=== PATIENT | male | born 1945 | race Caucasian/White ===

== ENCOUNTER 2023-07-06 10:59 | Inpatient (IN) ==
--- NOTE | 2023-07-03 11:25 | PAT Medication Instructions ---
Medication Instructions Date of Service July 03, 2023 Home Medications aspirin 81 mg tablet,delayed release 81 mg PO QAM cilostazol 100 mg tablet 100 mg PO QAM levothyroxine 112 mcg tablet (Levoxyl) 112 mcg PO QAM lisinopril 10 mg tablet 10 mg PO QAM simvastatin 40 mg tablet 40 mg PO QAM clopidogrel 75 mg tablet (Plavix) 75 mg PO QAM ASK your prescriber and surgeon aspirin 81 mg tablet,delayed release 81 mg PO QAM cilostazol 100 mg tablet 100 mg PO QAM clopidogrel 75 mg tablet (Plavix) 75 mg PO QAM DO NOT take the morning of surgery lisinopril 10 mg tablet 10 mg PO QAM Take morning of surgery With a small sip of water, OTHERWISE NOTHING TO EAT OR DRINK AFTER MIDNIGHT: levothyroxine 112 mcg tablet (Levoxyl) 112 mcg PO QAM simvastatin 40 mg tablet 40 mg PO QAM Other Notes If you have any questions please call us at [phone] or [phone] or [phone] or [phone]
--- NOTE | 2023-07-04 11:58 | Anesthesiology Consultation ---
Date of Service July 04, 2023 Assessment & Plan (1) Encounter for pre-operative examination: Chart Review Chart Review: Acceptable Risk for Surgery (pending anesthesia review of unconfirmed EKG and anesthesia evaluation DOS ) and Patient seen in Pre Admission Testing - Preop EKG from 07/05/23 unconfirmed- will need reviewed by anesthesiologist DOS - Discussed case with Dr. Warner- due to nature of procedure- patient can proceed as scheduled Per PAT appt on 07/04/23, no recent Covid exposures, Covid related symptoms, or recent Covid positive tests. Will leave to surgeon's discretion if preop Covid testing needed Patient seen by cardio 06/27/23= Patient seen in cardio clinic due to outpatient ECHO revealing severe aortic stenosis with preserved LV function. Difficult to determine whether he is having progressive shortness of breath or fatigue with activity. Does not do a whole lot of activity. Activity limited due to pain in foot from prior injury. Having symptoms of amaurosis fugax and at least 3 episodes where he is lost part of his vision with black color for 3 to 4 minutes. Outpatient ophthalmology ordered carotid ultrasound which reveals severe common carotid disease with an inability to assess the internal carotid on the right side which is the site of visual changes. Put on cilostazol in the past for PAD but no claudication symptoms. Severe aortic stenosisdiscussed possible interventionusually severe aortic stenosis would require intervention with either symptoms or LV dysfunction or heart failure or decline in functional capacity. Difficult to determine functional capacity as patient has an active. Did discuss that carotid disease seems to be bigger issue at this point. We will continue to observe aortic stenosis and patient will follow-up if noticing changes. Will refer to vascular surgeon GUMARO. Will need carotid CTA and given the fact he has 3 episodes of amaurosis fugaxthis is concerning that carotid disease is significant/unstable. The challenge will be if he needs intervention in the safest way to do that with his severe aortic stenosis and probably significant CAD given his vascular disease. Aorta iliac study ordered. Patient started on aspirin 81 mg. We will follow-up in [address] Aguayo in office today Teaching & Discussion Pre-Anesthesia Teaching/Discussion Notes: Instructed NPO after midnight before surgery,except medications with 15 cc of water. Medication instructions provided according to the PAT guidelines. History Surgery Operation Date: 07/06/23 13:00 Proposed Procedures p Transcarotid Artery Revascularization Right Internal Carotid Artery - González Aguayo MD Height/Weight Height: 5 ft 11 in Weight: 92.9 kg Allergies Allergy/AdvReac Type Severity Reaction Status Date / Time Sulfa (Sulfonamide Allergy swelling/red Verified 06/30/23 08:32 Antibiotics) blotches around genitals Medications Home Medications Medication Instructions Recorded Confirmed Last Taken aspirin 81 mg tablet,delayed 81 mg PO QAM 11/21/22 06/30/23 12/26/22 release cilostazol 100 mg tablet 100 mg PO QAM 11/21/22 06/30/23 01/20/23 levothyroxine 112 mcg tablet 112 mcg PO QAM 11/21/22 06/30/23 01/23/23 06:30 (Levoxyl) lisinopril 10 mg tablet 10 mg PO QAM 11/21/22 06/30/23 01/23/23 06:30 simvastatin 40 mg tablet 40 mg PO QAM 11/21/22 06/30/23 01/23/23 06:30 clopidogrel 75 mg tablet (Plavix) 75 mg PO QAM 06/30/23 06/30/23 Unknown Past Medical History Medical History (Updated 07/05/23 @ 08:57 by Beverly Durant PA-C) Aortic stenosis Severe per 06/22/23 ECHO (preserved LV systolic function) Seen by Dr. Nassar 06/27/23 Carotid artery disease s/p left CEA 2009 per 06/28/23 neck CTA- <50% stenosis to left ICA, 80% stenosis of right ICA Chronic kidney disease, stage 3a monitor by [facility] baseline creat 1.6 Hyperlipidemia Hypertension Hypothyroidism Stroke 1992, [place], [place], residual shaking on right side Transient visual loss of right eye Per records Reason for upcoming carotid procedure Exercise / Class Metabolic Activity III < 4 Walking/Shop/Light housework Past Surgical History Surgical History (Updated 07/03/23 @ 11:27 by Beverly Durant PA-C) History of carotid endarterectomy left side, 2009, Zee Stark [facility] History of left cataract surgery History of right cataract surgery History of surgical removal of skin lesion lumps on back of knee at age 35 Hx of colonoscopy Hx of tonsillectomy Past Anesthesia History No Hx of Anesthesia Complications and No Family Hx of Anesthesia Complications History of PONV No Hx of PONV and No Hx of Motion Sickness Social History Smoking Status: Former smoker tobacco type: cigarettes Do You Dip or Chew Tobacco: No Smoking End Date: quit 2010 Hx Alcohol Use: Yes Alcohol type: hard liquor alcohol intake frequency: 0-2 drinks per day (2 drinks/day ) Hx Substance Use: No substance use type: does not use Review of Systems Patient denies chest pain, shortness of breath, dyspnea on exertion, reflux, cough, wheezing, palpitations. No hx of seizures, IN, apnea/snoring. No hx of blood clots or blood transfusions Physical Exam Vital Signs VITALS BP 150/77 P 78bpm TEMP 97.4 SP02 94% RESP 16 Constitutional no acute distress ENMT Mouth: no TMJ clicking Thyromental Distance: > or= 3.5 Finger Breadths (3.5) Mallampati Class: II Full dentures on top and bottom Neck + limited neck extension Respiratory normal respiratory effort; no respiratory distress Auscultation: lungs clear to auscultation bilaterally; no wheezes Cardiovascular Rate/Rhythm: regular rate and regular rhythm Heart Sounds: + murmur (IV/ murmur ) Vessels: + carotid bruit (bilateral- R>L) Musculoskeletal Spine: + pain with cervical ROM (mild) Extremities: extremities normal to inspection Psychiatric Orientation: alert Lab Results Anesthesia Preop Results Results Anesthesia Widget: WBC 4.75 K/ul (4.8-10.8) L 07/04/23 Hgb 14.2 g/dl (14.0-18.0) 07/04/23 Hct 40.9 % (42.0-52.0) L 07/04/23 Plt 144 K/uL (130-400) 07/04/23 Na 138 mmol/L (136-145) 07/04/23 K 4.1 mmol/L (3.5-5.1) 07/04/23 Cl 105 mmol/L (98-107) 07/04/23 CO2 27 mmol/L (21-32) 07/04/23 BUN 18 mg/dl (6-23) 07/04/23 Creat 1.46 mg/dl (0.6-1.4) H 07/04/23 Glucose Level 160 mg/dl (70-99(Fasting)) H 07/04/23 PT 11.3 Seconds (9.0-12.0) 07/04/23 PTT 28.2 Seconds (21.0-31.0) 07/04/23 INR 1.0 (0.9-1.1) 07/04/23 Urine Color Yellow 06/27/23 Urine Appearance Clear (Clear) 06/27/23 Urine pH 6.5 (4.5-7.5) 06/27/23 Urine Specific [place] 1.016 (1.000-1.030) 06/27/23 Urine Protein 1+ (Negative) H 06/27/23 Urine Glucose (UA) Negative (Negative) 06/27/23 Urine Ketones Negative (Negative) 06/27/23 Urine Blood 1+ (Negative) H 06/27/23 Urine Nitrite Negative (Negative) 06/27/23 Urine Bilirubin Negative (Negative) 06/27/23 Urine Urobilinogen Negative (Negative) 06/27/23 Urine Leukocyte Esterase 1+ (Negative) H 06/27/23 Urine WBC (Auto) 10-30 /hpf (0-5) H 06/27/23 Urine RBC (Auto) 5-10 /hpf (0-4) H 06/27/23 Urine Hyaline Casts (Auto) 0 /lpf (0-5) 06/27/23 Urine Epithelial Cells (Auto) >30 /lpf (0-5) H 06/27/23 Urine Bacteria (Auto) Negative (Negative) 06/27/23 Blood Type O Positive 07/04/23 Antibody Screen NEGATIVE 07/04/23 Testing Electrocardiogram Date: 07/04/23 Findings: + NSR @ (78bpm) unconfirmed Chest X-Ray Date: 07/04/23 FINDINGS: PA and lateral chest radiographs are obtained. No prior studies are available for comparison at the time of dictation. The heart is enlarged noting atherosclerotic calcification of the thoracic aorta. The pulmonary vasculature is noncongested. Emphysematous changes noted. There is bibasilar scarring/atelectasis. Additional foci of parenchymal scarring are seen throughout both lungs. No airspace consolidation or pleural effusion is identified. There is no pneumothorax. The skeletal structures are osteopenic. The bony thorax appears intact. Degenerative change is noted in the shoulders and spine. IMPRESSION: Cardiomegaly and emphysema with no active disease in the chest. Echocardiogram Date: 06/22/23 EF: >75% RWMA: + none Other Findings: + diastolic dysfunction (Grade 1 DD) Normal LV size. Hyperdynamic left ventricular systolic function Mild (posterior wall1.2 cm) moderate (septum1.5 cm) concentric LVH. No evidence of LVOT obstruction with and without provocative maneuvers. Normal RV size and function. Normal biatrial size Heavily calcified aortic valve with severe aortic stenosis (AV mean PG 43 mmHg; AV peak velocity 4.28 m/s; GALA 0.5-0.6cm2; GALA index 0.23 cm/m) Mild MR. Normal estimated PASPPASP 24 mmHg Other Testing Neck CTA 06/28/23= Severe atherosclerosis with areas of high-grade stenosis within the right common and internal carotid artery. There is approximately 70% stenosis of the right common carotid arterysecondary to irregular focal narrowing with atherosclerotic plaque versus carotid web or less likely a chronic dissection. 80% stenosis of the proximal cervical segment of right ICA. There is less than 50% stenosis of the left common and internal carotid arteries. High-grade stenosis at the origin of the vertebral arteries. Pulmonary emphysema. Holter monitor 06/28/2023 = basic rhythm was NSR with sinus arrhythmia. Very rare PVCs. Occasional PACs. Rare atrial pairs and short runs of PAT. No pauses greater than 3 seconds or evidence of AV block.
--- NOTE | 2023-07-05 16:39 | History & Physical Report ---
Date of Service July 05, 2023 History of Present Illness Primary Care Provider: Luna Argueta MD Reason for Consultation Right internal carotid artery stenosis with amaurosis fugax History of Present Illness I had the pleasure of seeing Sukhjinder today for evaluation of his carotid disease. As you know he is a 78-year-old gentleman with severe aortic stenosis. He has had a left carotid endarterectomy many years ago. At this point he is developed what he describes as a blackness that occurs intermittently in the right eye. It is happened at least twice in the past the last being a couple weeks prior to this. He describes it as a shade coming over his eye which last 2 to 3 minutes and then totally resolves. He denies any other focal neurological deficits at that time. He denies any upper or lower extremity claudication. Review of Systems 10 systems were reviewed. There were no positive findings other than the HPI. Physical Exam Vitals & Measurements HR: 85 (Monitored) BP: 136/70 SpO2: 96% Input and Output - Last 24 hours (Last 8 hours) No I/O Data Found: On exam he is awake alert and oriented x3. He is in no apparent distress. His blood pressure is 160/68 on the left and 136/70 on the right. Radials and carotids are +2 bilaterally. There is a easily heard right carotid bruit. Abdominal exam is benign. I cannot appreciate a pulsatile mass. His heart had a regular rate and rhythm. His lungs are clear to auscultation. Lower extremity exam shows no evidence of acute ischemic changes. There are no ulcerations. Capillary refill is normal both lower extremities. Femorals are +2 bilaterally and pedal's are +1 bilaterally. Neurologic exam is intact to motor and sensory function. Diagnostic Results CT angiogram shows a severe stenosis of the common carotid artery just before the bifurcation and elevated significant stenosis right at the right common carotid bifurcation extending to the external carotid artery origin. Assessment/Plan 1. Carotid artery bruit 2. Carotid stenosis At this point carotid intervention was recommended. We went over both the endarterectomy and TCAR procedures. Due to his aortic stenosis we favor the TCAR procedure on the cervical block versus endarterectomy. He understands the risks options and benefits and agreed with this procedure. We will start him on Plavix and have him have a platelet function test to make sure he is a responder to the Plavix prior to surgery. Keep you informed as to his results. Thank you very much for letting us participate in the care of this patient. Sincerely, Mana Aguayo MD Problem List/Past Medical History Ongoing Aortic stenosis Carotid artery bruit Carotid stenosis History of CVA (cerebrovascular accident) Hyperlipidemia Hypertension Hypothyroidism Tremor of right hand Medications Home aspirin(aspirin 81 mg oral capsule), 81 mg= 1 cap, PO, q24h, 11 refills cilostazol(cilostazol 100 mg oral tablet), 100 mg= 1 tab, PO, Daily, 5 refills clopidogrel(Plavix 75 mg oral tablet), 75 mg= 1 tab, PO, Daily, 11 refills levothyroxine(levothyroxine 112 mcg (0.112 mg) oral tablet), 112 mcg= 1 tab, PO, Daily, 5 refills lisinopril(lisinopril 10 mg oral tablet), 10 mg= 1 tab, PO, Daily, 5 refills simvastatin(simvastatin 40 mg oral tablet), 40 mg= 1 tab, PO, Daily Allergies sulfa drugs hives Social History Smoking Status Former Smoker, quit > 1 yr Tobacco - Denies Tobacco Use Use:Former smoker Stopped at age:65Years Family History Dementia: Mother. Heart disease: Father. Heart failure: Father. Heart murmur: Father. Osteoporosis: Mother. Health Status Family Member(s) Signature Line Electronic Signature on File González Aguayo MD Author Signature Dt/Tm: 06/29/2023 10:33 AM Color Print Inspector [facility] [place], [address] [place], [place] [address] Result Type: .Outpt Ltr Date of Service: June 29, 2023 10:29 EDT Authorization Status: Final Subject: Consult Note Author or Import Date: MD Aguayo Eugene J on June 29, 2023 10:33 EDT Verified By: MD Aguayo Eugene J on June 29, 2023 10:33 EDT Encounter info: [id number], [facility], Clinic, 06/29/2023 - 06/29/2023 Allergies Allergy/AdvReac Type Severity Reaction Status Date / Time Sulfa (Sulfonamide Allergy swelling/red Verified 06/30/23 08:32 Antibiotics) blotches around genitals Home Medications Medication Instructions Recorded Confirmed Type aspirin 81 mg tablet,delayed 81 mg PO QAM 11/21/22 06/30/23 History release cilostazol 100 mg tablet 100 mg PO QAM 11/21/22 06/30/23 History levothyroxine 112 mcg tablet 112 mcg PO QAM 11/21/22 06/30/23 History (Levoxyl) lisinopril 10 mg tablet 10 mg PO QAM 11/21/22 06/30/23 History simvastatin 40 mg tablet 40 mg PO QAM 11/21/22 06/30/23 History clopidogrel 75 mg tablet (Plavix) 75 mg PO QAM 06/30/23 06/30/23 History Past Med/Surg History Medical History (Updated 07/05/23 @ 08:57 by Beverly Durant PA-C) Aortic stenosis Severe per 06/22/23 ECHO (preserved LV systolic function) Seen by Dr. Nassar 06/27/23 Carotid artery disease s/p left CEA 2009 per 06/28/23 neck CTA- <50% stenosis to left ICA, 80% stenosis of right ICA Chronic kidney disease, stage 3a monitor by [place] [facility] baseline creat 1.6 Hyperlipidemia Hypertension Hypothyroidism Stroke 1992, [place], [place], residual shaking on right side Transient visual loss of right eye Per records Reason for upcoming carotid procedure Surgical History (Updated 07/03/23 @ 11:27 by Beverly Durant PA-C) History of carotid endarterectomy left side, 2009, Zee Stark PA History of left cataract surgery History of right cataract surgery History of surgical removal of skin lesion lumps on back of knee at age 35 Hx of colonoscopy Hx of tonsillectomy Social History Smoking Status: Former smoker Smoking End Date: quit 2010; Second Hand Exposure: No; Do You Dip or Chew Tobacco: No; Tobacco Cessation Education Requested by Patient: No Hx Alcohol Use: Yes Alcohol type: hard liquor Hx Substance Use: No Preferred Language: Malawian Communication Ability: Effective Visual Developer Required: No Beliefs That Will Affect Care: None Current Living Situation: Spouse Other Information That Helps Us Care for You: No Feels Safe at Home: Yes Safety Concerns: Feels Safe At This Time Assistive Devices: None
[~2023-07-06 10:59] MED LIST: CEFAZOLIN 2,000 MG/15 ML SYR IV SCH; LACTATED RINGER'S 1,000 ML BAG IV SCH
--- NOTE | 2023-07-06 12:02 | History & Physical Bridge Note ---
Date of Service July 06, 2023 History & Physical Bridge Note I have examined the patient, reviewed the History & Physical and in the interval since the performance of the History & Physical I have noted the following changes of clinical significance: no changes noted
[2023-07-06] MEDS ORDERED: PHENYLEPHRINE HCL 25 MG/250 ML NSS IV ONE (12:07)
[2023-07-06] MEDS ORDERED: ePHEDrine sulfate 50 MG/ML AMP IV PRN (12:10)
[2023-07-06] MEDS ORDERED: ATROPINE SULFATE 0.1 MG/ML 10ML SYR IV PRN (12:10)
[2023-07-06] MEDS ORDERED: HYDROmorphone INJ 1 MG/ML SYRINGE IV PRN (12:10)
[2023-07-06] MEDS ORDERED: PHENYLEPHRINE/NSS 25 MG/250 ML BAG IV PRN (12:10)
[2023-07-06] MEDS ORDERED: ONDANSETRON INJ 2 MG/ML 2 ML VIAL IV PRN ×2 (12:10→17:36)
[2023-07-06] MEDS ORDERED: fentaNYL citrate PF 100 MCG/2 ML VIAL IV PRN (12:10)
[2023-07-06] MEDS ORDERED: ceFAZolin 330 MG/ML 1 GM VIAL ONE (12:17)
[2023-07-06] MEDS ORDERED: GELATIN SPONGE SZ 100 ONE (12:17)
[2023-07-06] MEDS ORDERED: BUPIVACAINE/EPINEPHRINE 0.5% MPF 1:200,000 30 ML VIAL ONE (12:17)
[2023-07-06] MEDS ORDERED: fentaNYL citrate PF 100 MCG/2 ML VIAL ONE ×2 (12:33→15:21)
[2023-07-06] MEDS ORDERED: SURGICEL ABSORB HEMOSTAT 2IN X 14IN TOP ONE (14:29)
[2023-07-06] MEDS ORDERED: VISIPAQUE IV ONE (14:30)
[2023-07-06] MEDS: THROMBIN FOR SOLN 20000 UNIT KIT ONE ×2 (15:19→15:31)
[2023-07-06] MEDS ORDERED: PROPOFOL IV EMULSION 10 MG/ML 20 ML VIAL IV ONE (15:20)
[2023-07-06] MEDS ORDERED: LIDOCAINE 2% 2 ML VIAL/AMP(20MG/ML) INFIL ONE (15:20)
[2023-07-06] MEDS ORDERED: ROCURONIUM BROMIDE 10 MG/ML 5 ML VIAL IV ONE ×5 (15:20)
[2023-07-06] MEDS ORDERED: GLYCOPYRROLATE 0.2 MG/ML VIAL ONE (15:21)
[2023-07-06] MEDS ORDERED: HEPARIN SOD (PORCINE) 1000 UNIT/ML ONE (15:21)
[2023-07-06] MEDS ORDERED: DEXAMETHASONE SOD INJ 4 MG/ML VIAL ONE (15:21)
[2023-07-06] MEDS ORDERED: PROTAMINE SULFATE 10 MG/ML 5 ML VIAL IV ONE (15:21)
[2023-07-06] MEDS ORDERED: ONDANSETRON INJ 2 MG/ML 2 ML VIAL ONE ×2 (15:21)
[2023-07-06] MEDS ORDERED: VASOPRESSIN 20 UNIT/ML VIAL ONE (15:21)
[2023-07-06] MEDS ORDERED: SUGAMMADEX SODIUM 200 MG/2 ML VIAL IV ONE (15:30)
--- NOTE | 2023-07-06 15:43 | Post Operative Brief Note ---
Immediate Post Op Note v1 Date of Surgery July 06, 2023 Pre & Post Diagnosis Operation Date: 07/06/23 13:00 Pre-Op Diagnosis: Symptomatic right internal carotid artery stenosis Post-Op Diagnosis: Symptomatic right internal carotid artery stenosis I identified the patient and participated in the time-out.: Yes Procedure Operation Date: 07/06/23 13:00 Actual Procedures p Transcarotid Artery Revascularization Right Internal Carotid Artery(Right), ultrasound right common femoral vein - González Aguayo MD Surgeon González Aguayo MD Mechanical Service Specialist Lynda Blake MD Estimated Blood Loss 50 Findings Consistent with Post-Op Diagnosis Anesthesia Type General Complications none Disposition Accompanied Patient To Recovery: No Disposition: Recovery Room
--- NOTE | 2023-07-06 16:09 | Procedure Note ---
Angiogram Post Procedure Fluoroscopy Time (minutes): 5.4 Radiation (mGy): 48 Contrast: 10 Post Operative Report Pre & Post Diagnosis Operation Date: 07/06/23 13:00 Pre-Op Diagnosis: Symptomatic right internal carotid artery stenosis Post-Op Diagnosis: Symptomatic right internal carotid artery stenosis I identified the patient and participated in the time-out.: Yes Procedure Operation Date: 07/06/23 13:00 Actual Procedures p Transcarotid Artery Revascularization Right Internal Carotid Artery(Right) - González Aguayo MD Surgeon González Aguayo MD Dairy Equipment Repairer Lynda Blake MD Estimated Blood Loss 50 Findings See Below Patent common carotid and ICA artery follow stent placement without signs of dissection or thrombosis. Specimens none Drains none Anesthesia Type General Complications none Disposition Accompanied Patient To Recovery: Yes Disposition: Surgical ICU Indications symptomatic Right carotid stenosis Description of Procedure Patient was brought to the operating room and placed on the operating table in supine position. General anesthesia induced and an ET tube placed. An a- line had previously been placed in the preoperative area. A surgical time out was performed to identify patient, procedure site, indications, and allergies. The patient's head was the turned to the left and the ET tube was secured to the left. The patient's right neck and bilateral groins were prepped and draped in a sterile manner. The patient had a 7 cm transverse incision just above the right clavicle using a 10 blade. Using sharp and blunt dissection as well as Bovie electrocautery the subcutaneous tissue and the platysma muscle was incised transversely. The two heads of the SCM were vertically and the common carotid artery was identified. This was deep in the wound bed. The vagus nerve was also identified posterior to the artery. An umbilical tape was placed under the common carotid. A 5-0 Prolene stitch in a u fashion was placed in the common carotid artery. This was secured in place on a shod. At this time 9000U of heparin was given to the patient. After 2-3 minutes an ACT was obtained which was 251. Under ultrasound guidance the right common femoral vein was accessed with an 18 gauge needle and a Tao wire was inserted. Then the needle was exchanged for an 8 central african sheath and the sheath was secured to the skin with a silk suture. A TCAR time out was performed. The micropuncture system was used to access the common carotid, the dilator and wire were removed and a cerebral angiogram was performed. The microwire and dilator were removed and exchanged for the stiff J wire. The TCAR sheath was exchanged for the micropuncture sheath. The TCAR sheath was secured to the skin using multiple silk sutures. After the J wire and dilator were removed. The flow reversal system was connected between the arterial sheath in right common carotid and the right common femoral vein. The right common carotid artery was clamped the umbilical tape and a Remmele. Reversal of flow was confirmed using saline flushes following clamping of the common carotid. Another cerebral angiogram was performed. Using the monorail system a 5x30 balloon was placed across the common into internal bifurcation and was used to predilate the lesion. The balloon was taken to nominal pressure. Then the balloon was exchanged for a 7x40 stent which was deployed across the right internal carotid into the right common carotid. A 8x40 stent was then deployed over lapping with the 7x40 further into the common carotid. There was residual stenosis of the stent therefore a 5.5x25 balloon was used to postdilate the proximal portion of the stent which improved the stenosis. After waiting 2 minutes of reversal of blood flow following stent manipulation cerebral angiogram were performed in 2 projections with demonstrated patent stent and no signs of dissection or thrombosis. The wire access was removed. The common carotid artery was unclamped. The flow reversal system was disconnected and the blood was returned to the patient. The U stitch was tied as the sheath was removed from the common carotid artery. Hemostasis of the access site was obtained using Surgicel. The patient was given 25mg of protamine at this time. After 2-3 minutes an ACT was obtained which was 138.. The venous sheath was removed and pressure was held to obtain hemostasis. In the neck various muscle and subcutaneous oozing was controlled using Bovie electrocautery. The subcutaneous tissue was closed using a 3-0 Vicryl and the skin was closed using a 4-0 Vicryl. The patient was awoken from general anesthesia was was able to move all limbs. The patient was taken to the PACU for recovery. All needle and sponge counts were correct at the end of the procedure. Dr. Aguayo was present and scrubbed for the entire procedure. I attest to the content of the Intraoperative Record and any orders documented therein. Any exceptions are noted below.
[2023-07-06] MEDS ORDERED: oxyCODONE/ACETAMINOPHEN 5mg/325mg TAB PO PRN (17:36)
[2023-07-06] MEDS ORDERED: PHENYLEPHRINE/NSS 25 MG/250 ML BAG IV SCH (17:36)
[2023-07-06] MEDS ORDERED: STAT IV Infusion **Titration per Protocol STA ×2 (17:36→19:33)
--- NOTE | 2023-07-06 17:47 | Anesthesiology Progress Note ---
Date of Service July 06, 2023 Anesthesia Post Procedure Vital Signs Vital Signs: Temp Pulse Pulse Resp BP BP BP 07/06/23 17:05 91 H 17 115/56 L 07/06/23 16:55 92 H 18 90/46 L 07/06/23 16:45 90 18 98/59 L 07/06/23 16:35 36.1 C L 92 H 18 109/51 L 07/06/23 16:25 93 H 17 108/49 L 07/06/23 16:15 93 H 17 108/48 L 07/06/23 16:05 36.0 C L 93 H 19 113/61 07/06/23 11:19 36.3 C L 69 20 165/88 H Pulse Ox O2 Del Method O2 Flow Rate 07/06/23 17:05 94 Nasal Cannula 2 07/06/23 16:55 94 Nasal Cannula 2 07/06/23 16:45 94 Nasal Cannula 2 07/06/23 16:35 94 Nasal Cannula 2 07/06/23 16:25 94 Nasal Cannula 2 07/06/23 16:15 94 Oxymask 5 07/06/23 16:05 94 Oxymask 5 07/06/23 11:19 97 Room Air Transfer of Care Handoff Completed per policy Notes Mental Status: alert / awake / arousable and participated in evaluation Patient Amnestic to Procedure: Yes Nausea / Vomiting: adequately controlled Pain: adequately controlled Airway Patency, RR, SpO2: stable & adequate BP & HR: stable & adequate and see Notes below Hydration State: stable & adequate Anesthetic Complications: no major complications apparent and Pt Satisfied with anesthetic care Notes: Patient had phenylephrine ggt restarted to maintain normal postoperative BP in setting of TCAR procedure. He was transferred to ICU as per protocol and will remain at least overnight.
[2023-07-06] MEDS: LACTATED RINGER'S 1,000 ML IV SCH (18:26)
[2023-07-06] MEDS ORDERED: niCARdipine 25 MG in SODIUM CHLORIDE 0.9% 240 ML IV SCH (19:45)
--- NOTE | 2023-07-06 20:47 | Critical Care Consultation ---
Date of Consultation July 06, 2023 Assessment & Plan (1) Carotid artery stenosis: (2) Aortic stenosis: (3) Hypertension: (4) Hyperlipidemia: (5) Chronic kidney disease, stage 3a: (6) Hypothyroidism: Plan Reason Critically Ill: 78 YOM admitted to undergo RIGHT TCAR secondary to sympotmatic TEODORO stenosis. He is POD #0 and in the ICU currently without hemodynamic support or respiratory support needed at this time. Neuro - FUGAX, S/P TCAR RIGHT, HX of CVA CAM ICU: NEGATIVE - s/p RIGHT TCAR- no hematoma at either carotid or femoral sites - ASA/Plavix per vascular - no deficits at this time and no issues with voice or swallowing - continue with nuerological exams Cardiac - Aortic Stenosis, HTN, HLD, HFpEF - Restart MARTA/ARB when hemodynamics proven stable, follow renal indices - His Aortic Stenosis on most recent ECHO with mean gradient of 43 and index of 0.23- following [facility] Cardiology Dr. Nassar - Neurovascular exams postoperative - Continue statin Respiratory - Previous smoker 1-2 PPD for 50 years - Wean oxygen - No inhalers at home and no previous PFTs for review - No acute needs GI - No acute needs - Advance diet as tolerated RENAL/LYTES - CKD III - LOGISTICS INTERN levels available for review in our system is with LOGISTICS INTERN 1.5 and 1.4- both drawn 06/28 - Follow daily BMPs - maintain electrolytes per ICU protocol - No acute needs - voiding well after surgery ENDO - Hypothyroidism - no acute needs - continue synthroid HEME - No acute needs ID - No concern for infective process LINES/IV ACCESS - PIV, Arterial line Continue use of these lines DVT PROPHYLAXIS - SCDS, hold chemoprophylaxis until hemostasis is ensured by primary surgical service DISPO: ICU while monitoring hemodynamics and neurological status postoperative I have personally spent 45 minutes of critical care time in the direct management of this patient. This is a life/limb threatening event. This includes time spent evaluating patient, direct bedside care, chart review, placing orders, interpretation of diagnostic studies, discussion with consultants, patient, and family members, as well as other required patient management activities. This time is exclusive of all separately billable procedures, and separate from and in addition to any other critical care service time. Thank you for allowing us to participate in the care of this patient. Please refer to my attending physician's documentation for any further recommendations. Supervising Physician Co-Signing Physician Notes I saw and evaluated the patient with HUNTER Sherman, and I agree with his findings and plan as documented in the note. ASSESSMENT/PLAN: 1. S/P Right TCAR -Symptomatic carotid artery stenosis -ASA/Plavix -High Intensity Statin 2. Aortic STenosis per ECHO -continue home meds 3. CKD-Stage III -follow electrolytes -avoid nephrotoxic agents 4. Hypothyroid -continue Synthroid I have spent more than 50% of this encounter in counseling and/or coordination of care with patient. History of Present Illness Reason for Consultation: S/P RIGHT TCAR Requesting Physician: González Aguayo MD Attending Physician: González Aguayo MD History of Present Illness 78 YOM POD#0 from RIGHT TCAR secondary to symptomatic TEODORO stenosis. Patient has medical history of: Severe Aortic Stenosis, CVA (age 48), Left CEA 2014, Fugax of right eye, CKD, Hypothyroidism, previous smoker, LVH, HFpEF. Patient was referred to vascular surgery secondary to screening for his fugax revealed severe TEODORO stenosis. He underwent TCAR today by Dr. Aguayo. He is in the ICU postoperative awake, no hematoma at neck or groin, he is not on any vasoactive medications at this time. EBS from surgery was estimated at 50ml. Continue ICU postoperative care with following of hemodyamics, neurological exams, and vascular checks. CODE: FULL Allergies Allergy/AdvReac Type Severity Reaction Status Date / Time Sulfa (Sulfonamide Allergy swelling/red Verified 07/06/23 11:30 Antibiotics) blotches around genitals Home Medications Medication Instructions Recorded Confirmed Type aspirin 81 mg tablet,delayed 81 mg PO QAM 11/21/22 07/06/23 History release cilostazol 100 mg tablet 100 mg PO QAM 11/21/22 07/06/23 History levothyroxine 112 mcg tablet 112 mcg PO QAM 11/21/22 07/06/23 History (Levoxyl) lisinopril 10 mg tablet 10 mg PO QAM 11/21/22 07/06/23 History simvastatin 40 mg tablet 40 mg PO QAM 11/21/22 07/06/23 History clopidogrel 75 mg tablet (Plavix) 75 mg PO QAM 06/30/23 07/06/23 History oxycodone-acetaminophen 5 mg-325 1 tab PO Q6 PRN Pain #20 tabs 09/01/23 Rx mg tablet (Percocet) Patient History Medical History (Updated 07/07/23 @ 09:03 by González Aguayo MD) Aortic stenosis Severe per 06/22/23 ECHO (preserved LV systolic function) Seen by Dr. Nassar 06/27/23 Carotid artery disease s/p left CEA 2009 per 06/28/23 neck CTA- <50% stenosis to left ICA, 80% stenosis of right ICA Chronic kidney disease, stage 3a monitor by [place] neph[facility] baseline creat 1.6 Hyperlipidemia Hypertension Hypothyroidism Stroke 1992, [place], [place], residual shaking on right side Transient visual loss of right eye Per records Reason for upcoming carotid procedure Surgical History History of carotid endarterectomy left side, 2009, Zee Stark [facility] History of left cataract surgery History of right cataract surgery History of surgical removal of skin lesion lumps on back of knee at age 35 Hx of colonoscopy Hx of tonsillectomy Family History (Updated 07/06/23 @ 20:46 by HUNTER Crane) Other Dementia Heart disease Hypertension Myocardial infarction Osteoporosis Social History Smoking Status: Former smoker Smoking End Date: quit 2010; Second Hand Exposure: No; Do You Dip or Chew Tobacco: No; Tobacco Cessation Education Requested by Patient: No Hx Alcohol Use: Yes Alcohol type: hard liquor Hx Substance Use: No Preferred Language: [place] Islander Communication Ability: Effective Opto Mechanical Technician Required: No Beliefs That Will Affect Care: None Current Living Situation: Spouse Other Information That Helps Us Care for You: No Feels Safe at Home: Yes Safety Concerns: Feels Safe At This Time Assistive Devices: None Review of Systems Review of Systems: REVIEW OF SYSTEMS: Constitutional: No fever, sweats or chills Eyes:(+) fugax ENT: (+) difficulty hearing, Scratchy throat, no trouble swallowing Respiratory: (+) dyspnea with exertion, chronic smoker, No cough, sputum, Cardiovascular: No chest pain, tightness or palpitations Abdomen: No pain, nausea, vomiting, diarrhea or constipation Musculoskeletal: No joint pain Neurologic: No weakness, numbness/tingling, or balance problems Psychiatric: No anxiety or depression Skin: No rash or itch Physical Exam Physical Exam: PHYSICAL EXAM: General: awake, alert, no apparent distress Head: Normocephalic, atraumatic ENT: PERRL, EOMI, no pharyngeal exudate, mucous membranes moist Neuro: AAO x 3, speech clear and appropriate, strength intact bilaterally 5/5, sensation intact and equal all extremities and dermatomes, no pronator drift Chest: equal rise and fall of the chest, no accessory muscle use, no heaves or thrills, Clear to auscultation, on room air, Cardiac: Regular rate and rhythm, telemetry reviewed, skin warm dry, cap refill <3 seconds, peripheral pulses +2 no JVD, Grade III systolic murmur, no edema, no hematoma at right groin with good pulse, GI: NABS x 4 quadrants, soft, nontender to palpation, no rebound, guarding or tenderness : Spontaneously voiding, no pain, no CVA tenderness, Extremities: Normal inspection, no peripheral edema or erythema, calfs nontender to palpation Psych: Normal mood and affect Skin: incision to right neck intact without hematoma or drainage, no rash or erythema Results & Data Results & Data Vital Signs (Past 12 Hours) Vital Signs Temp Pulse Pulse Pulse Resp BP BP 07/06/23 20:15 95 H 13 07/06/23 20:00 81 13 07/06/23 19:45 87 16 07/06/23 19:36 36.7 C 07/06/23 18:00 07/06/23 19:40 87 18 07/06/23 19:30 95 H 11 L 07/06/23 19:20 94 H 13 07/06/23 19:10 86 0 L 07/06/23 19:00 81 0 L 07/06/23 19:00 162/80 H 07/06/23 18:50 77 12 07/06/23 18:40 76 13 07/06/23 18:30 71 10 L 07/06/23 18:20 74 8 L 07/06/23 18:10 80 12 07/06/23 18:00 86 20 07/06/23 18:00 122/73 07/06/23 17:50 79 6 L 07/06/23 17:40 84 20 07/06/23 17:39 85 18 07/06/23 17:05 91 H 17 07/06/23 16:55 92 H 18 07/06/23 16:45 90 18 07/06/23 16:35 36.1 C L 92 H 18 07/06/23 16:25 93 H 17 07/06/23 16:15 93 H 17 07/06/23 16:05 36.0 C L 93 H 19 113/61 07/06/23 11:19 36.3 C L 69 20 BP BP Pulse Ox O2 Del Method O2 Flow Rate 07/06/23 20:15 97 07/06/23 20:00 07/06/23 19:45 95 07/06/23 19:36 07/06/23 18:00 Nasal Cannula 2 07/06/23 19:40 94 07/06/23 19:30 95 07/06/23 19:20 95 07/06/23 19:10 96 07/06/23 19:00 96 07/06/23 19:00 07/06/23 18:50 97 07/06/23 18:40 97 07/06/23 18:30 97 07/06/23 18:20 07/06/23 18:10 95 07/06/23 18:00 94 07/06/23 18:00 07/06/23 17:50 95 07/06/23 17:40 95 07/06/23 17:39 95 07/06/23 17:05 115/56 L 94 Nasal Cannula 2 07/06/23 16:55 90/46 L 94 Nasal Cannula 2 07/06/23 16:45 98/59 L 94 Nasal Cannula 2 07/06/23 16:35 109/51 L 94 Nasal Cannula 2 07/06/23 16:25 108/49 L 94 Nasal Cannula 2 07/06/23 16:15 108/48 L 94 Oxymask 5 07/06/23 16:05 94 Oxymask 5 07/06/23 11:19 165/88 H 97 Room Air Laboratory Results Abnormal lab results 07/06/23 Range/Units 14:44 Activ Coag Time Kaolin 251 H (94-140) SECONDS Medications Administered Home Medications aspirin 81 mg tablet,delayed release 81 mg PO [facility] 11/21/22 [History Confirmed 07/06/23] cilostazol 100 mg tablet 100 mg PO [facility] 11/21/22 [History Confirmed 07/06/23] levothyroxine 112 mcg tablet (Levoxyl) 112 mcg PO [facility] 11/21/22 [History Confirmed 07/06/23] lisinopril 10 mg tablet 10 mg PO [facility] 11/21/22 [History Confirmed 07/06/23] simvastatin 40 mg tablet 40 mg PO [facility] 11/21/22 [History Confirmed 07/06/23] clopidogrel 75 mg tablet (Plavix) 75 mg PO QAM 06/30/23 [History Confirmed 07/06/23] Active Medications Aspirin (Aspirin 81 Mg Ectab) 81 mg PO [facility] Stop: 08/06/23 08:59 Cilostazol (Cilostazol 100 Mg Tab) 100 mg PO [facility] Stop: 08/06/23 08:59 Clopidogrel Bisulfate (Clopidogrel Bisulfate 75 Mg Tab) 75 mg PO [facility] Stop: 08/06/23 08:59 Cefazolin Sodium (Ancef 2000mg) 2,000 mg in 15 mls @ 3.75 mls/min IV Q8H [facility]; Protocol Stop: 07/07/23 08:03 Lactated Ringer's (Lr) 1,000 mls @ 100 mls/hr IV .Q10H [facility] Stop: 08/05/23 17:35 Last Admin: 07/06/23 18:26 Dose: 100 mls/hr Phenylephrine HCl (Phenylephrine/Nss) 25 mg in 250 mls @ 27.48 mls/hr IV .Q9H6M [facility]; Protocol Stop: 08/05/23 17:35 Last Titration: 07/06/23 19:15 Dose: 0 mcg/kg/min, 0 mls/hr Nicardipine HCl 25 mg/ Sodium (Chloride) 250 mls @ 50 mls/hr IV .Q5H [facility]; Protocol Stop: 08/05/23 19:44 Last Admin: 07/06/23 20:06 Dose: 5 mg/hr, 50 mls/hr Levothyroxine Sodium (Levothyroxine Sodium 112 Mcg Tablet) [facility] Stop: 08/06/23 06:29 Lisinopril (Lisinopril 10 Mg Tab) 10 mg PO [facility] Stop: 08/06/23 08:59 Ondansetron HCl (Ondansetron Inj 2 Mg/Ml 2 Ml Vial) 4 mg IV ONE PRN PRN Reason: Nausea And Vomiting Stop: 08/05/23 17:35 Oxycodone/Acetaminophen (Oxycodone/Acetaminophen 5mg/325mg Tab) 1 - 2 tab PO Q4H PRN PRN Reason: Pain (Scale 3,4,5,6) Stop: 07/20/23 17:35 Simvastatin (Simvastatin 40 Mg Tab) 40 mg PO QAM [facility] Stop: 08/06/23 08:59 Coding Level of Care Code 51890 CRITICAL CARE 1ST 30-74M Diagnoses Carotid artery stenosis I65.29 Aortic stenosis I35.0 Hypertension I10 Hyperlipidemia E78.5 Chronic kidney disease, stage 3a N18.31 Hypothyroidism E03.9
[2023-07-06] MEDS: ceFAZolin 2000MG 2,000 MG/15 ML SYR IV SCH (23:42)
[2023-07-07] MEDS: LACTATED RINGER'S 1,000 ML IV SCH (02:59)
[2023-07-07] MEDS ORDERED: LEVOTHYROXINE SODIUM 112 MCG TABLET PO SCH (06:30)
[2023-07-07] MEDS: ceFAZolin 2000MG 2,000 MG/15 ML SYR IV SCH (07:33)
[2023-07-07] MEDS ORDERED: CLOPIDOGREL BISULFATE 75 MG TAB PO SCH (09:00)
[2023-07-07] MEDS ORDERED: SIMVASTATIN 40 MG TAB PO SCH (09:00)
[2023-07-07] MEDS ORDERED: ASPIRIN 81 MG ECTAB PO SCH (09:00)
[2023-07-07] MEDS ORDERED: cilostazoL 100 MG TAB PO SCH (09:00)
[2023-07-07] MEDS ORDERED: lisinopril 10 MG TAB PO SCH (09:00)
--- NOTE | 2023-07-07 09:04 | Surgery Progress Note ---
Date of Service July 07, 2023 Assessment & Plan (1) Internal carotid artery stent present: Plan: Patient doing well post TCAR. No focal deficits. Does have moderate neck swelling. Will transfer to floor and check later today. If his swallowing discomfort improves may be able to be d/c later today. Admission and Anticipated Discharge Date Admission Date: July 06, 2023 Subjective Patient awake and eating upright in bed. Denies any focal deficits. Does have some discomfort with swallowing but not choking on food. Physical Exam Constitutional: WD/WN, vitals as above Neck: trachea midline Respiratory: normal respiratory effort; no respiratory distress Cardiovascular: Rate/Rhythm: regular rate and regular rhythm Musculoskeletal: no cyanosis or clubbing, extremities motor strength 5/5 Skin: + incision (moderate swelling across ant neck from incision) Neurologic: CN's II-XI intact bilaterally and moves all extremities Psychiatric: Orientation: alert and oriented x 3 Results & Data Vital Signs (Past 12 Hours) Vital Signs Temp Pulse Resp BP Pulse Ox O2 Del Method O2 Flow Rate 07/07/23 08:00 Nasal Cannula 2 07/07/23 08:00 36.7 C 07/07/23 08:00 Nasal Cannula 07/07/23 00:50 90 10 L 94 07/07/23 00:40 75 13 95 07/07/23 00:30 73 12 07/07/23 00:20 47 L 10 L 93 07/07/23 00:10 40 L 7 L 95 07/07/23 00:00 78 2 L 07/06/23 23:50 93 H 17 95 07/06/23 23:40 100 H 13 07/06/23 23:30 86 12 96 07/06/23 23:20 87 14 96 07/06/23 23:10 87 16 96 07/06/23 23:00 92 H 12 07/06/23 23:00 126/66 07/06/23 22:50 88 15 96 07/06/23 22:40 89 11 L 96 07/06/23 22:30 88 12 07/06/23 22:20 88 12 96 07/06/23 22:10 90 12 07/06/23 22:00 90 8 L 92 07/06/23 22:00 129/64 07/06/23 21:50 92 H 13 95 07/06/23 21:40 88 12 07/06/23 21:30 90 11 L 95 07/06/23 21:20 88 11 L 95 07/06/23 21:10 88 14 95 07/07/23 00:00 45 L FiO2 07/07/23 08:00 07/07/23 08:00 07/07/23 08:00 2 07/07/23 00:50 07/07/23 00:40 07/07/23 00:30 07/07/23 00:20 07/07/23 00:10 07/07/23 00:00 07/06/23 23:50 07/06/23 23:40 07/06/23 23:30 07/06/23 23:20 07/06/23 23:10 07/06/23 23:00 07/06/23 23:00 07/06/23 22:50 07/06/23 22:40 07/06/23 22:30 07/06/23 22:20 07/06/23 22:10 07/06/23 22:00 07/06/23 22:00 07/06/23 21:50 07/06/23 21:40 07/06/23 21:30 07/06/23 21:20 07/06/23 21:10 07/07/23 00:00
--- NOTE | 2023-07-07 15:15 | Critical Care Progress Note ---
Date of Service July 07, 2023 Assessment & Plan (1) Carotid artery stenosis: (2) Aortic stenosis: (3) Hypertension: (4) Hyperlipidemia: (5) Chronic kidney disease, stage 3a: (6) Hypothyroidism: Plan Reason Critically Ill: 78 YOM admitted to undergo RIGHT TCAR secondary to sympotmatic TEODORO stenosis. He is POD #0 and in the ICU currently without hemodynamic support or respiratory support needed at this time. Neuro - FUGAX, S/P TCAR RIGHT, HX of CVA CAM ICU: NEGATIVE - s/p RIGHT TCAR- no hematoma at either carotid or femoral sites - ASA/Plavix per vascular - no deficits at this time and no issues with voice or swallowing - continue with neurological exams -Vascular and neurology following Cardiac - Aortic Stenosis, HTN, HLD, HFpEF - Restart MARTA/ARB when hemodynamics proven stable, follow renal indices - His Aortic Stenosis on most recent ECHO with mean gradient of 43 and index of 0.23- following [facility] Cardiology Dr. Nassar - Neurovascular exams postoperative - Continue statin Respiratory - Previous smoker 1-2 PPD for 50 years - Wean oxygen - No inhalers at home and no previous PFTs for review - No acute needs -Wean oxygen as tolerated GI - No acute needs - Advance diet as tolerated RENAL/LYTES - CKD III - DISPLAY MANAGER levels available for review in our system is with DISPLAY MANAGER 1.5 and 1.4- both drawn 06/28 - Follow daily BMPs - maintain electrolytes per ICU protocol -Avoid nephrotoxic agents - No acute needs - voiding well after surgery ENDO - Hypothyroidism - no acute needs - continue synthroid HEME - No acute needs ID - No concern for infective process LINES/IV ACCESS - PIV, Arterial line Continue use of these lines DVT PROPHYLAXIS - SCDS, hold chemoprophylaxis until hemostasis is ensured by primary surgical service DISPO: ICU while monitoring hemodynamics and neurological status postoperative I have personally spent 51 minutes of time in the direct management of this patient. This is a life/limb threatening event. This includes time spent evaluating patient, direct bedside care, chart review, placing orders, interpretation of diagnostic studies, discussion with consultants, patient, and family members, as well as other required patient management activities. This time is exclusive of all separately billable procedures, and separate from and in addition to any other critical care service time. Thank you for allowing us to participate in the care of this patient. Please refer to my attending physician's documentation for any further recommendations. Admission and Anticipated Discharge Date Admission Date: July 06, 2023 Subjective Patient feeling much better says his vision has returned to normal, he is not complaining of any new motor he or sensory deficits. Resting comfortably on 2 L nasal cannula at this time. He has no new problems overnight or this morning. Review of Systems Review of Systems: REVIEW OF SYSTEMS: Constitutional: No fever, sweats or chills Eyes:(+) fugax ENT: (+) difficulty hearing, Scratchy throat, no trouble swallowing Respiratory: (+) dyspnea with exertion, chronic smoker, No cough, sputum, Cardiovascular: No chest pain, tightness or palpitations Abdomen: No pain, nausea, vomiting, diarrhea or constipation Musculoskeletal: No joint pain Neurologic: No weakness, numbness/tingling, or balance problems Psychiatric: No anxiety or depression Skin: No rash or itch Physical Exam Constitutional: WD/WN, vitals as above Eyes: PERRL, conjunctivae normal, anicteric sclerae ENMT: external ear and nose normal, oropharynx normal Neck: trachea midline, no thyromegaly Respiratory: normal respiratory effort, lungs clear to auscultation Cardiovascular: RRR, no murmur, no edema Gastrointestinal (Abdomen): normal bowel sounds, soft, nontender, no hepatosplenomegaly Musculoskeletal: no cyanosis or clubbing, extremities motor strength 5/5 Skin: no rashes, warm and dry Neurologic: patellar DTR's 2+ bilat, sensation intact and PERRL, EOMI, accommodation nl, no face palsy, no dysarthria Psychiatric: A+Ox3, euthymic affect Results & Data Results & Data Vital Signs (Past 12 Hours) Vital Signs Temp Pulse Pulse Pulse Resp BP BP 07/07/23 12:10 36.6 C 94 H 69 18 113/61 07/07/23 12:00 36.6 C 94 H 18 07/07/23 09:30 91 H 15 07/07/23 09:00 91 H 15 07/07/23 08:30 88 14 07/07/23 08:01 157/75 H 07/07/23 08:01 82 20 07/07/23 08:00 103 H 19 07/07/23 07:30 109 H 22 07/07/23 07:00 88 9 L 07/07/23 07:00 136/79 07/07/23 08:00 07/07/23 08:00 36.7 C 07/07/23 08:00 BP BP Pulse Ox O2 Del Method O2 Flow Rate FiO2 07/07/23 12:10 165/88 H 150/62 H 96 07/07/23 12:00 150/62 H 96 Room Air 07/07/23 09:30 92 07/07/23 09:00 91 07/07/23 08:30 92 07/07/23 08:01 07/07/23 08:01 94 07/07/23 08:00 92 07/07/23 07:30 95 07/07/23 07:00 94 07/07/23 07:00 07/07/23 08:00 Nasal Cannula 2 07/07/23 08:00 07/07/23 08:00 Nasal Cannula 2 Laboratory Results Laboratory Results Activ Coag Time Kaolin 137 SECONDS (94-140) 07/06/23 15:22 Nasal Screen MRSA (PCR) Negative (Negative) 07/06/23 22:00 Blood Type O Positive 07/06/23 11:20 Antibody Screen NEGATIVE 07/06/23 11:20 Medications Administered Home Medications Medication Instructions Recorded Confirmed Last Taken aspirin 81 mg tablet,delayed 81 mg PO QA 11/21/22 07/06/23 07/06/23 06:30 release cilostazol 100 mg tablet 100 mg PO QA 11/21/22 07/06/23 07/06/23 06:30 levothyroxine 112 mcg tablet 112 mcg PO QA 11/21/22 07/06/23 07/05/23 06:30 (Levoxyl) lisinopril 10 mg tablet 10 mg PO QAM 11/21/22 07/06/23 07/05/23 06:30 simvastatin 40 mg tablet 40 mg PO QAM 11/21/22 07/06/23 07/06/23 06:30 clopidogrel 75 mg tablet (Plavix) 75 mg PO QA 06/30/23 07/06/23 07/06/23 06:30 oxycodone-acetaminophen 5 mg-325 1 tab PO Q6 PRN Pain #20 tabs 07/07/23 Unknown mg tablet (Percocet) Coding Level of Care Code 95202 SUB INP/OBS CARE 3/50MIN Diagnoses Carotid artery stenosis I65.29 Aortic stenosis I35.0 Hypertension I10 Hyperlipidemia E78.5 Chronic kidney disease, stage 3a N18.31 Hypothyroidism E03.9
--- NOTE | 2023-07-11 09:57 | Discharge Summary ---
Date of Service July 11, 2023 Admission HPI Per Admitting Provider Reason for Consultation Right internal carotid artery stenosis with amaurosis fugax History of Present Illness I had the pleasure of seeing Sukhjinder today for evaluation of his carotid disease. As you know he is a 78-year-old gentleman with severe aortic stenosis. He has had a left carotid endarterectomy many years ago. At this point he is developed what he describes as a blackness that occurs intermittently in the right eye. It is happened at least twice in the past the last being a couple weeks prior to this. He describes it as a shade coming over his eye which last 2 to 3 minutes and then totally resolves. He denies any other focal neurological deficits at that time. He denies any upper or lower extremity claudication. Review of Systems 10 systems were reviewed. There were no positive findings other than the HPI. Physical Exam Vitals & Measurements HR: 85 (Monitored) BP: 136/70 SpO2: 96% Input and Output - Last 24 hours (Last 8 hours) No I/O Data Found: On exam he is awake alert and oriented x3. He is in no apparent distress. His blood pressure is 160/68 on the left and 136/70 on the right. Radials and carotids are +2 bilaterally. There is a easily heard right carotid bruit. Abdominal exam is benign. I cannot appreciate a pulsatile mass. His heart had a regular rate and rhythm. His lungs are clear to auscultation. Lower extremity exam shows no evidence of acute ischemic changes. There are no ulcerations. Capillary refill is normal both lower extremities. Femorals are +2 bilaterally and pedal's are +1 bilaterally. Neurologic exam is intact to motor and sensory function. Diagnostic Results CT angiogram shows a severe stenosis of the common carotid artery just before the bifurcation and elevated significant stenosis right at the right common carotid bifurcation extending to the external carotid artery origin. Assessment/Plan 1. Carotid artery bruit 2. Carotid stenosis At this point carotid intervention was recommended. We went over both the endarterectomy and TCAR procedures. Due to his aortic stenosis we favor the TCAR procedure on the cervical block versus endarterectomy. He understands the risks options and benefits and agreed with this procedure. We will start him on Plavix and have him have a platelet function test to make sure he is a responder to the Plavix prior to surgery. Keep you informed as to his results. Thank you very much for letting us participate in the care of this patient. Sincerely, Mana Burns MD Problem List/Past Medical History Ongoing Aortic stenosis Carotid artery bruit Carotid stenosis History of CVA (cerebrovascular accident) Hyperlipidemia Hypertension Hypothyroidism Tremor of right hand Medications Home aspirin(aspirin 81 mg oral capsule), 81 mg= 1 cap, PO, q24h, 11 refills cilostazol(cilostazol 100 mg oral tablet), 100 mg= 1 tab, PO, Daily, 5 refills clopidogrel(Plavix 75 mg oral tablet), 75 mg= 1 tab, PO, Daily, 11 refills levothyroxine(levothyroxine 112 mcg (0.112 mg) oral tablet), 112 mcg= 1 tab, PO, Daily, 5 refills lisinopril(lisinopril 10 mg oral tablet), 10 mg= 1 tab, PO, Daily, 5 refills simvastatin(simvastatin 40 mg oral tablet), 40 mg= 1 tab, PO, Daily Allergies sulfa drugs hives Social History Smoking Status Former Smoker, quit > 1 yr Tobacco - Denies Tobacco Use Use:Former smoker Stopped at age:65Years Family History Dementia: Mother. Heart disease: Father. Heart failure: Father. Heart murmur: Father. Osteoporosis: Mother. Health Status Family Member(s) Signature Line Electronic Signature on File González Burns MD Author Signature Dt/Tm: 06/29/2023 10:33 AM Corporate Rec[employer]iter [facility] [place], [address] [place] [address] EJS Result Type: .Outpt Ltr Date of Service: June 29, 2023 10:29 EDT Authorization Status: Final Subject: Consult Note Author or Import Date: MD Burns Eugene J on June 29, 2023 10:33 EDT Verified By: MD Burns Eugene J on June 29, 2023 10:33 EDT Encounter info: [id number], [id number], Clinic, 06/29/2023 - 06/29/2023 Admission Exam Per Admitting Provider On exam he is awake alert and oriented x3. He is in no apparent distress. His blood pressure is 160/68 on the left and 136/70 on the right. Radials and carotids are +2 bilaterally. There is a easily heard right carotid bruit. Abdominal exam is benign. I cannot appreciate a pulsatile mass. His heart had a regular rate and rhythm. His lungs are clear to auscultation. Lower extremity exam shows no evidence of acute ischemic changes. There are no ulcerations. Capillary refill is normal both lower extremities. Femorals are +2 bilaterally and pedal's are +1 bilaterally. Neurologic exam is intact to motor and sensory function. Principal Diagnosis Symptomatic right internal carotid artery stenosis Discharge Exam Constitutional WD/WN, vitals as above Neck trachea midline Respiratory normal respiratory effort; no respiratory distress Cardiovascular Rate/Rhythm: regular rate and regular rhythm Musculoskeletal no cyanosis or clubbing, extremities motor strength 5/5 Skin + incision (moderate swelling across ant neck from incision) Neurologic CN's II-XI intact bilaterally and moves all extremities Psychiatric Orientation: alert and oriented x 3 Discharge Data Allergies Allergy/AdvReac Type Severity Reaction Status Date / Time Sulfa (Sulfonamide Allergy swelling/red Verified 07/06/23 11:30 Antibiotics) blotches around genitals Consultations 07/06/23 17:36 Consult Hand Slitter Routine Procedures Performed Operation Date: 07/06/23 13:00 Actual Procedures p Transcarotid Artery Revascularization Right Internal Carotid Artery(Right) - González Burns MD Ordered Studies 07/06/23 11:40 EV angio carotid external RT Routine US EV guide vascular access Routine Hospital Course (1) Internal carotid artery stent present: Patient doing well post TCAR. No focal deficits. Does have moderate neck swelling. Will transfer to floor and check later today. If his swallowing discomfort improves may be able to be d/c later today. Total Time Total Time Spent Total Time Spent (In Minutes): 0 Discharge Plan Discharge Items Patient Disposition: Home - Self-Care Reason For Visit: Right Internal Carotid Artery Stenosis with Amauro Discharge Diagnosis: 1. s/p R TCAR 2. Symptomatic R ICA stenosis Activity: Per Instructions section Non-emergency contact: Primary Care Provider and Surgeon Call non-emergency contact if: you have any medication questions, your pain is not controlled, your pain is worsening, your pain is concerning for you, you have a fever, your wound has increased redness and your wound has increased drainage Follow-up/Referrals: González Burns MD [Physician] - 07/20/23 2:45 pm (Follow up scheduled on 07/20/23 @ 2:45) Luna Argueta MD [Primary Care Provider] - (Follow up with your PCP within 2 weeks. ) Diet: Heart Healthy Addtl Attending Provider Instructions: SPECIAL CARE INSTRUCTIONS: Medications: * Continue to take Aspirin, Clopidogrel, and simvastatin as directed. DO NOT STOP THESE MEDICATIONS WITHOUT SPEAKING TO DR BURNS'S OFFICE. Incision Care: * You may shower, but do not rub incision. You may let the warm soapy water run over it. Be sure to dry the incision well after bathing. * Do not shave directly over the incision until it is healed. * DO NOT IMMERSE THE INCISION IN A TUB/POOL/etc. UNTIL HEALED. Restrictions: * Do not drive for at least one week or if you are still taking any narcotic pain medication. * Do not lift anything heavier than a gallon of milk for one week after going home. Possible Complications: * Numbness - It is normal to have some numbness around the incision. Numbness can extend beyond the incision to areas of the neck, ear and face. The numbness is due to bruising of nerves during the surgery and will gradually improve over a period of months. * Hoarseness/Difficulty Speaking and Swallowing - The bruising of nerves in the neck can also cause a hoarse voice, difficulty speaking or swallowing. This may improve over time, HOWEVER, if it continues for more than a few days please contact our office ([phone]). * Excessive Swelling - There will be some swelling immediately after surgery which usually resolves within one week. If you notice that the swelling is getting worse, notify your surgeon ([phone]). * Drainage/Bleeding - If there is any drainage or bleeding, it should be a very small amount (less than a teaspoon per day). If you have excessive bleeding or drainage from the incision, call your surgeon ([phone]) right away. ACTIVATION OF EMERGENCY MEDICAL SYSTEM: Call 911, immediately, if you experience any of the following: Warning Signs and Symptoms of Stroke: * Sudden numbness or weakness of the face, arm or leg, especially on one side of the body * Sudden confusion, trouble speaking or understanding * Sudden trouble seeing in one or both eyes * Sudden trouble walking, dizziness, loss of balance or coordination * Sudden severe headache with no cause Do not delay calling 911 if you experience any warning signs or symptoms of a stroke. Delay in seeking medical attention may affect what treatments can be given to you. Risk Factors for Stroke: You can reduce your chances of stroke by working with your medical provider to adopt a healthy lifestyle. Some specific ways to lower your chance of stroke are: * If you are a smoker, now is the time to stop smoking cigarettes * If you are diabetic, improve the control of your blood sugars * Avoid excessive amounts of alcohol * Control high blood pressure * Lose weight if you are overweight * Be sure to lead an active lifestyle * Eat a healthy diet low in salt, cholesterol and fat You should know about other risk factors for stroke that you are unable to control. These include: * Age 55 years or older * Male gender * Certain racial groups: , or / * Family History of Stroke, Mini stroke or Heart Attack * Sickle Cell Disease You will be receiving a call from the Vascular Surgery Nurse after you are discharged. FOLLOW UP VISIT: It is important for you to keep your follow up appointments with your medical provider. Keep any scheduled doctor appointments. Pending Studies at Discharge: No Stand-Alone Forms: My [facility], Smoking Cessation Medications and DC Order Prescriptions: New oxycodone-acetaminophen [Percocet] 5-325 mg Tablet 1 tab PO Q6 PRN (Reason: Pain) Qty: 20 0RF Continued cilostazol 100 mg Tablet 100 mg PO QAM aspirin 81 mg Tablet,Delayed Release (Dr/Ec) 81 mg PO QAM simvastatin 40 mg Tablet 40 mg PO QAM lisinopril 10 mg Tablet 10 mg PO QAM levothyroxine [Levoxyl] 112 mcg Tablet 112 mcg PO QAM clopidogrel [Plavix] 75 mg Tablet 75 mg PO QAM Discharge Orders: Discharge Order (Routine); Ordered 07/07/23 Ordered By: Ivon Roper Admission Data Admit Date/Time: 07/06/23 12:02 Attending Provider: González Burns Admit Provider: González Burns Primary Care Provider: Luna Argueta Other Providers: Wan Schofield ; Donnie Rinaldi ; Hector Posadas ; Joseph Chappell ; Kai Parsons ; Vinay Nuñez ; John Diallo,Maciej S. ; Sarahi Calvin ; Rose Marie Goff ; Braydon Morrison ; Kingston Mayes Other Interventions: Discharge Summary Assessment (RN) Last Done: 07/07/23 12:10
--- OUTSIDE RECORDS SUMMARY | 2023-07-15 11:11 | External Medical Summary | Continuity of Care Document ---
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 Name Role Phone Luna Argueta Primary Care Physician [phone] Encounter [facility] [id number] Date(s): 06/20/23 - 06/20/[address], [address] [place] [address] [phone] Discharge Disposition: Home or Self Care Attending Physician: MD Ellie Luna Referring Physician: MD Argueta [place] Allergies, Adverse Reactions, Alerts Substance Reaction Severity Status sulfa drugs hives Active Medications cilostazol 100 mg oral tablet 1 tab, PO, Daily, TAKE 1 TABLET BY MOUTH EVERY DAY Start Date: 05/10/23 Status: Ordered cilostazol 100 mg oral tablet Start: 05/10/23 14:43:00 EDT, 1 tab, PO, Daily, Disp# 30 tab, Refills: 5, Pharmacy: [id number] Start Date: 05/10/23 Stop Date: 11/06/23 Status: Ordered levothyroxine 112 mcg (0.112 mg) oral tablet Start: 05/10/23 14:37:00 EDT, 1 tab, PO, Daily, Disp# 30 tab, Refills: 5, Pharmacy: [id number] Start Date: 05/10/23 Stop Date: 11/06/23 Status: Ordered lisinopril 10 mg oral tablet Start: 05/10/23 14:01:00 EDT, 1 tab, PO, Daily Start Date: 05/10/23 Status: Ordered lisinopril 10 mg oral tablet Start: 05/10/23 14:36:00 EDT, 1 tab, PO, Daily, Disp# 30 tab, Refills: 5, Pharmacy: [id number] Start Date: 05/10/23 Stop Date: 11/06/23 Status: Ordered simvastatin 40 mg oral tablet 1 tab, PO, Daily, TAKE 1 TABLET BY MOUTH AT BEDTIME Start Date: 05/10/23 Status: Ordered Problem List Condition Confirmation Course Effective Dates Status H ealth Status Informant Tremor of right hand Confirmed Active History of CVA (cerebrovascular accident) Confirmed Active Hyperlipidemia Confirmed Active Hypertension Confirmed Active Hypothyroidism Confirmed Active Results Radiology Reports * Exam Date Time Procedure Performing Provider Status 06/20/23 3:25 PM Echo TransTHORacic TTE Complete w/ Con t ; Final Notes: (Echo TransTHORacic TTE Complete w/ Cont) Reason For Exam: heart murmur Echo TransTHORacic TTE Complete w/ Cont Report Signatures Finalized by Dr. Kurt Nassar MD on 06/22/2023 06:12 PM [place] Act 112: Yes - Discussed with patient Summary 1. Technically difficult study due to patient body habitus; Successfully enhanced with Definity contrast per lab protocol for better endocardial definition. 2. Normal left ventricular size. 3. Hyperdynamic left ventricular systolic function with no regional wall motion abnormalities. 4. Ejection fraction as calculated by Biplane Simpsons method is >75%. 5. Mild (posterior wall-1.2 cm) to moderate (septum-1.5 cm) concentric left ventricular hypertrophy. No evidence of LVOT obstruction with and without provacative maneuvers. 6. Grade I diastolic dysfunction of the left ventricle (impaired relaxation pattern) with elevated left atrial pressure. 7. Normal right ventricular size and function. 8. Normal biatrial size. 9. Heavily calcified aortic valve with severe aortic stenosis (LVOT/AV ratio is 0.22, AV mean PG is 43 mmHg and GALA index is 0.23 cm2/m2). 10. Mild mitral regurgitation. 11. Normal estimated pulmonary artery pressures, estimated PASP is 24 mmHg (with an assumed RA pressure of 3 mmHg). 12. Estimated pulmonary arterial mean pressure 10 mmHg. 13. No prior studies for comparison. 14. The patient and his were given the results prior to leaving the clinic. He was told to take it easy in the mean time and Cardiology evaluation has been arranged. Patient Info Name: BAMBI DALTON Age: 78 years : 1945 Gender: Male Ht: 180 cm Wt: 91 kg BSA: 2.15 m2 HR: 86 bpm BP: 138 / 76 mmHg Heart Rhythm: Sinus Tachycardia Technical Quality: Technically difficult study Exam Date: 06/20/2023 1:03 PM Exam Location: [facility] Patient Status: Obstetrics Staff Ordering Physician: Luna Argueta Visual Associate: Tonia Rojo RDCS, RVT Attending Physician: Luna Argueta Study Info [facility] [id number] - [id number] - Indications R011 - Cardiac murmur, unspecified Procedure(s) * A complete two-dimensional, color flow and Doppler transthoracic echocardiogram was performed. * Failed 2D images were enhanced with Definity per lab protocol. * Visual Associate, Yamel, provided education about ultrasound enhancing agent to the patient. Exam Type: Cardiac Basic Left Atrium Normal left atrial size. Right Atrium Normal right atrial size. Atrial Septum Appears intact. Pericardium/Pleural No pericardial effusion. Inferior Vena Cava Unable to visualize the IVC due to acoustic shadowing from overlying bowel gas. Aorta Calcified aortic root, sinotubular junction and proximal descending thoracic aorta. Normal size aortic root, ascending aorta and aortic arch. Left Ventricular Outflow Tract Name Value Normal LVOT 2D LVOT Diameter 1.7 cm LVOT Doppler LVOT Peak Velocity 1.17 m/s LVOT Mean Gradient 3 mmHg LVOT VTI 22.10 cm LVOT VTI/AV VTI Ratio 0.22 LVOT Stroke Volume 50.40 ml LVOT Stroke Volume Index 0.02 l/m2 LVOT Cardiac Output 4.33 l/min LVOT Cardiac Index 2.02 L/min/m2 Pulmonic Valve Name Value Normal PV 2D RVOT Diameter (2D) 1.9 cm 1.7-2.7 RVOT Doppler RVOT Peak Velocity 0.71 m/s PV Regurgitation Doppler SC Peak Velocity 1.36 m/s Mitral Valve Name Value Normal MV Doppler MV PHT 66 ms MV Diastolic Function MV E Peak Velocity 0.83 m/s <=0.50 MV A Peak Velocity 1.21 m/s MV E/A 0.69 <=0.80 MV Decel Time 229 ms MV Annular TDI MV Septal s' Velocity 8.05 cm/s MV Septal e' Velocity 5.22 cm/s >=7.00 MV E/e' (Septal) 15.9 <=8.0 MV Lateral s' Velocity 13.40 cm/s MV Lateral e' Velocity 5.91 cm/s >=10.00 MV E/e' (Lateral) 14.06 <=8.00 MV e' Average 5.57 MV E/e' (Average) 14.99 <=14.00 Tricuspid Valve Name Value Normal TV Regurgitation Doppler TR Peak Velocity 2.28 m/s <=2.80 Estimated PAP/RSVP RA Pressure 3 mmHg <=5 PA Systolic Pressure 24 mmHg <40 PA Mean Pressure (SC Velocity) 10 mmHg TV Diastolic Function TV E Peak Velocity 0.38 m/s TV A Peak Velocity 0.32 m/s TV E/A 1.22 0.80-2.00 TV Decel Time 264 ms >=120 TV Annular TDI TV Lateral Carol s' Velocity 16.3 cm/s 9.5-18.7 TV Lateral Carol e' Velocity 11.7 cm/s <7.8 TV E/e' 3.29 2.00-6.00 Aorta Name Value Normal Ascending Aorta Sinus of Valsalva Diameter 3.6 cm 3.1-3.7 Sinus of Valsalva Index 1.66 cm/m2 1.50-1.90 Prox Asc Ao Diameter 3.1 cm 2.6-3.4 Prox Asc Ao Diameter Index 1.43 cm/m2 1.30-1.70 Thoracic Aorta Ao Arch Diameter 2.8 cm Desc Ao Peak Velocity 0.69 m/s Desc Ao Peak Gradient 2 mmHg Aortic Valve Name Value Normal AV Doppler AV Peak Velocity 4.28 m/s <2.00 AV Peak Gradient 73 mmHg AV Mean Gradient 43 mmHg <20 AV VTI 100.00 cm AV Area (Cont Eq VTI) 0.5 cm2 >=2.0 AV Area Index (Cont Eq VTI) 0.23 cm2/m2 AV Area (Cont Eq Miller) 0.6 cm2 AV Area Index (Cont Eq Miller) 0.29 cm2/m2 AV V1/V2 Ratio 0.27 AV Regurgitation 2D LVOT Area 2.3 cm2 Ventricles Name Value Normal LV Dimensions 2D/MM IVS Diastolic Thickness (2D) 1.5 cm 0.6-1.0 LVID Diastole (2D) 3.4 cm 3.6-5.6 LVIW Diastolic Thickness (2D) 1.2 cm 0.6-1.0 LVID Systole (2D) 2.2 cm 2.5-4.0 LVOT Diameter 1.7 cm LV Mass (2D Cubed) 152.35 g 88.00-224.00 LV Mass Index (2D Cubed) 0.01 g/cm2 0.00-0.01 Relative Wall Thickness (2D) 0.70 LV Fractional Shortening/Ejection Fraction 2D/MM LV Fractional Shortening (2D) 35 % 25-43 LV Diastolic Volume (4C MOD) 92 ml LV Diastolic Volume (2C MOD) 74 ml LV Diastolic Volume (BP MOD) 82 ml 62-150 LV Diastolic Volume Index (BP MOD) 38.27 ml/m2 34.00-74.00 LV Systolic Volume (BP MOD) 15 ml 21-61 LV Systolic Volume Index (BP MOD) 6.90 ml/m2 11.00-31.00 LV EF (BP MOD) 82 % 57-68 LV SV (BP MOD) 67.40 ml LV End Diastolic Volume (BP A-L) 88.15 ml LV End Systolic Volume (BP A-L) 15.21 ml LV EF (BP A-L) 83 % RV Dimensions 2D/MM RV Basal Diastolic Dimension 3.3 cm 2.5-4.1 TAPSE 2.1 cm >=1.7 Atria Name Value Normal LA Dimensions LA Area (4C) 20.7 cm2 LA Length (4C) 5.3 cm LA Area (2C) 18.4 cm2 LA Length (2C) 5.6 cm LA Volume (4C A-L) 68.42 ml LA Volume (2C A-L) 51.03 ml LA Volume (BP A-L) 61 ml 18-58 LA Volume Index (BP A-L) 28.30 ml/m2 <=34.00 RA Dimensions RA Area (4C) 14.2 cm2 <=18.0 Left Ventricle Normal left ventricular size. Hyperdynamic left ventricular systolic function with no regional wall motion abnormalities. Ejection fraction as calculated by Biplane Simpsons method is >75%. Mild (posterior wall-1.2 cm) to moderate (septum-1.5 cm) concentric left ventricular hypertrophy. No evidence of LVOT obstruction with and without provacative maneuvers. Grade I diastolic dysfunction of the left ventricle (impaired relaxation pattern) with elevated left atrial pressure. Right Ventricle Normal right ventricular size and function. TAPSE is normal, 2.1 cm. Aortic Valve Heavily calcified aortic valve with severe aortic stenosis (LVOT/AV ratio is 0.22, AV mean PG is 43 mmHg and GALA index is 0.23 cm2/m2). Pulmonic Valve Structurally unremarkable pulmonic valve with no significant flow abnormalities. Trace pulmonic insufficiency. Estimated pulmonary arterial mean pressure 10 mmHg. Mitral Valve Calcified mitral valve annulus without stenosis. Mild mitral regurgitation. Tricuspid Valve Structurally normal tricuspid valve. Trace tricuspid regurgitation. Normal estimated pulmonary artery pressures, estimated PASP is 24 mmHg (with an assumed RA pressure of 3 mmHg). Final Signed by:DO Nassar Jason D Signed (Electronic Signature):06/20/2023 1:03 p Social History Social History Type Response Smoking Status Never smoked cigaret azalia Sex Male US Heart Transthoracic * DO Nassar Jason D: VERIFY, PERFORM, VERIFY Event Display: Report Authored Date: [id number] Report Signatures Finalized by Dr. Kurt Nassar MD on 06/22/2023 06:12 PM [place] Act 112: Yes - Discussed with patient Summary 1. Technically difficult study due to patient body habitus; Successfully enhanced with Definity contrast per lab protocol for better endocardial definition. 2. Normal left ventricular size. 3. Hyperdynamic left ventricular systolic function with no regional wall motion abnormalities. 4. Ejection fraction as calculated by Biplane Simpsons method is >75%. 5. Mild (posterior wall-1.2 cm) to moderate (septum-1.5 cm) concentric left ventricular hypertrophy. No evidence of LVOT obstruction with and without provacative maneuvers. 6. Grade I diastolic dysfunction of the left ventricle (impaired relaxation pattern) with elevated left atrial pressure. 7. Normal right ventricular size and function. 8. Normal biatrial size. 9. Heavily calcified aortic valve with severe aortic stenosis (LVOT/AV ratio is 0.22, AV mean PG is 43 mmHg and GALA index is 0.23 cm2/m2). 10. Mild mitral regurgitation. 11. Normal estimated pulmonary artery pressures, estimated PASP is 24 mmHg (with an assumed RA pressure of 3 mmHg). 12. Estimated pulmonary arterial mean pressure 10 mmHg. 13. No prior studies for comparison. 14. The patient and his were given the results prior to leaving the clinic. He was told to take it easy in the mean time and Cardiology evaluation has been arranged. Patient Info Name: BAMBI DALTON Age: 78 years : 1945 Gender: Male Ht: 180 cm Wt: 91 kg BSA: 2.15 m2 HR: 86 bpm BP: 138 / 76 mmHg Heart Rhythm: Sinus Tachycardia Technical Quality: Technically difficult study Exam Date: 06/20/2023 1:03 PM Exam Location: [facility] Patient Status: Obstetrics Staff Ordering Physician: Luna Argueta Visual Associate: Tonia Rojo RDCS, RVT Attending Physician: Luna Argueta Study Info CPT J3490 - 22595 - Indications R011 - Cardiac murmur, unspecified Procedure(s) * A complete two-dimensional, color flow and Doppler transthoracic echocardiogram was performed. * Failed 2D images were enhanced with Definity per lab protocol. * Visual Associate, Yamel, provided education about ultrasound enhancing agent to the patient. Exam Type: Cardiac Basic Left Atrium Normal left atrial size. Right Atrium Normal right atrial size. Atrial Septum Appears intact. Pericardium/Pleural No pericardial effusion. Inferior Vena Cava Unable to visualize the IVC due to acoustic shadowing from overlying bowel gas. Aorta Calcified aortic root, sinotubular junction and proximal descending thoracic aorta. Normal size aortic root, ascending aorta and aortic arch. Left Ventricular Outflow Tract Name Value Normal LVOT 2D LVOT Diameter 1.7 cm LVOT Doppler LVOT Peak Velocity 1.17 m/s LVOT Mean Gradient 3 mmHg LVOT VTI 22.10 cm LVOT VTI/AV VTI Ratio 0.22 LVOT Stroke Volume 50.40 ml LVOT Stroke Volume Index 0.02 l/m2 LVOT Cardiac Output 4.33 l/min LVOT Cardiac Index 2.02 L/min/m2 Pulmonic Valve Name Value Normal PV 2D RVOT Diameter (2D) 1.9 cm 1.7-2.7 RVOT Doppler RVOT Peak Velocity 0.71 m/s PV Regurgitation Doppler SC Peak Velocity 1.36 m/s Mitral Valve Name Value Normal MV Doppler MV PHT 66 ms MV Diastolic Function MV E Peak Velocity 0.83 m/s <=0.50 MV A Peak Velocity 1.21 m/s MV E/A 0.69 <=0.80 MV Decel Time 229 ms MV Annular TDI MV Septal s' Velocity 8.05 cm/s MV Septal e' Velocity 5.22 cm/s >=7.00 MV E/e' (Septal) 15.9 <=8.0 MV Lateral s' Velocity 13.40 cm/s MV Lateral e' Velocity 5.91 cm/s >=10.00 MV E/e' (Lateral) 14.06 <=8.00 MV e' Average 5.57 MV E/e' (Average) 14.99 <=14.00 Tricuspid Valve Name Value Normal TV Regurgitation Doppler TR Peak Velocity 2.28 m/s <=2.80 Estimated PAP/RSVP RA Pressure 3 mmHg <=5 PA Systolic Pressure 24 mmHg <40 PA Mean Pressure (SC Velocity) 10 mmHg TV Diastolic Function TV E Peak Velocity 0.38 m/s TV A Peak Velocity 0.32 m/s TV E/A 1.22 0.80-2.00 TV Decel Time 264 ms >=120 TV Annular TDI TV Lateral Carol s' Velocity 16.3 cm/s 9.5-18.7 TV Lateral Carol e' Velocity 11.7 cm/s <7.8 TV E/e' 3.29 2.00-6.00 Aorta Name Value Normal Ascending Aorta Sinus of Valsalva Diameter 3.6 cm 3.1-3.7 Sinus of Valsalva Index 1.66 cm/m2 1.50-1.90 Prox Asc Ao Diameter 3.1 cm 2.6-3.4 Prox Asc Ao Diameter Index 1.43 cm/m2 1.30-1.70 Thoracic Aorta Ao Arch Diameter 2.8 cm Desc Ao Peak Velocity 0.69 m/s Desc Ao Peak Gradient 2 mmHg Aortic Valve Name Value Normal AV Doppler AV Peak Velocity 4.28 m/s <2.00 AV Peak Gradient 73 mmHg AV Mean Gradient 43 mmHg <20 AV VTI 100.00 cm AV Area (Cont Eq VTI) 0.5 cm2 >=2.0 AV Area Index (Cont Eq VTI) 0.23 cm2/m2 AV Area (Cont Eq Miller) 0.6 cm2 AV Area Index (Cont Eq Miller) 0.29 cm2/m2 AV V1/V2 Ratio 0.27 AV Regurgitation 2D LVOT Area 2.3 cm2 Ventricles Name Value Normal LV Dimensions 2D/MM IVS Diastolic Thickness (2D) 1.5 cm 0.6-1.0 LVID Diastole (2D) 3.4 cm 3.6-5.6 LVIW Diastolic Thickness (2D) 1.2 cm 0.6-1.0 LVID Systole (2D) 2.2 cm 2.5-4.0 LVOT Diameter 1.7 cm LV Mass (2D Cubed) 152.35 g 88.00-224.00 LV Mass Index (2D Cubed) 0.01 g/cm2 0.00-0.01 Relative Wall Thickness (2D) 0.70 LV Fractional Shortening/Ejection Fraction 2D/MM LV Fractional Shortening (2D) 35 % 25-43 LV Diastolic Volume (4C MOD) 92 ml LV Diastolic Volume (2C MOD) 74 ml LV Diastolic Volume (BP MOD) 82 ml 62-150 LV Diastolic Volume Index (BP MOD) 38.27 ml/m2 34.00-74.00 LV Systolic Volume (BP MOD) 15 ml 21-61 LV Systolic Volume Index (BP MOD) 6.90 ml/m2 11.00-31.00 LV EF (BP MOD) 82 % 57-68 LV SV (BP MOD) 67.40 ml LV End Diastolic Volume (BP A-L) 88.15 ml LV End Systolic Volume (BP A-L) 15.21 ml LV EF (BP A-L) 83 % RV Dimensions 2D/MM RV Basal Diastolic Dimension 3.3 cm 2.5-4.1 TAPSE 2.1 cm >=1.7 Atria Name Value Normal LA Dimensions LA Area (4C) 20.7 cm2 LA Length (4C) 5.3 cm LA Area (2C) 18.4 cm2 LA Length (2C) 5.6 cm LA Volume (4C A-L) 68.42 ml LA Volume (2C A-L) 51.03 ml LA Volume (BP A-L) 61 ml 18-58 LA Volume Index (BP A-L) 28.30 ml/m2 <=34.00 RA Dimensions RA Area (4C) 14.2 cm2 <=18.0 Left Ventricle Normal left ventricular size. Hyperdynamic left ventricular systolic function with no regional wall motion abnormalities. Ejection fraction as calculated by Biplane Simpsons method is >75%. Mild (posterior wall-1.2 cm) to moderate (septum-1.5 cm) concentric left ventricular hypertrophy. No evidence of LVOT obstruction with and without provacative maneuvers. Grade I diastolic dysfunction of the left ventricle (impaired relaxation pattern) with elevated left atrial pressure. Right Ventricle Normal right ventricular size and function. TAPSE is normal, 2.1 cm. Aortic Valve Heavily calcified aortic valve with severe aortic stenosis (LVOT/AV ratio is 0.22, AV mean PG is 43 mmHg and GALA index is 0.23 cm2/m2). Pulmonic Valve Structurally unremarkable pulmonic valve with no significant flow abnormalities. Trace pulmonic insufficiency. Estimated pulmonary arterial mean pressure 10 mmHg. Mitral Valve Calcified mitral valve annulus without stenosis. Mild mitral regurgitation. Tricuspid Valve Structurally normal tricuspid valve. Trace tricuspid regurgitation. Normal estimated pulmonary artery pressures, estimated PASP is 24 mmHg (with an assumed RA pressure of 3 mmHg). Final Signed by:DO Nassar Jason D Signed (Electronic Signature):06/20/2023 1:03 p Patient Care team information Care Team Personnel Name: MD Ellie, [place] Position: Physician - Family Med Member Role: Primary Care Provider Address: Address: [address] [place] [address], [place] [address] Care Team Related Persons Name: ALKA SHARMA Address: home [address] [place] [address] GAVIN [phone]
--- OUTSIDE RECORDS SUMMARY | 2023-07-15 11:11 | External Medical Summary | Continuity of Care Document ---
Author Name Unknown Organization [address] Address [address] [place], [place] [id number] Care Team Providers Care Property Portfolio Officer Name Role Phone ReesedenilsonLuna Primary Care Physician [phone] [id number] Date(s): 06/12/23 - 06/12/[address], [address] [place] [address] [phone] Discharge Disposition: Home or Self Care Attending Physician: MD Mart Jay Michael Referring Physician: MD Mart Jay Michael Allergies, Adverse Reactions, Alerts Substance Reaction Severity Status sulfa drugs hives Active Medications cilostazol 100 mg oral tablet 1 tab, PO, Daily, TAKE 1 TABLET BY MOUTH EVERY DAY Start Date: 05/10/23 Status: Ordered cilostazol 100 mg oral tablet Start: 05/10/23 14:43:00 EDT, 1 tab, PO, Daily, Disp# 30 tab, Refills: 5, Pharmacy: [id number] Start Date: 05/10/23 Stop Date: 11/06/23 Status: Ordered levothyroxine 112 mcg (0.112 mg) oral tablet Start: 05/10/23 14:01:00 EDT, 1 tab, PO, Daily Start Date: 05/10/23 Status: Ordered levothyroxine 112 mcg (0.112 mg) oral tablet Start: 05/10/23 14:37:00 EDT, 1 tab, PO, Daily, Disp# 30 tab, Refills: 5, Pharmacy: [id number] Start Date: 05/10/23 Stop Date: 11/06/23 Status: Ordered lisinopril 10 mg oral tablet Start: 05/10/23 14:01:00 EDT, 1 tab, PO, Daily Start Date: 05/10/23 Status: Ordered lisinopril 10 mg oral tablet Start: 05/10/23 14:36:00 EDT, 1 tab, PO, Daily, Disp# 30 tab, Refills: 5, Pharmacy: [id number] Start Date: 05/10/23 Stop Date: 11/06/23 Status: Ordered simvastatin 40 mg oral tablet 1 tab, PO, Daily, TAKE 1 TABLET BY MOUTH AT BEDTIME Start Date: 05/10/23 Status: Ordered simvastatin 40 mg oral tablet Start: 05/10/23 14:42:00 EDT, 1 tab, PO, qhs, Disp# 30 tab, Refills: 5, Pharmacy: [id number] Start Date: 05/10/23 Stop Date: 11/06/23 Status: Ordered Problem List Condition Confirmation Course Effective Dates Status H ealth Status Informant Tremor of right hand Confirmed Active History of CVA (cerebrovascular accident) Confirmed Active Hyperlipidemia Confirmed Active Hypertension Confirmed Active Hypothyroidism Confirmed Active Results Radiology Reports * Exam Date Time Procedure Performing Provider Status 06/12/23 11:01 AM VL Carotid Duplex Bilateral St nory Cisneros R; Final Notes: (VL Carotid Duplex Bilateral) Reason For Exam: G45.3 - amaurosis fugax and 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 1. >50% stenosis in the right distal common carotid artery (PSV 521, ratio 27). 2. No hemodynamically significant stenosis in the right internal carotid artery; however, this may be underestimated due to common carotid artery stenosis. Retrograde flow identified in the right external carotid artery. 3. Patent left carotid endarterectomy without significant restenosis. 4. Normal, antegrade flow in the bilateral vertebral arteries. 5. Normal flow in the bilateral subclavian arteries. Plaque Morphology: Complex, calcified plaque in the bulbs and ICAs bilaterally. Technologist preliminary results given to Dr. Ricardo Huber MD by phone at 10:50am on 06/12/23. Read back. Verified. Retrospective comparison: No prior exams available for comparison. IMPRESSION/COMMENTS I have personally reviewed the data relevant to the interpretation of this study. TECHNOLOGIST: TAYLOR Rodríguez,EASTON,RVT PHYSICIAN: González Aguayo M.D. Signed: 06/12/2023 12:44 PM Final Dictated by:MD Aguayo Eugene J Dictated DT/TM:06/12/2023 12:45 Signed by:MD Aguayo Eugene J Signed (Electronic Signature):06/12/2023 12:44 Transcribed by:DEUCES Social History Social History Type Response Smoking Status Former Smoker, quit > 1 yr Sex Male US.doppler Carotid arteries - bilateral * MD Aguayo Eugene J: VERIFY, PERFORM, VERIFY, TRANSCRIBE Event Display: Report Authored Date: [id number] [facility] FINAL REPORT Name: BAMBI DALTON : 1945 Visit: [id number] Date: 12 Jun 2023 TYPE OF TEST: Cerebrovascular Duplex REASON FOR TEST Amaurosis fugax (right side), H/O L CEA INTERPRETATION/FINDINGS Arterial duplex imaging of the bilateral extracranial arteries was performed. 1. >50% stenosis in the right distal common carotid artery (PSV 521, ratio 27). 2. No hemodynamically significant stenosis in the right internal carotid artery; however, this may be underestimated due to common carotid artery stenosis. Retrograde flow identified in the right external carotid artery. 3. Patent left carotid endarterectomy without significant restenosis. 4. Normal, antegrade flow in the bilateral vertebral arteries. 5. Normal flow in the bilateral subclavian arteries. Plaque Morphology: Complex, calcified plaque in the bulbs and ICAs bilaterally. Technologist preliminary results given to Dr. Ricardo Huber MD by phone at 10:50am on 06/12/23. Read back. Verified. Retrospective comparison: No prior exams available for comparison. IMPRESSION/COMMENTS I have personally reviewed the data relevant to the interpretation of this study. TECHNOLOGIST: TAYLOR Rodríguez,RDMS,RVT PHYSICIAN: González Aguayo M.D. Signed: 06/12/2023 12:44 PM Final Dictated by:MD Aguayo Eugene J Dictated DT/TM:06/12/2023 12:45 Signed by:MD Aguayo Eugene J Signed (Electronic Signature):06/12/2023 12:44 Transcribed by:LATRICE Patient Care team information Care Team Personnel Name: MD Ellie, [place] Position: Physician - Family Med Member Role: Primary Care Provider Address: Address: [address] [place] [id number] Care Team Related Persons Name: ALKA SHARMA Address: home [address] [place], [place] [address] [phone]
--- OUTSIDE RECORDS SUMMARY | 2023-07-15 11:11 | External Medical Summary | Continuity of Care Document ---
Author Name Unknown Organization [facility] [address] Address [address] [place], [place] [id number] Care Team Providers Care Unified Communications Engineer Name Role Phone Luna Argueta Primary Care Physician [phone] [id number] Date(s): 06/09/23 - 06/09/23 [facility] [address] [facility] [address], [facility] 1 [place], [place] [phone] Encounter Diagnosis Hypothyroidism, unspecified(Final) - Chronic kidney disease, unspecified(Final) - Discharge Disposition: Home or Self Care Attending Physician: MD Ellie, Luna Referring Physician: MD Ellie, [place] Allergies, Adverse Reactions, Alerts Substance Reaction Severity Status sulfa drugs hives Active Medications cilostazol 100 mg oral tablet 1 tab, PO, Daily, TAKE 1 TABLET BY MOUTH EVERY DAY Start Date: 05/10/23 Status: Ordered cilostazol 100 mg oral tablet Start: 05/10/23 14:43:00 EDT, 1 tab, PO, Daily, Disp# 30 tab, Refills: 5, Pharmacy: [id number] Start Date: 05/10/23 Stop Date: 11/06/23 Status: Ordered levothyroxine 112 mcg (0.112 mg) oral tablet Start: 05/10/23 14:01:00 EDT, 1 tab, PO, Daily Start Date: 05/10/23 Status: Ordered levothyroxine 112 mcg (0.112 mg) oral tablet Start: 05/10/23 14:37:00 EDT, 1 tab, PO, Daily, Disp# 30 tab, Refills: 5, Pharmacy: [id number] Start Date: 05/10/23 Stop Date: 11/06/23 Status: Ordered lisinopril 10 mg oral tablet Start: 05/10/23 14:01:00 EDT, 1 tab, PO, Daily Start Date: 05/10/23 Status: Ordered lisinopril 10 mg oral tablet Start: 05/10/23 14:36:00 EDT, 1 tab, PO, Daily, Disp# 30 tab, Refills: 5, Pharmacy: [id number] Start Date: 05/10/23 Stop Date: 11/06/23 Status: Ordered simvastatin 40 mg oral tablet 1 tab, PO, Daily, TAKE 1 TABLET BY MOUTH AT BEDTIME Start Date: 05/10/23 Status: Ordered simvastatin 40 mg oral tablet Start: 05/10/23 14:42:00 EDT, 1 tab, PO, qhs, Disp# 30 tab, Refills: 5, Pharmacy: [id number] Start Date: 05/10/23 Stop Date: 11/06/23 Status: Ordered Problem List Condition Confirmation Course Effective Dates Status H ealth Status Informant Tremor of right hand Confirmed Active History of CVA (cerebrovascular accident) Confirmed Active Hyperlipidemia Confirmed Active Hypertension Confirmed Active Hypothyroidism Confirmed Active Results Laboratory List Name Date Basic Metabolic Panel (BASIC METAB PANEL ) 06/09/23 T4, Free (T4, FREE) 06/09/23 Thyroid Stimulating Hormone (TSH) 06/09/23 Most recent to oldest [Reference Range]: 1 eGFR CKD-EPI [>60 mL/min/1.73 m2] 46 mL/ min/1.73 m2 1 *LOW* (06/09/23 9:55 AM) Estimated CrCl 45.08 mL/min (06/09/23 10:44 AM) Anion Gap [5-14 mmol/L] 9 mmol/L (06/09/23 9:55 AM) BUN [7-20 mg/dL] 11 mg/dL (06/09/23 9:55 AM) Ca [8.4-10.2 mg/dL] 9.4 mg/dL (06/09/23 9:55 AM) Cl- [96-107 mmol/L] 106 mmol/L (06/09/23 9:55 AM) HCO3 [22-30 mmol/L] 24 mmol/L (06/09/23 9:55 AM) Cret [0.70-1.30 mg/dL] 1.55 mg/dL *HI* (8/4/23 9:55 AM) Glu [74-106 mg/dL] 114 mg/dL *HI* (06/09/23 9:55 AM) K [3.5-5.1 mmol/L] 4.3 mmol/L (06/09/23 9:55 AM) Na [137-145 mmol/L] 139 mmol/L (06/09/23 9:55 AM) Free T4 [0.70-1.48 ng/dL] <0.40 ng/dL 2 *LOW* (06/09/23 9:55 AM) TSH [0.47-4.68 uIU/mL] 44.24 uIU/mL 3 *HI* (06/09/23 9:55 AM) 1Result Comment: Testing Performed By: Dept of Pathology [facility] [address], [address] [place] [address], [place] [address] 2Result Comment: Testing Performed By: Dept of Pathology [facility] [address], [address] [place] [address] 3Result Comment: Testing Performed By: Dept of Pathology [facility] [address], [address] [place] [address] Social History Social History Type Response Smoking Status Former Smoker, quit > 1 yr Sex Male Patient Care team information Care Team Personnel Name: MD Ellie, [place] Position: Physician - Family Med Member Role: Primary Care Provider Address: Address: [address] [place] [address], [place] [address] [place] Care Team Related Persons Name: ALKA SAHRMA Address: home [address] [place], [place] [address]GAVIN [phone]
--- OUTSIDE RECORDS SUMMARY | 2023-07-15 11:11 | External Medical Summary | Continuity of Care Document ---
Author Name Unknown Organization [address] Address [address] [place], [place] [id number] Care Team Providers Care Nut Orchardist Name Role Phone ReesedenilsonLuna Primary Care Physician [phone] [id number] Date(s): 06/29/23 - 06/29/[address], [address] [place] [address] [phone] Encounter Diagnosis Carotid artery bruit(Discharge Diagnosis) - 06/29/23 Carotid stenosis(Discharge Diagnosis) - 06/29/23 Discharge Disposition: Home or Self Care Attending Physician: MD Aguayo Eugene J Referring Physician: DO Nassar Jason D Allergies, Adverse Reactions, Alerts Substance Reaction Severity Status sulfa drugs hives Active Medications aspirin 81 mg oral capsule Start: 06/27/23 10:05:00 EDT, 1 cap, PO, q24h, Disp# 30 cap, Refills: 11, other Start Date: 06/27/23 Status: Ordered cilostazol 100 mg oral tablet Start: 05/10/23 14:43:00 EDT, 1 tab, PO, Daily, Disp# 30 tab, Refills: 5, Pharmacy: [id number] Start Date: 05/10/23 Stop Date: 11/06/23 Status: Ordered levothyroxine 112 mcg (0.112 mg) oral tablet Start: 05/10/23 14:37:00 EDT, 1 tab, PO, Daily, Disp# 30 tab, Refills: 5, Pharmacy: [id number] Start Date: 05/10/23 Stop Date: 11/06/23 Status: Ordered lisinopril 10 mg oral tablet Start: 05/10/23 14:36:00 EDT, 1 tab, PO, Daily, Disp# 30 tab, Refills: 5, Pharmacy: [id number] Start Date: 05/10/23 Stop Date: 11/06/23 Status: Ordered Plavix 75 mg oral tablet Start: 06/29/23 10:21:00 EDT, 1 tab, PO, Daily, Disp# 30 tab, Refills: 11, Pharmacy: [id number] Start Date: 06/29/23 Status: Ordered simvastatin 40 mg oral tablet 1 tab, PO, Daily, TAKE 1 TABLET BY MOUTH AT BEDTIME Start Date: 05/10/23 Status: Ordered Problem List Condition Confirmation Course Effective Dates Status H ealth Status Informant Aortic stenosis Confirmed Active Carotid stenosis Confirmed Active Carotid artery bruit Confirmed Active Tremor of right hand Confirmed Active History of CVA (cerebrovascular accident) Confirmed Active Hyperlipidemia Confirmed Active Hypertension Confirmed Active Hypothyroidism Confirmed Active Diagnosis Diagnosis Type Effective Dates Health Status Cl inical Service Informant Carotid artery bruit Discharge Diagnosis 06/29/23 Carotid stenosis Discharge Diagnosis 06/29/23 Vital Signs Most recent to oldest [Reference Range]: 1 2 Heart Rate 85 bpm (06/29/23 9:43 AM) Blood Pressure 136/70mmHg (06/29/23 9:44 AM) 116/68mmHg (06/29/23 9:43 AM) Cuff Pulse Pressure 66 mmHg (06/29/23 9:44 AM) 48 mmHg (06/29/23 9:43 AM) BP Location # 1 Right Arm (06/29/23 9:44 AM) Left Arm (06/29/23 9:43 AM) Social History Social History Type Response Tobacco Former smoker, Stopp ed age 65 Years. Smoking Status Former Smoker, quit > 1 yr Sex Male Patient Care team information Care Team Personnel Name: MP Roper Lynn Position: Physician Patient Service Rep Exempt - Vasc Surg Member Role: Lifetime Relationship Address: Address: [address] [place] [id number] Name: MD Ellie, [place] Position: Physician - Family Med Member Role: Primary Care Provider Address: Address: [address] [place] [address], [place] [address] Care Team Related Persons Name: COLIN DALTON Address: home [address] [place] [address] Name: ALKA SHARMA Address: [address] [place], [place] [address], [place] [id number]
--- OUTSIDE RECORDS SUMMARY | 2023-07-15 11:11 | External Medical Summary | Continuity of Care Document ---
Author Name Unknown Organization [address] Address [address] [place], [place] [id number] Care Team Providers Care Can Coverer Name Role Phone PorscherocLuna Primary Care Physician [phone] [id number] Date(s): 06/27/23 - 06/27/[address], [address] [place] [address] [phone] Encounter Diagnosis Aortic stenosis(Discharge Diagnosis) - 06/27/23 Carotid artery bruit(Discharge Diagnosis) - 06/27/23 History of CVA (cerebrovascular accident)(Discharge Diagnosis) - 06/27/23 Hyperlipidemia(Discharge Diagnosis) - 06/27/23 Hypertension(Discharge Diagnosis) - 06/27/23 Carotid stenosis, bilateral(Discharge Diagnosis) - 06/27/23 Discharge Disposition: Home or Self Care Attending Physician: DO Nassar Jason D Allergies, Adverse Reactions, Alerts Substance Reaction Severity Status sulfa drugs hives Active Medications aspirin 81 mg oral capsule Start: 06/27/23 10:05:00 EDT, 1 cap, PO, q24h, Disp# 30 cap, Refills: 11, other Start Date: 06/27/23 Status: Ordered cilostazol 100 mg oral tablet Start: 05/10/23 14:43:00 EDT, 1 tab, PO, Daily, Disp# 30 tab, Refills: 5, Pharmacy: [id number] Start Date: 05/10/23 Stop Date: 11/06/23 Status: Ordered levothyroxine 112 mcg (0.112 mg) oral tablet Start: 05/10/23 14:37:00 EDT, 1 tab, PO, Daily, Disp# 30 tab, Refills: 5, Pharmacy: [facility] Start Date: 05/10/23 Stop Date: 11/06/23 Status: Ordered lisinopril 10 mg oral tablet Start: 05/10/23 14:36:00 EDT, 1 tab, PO, Daily, Disp# 30 tab, Refills: 5, Pharmacy: [id number] Start Date: 05/10/23 Stop Date: 11/06/23 Status: Ordered Plavix 75 mg oral tablet Start: 06/29/23 10:21:00 EDT, 1 tab, PO, Daily, Disp# 30 tab, Refills: 11, Pharmacy: [id number] Start Date: 06/29/23 Status: Ordered simvastatin 40 mg oral tablet 1 tab, PO, Daily, TAKE 1 TABLET BY MOUTH AT BEDTIME Start Date: 05/10/23 Status: Ordered Mental Status 06/27/23 Barriers to Learning one year None evide nt Mandatory Health Literacy Documentation Yes Health Literacy Communication Barriers N ever Primary Language Telugu Problem List Condition Confirmation Course Effective Dates Status H ealth Status Informant Aortic stenosis Confirmed Active Carotid stenosis Confirmed Active Carotid artery bruit Confirmed Active Tremor of right hand Confirmed Active History of CVA (cerebrovascular accident) Confirmed Active Hyperlipidemia Confirmed Active Hypertension Confirmed Active Hypothyroidism Confirmed Active Diagnosis Diagnosis Type Effective Dates Health Status Clinical Service Informant Hypertension Discharge Diagnosis 06/27/23 Aortic stenosis Discharge Diagnosis 06/27/23 Carotid artery bruit Discharge Diagnosis 06/27/23 Hyperlipidemia Discharge Diagnosis 06/27/23 History of CVA (cerebrovascular accident) Discharge Diagnosis 06/27/23 Carotid stenosis, bilateral Discharge Diagnosis 06/27/23 Non-Specified Vital Signs Most recent to oldest [Reference Range]: 1 2 Patient Weight 91 kg (06/27/23 9:25 AM) Heart Rate 83 bpm (06/27/23 9:25 AM) Blood Pressure 138/88mmHg (06/27/23 9:25 AM) 136/88mmHg (06/27/23 9:22 AM) BP Location # 1 Right Arm (06/27/23 9:25 AM) Left Arm (06/27/23 9:22 AM) Social History Social History Type Response Tobacco Former smoker, Stopp ed age 65 Years. Smoking Status Former Smoker, quit > 1 yr Sex Male Cardiology Consult note * DO Nassar Jason D: PERFORM, MODIFY Event Display: Cardiology Consult Authored Date: [id number] Chief Complaint establish care severe . History of Present Illness Patient was seen in cardiology clinic due to an outpatient echocardiogram that revealed severe aortic stenosis with preserved left ventricular systolic function. It is difficult to determine whether he is having progressive shortness of breath or fatigue with activity. Does not sound like he does a whole lot. He notes he has pain in his feet especially his left foot from a prior injury that limit his ability to ambulate. They have 5 steps to get into their home and he can do that without having to stop. He denies any chest pressure or chest heaviness with activity. He denies any palpitations or fluttering or feeling his heart racing. He denies any orthostatic symptoms. He has no significant lower extremity edema. He was having symptoms of amaurosis fugax and has had at least 3 episodes where he is lost part of his vision with a black hole for 3 to 4 minutes. Outpatient ophthalmology ordered a carotid ultrasound which reveals what appears to be severe common carotid disease with an inability to assess the internal carotid on the right side which is with the side of his visual changes. He denies any weakness on the left side of his body. He denies any falls. He is tolerating his current medical regimen. He notes he was put on cilostazol in the past for PAD but he does not have anySymptoms of calf or buttock claudication. Review of Systems The rest of review of systems otherwise negative Family history: Mom at 80 she had osteoporosis and dementia; dad at 86 he had CABG and AVR at the age of 65 and had repeat bypass surgery shortly after his first surgery Past medical history: 1 severe aortic stenosis with preserved left ventricular systolic function 2. History of a CVA at the age of 48 3. History of a left carotid endarterectomy in 2016 4. Transient loss of vision in his right eye with what appears to be a severe common carotid and possible significant internal carotid disease 5. History of tobacco abuse having smoked a pack and 1/4/day for 50 years 6. Hypothyroidism 7. 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 1.5 Physical Exam Vitals & Measurements HR:83(Monitored) BP:138/88 SpO2:98% WT:91.000kg(Dosing) WT:91kg Patient is awake alert and oriented x3and in no acute distress HEENT:2+ carotid upstrokes on left, right carotid bruits LUNGS:Clear to auscultation bilaterally no rales rhonchi or wheezing HEART:Regular rate and rhythm3/6 NORTH late peaking; no diastolic murmurs ABDOMEN:Soft nontender nondistended positive bowel sounds EXTREMITIES:No evidence of clubbing cyanosis or edema PSYCHIATRIC:Patient's affect appeared appropriate EKG Normal sinus rhythm with a first-degree AV block; otherwise normal ECG Diagnostic Results Finalized by Dr. Kurt Nassar MD on 06/22/2023 Summary 1. Technically difficult study due to [...] mmHg. 13. No prior studies for comparison. Assessment/Plan 1.Aortic stenosis 2.Carotid artery bruit 3.History of CVA (cerebrovascular accident) 4.Hyperlipidemia 5.Hypertension He has severe aortic stenosis. We discussed when 1 would consider intervention to usually severe aortic stenosis with either symptoms or LV dysfunction or heart failure or a decline in his functional capacity. At this point I had a hard time determining whether he is more short of breath or tired with activity as he does not do a lot to begin with. We discussed for now as he has bigger issues especially given his right carotid disease that we will observe but if he noted a change he will have to let us know. We will get him into see Dr. Dede handy vascular surgeon GUMARO. He will need a carotid CTA to assess the severity of his common and internal carotid disease. Given the fact he has had 3 episodes of amaurosis fugax this is concerning that he has significant or unstable disease. The challenge will be if he needs intervention in the safest way to do that with severe aortic stenosis and probably significant coronary artery disease given his vascular disease. He has never had a screening ultrasound for a AAA. Given his potential claudication I ordered a complete aortoiliac study which we will get completed. I discussed them he should be on 81 mg of aspirin. The utility of Pletal is questionable as I discussed with him that it is unusual to get foot claudication. I will leave this up to vascular surgery. He is otherwise on appropriate regimen including lisinopril and statin therapy and his last LDL wasacceptable. His creatinine is about 1.5 which is important with regards to contrast for a CTA. I will see him back in 3 months time. Additionally, I discussed the case with Dr. Aguayo todayin the office. Problem List/Past Medical History Ongoing Aortic stenosis Carotid artery bruit History of CVA (cerebrovascular accident) Hyperlipidemia Hypertension Hypothyroidism Tremor of right hand Medications Home aspirin(aspirin 81 mg oral capsule), 81 mg= 1 cap, PO, q24h, 11 refills cilostazol(cilostazol 100 mg oral tablet), 100 mg= 1 tab, PO, Daily cilostazol(cilostazol 100 mg oral tablet), 100 mg= 1 tab, PO, Daily, 5 refills levothyroxine(levothyroxine 112 mcg (0.112 mg) oral tablet), 112 mcg= 1 tab, PO, Daily, 5 refills lisinopril(lisinopril 10 mg oral tablet), 10 mg= 1 tab, PO, Daily, 5 refills simvastatin(simvastatin 40 mg oral tablet), 40 mg= 1 tab, PO, Daily Allergies sulfa drugshives Social History Smoking Status Former Smoker, quit > 1 yr Family History Dementia: Mother. Heart disease: Father. Heart failure: Father. Heart murmur: Father. Osteoporosis: Mother. Health Status Family Member(s) Electronic Signature on File CC: Luna Argueta MD [address] [facility] [id number] CC: González Aguayo MD [address] [facility] [address] [facility] [address] Electronically Reviewed/Signed by: Kurt Nassar DO Author Signature Dt/Tm:06/27/2023 12:28 PM Medical Office Workerbrand marketing manager [facility] [address], [address] [place] [address] Electronically Reviewed/Signed by: DO Steve Muniz Dt/Tm: 06/27/2023 12:29 PM Medical Office Workerbrand marketing manager [facility] [address], [address] [place] [address] JDF Patient Care team information Care Team Personnel Name: MP Roper Lynn Position: Physician Relocation Manager Exempt - Vasc Surg Member Role: Lifetime Relationship Address: Address: [address] [facility] 1 [place] [address] Name: MD Ellie, [place] Position: Physician - Family Med Member Role: Primary Care Provider Address: Address: [address] [place] [address], [place] [address] Care Team Related Persons Name: COLIN DALTON Address: home [address] [place] [address] Name: ALKA SHARMA Address: home [address] [place] [address] GAVIN WHITEHEAD [phone]
--- OUTSIDE RECORDS SUMMARY | 2023-07-15 11:11 | External Medical Summary | Continuity of Care Document ---
Author Name Unknown Organization [address] Address [address] [place], [place] [id number] Care Team Providers Care Director Motion Picture Name Role Phone Luna Argueta Primary Care Physician [phone] [id number] Date(s): 06/20/23 - 06/20/[address], [address] [place] [address] [phone] Discharge Disposition: Home or Self Care Attending [...] Daily, Disp# 30 tab, Refills: 5, Pharmacy: [id number] Start Date: 05/10/23 Stop Date: 11/06/23 Status: Ordered levothyroxine 112 mcg (0.112 mg) oral tablet Start: 05/10/23 14:37:00 EDT, 1 tab, PO, Daily, Disp# 30 tab, Refills: 5, Pharmacy: [id number] Start Date: 05/10/23 Stop Date: 11/06/23 Status: Ordered lisinopril 10 mg oral tablet Start: 05/10/23 14:01:00 EDT, 1 tab, PO, Daily Start Date: 05/10/23 Status: Ordered lisinopril 10 mg oral tablet Start: 05/10/23 14:36:00 EDT, 1 tab, PO, Daily, Disp# 30 tab, Refills: 5, Pharmacy: [id number] Start Date: 05/10/23 Stop [...] Active Hypertension Confirmed Active Hypothyroidism Confirmed Active Social History Social History Type Response Smoking Status Never smoked cigaret azalia Sex Male Patient Care team information Care Team Personnel Name: MD Ellie, [place] Position: Physician - Family Med Member Role: Primary Care Provider Address: Address: [address] [place] [address], [place] [address] Care Team Related Persons Name: ALKA SHARMA Address: home [address] [place] [address] GAV[place] WHITEHEAD [phone]
--- OUTSIDE RECORDS SUMMARY | 2023-07-15 11:11 | External Medical Summary | Continuity of Care Document ---
Author Name Unknown Organization [address] [id number] Care Team Providers Care Community Advocate Name Role Phone Luna Argueta Primary Care Physician [phone] [facility] [id number] Date(s): 06/15/23 - 06/15/[address] [address] [phone] Encounter Diagnosis Hypertension(Discharge Diagnosis) - 06/15/23 Hypothyroidism(Discharge Diagnosis) - 06/15/23 Amaurosis fugax, right eye(Discharge Diagnosis) - 06/15/23 Carotid stenosis(Discharge Diagnosis) - 06/15/23 Heart murmur(Discharge Diagnosis) - 06/15/23 Discharge Disposition: Home or Self Care Attending Physician: MD Ellie Luna Referring Physician: MD Argueta [place] Allergies, Adverse Reactions, Alerts Substance Reaction Severity Status sulfa drugs hives Active Assessment and Plan Extracted from: Title:Office Visit Note Author:MD Ellie, [facility] Date:06/16/23 1.Hypertension Chronic. Stable. Monitor BP. Decrease salt intake. Continue medication: lisinopril 10 mg once a day. 2.Hypothyroidism Chronic. Continue medication : Levothyroxine 112 mcg once a day. Repeat TSH in 6 weeks. 3.Carotid stenosis Follow up with vascular surgeon as scheduled. 4.Amaurosis fugax, right eye Ophthalmology requested for him to have Holter monitor andechocardiogram 5.Heart murmur as above. Medications cilostazol 100 mg oral tablet 1 tab, PO, Daily, TAKE 1 TABLET BY MOUTH EVERY DAY Start Date: 05/10/23 Status: Ordered cilostazol 100 mg oral tablet Start: 05/10/23 14:43:00 EDT, 1 tab, PO, Daily, Disp# 30 tab, Refills: 5, Pharmacy: [id number] Start Date: 05/10/23 Stop Date: 11/06/23 Status: Ordered levothyroxine 112 mcg (0.112 mg) oral tablet Start: 05/10/23 14:37:00 EDT, 1 tab, PO, Daily, Disp# 30 tab, Refills: 5, Pharmacy: [id number] Start Date: 05/10/23 Stop Date: 11/06/23 Status: Ordered lisinopril 10 mg oral tablet Start: 05/10/23 14:01:00 EDT, 1 tab, PO, Daily Start Date: 05/10/23 Status: Ordered lisinopril 10 mg oral tablet Start: 05/10/23 14:36:00 EDT, 1 tab, PO, Daily, Disp# 30 tab, Refills: 5, Pharmacy: [id number] Start Date: 05/10/23 Stop Date: 11/06/23 Status: Ordered simvastatin 40 mg oral tablet 1 tab, PO, Daily, TAKE 1 TABLET BY MOUTH AT BEDTIME Start Date: 05/10/23 Status: Ordered Mental Status 06/15/23 Barriers to Learning one year None evide nt Mandatory Health Literacy Documentation Yes Health Literacy Communication Barriers N ever Primary Language Pashto Problem List Condition Confirmation Course Effective Dates Status H ealth Status Informant Tremor of right hand Confirmed Active History of CVA (cerebrovascular accident) Confirmed Active Hyperlipidemia Confirmed Active Hypertension Confirmed Active Hypothyroidism Confirmed Active Diagnosis Diagnosis Type Effective Dates Health Status Clinical Service Informant Heart murmur Discharge Diagnosis 06/15/23 Hypertension Discharge Diagnosis 06/15/23 Carotid stenosis Discharge Diagnosis 06/15/23 Hypothyroidism Discharge Diagnosis 06/15/23 Amaurosis fugax, right eye Discharge Diagnosis 06/15/23 Vital Signs Most recent to oldest [Reference Range]: 1 Patient Weight 94.3 kg (06/15/23 10:51 AM) Heart Rate 63 bpm (06/15/23 10:51 AM) Respiratory Rate 18 br/min (06/15/23 10:51 AM) Blood Pressure 138/76mmHg (06/15/23 10:51 AM) BP Location # 1 Left Arm (06/15/23 10:51 AM) Social History Social History Type Response Smoking Status Never smoked cigaret azalia Sex Male FCM Outpt Note * Sampang, MD, [place]: PERFORM Event Display: FCM Outpt Note Authored Date: [id number] Chief Complaint discuss labs History of Present Illness 78 y/o M here for follow up of : -hypothyroid. Last Tsh level was 44.24. On Levothyroxine 112 mcg. Denies chest pain sob, abdominal pain, nausea, or vomiting. No constipation or diarrhea. -CKD. Crea went up from 1.33 now 1.55. Denies flank pain. States that he has this problem a long time ago. Has not seen coding quality analyst in the past. - Recent carotid US showed 50% RCAstenosis. Patient has appointment with vascular surgeon Denies fever, headache, dizziness. Denies nasal congestion, ear pain Denies chest pain or shortness of breath Denies abdominal pain, nausea or vomiting, diarrhea or constipation Denies dysuria, frequency or urgency of urination Denies blood in the urine or stool Denies Numbness, tingling sensation or weakness of the extremities. Denies joint pain or muscle aches. Review of Systems see hpi Physical Exam Vitals & Measurements HR:63(Monitored) RR:18 BP:138/76 SpO2:95% WT:94.300kg(Dosing) WT:94.3kg PHQ2 Data(Data Documented on:06/15/2023 10:51) Emotional health assessment NEGATIVE General: alert and oriented, no acute distress Eye: PERRL, EOMI, normal conjunctiva HENT: normocephalic Neck: supple, no lap, no thyromegaly Resp: Lungs CTA, non-labored respirations, BS equal, symmetrical expansion CV: normal rate and rhythm,systolic murmur, no gallop, good pulses equal in all extremities, normal peripheral perfusion, no edema MS: normal gait Psychiatric: appropriate mood and affect, normal judgement, non-suicidal Assessment/Plan 1.Hypertension Chronic. Stable. Monitor BP. Decrease salt intake. Continue medication: lisinopril 10 mg once a day. 2.Hypothyroidism Chronic. Continue medication : Levothyroxine 112 mcg once a day. Repeat TSH in 6 weeks. 3.Carotid stenosis Follow up with vascular surgeon as scheduled. 4.Amaurosis fugax, right eye Ophthalmology requested for him to have Holter monitor andechocardiogram 5.Heart murmur as above. Problem List/Past Medical History Ongoing History of CVA (cerebrovascular accident) Hyperlipidemia Hypertension Hypothyroidism Tremor of right hand Medications cilostazol(cilostazol 100 mg oral tablet), 100 mg= 1 tab, PO, Daily cilostazol(cilostazol 100 mg oral tablet), 100 mg= 1 tab, PO, Daily, 5 refills levothyroxine(levothyroxine 112 mcg (0.112 mg) oral tablet), 112 mcg= 1 tab, PO, Daily, 5 refills lisinopril(lisinopril 10 mg oral tablet), 10 mg= 1 tab, PO, Daily lisinopril(lisinopril 10 mg oral tablet), 10 mg= 1 tab, PO, Daily, 5 refills simvastatin(simvastatin 40 mg oral tablet), 40 mg= 1 tab, PO, Daily Allergies sulfa drugshives Social History Smoking Status Never smoked cigarettes Family History Dementia: Mother. Heart failure: Father. Osteoporosis: Mother. Health Status Family Member(s) Recommendations Health Maintenance Pending(in the next year) OverDue Adult Influenza Vaccine due05/06/23and every 1year Due Adult COVID-19 Vaccination due06/16/23Unknown Frequency Adult Tdap/Td Vaccine due06/16/23Unknown Frequency Hepatitis C Screening due06/16/23One-time only Medicare Annual Wellness Visit due06/16/23and every 1year Pneumococcal Vaccine Older Adults due06/16/23One-time only Shingles Vaccine due06/16/23One-time only Due In Future Body Mass Index not due until06/14/24and every 1year Satisfied(in the past 1 year) Satisfied Body Mass Index on05/10/23.Satisfied by JAIMIE Davis Amber Lipid Screening on05/11/23.Satisfied by Contributor_system, [employer] Electronic Signature on File Electronically Reviewed/Signed by: Luna Argueta MD Author Signature Dt/Tm:06/16/2023 12:51 AM Department of Family Medicine VS Patient Care team information Care Team Personnel Name: MD Argueta [place] Position: Physician - Family Med Member Role: Primary Care Provider Address: Address: [address] [place] [address], [place] [address] [place] Care Team Related Persons Name: ALKA SHARMA Address: home [address] [place] [address] [place], [place] [id number]
--- OUTSIDE RECORDS SUMMARY | 2023-07-15 11:11 | External Medical Summary | Continuity of Care Document ---
Author Name Unknown Organization [address] Address [address] [place] [id number] Care Team Providers Care Red Leader Name Role Phone Luna Argueta Primary Care Physician [phone] [id number] Date(s): 05/10/23 - 05/10/[address] [address] [phone] Encounter Diagnosis Body mass index [BMI] 28.0-28.9, adult(Discharge Diagnosis) - 05/10/23 Hypertension(Discharge Diagnosis) - 05/10/23 Hyperlipidemia(Discharge Diagnosis) - 05/10/23 Hypothyroidism(Discharge Diagnosis) - 05/10/23 History of CVA (cerebrovascular accident)(Discharge Diagnosis) - 05/10/23 Tremor of right hand(Discharge Diagnosis) - 05/10/23 Discharge Disposition: Home or Self Care Attending Physician: MD Ellie, [place] Allergies, Adverse Reactions, Alerts Substance Reaction Severity Status sulfa drugs hives Active Medications cilostazol 100 mg oral tablet 1 tab, PO, Daily, TAKE 1 TABLET BY MOUTH EVERY DAY Start Date: 05/10/23 Status: Ordered cilostazol 100 mg oral tablet Start: 05/10/23 14:43:00 EDT, 1 tab, PO, Daily, Disp# 30 tab, Refills: 5, Pharmacy: [id number] Start Date: 05/10/23 Stop Date: 11/06/23 Status: Ordered levothyroxine 112 mcg (0.112 mg) oral tablet Start: 05/10/23 14:01:00 EDT, 1 tab, PO, Daily Start Date: 05/10/23 Status: Ordered levothyroxine 112 mcg (0.112 mg) oral tablet Start: 05/10/23 14:37:00 EDT, 1 tab, PO, Daily, Disp# 30 tab, Refills: 5, Pharmacy: [id number] Start Date: 05/10/23 Stop Date: 11/06/23 Status: Ordered lisinopril 10 mg oral tablet Start: 05/10/23 14:01:00 EDT, 1 tab, PO, Daily Start Date: 05/10/23 Status: Ordered lisinopril 10 mg oral tablet Start: 05/10/23 14:36:00 EDT, 1 tab, PO, Daily, Disp# 30 tab, Refills: 5, Pharmacy: [id number] Start Date: 05/10/23 Stop Date: 11/06/23 Status: Ordered simvastatin 40 mg oral tablet 1 tab, PO, Daily, TAKE 1 TABLET BY MOUTH AT BEDTIME Start Date: 05/10/23 Status: Ordered simvastatin 40 mg oral tablet Start: 05/10/23 14:42:00 EDT, 1 tab, PO, qhs, Disp# 30 tab, Refills: 5, Pharmacy: [id number] Start Date: 05/10/23 Stop Date: 11/06/23 Status: Ordered Mental Status 05/10/23 Barriers to Learning one year None evide nt Mandatory Health Literacy Documentation Yes Health Literacy Communication Barriers N ever Primary Language [place] Problem List Diagnosis Diagnosis Type Effective Dates Health Status Clinical Service Informant Hypertension Discharge Diagnosis 05/10/23 Body mass index [BMI] 28.0-28.9, adult Discharge Diagnosis 05/10/23 Non-Specified Hyperlipidemia Discharge Diagnosis 05/10/23 Hypothyroidism Discharge Diagnosis 05/10/23 History of CVA (cerebrovascular accident) Discharge Diagnosis 05/10/23 Tremor of right hand Discharge Diagnosis 05/10/23 Vital Signs Most recent to oldest [Reference Range]: 1 Height 178.8 cm (05/10/23 2:02 PM) Patient Weight 91.7 kg (05/10/23 2:02 PM) Body Mass Index 28.68 kg/m2 (05/10/23 2:02 PM) Temperature [36.5-37.9 DegC] 36.3 DegC *LOW* (05/10/23 2:02 PM) Heart Rate 109 bpm (05/10/23 2:02 PM) Respiratory Rate 18 br/min (05/10/23 2:02 PM) Blood Pressure 136/82mmHg (05/10/23 2:02 PM) Social History Social History Type Response Smoking Status Former Smoker, quit > 1 yr Sex Male Patient Care team information Care Team Personnel Name: MD Ellie, Luna Position: Physician - Family Med Member Role: Primary Care Provider Address: Address: [address] [place] [address], [place] [address] Care Team Related Persons Name: ALKA SHARMA Address: home [address] [place] [address] [place]IGAVIN [phone]
--- OUTSIDE RECORDS SUMMARY | 2023-07-15 11:11 | External Medical Summary | Continuity of Care Document ---
Author Name Unknown Organization [address] [id number] Care Team Providers Care Archery Instructor Name Role Phone Luna Argueta Primary Care Physician [phone] [facility] [id number] Date(s): 05/15/23 - 05/15/[address] [address] [phone] Encounter Diagnosis Hypothyroidism(Discharge Diagnosis) - 05/15/23 Chronic renal insufficiency(Discharge Diagnosis) - 05/16/23 Tremor of right hand(Discharge Diagnosis) - 05/16/23 Discharge Disposition: Home or Self Care Attending Physician: MD Ellie, [place] Allergies, Adverse Reactions, Alerts Substance Reaction Severity Status sulfa drugs hives Active Assessment and Plan Extracted from: Title:Office Visit Note Author:MD Ellie, [facility] Date:05/16/23 1.Hypothyroidism Chronic. Overcorrected. Latest TSH 0.09. Advised to stop medication for now. Repeat TSH and [id number] 4 weeks for re-check. 2.Chronic renal insufficiency Encourage water hydration. Repeat BMP. Encourage to decrease alcohol intake. 3.Tremor of right hand Patient has a scheduled appointment with neurology. Labs reviewed with patient. Discussed plan of care. Medications cilostazol 100 mg oral tablet 1 tab, PO, Daily, TAKE 1 TABLET BY MOUTH EVERY DAY Start Date: 05/10/23 Status: Ordered cilostazol 100 mg oral tablet Start: 05/10/23 14:43:00 EDT, 1 tab, PO, Daily, Disp# 30 tab, Refills: 5, Pharmacy: [id number] Start Date: 05/10/23 Stop Date: 11/06/23 Status: Ordered levothyroxine 112 mcg (0.112 mg) oral tablet Start: 05/10/23 14:01:00 EDT, 1 tab, PO, Daily Start Date: 05/10/23 Status: Ordered levothyroxine 112 mcg (0.112 mg) oral tablet Start: 05/10/23 14:37:00 EDT, 1 tab, PO, Daily, Disp# 30 tab, Refills: 5, Pharmacy: [id number] Start Date: 05/10/23 Stop Date: 11/06/23 Status: Ordered lisinopril 10 mg oral tablet Start: 05/10/23 14:01:00 EDT, 1 tab, PO, Daily Start Date: 05/10/23 Status: Ordered lisinopril 10 mg oral tablet Start: 05/10/23 14:36:00 EDT, 1 tab, PO, Daily, Disp# 30 tab, Refills: 5, Pharmacy: [id number] Start Date: 05/10/23 Stop Date: 11/06/23 Status: Ordered simvastatin 40 mg oral tablet 1 tab, PO, Daily, TAKE 1 TABLET BY MOUTH AT BEDTIME Start Date: 05/10/23 Status: Ordered simvastatin 40 mg oral tablet Start: 05/10/23 14:42:00 EDT, 1 tab, PO, qhs, Disp# 30 tab, Refills: 5, Pharmacy: [id number] Start Date: 05/10/23 Stop Date: 11/06/23 Status: Ordered Mental Status 05/15/23 Barriers to Learning one year None evide nt Mandatory Health Literacy Documentation Yes Health Literacy Communication Barriers N ever Primary Language Uzbek Problem List Condition Confirmation Course Effective Dates Status H ealth Status Informant Tremor of right hand Confirmed Active History of CVA (cerebrovascular accident) Confirmed Active Hyperlipidemia Confirmed Active Hypertension Confirmed Active Hypothyroidism Confirmed Active Diagnosis Diagnosis Type Effective Dates Health Status Clinical Service Informant Hypothyroidism Discharge Diagnosis 05/15/23 Chronic renal insufficiency Discharge Diagnosis 05/16/23 Tremor of right hand Discharge Diagnosis 05/16/23 Vital Signs Most recent to oldest [Reference Range]: 1 Patient Weight 92.0 kg (05/15/23 4:13 PM) Heart Rate 86 bpm (05/15/23 4:13 PM) Respiratory Rate 18 br/min (05/15/23 4:13 PM) Blood Pressure 142/72mmHg (05/15/23 4:13 PM) BP Location # 1 Left Arm (05/15/23 4:13 PM) Social History Social History Type Response Smoking Status Former Smoker, quit > 1 yr Sex Male FCM Outpt Note * MD Ellie, [place]: PERFORM Event Display: FCM Outpt Note Authored Date: [id number] Chief Complaint discuss labs and medications History of Present Illness 78 y/o M here for follow up of test results. - Cl, Crea, Glu, Tbil, Alk elevated -TC decrease -TSH decrease but Free T4 within normal. Patient on Levothyroxine 112 mcg once a day. Patient wasadvise to stop the medication for 3 days. Patient reported during his initial visit that he's taking levothyroxine along with other medications. He developed hypothyroid when hehad the stroke. - Denies new complaint today. Denies fever, headache, dizziness. Denies nasal congestion, ear pain Denies chest pain or shortness of breath Denies abdominal pain, nausea or vomiting, diarrhea or constipation Denies dysuria, frequency or urgency of urination Denies blood in the urine or stool Review of Systems see hpi Physical Exam Vitals & Measurements HR:86(Monitored) RR:18 BP:142/72 SpO2:94% WT:92.0kg WT:92.000kg(Dosing) PHQ2 Data(Data Documented on:05/15/2023 16:13) Emotional health assessment NEGATIVE General: alert and oriented, no acute distress Eye: PERRL, EOMI, normal conjunctiva HENT: normocephalic Neck: supple Resp: Lungs CTA, non-labored respirations, BS equal, symmetrical expansion CV: normal rate and rhythm, no murmur, no gallop, good pulses equal in all extremities, normal peripheral perfusion, no edema MS: normal gait Psychiatric: appropriate mood and affect, normal judgement, non-suicidal Assessment/Plan 1.Hypothyroidism Chronic. Overcorrected. Latest TSH 0.09. Advised to stop medication for now. Repeat TSH and [id number] 4 weeks for re-check. 2.Chronic renal insufficiency Encourage water hydration. Repeat BMP. Encourage to decrease alcohol intake. 3.Tremor of right hand Patient has a scheduled appointment with neurology. Labs reviewed with patient. Discussed plan of care. Attestation A total of30 minutes were spenton direct patient care, documentation,orders, and chart review. Problem List/Past Medical History Ongoing History of CVA (cerebrovascular accident) Hyperlipidemia Hypertension Hypothyroidism Tremor of right hand Medications cilostazol(cilostazol 100 mg oral tablet), 100 mg= 1 tab, PO, Daily cilostazol(cilostazol 100 mg oral tablet), 100 mg= 1 tab, PO, Daily, 5 refills levothyroxine(levothyroxine 112 mcg (0.112 mg) oral tablet), 112 mcg= 1 tab, PO, Daily levothyroxine(levothyroxine 112 mcg (0.112 mg) oral tablet), 112 mcg= 1 tab, PO, Daily, 5 refills lisinopril(lisinopril 10 mg oral tablet), 10 mg= 1 tab, PO, Daily lisinopril(lisinopril 10 mg oral tablet), 10 mg= 1 tab, PO, Daily, 5 refills simvastatin(simvastatin 40 mg oral tablet), 40 mg= 1 tab, PO, Daily simvastatin(simvastatin 40 mg oral tablet), 40 mg= 1 tab, PO, qhs, 5 refills Allergies sulfa drugshives Social History Smoking Status Former Smoker, quit > 1 yr Family History Dementia: Mother. Heart failure: Father. Osteoporosis: Mother. Health Status Family Member(s) Recommendations Health Maintenance Pending(in the next year) Due Adult Influenza Vaccine due05/06/23and every 1year Adult COVID-19 Vaccination due05/16/23Unknown Frequency Adult Tdap/Td Vaccine due05/16/23Unknown Frequency Hepatitis C Screening due05/16/23One-time only Medicare Annual Wellness Visit due05/16/23and every 1year Pneumococcal Vaccine Older Adults due05/16/23One-time only Shingles Vaccine due05/16/23One-time only Due In Future Body Mass Index not due until05/14/24and every 1year Satisfied(in the past 1 year) Satisfied Body Mass Index on05/10/23.Satisfied by JAIMIE Davis Amber Lipid Screening on05/11/23.Satisfied by Contributor_system, [employer] Electronic Signature on File Electronically Reviewed/Signed by: Luna Argueta MD Author Signature Dt/Tm:05/16/2023 12:39 AM Department of Family Medicine VS Patient Care team information Care Team Personnel Name: MD Ellie, Luna Position: Physician - Family Med Member Role: Primary Care Provider Address: Address: [address] [place] [address], [place] [address] Care Team Related Persons Name: ALKA SHARMA Address: home [address] [place] [address] GAVIN WHITEHEAD [phone]
--- OUTSIDE RECORDS SUMMARY | 2023-07-15 11:11 | External Medical Summary | Continuity of Care Document ---
Author Name Unknown Organization [facility] [address] Address [address] [place], [place] [id number] Care Team Providers Care Sliver Machine Operator Name Role Phone Luna Argueta Primary Care Physician [phone] Encounter [id number] Date(s): 05/11/23 - 05/11/23 [facility] [address] [facility] [address] 1 [facility] [address] [facility] [address] [place], [place] [phone] Encounter Diagnosis Hypothyroidism, unspecified(Final) - Hyperlipidemia, unspecified(Final) - Essential (primary) hypertension(Final) - Discharge Disposition: Home or Self Care Attending Physician: MD Ellie, [place] Referring Physician: MD Ellie, [place] Allergies, Adverse Reactions, Alerts Substance Reaction Severity Status sulfa drugs hives Active Medications cilostazol 100 mg oral tablet 1 tab, PO, Daily, TAKE 1 TABLET BY MOUTH EVERY DAY Start Date: 05/10/23 Status: Ordered cilostazol 100 mg oral tablet Start: 05/10/23 14:43:00 EDT, 1 tab, PO, Daily, Disp# 30 tab, Refills: 5, Pharmacy: [id number] Start Date: 05/10/23 Stop Date: 11/06/23 Status: Ordered levothyroxine 112 mcg (0.112 mg) oral tablet Start: 05/10/23 14:01:00 EDT, 1 tab, PO, Daily Start Date: 05/10/23 Status: Ordered levothyroxine 112 mcg (0.112 mg) oral tablet Start: 05/10/23 14:37:00 EDT, 1 tab, PO, Daily, Disp# 30 tab, Refills: 5, Pharmacy: [id number] Start Date: 05/10/23 Stop Date: 11/06/23 Status: Ordered lisinopril 10 mg oral tablet Start: 05/10/23 14:01:00 EDT, 1 tab, PO, Daily Start Date: 05/10/23 Status: Ordered lisinopril 10 mg oral tablet Start: 05/10/23 14:36:00 EDT, 1 tab, PO, Daily, Disp# 30 tab, Refills: 5, Pharmacy: [id number] Start Date: 05/10/23 Stop Date: 11/06/23 Status: Ordered simvastatin 40 mg oral tablet 1 tab, PO, Daily, TAKE 1 TABLET BY MOUTH AT BEDTIME Start Date: 05/10/23 Status: Ordered simvastatin 40 mg oral tablet Start: 05/10/23 14:42:00 EDT, 1 tab, PO, qhs, Disp# 30 tab, Refills: 5, Pharmacy: [id number] Start Date: 05/10/23 Stop Date: 11/06/23 Status: Ordered Problem List Condition Confirmation Course Effective Dates Status H ealth Status Informant Tremor of right hand Confirmed Active History of CVA (cerebrovascular accident) Confirmed Active Hyperlipidemia Confirmed Active Hypertension Confirmed Active Hypothyroidism Confirmed Active Results Laboratory List Name Date Comprehensive Metabolic Panel (COMP META B PANEL) 05/11/23 Lipid Profile (LIPOPROTEINS) 05/11/23 T4, Free (T4, FREE) 05/11/23 Thyroid Stimulating Hormone (TSH) 05/11/23 Most recent to oldest [Reference Range]: 1 eGFR CKD-EPI [>60 mL/min/1.73 m2] 55 mL/ min/1.73 m2 1 *LOW* (05/11/23 8:35 AM) Non-HDL 81 mg/dL 2 (05/11/23 8:35 AM) Estimated CrCl 52.46 mL/min (05/11/23 9:10 AM) Anion Gap [5-14 mmol/L] 7 mmol/L (05/11/23 8:35 AM) Alb [3.5-5.0 g/dL] 4.3 g/dL (05/11/23 8:35 AM) Alk Phos [38-126 unit/L] 154 unit/L *HI* (05/11/23 8:35 AM) ALT [<50 unit/L] 27 unit/L (05/11/23 8:35 AM) AST [15-46 unit/L] 30 unit/L (05/11/23 8:35 AM) BUN [7-20 mg/dL] 13 mg/dL (05/11/23 8:35 AM) Ca [8.4-10.2 mg/dL] 9.6 mg/dL (05/11/23 8:35 AM) Chol/HDL 3 (05/11/23 8:35 AM) Chol [125-200 mg/dL] 117 mg/dL *LOW* (05/11/23 8:35 AM) Cl- [96-107 mmol/L] 108 mmol/L *HI* (05/11/23 8:35 AM) HCO3 [22-30 mmol/L] 25 mmol/L (05/11/23 8:35 AM) Cret [0.70-1.30 mg/dL] 1.33 mg/dL *HI* (05/11/23 8:35 AM) Glu [74-106 mg/dL] 117 mg/dL *HI* (05/11/23 8:35 AM) HDL [>35 mg/dL] 36 mg/dL (05/11/23 8:35 AM) K [3.5-5.1 mmol/L] 3.9 mmol/L (05/11/23 8:35 AM) LDL Chol, Calculated [50-130 mg/dL] 63 m g/dL (05/11/23 8:35 AM) Na [137-145 mmol/L] 140 mmol/L (05/11/23 8:35 AM) Free T4 [0.70-1.48 ng/dL] 1.45 ng/dL 3 (05/11/23 8:35 AM) T Bili [0.2-1.3 mg/dL] 1.5 mg/dL *HI* (05/11/23 8:35 AM) Prot [6.3-8.2 g/dL] 7.7 g/dL (05/11/23 8:35 AM) TG [<200 mg/dL] 88 mg/dL (05/11/23 8:35 AM) TSH [0.47-4.68 uIU/mL] 0.09 uIU/mL 4 *LOW* (05/11/23 8:35 AM) 1Result Comment: Testing Performed By: Dept [facility] Pathology [facility] [address], [address] [place] [address] 2Result Comment: Testing Performed By: Dept [facility] Pathology [facility] [address], [address] [place] [address] 3Result Comment: Testing Performed By: Dept [facility] Pathology [facility] [address], [address] [place] [address] 4Result Comment: Testing Performed By: Dept of Pathology [facility] [address], [address], [place] [address] Social History Social History Type Response Smoking Status Former Smoker, quit > 1 yr Sex Male Patient Care team information Care Team Personnel Name: MD Ellie, Luna Position: Physician - Family Med Member Role: Primary Care Provider Address: Address: [address] [place] [address], [place] [address] Care Team Related Persons Name: ALKA SHARMA Address: home [address] [place] [address] GAVIN WHITEHEAD [phone]
== END 2023-07-07 12:44 | disposition home or self-care (01) | DRG 35 ==
LOC: ASU 10:59 → 1E 12:02
PROC: EV.TCAR (2023-07-06 13:00)

== ENCOUNTER 2023-07-29 22:24 | Inpatient (IN) ==
[2023-07-29] MEDS ORDERED: OPTIRAY 320 125ml IV ONE (22:46)
[2023-07-29 22:49] LABS: iSTAT Creatinine 1.6 mg/dl (0.6-1.3); iSTAT Hemoglobin 15.3 g/dl (14.0-18.0); iSTAT Ionized Calcium 1.13 mmol/l (1.12-1.32); iSTAT Potassium 3.4 mmol/L (3.3-5.0)
[2023-07-29 22:53] LABS: Basophils # (auto) 0.11 K/uL (0.00-0.20); Basophils % (auto) 0.9 %; Eosinophils % (auto) 2.6 %; Hematocrit (blood only) 44.4 % (42.0-52.0); Hemoglobin 14.6 g/dl (14.0-18.0); Immature Granulocytes # (auto) 0.07 K/uL (0.01-0.20); Immature Granulocytes % (auto) 0.6 %; Lymphocytes # (auto) 2.91 K/uL (1.20-3.40); Lymphocytes % (auto) 24.9 %; Mean Corpuscular Hemoglobin 34.3 pg (25.0-34.0); Mean Corpuscular Hgb Conc 32.9 g/dL (32.0-36.0); Mean Corpuscular Volume 104.2 fL (80.0-100.0); Mean Platelet Volume 9.9 fL (9.4-12.4); Monocytes # (auto) 1.01 K/uL (0.11-0.59); Monocytes % (auto) 8.6 %; Neutrophils % (auto) 62.4 %; Platelet Count 317 K/uL (130-400); RDW Coefficient of Variation 13.2 % (11.5-14.5); RDW Standard Deviation 51.3 fL (36.4-46.3); Red Blood Count 4.26 M/uL (4.70-6.10)
--- NOTE | 2023-07-29 22:56 | CT Scan Report ---
Exam(s): CT HEAD Without Contrast EXAM: CT Head Without Intravenous Contrast CLINICAL HISTORY: Reason for exam: neuro deficit, acute stroke suspected. TECHNIQUE: Axial computed tomography images of the head/brain without intravenous contrast. CTDI is 13.71 mGy and DLP is 562.88 mGy-cm. Automated exposure control was utilized for the study. A dose lowering technique was utilized adhering to the principles of ALARA. 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 Mild periventricular white matter changes, likely related to microangiopathy. No hemorrhage. Ventricles: Unremarkable. No ventriculomegaly. Bones/joints: Unremarkable. No acute fracture. Soft tissues: Unremarkable. Sinuses: Unremarkable as visualized. No acute sinusitis. Mastoid air cells: Unremarkable as visualized. No mastoid effusion. IMPRESSION: 1. 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 2. Mild periventricular white matter changes, likely related to microangiopathy. Communications: Call Doctor Stroke Electronically signed by: Noe Castaneda M.D. 07/29/23 22:55 PM
[2023-07-29] MEDS: SODIUM CHLORIDE 0.9% 1,000 ML IV SCH (22:58)
--- NOTE | 2023-07-29 23:04 | CT Scan Report ---
Exam(s): CTA HEAD With Contrast IV Amt: 118 ml opti 320 EXAM: CT Angiography Head With Intravenous Contrast CLINICAL HISTORY: Reason for exam: neuro deficit, acute stroke suspected. TECHNIQUE: Axial computed tomographic angiography images of the head with intravenous contrast. CTDI is 37.12 mGy and DLP is 624.41 mGy-cm. Automated exposure control was utilized for the study. A dose lowering technique was utilized adhering to the principles of ALARA. MIP reconstructed images were created and reviewed. CONTRAST: Patient received 118 ml opti 320 of IV contrast COMPARISON: 07/20/2023 FINDINGS: Right internal carotid artery: No acute findings. Intracranial segment is patent with no significant stenosis. No aneurysm. Right anterior cerebral artery: Unremarkable. No occlusion or significant stenosis. No aneurysm. Right middle cerebral artery: Unremarkable. No occlusion or significant stenosis. No aneurysm. Right posterior cerebral artery: origin to the right posterior cerebral artery territory. Large right posterior acute communicating artery is unremarkable. 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 Left internal carotid artery: No acute findings. Intracranial segment is patent with no significant stenosis. No aneurysm. Left anterior cerebral artery: Unremarkable. No occlusion or significant stenosis. No aneurysm. Left middle cerebral artery: Unremarkable. No occlusion or significant stenosis. No aneurysm. Left posterior cerebral artery: Prominent left posterior communicating artery is unremarkable. Left vertebral artery: Unremarkable as visualized. Basilar artery: Diffusely small caliber basilar artery likely secondary to large bilateral posterior communicating arteries. No occlusion or significant stenosis. No aneurysm. IMPRESSION: No large vessel intracranial occlusion. Communications: Call Doctor Stroke Electronically signed by: Noe Castaneda M.D. 07/29/23 23:03 PM
[2023-07-29 23:05] LABS: Albumin Level 4.4 gm/dl (3.4-5.0); Bilirubin,Total 1.7 mg/dl (0.2-1.0); Calcium 9.7 mg/dl (8.6-10.3); Magnesium 2.3 mg/dl (1.7-2.4); Potassium 3.4 mmol/L (3.5-5.1)
[2023-07-29 23:11] LABS: Albumin Globulin Ratio 1.1 (0.9-2); BUN Creatinine Ratio 6.6 (10-20); Creatinine Clr Calc Pharmacy 44.8 ml/min; Est GFR (African American) 45.1 ml/min; Est GFR (Non-African American) 38.9 ml/min; Total Protein 8.4 gm/dl (6.0-8.3)
[2023-07-29 23:13] LABS: Appearance Urine Clear (Clear); Bacteria Urine Automated Negative (Negative); Bilirubin Urine Negative (Negative); Blood Urine 1+ (Negative); Color Urine Yellow; Glucose Urine UA 1+ (Negative); Ketones Urine 1+ (Negative); Leukocyte Esterase Urine Negative (Negative); Nitrite Urine Negative (Negative); RBC Urine Automated 0-4 /hpf (0-4); Specific Gravity Urine 1.017 (1.000-1.030); Urobilinogen Urine Negative (Negative); pH Urine 7.5 (4.5-7.5)
[2023-07-29 23:19] LABS: INR 1.1 (0.9-1.1); Partial Thromboplastin Time 26.9 Seconds (21.0-31.0); Prothrombin Time 11.5 Seconds (9.0-12.0)
--- NOTE | 2023-07-29 23:20 | CT Scan Report ---
Exam(s): CTA NECK With Contrast IV Amt: 118 ml opti 320 EXAM: CT Angiography Neck With Intravenous Contrast CLINICAL HISTORY: Reason for exam: neuro deficit, acute stroke suspected. TECHNIQUE: Routine carotid CT angiography protocol was performed with intravenous contrast. NASCET criteria using the distal ICAs for comparison were used for evaluation of stenoses. CTDI is 12.46 mGy and DLP is 6.23 mGy-cm. Automated exposure control was utilized for the study. A dose lowering technique was utilized adhering to the principles of ALARA. MIP reconstructed images were created and reviewed. CONTRAST: Patient received 118 ml opti 320 of IV contrast COMPARISON: 07/20/2020 FINDINGS: VASCULATURE: Right common carotid artery: Unremarkable. No occlusion or significant stenosis. No dissection. Right internal carotid artery: See below. Right external carotid artery: Unremarkable. No occlusion. 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 No occlusion or significant stenosis. Left common carotid artery: Mild to moderate atherosclerotic plaque within the distal left common carotid artery carotid bulb and proximal right internal carotid artery causing no greater than 30% stenosis. No dissection. Left internal carotid artery: Unremarkable. Extracranial segment is patent with no occlusion or significant stenosis. No dissection. Left external carotid artery: Unremarkable. No occlusion. Left vertebral artery: Moderate ostial stenosis of the origin of the left vertebral artery. No dissection. Other vasculature: Prior right carotid stent in position. There is severe in-stent stenosis of greater than 80% at the level of the carotid bulb with narrowing of the stent at this level as well. NECK: Bones/joints: Unremarkable. Soft tissues: Unremarkable. Lung apices: Clear. CAROTID STENOSIS REFERENCE USING NASCET CRITERIA: % ICA stenosis = (1 - narrowest ICA diameter/diameter of distal cervical ICA) x 100. Mild - <50% stenosis. Moderate - 50-69% stenosis. Severe - 70-94% stenosis. Near occlusion - 95-99% stenosis. Occluded - 100% stenosis. IMPRESSION: 1. Prior right carotid stent in position. There is severe in-stent stenosis of greater than 80% at the level of the carotid bulb with narrowing of the stent at this level as well. 2. 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 3. Mild to moderate atherosclerotic plaque within the distal left common carotid artery carotid bulb and proximal right internal carotid artery causing no greater than 30% stenosis. Communications: Call Doctor Stroke Electronically signed by: Noe Castaneda M.D. 07/29/23 23:19 PM
[2023-07-29 23:30] LABS: Influenza A virus by PCR Negative (Neg); Influenza B virus by PCR Negative (Neg); RSV by PCR Negative (Neg); SARS CoV2 RNA(COVID-19) Ceph NEGATIVE (Negative)
[2023-07-29 23:34] LABS: Troponin I High Sensitivity 101.3 pg/ml (0-20)
[2023-07-29] MEDS ORDERED: dexAMETHasone**PF** 10 MG/ML VIAL IV ONE (23:56)
[2023-07-29] MEDS ORDERED: cefTRIAXone SODIUM 2,000 MG/70 ML BAG IV STA (23:56)
[2023-07-30 00:19] LABS: Protein Urine 2+ (Negative)
--- NOTE | 2023-07-30 00:22 | Emergency Department Note ---
Impression & Plan Left hemiplegia, AMS (altered mental status), Headache, Elevated lactic acid level, Leukocytosis ED Provider Note INFORMANT: EMS, family ED PROVIDER(S): Kingston Hillman MD CHIEF COMPLAINT: Unresponsive episode PLAN: Disposition: Condition: Guarded Outpatient prescription management: None Referral: None MEDICAL DECISION MAKING: Patient presented to the emergency department because of altered mental status. Prehospital stroke alert was not requested. There was concerns about intracranial hemorrhage and seizure as the patient had significant hypertension. There is also some vague reports about a possible fall. He also had tachycardia. When patient arrived he had a brief twitching of his upper extremities. His physical examination was as below. The patient was quickly assessed. His reported fall was not deemed to be any significant trauma. I did order CT and CT angiography for stroke work-up given his recent TIA event. Patient was taken emergently to CT imaging. I-STAT was performed. I did order IV Keppra and discussed this with the hospital pharmacist. I did go to CT scan and review his images as they came across the scanner and did not see any acute intracranial hemorrhage. At that point a stroke alert was initiated and I contacted [facility] (formerly [facility]). Patient had angiography completed and returned to the emergency department. Family arrived and I discussed the situation with them. Additional history was obtained from family as noted in the HPI. Patient returned back from CT imaging. He had continued findings on the left side of p aralysis and gaze preference. His blood pressure had improved somewhat. Patient had a brief episode of tachycardia up into the 150s that appeared to be sinus. An ECG did not reveal any evidence of significant dysrhythmia. Patient has some mild ST depression laterally. Nonspecific changes noted. I discussed the patient's presentation and history with Dr. Washington of [facility] (formerly [facility]). He did evaluate the patient via the telestroke cart. Given his recent surgery and seizure-like movements described by family we did have concerns about possible Víctor's paralysis or postictal state. Patient also had a headache and there was some concern for subarachnoid hemorrhage. After discussion with the family of risks and benefits it was felt that the patient should undergo emergent MR imaging to help differentiate the cause and avoid harm with TNK. Family was in agreement with a conservative plan. This plan did result in a delay of TNK administration. neurophysiological technician had to be called in and this was done. Patient's blood work did reveal a leukocytosis on CBC. While waiting for MR imaging the patient was empirically given a dose of Decadron and Rocephin as there was also concern for meningitis/encephalitis given the headache preceding the seizure-like event. Patient cannot undergo lumbar puncture secondary to his Brilinta use. Patient was taken emergently to MRI. While prepping for the MRI the patient was noted to move his left upper extremity and he did sit up. He underwent the MRI and I contacted Dr. Washington again from telestroke. We did review the images and I did send them to stat rad as well. I did call stat rad 3 times in order to have the imaging read. Dr. Washington was able to read the imaging and was concerned about a parietal infarct due to a ribbon of hyperintensity in the right parietal/occipital area. He did note that this could also represent findings from seizure. Patient was found to have a markedly elevated lactate which would support seizure. Repeat lactate revealed clearing. Patient had an elevated cardiac troponin as well however this was improved compared to prior. We discussed TNK again with family and at this point we are just under the exte nded window and it was felt that treatment was reasonable. No absolute contraindications were noted. Patient's blood pressure was within the acceptable range. I did discuss TNK with the hospital pharmacist and this was ordered. TNK was administered in standard fashion. Patient was reassessed fr equently. Patient did have improvement where he was moving all 4 extremities but still had weakness in the left lower. Patient was oriented to the month and his age. Patient did recognize his . He was following commands and his gaze preference had resolved. Patient had his MRI read by stat rad and they confirmed a right occipital/parietal infarct. I did contact the ICU and discussed the case with Sarahi ALONSO working for Dr. Diallo. Patient will be admitted to ICU with TNK protocol. I did consult with the [facility] hospitalist service and discussed the case with Dr. Dutta. Patient's vital signs remained stable. He was reassessed and was improved from his presentation. Discussed with research and development manager After review of the information above and other included data, I feel the pat ient requires admission. Triage Nursing notes reviewed and agree them. Vital Signs: reviewed and remarkable for hypertension and tachycardia Prior /Outside records reviewed: Prior hospitalization record reviewed regarding recent TIA work-up. CT angiography and MRI was negative for acute infarct Differential diagnosis: Seizure, Víctor's paralysis, meningitis/encephalitis, TIA, CVA,Infection, dehydration, metabolic abnormality, hypo/hyperglycemia, electrolyte disturbance, anemia, hypoxia, cardiac sources, intracerebral event, toxicologic, neurologic, as well as other pathologies. Diagnostics, as interpreted by me: ECG: Twelve-lead ECG reveals sinus tachycardia with premature supraventricular complexes at [address] and T wave abnormality present. No ST elevation. Cardiac Monitoring: Cardiac monitoring ordered by me: The patient was placed on continuous cardiac monitoring and observed. It revealed a sinus tachycardic rhythm at 155 beats per minute without ectopy or evidence of dysrhythmia. Medical decision rules: none Imaging studies: CT and CT angiography of the head and neck reveal old occipital encephalomalacia but no evidence of acute infarct or vessel occlusion. No hemorrhage. Insert chest x-ray MR imaging of the brain is concerning for a hyperintense ribbon on the right occipital cortex. HPI: The patient is a 78 year old male who presents to the Emergency Room with an unresponsive episode. Patient was initially reported as of fall. Patient arrived in the emergency department and does have decreased mental status. He is unable to provide any details for the history. Additional history was obtained from the EMS as well as family who arrived shortly after. Patient r eportedly had complaints of headache throughout the day today. He did try [id number] medication but then also took a Percocet this evening. This is prescribed to him from recent surgery but states he has not been using it. Sometime around 830 the patient developed shaking-like movements described by the family. He had shaking of his arms and legs. He had difficulty getting his words out and seemed to be altered from his baseline. No prior history of seizures. Patient does have a history of CVA 30 years ago. EMS was summoned. They noted the patient to be hypertensive and had significant tachycardia with a heart rate registered over 170. ECG was not able to be performed due to their expedited transfer however they felt that it was a sinus rhythm. Patient did have some twitching like movement for EMS and they were concerned about possible seizure or intracranial hemorrhage given severe hypertension and change in mental status. EMS also noted that he had a left gaze preference. He was weak on the left side of his body. History is limited secondary to patient's mental status. PAST MEDICAL HISTORY:CVA, TIA,, see below PAST SURGICAL HISTORY: See Below, right internal carotid artery stenosis surgery done 23 days ago SOCIAL HISTORY: See Below, HOME MEDICATIONS: See Below ALLERGIES: See Below VITALS: See Below PHYSICAL EXAMINATION: GENERAL: Awake, somewhat alert. Patient does respond to verbal stimuli but not following commands well. Age appropriate-appearing, in no distress HENT: Normocephalic, atraumatic. Oropharynx unremarkable. EYES: Normal conjunctiva. Sclera non-icteric. NECK: Inspection normal. Non-tender. Supple. FROM. No masses. There is ecchymo sis noted from recent surgery. Patient has a healing incision in the base of the right neck. RESPIRATORY: Clear to auscultation. No wheezes. No rales. Normal respiratory effort. CARDIAC: Mildly tachycardic rate. Normal rhythm. No murmurs. No rubs. Extremities warm and well perfused. Pulses equal. No JVD. GI: Soft, non-distended. No tenderness to palpation. No rebound or guarding. No masses. RECTAL: Deferred. MUSCULOSKELETAL: Atraumatic. Chest examination reveals no tenderness. The back is symmetrical on inspection without obvious abnormality. There is no CVA tenderness to palpation. No joint edema. LOWER EXTREMITIES: Calves are equal size bilaterally. No edema. No discoloration. NEURO: Altered sensorium. Patient has a left gaze preference. He does move towards the midline but does not cross the midline with extraocular muscle testing. He has moderate strength in the right upper extremity with sustainability communicator. He is also able to move right lower extremity. Patient has flaccid paralysis of the left upper extremity and left lower extremity. Dysarthria present. SKIN: No rash or jaundice noted. CRITICAL CARE: I have personally spent 125 minutes of critical care time in the direct management of this patient. This includes bedside care, interpretation of nakia gnostic studies, and testing, discussion with consultants, patient, and family members, and other required patient management activities. These minutes are in excess of all separately billable procedures. Past Med/Surg History Medical History Aortic stenosis Carotid artery disease Chronic kidney disease, stage 3a Hyperlipidemia Hypertension Hypothyroidism Stroke Transient visual loss of right eye Surgical History History of carotid endarterectomy History of left cataract surgery History of right cataract surgery History of surgical removal of skin lesion Hx of colonoscopy Hx of tonsillectomy Family History Other Dementia Heart disease Hypertension Myocardial infarction Osteoporosis Social History Smoking Status: Former smoker Second Hand Exposure: No; Do You Dip or Chew Tobacco: No; Hx Alcohol Use: Yes Alcohol type: other Hx Substance Use: No Preferred Language: Montserratian Communication Ability: Effective Molder Fitting Required: No Beliefs That Will Affect Care: None Current Living Situation: Spouse Feels Safe at Home: Yes Assistive Devices: None Allergies Allergies Allergy/AdvReac Type Severity Reaction Status Date / Time Sulfa (Sulfonamide Allergy swelling/red Verified 07/29/23 23:03 Antibiotics) blotches around genitals Home Meds Home Medications Medication Instructions Recorded Confirmed aspirin 81 mg tablet,delayed 81 mg PO QAM 11/21/22 07/29/23 release cilostazol 100 mg tablet 100 mg PO QAM 11/21/22 07/29/23 levothyroxine 112 mcg tablet 112 mcg PO QAM 11/21/22 07/29/23 (Levoxyl) lisinopril 10 mg tablet 10 mg PO QAM 11/21/22 07/29/23 simvastatin 40 mg tablet 40 mg PO QAM 11/21/22 07/29/23 Previous Rx's Medication Instructions Recorded oxycodone-acetaminophen 5 mg-325 1 tab PO Q6 PRN Pain #20 tabs 07/07/23 mg tablet (Percocet) ticagrelor 90 mg tablet (Brilinta) 90 mg PO BID #60 tabs 07/22/23 Results & Data (ED) Vital Signs Vital Signs - 24 hr 07/29/23 22:21 07/29/23 22:29 07/29/23 22:45 Temperature 37.0 C Temperature Source Oral Pulse Rate 108 H 107 H Pulse Rate [Apical] Pulse Rate from SpO2 Sensor Pulse Rhythm [Apical] Pulse Strength [Apical] Respiratory Rate 18 Respiratory Effort / Characteristics Non-Labored Spontaneous Respiratory Depth Normal Blood Pressure 180/92 H Blood Pressure [Right Arm] Blood Pressure Mean 121 Blood Pressure Mean [Right Arm] Pulse Oximetry 96 Oxygen Delivery Method Nasal Cannula Nasal Cannula Oxygen Flow Rate 4 4 Sepsis Recent Fever Within 48 Hours No Sepsis New/Unexplained Change in Mental Status N/A Sepsis Action Taken by Nursing No Action Required 07/29/23 23:00 07/29/23 23:15 07/29/23 23:30 Temperature Temperature Source Pulse Rate 120 H 118 H 106 H Pulse Rate [Apical] Pulse Rate from SpO2 Sensor 121 H 118 H 107 H Pulse Rhythm [Apical] Pulse Strength [Apical] Respiratory Rate 28 H 21 7 L Respiratory Effort / Characteristics Respiratory Depth Blood Pressure 192/91 H 177/81 H 155/77 H Blood Pressure [Right Arm] Blood Pressure Mean 124 113 103 Blood Pressure Mean [Right Arm] Pulse Oximetry 95 96 96 Oxygen Delivery Method Nasal Cannula Oxygen Flow Rate 4 Sepsis Recent Fever Within 48 Hours Sepsis New/Unexplained Change in Mental Status Sepsis Action Taken by Nursing 07/29/23 23:38 07/29/23 23:45 07/29/23 23:51 Temperature Temperature Source Pulse Rate 105 H 101 H 102 H Pulse Rate [Apical] Pulse Rate from SpO2 Sensor 105 H 102 H 103 H Pulse Rhythm [Apical] Pulse Strength [Apical] Respiratory Rate 18 21 21 Respiratory Effort / Characteristics Respiratory Depth Blood Pressure 133/69 128/62 134/72 Blood Pressure [Right Arm] Blood Pressure Mean 90 84 92 Blood Pressure Mean [Right Arm] Pulse Oximetry 96 96 95 Oxygen Delivery Method Nasal Cannula Nasal Cannula Oxygen Flow Rate 4 4 Sepsis Recent Fever Within 48 Hours Sepsis New/Unexplained Change in Mental Status Sepsis Action Taken by Nursing 07/30/23 00:00 07/30/23 00:49 07/30/23 00:50 Temperature Temperature Source Pulse Rate 99 H 96 H 92 H Pulse Rate [Apical] Pulse Rate from SpO2 Sensor 99 H 95 H 92 H Pulse Rhythm [Apical] Pulse Strength [Apical] Respiratory Rate 16 15 16 Respiratory Effort / Characteristics Respiratory Depth Blood Pressure 124/65 160/82 H Blood Pressure [Right Arm] Blood Pressure Mean 84 108 Blood Pressure Mean [Right Arm] Pulse Oximetry 96 92 93 Oxygen Delivery Method Oxygen Flow Rate Sepsis Recent Fever Within 48 Hours Sepsis New/Unexplained Change in Mental Status Sepsis Action Taken by Nursing 07/30/23 00:50 07/30/23 01:00 07/30/23 01:16 Temperature Temperature Source Pulse Rate 103 H 106 H Pulse Rate [Apical] Pulse Rate from SpO2 Sensor 103 H 107 H Pulse Rhythm [Apical] Pulse Strength [Apical] Respiratory Rate 21 Respiratory Effort / Characteristics Respiratory Depth Blood Pressure 158/78 H 179/87 H 121/94 Blood Pressure [Right Arm] Blood Pressure Mean 122 117 103 Blood Pressure Mean [Right Arm] Pulse Oximetry 95 96 Oxygen Delivery Method Nasal Cannula Nasal Cannula Oxygen Flow Rate 4 4 Sepsis Recent Fever Within 48 Hours Sepsis New/Unexplained Change in Mental Status Sepsis Action Taken by Nursing 07/30/23 01:20 07/30/23 01:20 07/30/23 01:35 Temperature Temperature Source Pulse Rate Pulse Rate [Apical] 98 H 102 H Pulse Rate from SpO2 Sensor Pulse Rhythm [Apical] Regular Pulse Strength [Apical] Respiratory Rate 17 19 Respiratory Effort / Characteristics Non-Labored Non-Labored Respiratory Depth Normal Normal Normal Blood Pressure Blood Pressure [Right Arm] 153/98 H 149/81 H Blood Pressure Mean Blood Pressure Mean [Right Arm] 116 103 Pulse Oximetry 97 97 Oxygen Delivery Method Nasal Cannula Nasal Cannula Oxygen Flow Rate 4 4 Sepsis Recent Fever Within 48 Hours Sepsis New/Unexplained Change in Mental Status Sepsis Action Taken by Nursing 07/30/23 01:35 07/30/23 01:49 07/30/23 01:49 Temperature Temperature Source Pulse Rate Pulse Rate [Apical] 96 H Pulse Rate from SpO2 Sensor Pulse Rhythm [Apical] Regular Pulse Strength [Apical] Normal Respiratory Rate 16 Respiratory Effort / Characteristics Non-Labored Non-Labored Non-Labored Respiratory Depth Normal Normal Normal Blood Pressure Blood Pressure [Right Arm] 141/77 H Blood Pressure Mean Blood Pressure Mean [Right Arm] 98 Pulse Oximetry 97 Oxygen Delivery Method Nasal Cannula Oxygen Flow Rate 4 Sepsis Recent Fever Within 48 Hours Sepsis New/Unexplained Change in Mental Status Sepsis Action Taken by Nursing 07/30/23 02:04 07/30/23 02:04 07/30/23 02:19 Temperature Temperature Source Pulse Rate Pulse Rate [Apical] 93 H 90 Pulse Rate from SpO2 Sensor Pulse Rhythm [Apical] Regular Pulse Strength [Apical] Respiratory Rate 14 14 Respiratory Effort / Characteristics Non-Labored Non-Labored Respiratory Depth Normal Normal Blood Pressure Blood Pressure [Right Arm] 127/79 128/83 Blood Pressure Mean Blood Pressure Mean [Right Arm] 95 98 Pulse Oximetry 96 96 Oxygen Delivery Method Nasal Cannula Nasal Cannula Oxygen Flow Rate 4 4 Sepsis Recent Fever Within 48 Hours Sepsis New/Unexplained Change in Mental Status Sepsis Action Taken by Nursing 07/30/23 02:19 07/30/23 02:28 07/30/23 02:34 Temperature Temperature Source Pulse Rate 95 H Pulse Rate [Apical] 93 H Pulse Rate from SpO2 Sensor Pulse Rhythm [Apical] Regular Pulse Strength [Apical] Respiratory Rate 12 Respiratory Effort / Characteristics Non-Labored Respiratory Depth Normal Normal Blood Pressure Blood Pressure [Right Arm] 131/74 Blood Pressure Mean Blood Pressure Mean [Right Arm] 93 Pulse Oximetry 91 Oxygen Delivery Method Room Air Oxygen Flow Rate Sepsis Recent Fever Within 48 Hours Sepsis New/Unexplained Change in Mental Status Sepsis Action Taken by Nursing 07/30/23 02:49 Temperature Temperature Source Pulse Rate Pulse Rate [Apical] 90 Pulse Rate from SpO2 Sensor Pulse Rhythm [Apical] Pulse Strength [Apical] Respiratory Rate 18 Respiratory Effort / Characteristics Non-Labored Respiratory Depth Normal Blood Pressure Blood Pressure [Right Arm] 112/78 Blood Pressure Mean Blood Pressure Mean [Right Arm] 89 Pulse Oximetry 94 Oxygen Delivery Method Room Air Oxygen Flow Rate Sepsis Recent Fever Within 48 Hours Sepsis New/Unexplained Change in Mental Status Sepsis Action Taken by Nursing Laboratory Data 07/29/23 22:32 07/29/23 22:32 Lab Results 07/29/23 07/29/23 07/29/23 Range/Units 22:32 22:32 22:32 WBC 11.70 H (4.8-10.8) K/ul RBC 4.26 L (4.70-6.10) M/uL Hgb 14.6 (14.0-18.0) g/dl POC Hgb (14.0-18.0) g/dl Hct 44.4 (42.0-52.0) % POC Hct (42-52) % MCV 104.2 H (80.0-100.0) fL MCH 34.3 H (25.0-34.0) pg MCHC 32.9 (32.0-36.0) g/dL RDW Std Deviation 51.3 H (36.4-46.3) fL RDW Coeff of Lucille 13.2 (11.5-14.5) % Plt Count 317 (130-400) K/uL MPV 9.9 (9.4-12.4) fL Immature Gran % (Auto) 0.6 % Neut % (Auto) 62.4 % Lymph % (Auto) 24.9 % Alpine % (Auto) 8.6 % Eos % (Auto) 2.6 % Baso % (Auto) 0.9 % Neut # (Auto) 7.30 H (1.40-6.50) K/uL Lymph # (Auto) 2.91 (1.20-3.40) K/uL Alpine # (Auto) 1.01 H (0.11-0.59) K/uL Eos # (Auto) 0.30 (0.00-0.50) K/uL Baso # (Auto) 0.11 (0.00-0.20) K/uL Immature Gran # (Auto) 0.07 (0.01-0.20) K/uL PT 11.5 (9.0-12.0) Seconds INR 1.1 (0.9-1.1) APTT 26.9 (21.0-31.0) Seconds PTT Ratio 1.0 VBG pH (7.36-7.41) VBG pCO2 (38-50) mmHg VBG pO2 mmHg VBG HCO3 mmol/L VBG O2 Saturation % VBG Base Excess mEq/L POC Sodium (135-144) mmol/L Sodium (136-145) mmol/L POC Potassium (3.3-5.0) mmol/L Potassium (3.5-5.1) mmol/L POC Chloride (101-112) mmol/L Chloride (98-107) mmol/L Carbon Dioxide (21-32) mmol/L POC Total CO2 (24-31) mmol/L Anion Gap (3-11) POC Anion Gap (16-25) mmol/L POC BUN (7-18) mg/dl BUN (6-23) mg/dl Creatinine (0.6-1.4) mg/dl POC Creatinine (0.6-1.3) mg/dl Est Cr Clr Drug Dosing ml/min Est GFR ( Amer) ml/min Est GFR (Non-Af Amer) ml/min BUN/Creatinine Ratio (10-20) Glucose (70-99(Fasting)) mg/dl POC Glucose (other) (70-99) mg/dl Lactate (0.4-2.0) mmol/L Calcium (8.6-10.3) mg/dl POC Ioniz Calcium Flynn (1.12-1.32) mmol/l Magnesium (1.7-2.4) mg/dl Total Bilirubin (0.2-1.0) mg/dl AST (13-39) U/L ALT (7-52) U/L Alkaline Phosphatase (34-104) U/L Troponin I High Sens (0-20) pg/ml Total Protein (6.0-8.3) gm/dl Albumin (3.4-5.0) gm/dl Globulin (2.5-4.0) gm/dl Albumin/Globulin Ratio (0.9-2) Urine Color Urine Appearance (Clear) Urine pH (4.5-7.5) Ur Specific Bertrand (1.000-1.030) Urine Protein (Negative) Urine Glucose (UA) (Negative) Urine Ketones (Negative) Urine Blood (Negative) Urine Nitrite (Negative) Urine Bilirubin (Negative) Urine Urobilinogen (Negative) Ur Leukocyte Esterase (Negative) Urine WBC (Auto) (0-5) /hpf Urine RBC (Auto) (0-4) /hpf U Hyaline Cast (Auto) (0-5) /lpf U Epithel Cells (Auto) (0-5) /lpf Urine Bacteria (Auto) (Negative) SARS-CoV-2 (PCR) (Negative) Influenza Type A (PCR) (Neg) Influenza Type B (PCR) (Neg) RSV (RT-PCR) (Neg) Blood Type O Positive Antibody Screen NEGATIVE 07/29/23 07/29/23 07/29/23 Range/Units 22:32 22:37 22:43 WBC (4.8-10.8) K/ul RBC (4.70-6.10) M/uL Hgb (14.0-18.0) g/dl POC Hgb 15.3 (14.0-18.0) g/dl Hct (42.0-52.0) % POC Hct 45 (42-52) % MCV (80.0-100.0) fL MCH (25.0-34.0) pg MCHC (32.0-36.0) g/dL RDW Std Deviation (36.4-46.3) fL RDW Coeff of Lucille (11.5-14.5) % Plt Count (130-400) K/uL MPV (9.4-12.4) fL Immature Gran % (Auto) % Neut % (Auto) % Lymph % (Auto) % Alpine % (Auto) % Eos % (Auto) % Baso % (Auto) % Neut # (Auto) (1.40-6.50) K/uL Lymph # (Auto) (1.20-3.40) K/uL Alpine # (Auto) (0.11-0.59) K/uL Eos # (Auto) (0.00-0.50) K/uL Baso # (Auto) (0.00-0.20) K/uL Immature Gran # (Auto) (0.01-0.20) K/uL PT (9.0-12.0) Seconds INR (0.9-1.1) APTT (21.0-31.0) Seconds PTT Ratio VBG pH (7.36-7.41) VBG pCO2 (38-50) mmHg VBG pO2 mmHg VBG HCO3 mmol/L VBG O2 Saturation % VBG Base Excess mEq/L POC Sodium 136 (135-144) mmol/L Sodium 135 L (136-145) mmol/L POC Potassium 3.4 (3.3-5.0) mmol/L Potassium 3.4 L (3.5-5.1) mmol/L POC Chloride 100 L (101-112) mmol/L Chloride 97 L (98-107) mmol/L Carbon Dioxide 11 L (21-32) mmol/L POC Total CO2 15 L (24-31) mmol/L Anion Gap 27 H (3-11) POC Anion Gap 25.0 (16-25) mmol/L POC BUN 9 (7-18) mg/dl BUN 11 (6-23) mg/dl Creatinine 1.66 H (0.6-1.4) mg/dl POC Creatinine 1.6 H (0.6-1.3) mg/dl Est Cr Clr Drug Dosing 44.8 ml/min Est GFR ( Amer) 45.1 ml/min Est GFR (Non-Af Amer) 38.9 ml/min BUN/Creatinine Ratio 6.6 L (10-20) Glucose 286 H (70-99(Fasting)) mg/dl POC Glucose (other) 275 H (70-99) mg/dl Lactate 16.2 H* (0.4-2.0) mmol/L Calcium 9.7 (8.6-10.3) mg/dl POC Ioniz Calcium Flynn 1.13 (1.12-1.32) mmol/l Magnesium 2.3 (1.7-2.4) mg/dl Total Bilirubin 1.7 H (0.2-1.0) mg/dl AST 17 (13-39) U/L ALT 17 (7-52) U/L Alkaline Phosphatase 150 H (34-104) U/L Troponin I High Sens 101.3 H* (0-20) pg/ml Total Protein 8.4 H (6.0-8.3) gm/dl Albumin 4.4 (3.4-5.0) gm/dl Globulin 4.0 (2.5-4.0) gm/dl Albumin/Globulin Ratio 1.1 (0.9-2) Urine Color Urine Appearance (Clear) Urine pH (4.5-7.5) Ur Specific Bertrand (1.000-1.030) Urine Protein (Negative) Urine Glucose (UA) (Negative) Urine Ketones (Negative) Urine Blood (Negative) Urine Nitrite (Negative) Urine Bilirubin (Negative) Urine Urobilinogen (Negative) Ur Leukocyte Esterase (Negative) Urine WBC (Auto) (0-5) /hpf Urine RBC (Auto) (0-4) /hpf U Hyaline Cast (Auto) (0-5) /lpf U Epithel Cells (Auto) (0-5) /lpf Urine Bacteria (Auto) (Negative) SARS-CoV-2 (PCR) (Negative) Influenza Type A (PCR) (Neg) Influenza Type B (PCR) (Neg) RSV (RT-PCR) (Neg) Blood Type Antibody Screen 07/29/23 07/29/23 07/30/23 Range/Units 22:50 23:01 01:53 WBC (4.8-10.8) K/ul RBC (4.70-6.10) M/uL Hgb (14.0-18.0) g/dl POC Hgb (14.0-18.0) g/dl Hct (42.0-52.0) % POC Hct (42-52) % MCV (80.0-100.0) fL MCH (25.0-34.0) pg MCHC (32.0-36.0) g/dL RDW Std Deviation (36.4-46.3) fL RDW Coeff of Lucille (11.5-14.5) % Plt Count (130-400) K/uL MPV (9.4-12.4) fL Immature Gran % (Auto) % Neut % (Auto) % Lymph % (Auto) % Alpine % (Auto) % Eos % (Auto) % Baso % (Auto) % Neut # (Auto) (1.40-6.50) K/uL Lymph # (Auto) (1.20-3.40) K/uL Alpine # (Auto) (0.11-0.59) K/uL Eos # (Auto) (0.00-0.50) K/uL Baso # (Auto) (0.00-0.20) K/uL Immature Gran # (Auto) (0.01-0.20) K/uL PT (9.0-12.0) Seconds INR (0.9-1.1) APTT (21.0-31.0) Seconds PTT Ratio VBG pH (7.36-7.41) VBG pCO2 (38-50) mmHg VBG pO2 mmHg VBG HCO3 mmol/L VBG O2 Saturation % VBG Base Excess mEq/L POC Sodium (135-144) mmol/L Sodium (136-145) mmol/L POC Potassium (3.3-5.0) mmol/L Potassium (3.5-5.1) mmol/L POC Chloride (101-112) mmol/L Chloride (98-107) mmol/L Carbon Dioxide (21-32) mmol/L POC Total CO2 (24-31) mmol/L Anion Gap (3-11) POC Anion Gap (16-25) mmol/L POC BUN (7-18) mg/dl BUN (6-23) mg/dl Creatinine (0.6-1.4) mg/dl POC Creatinine (0.6-1.3) mg/dl Est Cr Clr Drug Dosing ml/min Est GFR ( Amer) ml/min Est GFR (Non-Af Amer) ml/min BUN/Creatinine Ratio (10-20) Glucose (70-99(Fasting)) mg/dl POC Glucose (other) (70-99) mg/dl Lactate 1.9 (0.4-2.0) mmol/L Calcium (8.6-10.3) mg/dl POC Ioniz Calcium Flynn (1.12-1.32) mmol/l Magnesium (1.7-2.4) mg/dl Total Bilirubin (0.2-1.0) mg/dl AST (13-39) U/L ALT (7-52) U/L Alkaline Phosphatase (34-104) U/L Troponin I High Sens (0-20) pg/ml Total Protein (6.0-8.3) gm/dl Albumin (3.4-5.0) gm/dl Globulin (2.5-4.0) gm/dl Albumin/Globulin Ratio (0.9-2) Urine Color Yellow Urine Appearance Clear (Clear) Urine pH 7.5 (4.5-7.5) Ur Specific Bertrand 1.017 (1.000-1.030) Urine Protein 2+ H (Negative) Urine Glucose (UA) 1+ H (Negative) Urine Ketones 1+ H (Negative) Urine Blood 1+ H (Negative) Urine Nitrite Negative (Negative) Urine Bilirubin Negative (Negative) Urine Urobilinogen Negative (Negative) Ur Leukocyte Esterase Negative (Negative) Urine WBC (Auto) 1-5 (0-5) /hpf Urine RBC (Auto) 0-4 (0-4) /hpf U Hyaline Cast (Auto) 1-5 (0-5) /lpf U Epithel Cells (Auto) 5-10 H (0-5) /lpf Urine Bacteria (Auto) Negative (Negative) SARS-CoV-2 (PCR) NEGATIVE (Negative) Influenza Type A (PCR) Negative (Neg) Influenza Type B (PCR) Negative (Neg) RSV (RT-PCR) Negative (Neg) Blood Type Antibody Screen 07/30/23 Range/Units 02:27 WBC (4.8-10.8) K/ul RBC (4.70-6.10) M/uL Hgb (14.0-18.0) g/dl POC Hgb (14.0-18.0) g/dl Hct (42.0-52.0) % POC Hct (42-52) % MCV (80.0-100.0) fL MCH (25.0-34.0) pg MCHC (32.0-36.0) g/dL RDW Std Deviation (36.4-46.3) fL RDW Coeff of Lucille (11.5-14.5) % Plt Count (130-400) K/uL MPV (9.4-12.4) fL Immature Gran % (Auto) % Neut % (Auto) % Lymph % (Auto) % Alpine % (Auto) % Eos % (Auto) % Baso % (Auto) % Neut # (Auto) (1.40-6.50) K/uL Lymph # (Auto) (1.20-3.40) K/uL Alpine # (Auto) (0.11-0.59) K/uL Eos # (Auto) (0.00-0.50) K/uL Baso # (Auto) (0.00-0.20) K/uL Immature Gran # (Auto) (0.01-0.20) K/uL PT (9.0-12.0) Seconds INR (0.9-1.1) APTT (21.0-31.0) Seconds PTT Ratio VBG pH 7.29 L (7.36-7.41) VBG pCO2 57 H (38-50) mmHg VBG pO2 34 mmHg VBG HCO3 27 mmol/L VBG O2 Saturation < 60.0 % VBG Base Excess -0.3 mEq/L POC Sodium (135-144) mmol/L Sodium (136-145) mmol/L POC Potassium (3.3-5.0) mmol/L Potassium (3.5-5.1) mmol/L POC Chloride (101-112) mmol/L Chloride (98-107) mmol/L Carbon Dioxide (21-32) mmol/L POC Total CO2 (24-31) mmol/L Anion Gap (3-11) POC Anion Gap (16-25) mmol/L POC BUN (7-18) mg/dl BUN (6-23) mg/dl Creatinine (0.6-1.4) mg/dl POC Creatinine (0.6-1.3) mg/dl Est Cr Clr Drug Dosing ml/min Est GFR ( Amer) ml/min Est GFR (Non-Af Amer) ml/min BUN/Creatinine Ratio (10-20) Glucose (70-99(Fasting)) mg/dl POC Glucose (other) (70-99) mg/dl Lactate (0.4-2.0) mmol/L Calcium (8.6-10.3) mg/dl POC Ioniz Calcium Flynn (1.12-1.32) mmol/l Magnesium (1.7-2.4) mg/dl Total Bilirubin (0.2-1.0) mg/dl AST (13-39) U/L ALT (7-52) U/L Alkaline Phosphatase (34-104) U/L Troponin I High Sens (0-20) pg/ml Total Protein (6.0-8.3) gm/dl Albumin (3.4-5.0) gm/dl Globulin (2.5-4.0) gm/dl Albumin/Globulin Ratio (0.9-2) Urine Color Urine Appearance (Clear) Urine pH (4.5-7.5) Ur Specific Bertrand (1.000-1.030) Urine Protein (Negative) Urine Glucose (UA) (Negative) Urine Ketones (Negative) Urine Blood (Negative) Urine Nitrite (Negative) Urine Bilirubin (Negative) Urine Urobilinogen (Negative) Ur Leukocyte Esterase (Negative) Urine WBC (Auto) (0-5) /hpf Urine RBC (Auto) (0-4) /hpf U Hyaline Cast (Auto) (0-5) /lpf U Epithel Cells (Auto) (0-5) /lpf Urine Bacteria (Auto) (Negative) SARS-CoV-2 (PCR) (Negative) Influenza Type A (PCR) (Neg) Influenza Type B (PCR) (Neg) RSV (RT-PCR) (Neg) Blood Type Antibody Screen Administered Medications Sodium Chloride (Nss) 1,000 mls @ 50 mls/hr IV .Q20H [facility] Stop: 08/28/23 22:29 Last Admin: 07/29/23 22:58 Dose: 50 mls/hr Documented By: JULITA Discontinued Medications Dexamethasone Sodium Phosphate (DexamethasonePf 10 Mg/Ml Vial) 10 mg IV NOW ONE Stop: 07/29/23 23:57 Last Admin: 07/30/23 00:05 Dose: 10 mg Documented By: JUAN MIGUEL Levetiracetam 2,000 mg/ Sodium (Chloride) 270 mls @ 999 mls/hr IV NOW STA Stop: 07/29/23 23:05 Last Infusion: 07/29/23 23:22 Dose: 0 mls/hr Documented By: JUAN MIGUEL Admin: 07/29/23 22:58 Dose: 999 mls/hr Documented By: JULITA Ceftriaxone Sodium (Rocephin) 2,000 mg in 70 mls @ 140 mls/hr IV NOW STA Stop: 07/30/23 00:25 Last Infusion: 07/30/23 01:15 Dose: 0 mls/hr Documented By: JUAN MIGUEL Admin: 07/30/23 00:52 Dose: 140 mls/hr Documented By: JUAN MIGUEL Tenecteplase 24 mg/ Syringe 4.8 mls @ 57.6 mls/min IV NOW ONE; Protocol Stop: 07/30/23 01:19 Last Admin: 07/30/23 01:19 Dose: 57.6 mls/min Documented By: JUAN MIGUEL Co-signed By: AARON Ioversol (Optiray 320 125ml) 118 ml IV ONCE ONE Stop: 07/29/23 22:47 Last Admin: 07/29/23 22:46 Dose: 118 ml Documented By: ED Sodium Chloride (Sodium Chloride 0.9% 10ml Flush) 20 ml IV NOW STA Stop: 07/30/23 01:09 Last Admin: 07/30/23 01:20 Dose: 20 ml Documented By: JUAN MIGUEL Imaging Data Radiologist's Impression: Head CT 07/29/23 22:29 CR Exam(s): CT HEAD Without Contrast EXAM: CT Head Without Intravenous Contrast CLINICAL HISTORY: Reason for exam: neuro deficit, acute stroke suspected. TECHNIQUE: Axial computed tomography images of the head/brain without intravenous contrast. CTDI is 13.71 mGy and DLP is 562.88 mGy-cm. Automated exposure control was utilized for the study. A dose lowering technique was utilized adhering to the principles of ALARA. 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 Mild periventricular white matter changes, likely related to microangiopathy. No hemorrhage. Ventricles: Unremarkable. No ventriculomegaly. Bones/joints: Unremarkable. No acute fracture. Soft tissues: Unremarkable. Sinuses: Unremarkable as visualized. No acute sinusitis. Mastoid air cells: Unremarkable as visualized. No mastoid effusion. IMPRESSION: 1. 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 2. Mild periventricular white matter changes, likely related to microangiopathy. Communications: Call Doctor Stroke Electronically signed by: Noe Castaneda M.D. 07/29/23 22:55 PM Head CTA 07/29/23 22:29 CR Exam(s): CTA HEAD With Contrast IV Amt: 118 ml opti 320 EXAM: CT Angiography Head With Intravenous Contrast CLINICAL HISTORY: Reason for exam: neuro deficit, acute stroke suspected. TECHNIQUE: Axial computed tomographic angiography images of the head with intravenous contrast. CTDI is 37.12 mGy and DLP is 624.41 mGy-cm. Automated exposure control was utilized for the study. A dose lowering technique was utilized adhering to the principles of ALARA. MIP reconstructed images were created and reviewed. CONTRAST: Patient received 118 ml opti 320 of IV contrast COMPARISON: 07/20/2023 FINDINGS: Right internal carotid artery: No acute findings. Intracranial segment is patent with no significant stenosis. No aneurysm. Right anterior cerebral artery: Unremarkable. No occlusion or significant stenosis. No aneurysm. Right middle cerebral artery: Unremarkable. No occlusion or significant stenosis. No aneurysm. Right posterior cerebral artery: origin to the right posterior cerebral artery territory. Large right posterior acute communicating artery is unremarkable. 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 Left internal carotid artery: No acute findings. Intracranial segment is patent with no significant stenosis. No aneurysm. Left anterior cerebral artery: Unremarkable. No occlusion or significant stenosis. No aneurysm. Left middle cerebral artery: Unremarkable. No occlusion or significant stenosis. No aneurysm. Left posterior cerebral artery: Prominent left posterior communicating artery is unremarkable. Left vertebral artery: Unremarkable as visualized. Basilar artery: Diffusely small caliber basilar artery likely secondary to large bilateral posterior communicating arteries. No occlusion or significant stenosis. No aneurysm. IMPRESSION: No large vessel intracranial occlusion. Communications: Call Doctor Stroke Electronically signed by: Noe Castaneda M.D. 07/29/23 23:03 PM Neck CTA 07/29/23 22:29 CR Exam(s): CTA NECK With Contrast IV Amt: 118 ml opti 320 EXAM: CT Angiography Neck With Intravenous Contrast CLINICAL HISTORY: Reason for exam: neuro deficit, acute stroke suspected. TECHNIQUE: Routine carotid CT angiography protocol was performed with intravenous contrast. NASCET criteria using the distal ICAs for comparison were used for evaluation of stenoses. CTDI is 12.46 mGy and DLP is 6.23 mGy-cm. Automated exposure control was utilized for the study. A dose lowering technique was utilized adhering to the principles of ALARA. MIP reconstructed images were created and reviewed. CONTRAST: Patient received 118 ml opti 320 of IV contrast COMPARISON: 07/20/2020 FINDINGS: VASCULATURE: Right common carotid artery: Unremarkable. No occlusion or significant stenosis. No dissection. Right internal carotid artery: See below. Right external carotid artery: Unremarkable. No occlusion. 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 No occlusion or significant stenosis. Left common carotid artery: Mild to moderate atherosclerotic plaque within the distal left common carotid artery carotid bulb and proximal right internal carotid artery causing no greater than 30% stenosis. No dissection. Left internal carotid artery: Unremarkable. Extracranial segment is patent with no occlusion or significant stenosis. No dissection. Left external carotid artery: Unremarkable. No occlusion. Left vertebral artery: Moderate ostial stenosis of the origin of the left vertebral artery. No dissection. Other vasculature: Prior right carotid stent in position. There is severe in-stent stenosis of greater than 80% at the level of the carotid bulb with narrowing of the stent at this level as well. NECK: Bones/joints: Unremarkable. Soft tissues: Unremarkable. Lung apices: Clear. CAROTID STENOSIS REFERENCE USING NASCET CRITERIA: % ICA stenosis = (1 - narrowest ICA diameter/diameter of distal cervical ICA) x 100. Mild - <50% stenosis. Moderate - 50-69% stenosis. Severe - 70-94% stenosis. Near occlusion - 95-99% stenosis. Occluded - 100% stenosis. IMPRESSION: 1. Prior right carotid stent in position. There is severe in-stent stenosis of greater than 80% at the level of the carotid bulb with narrowing of the stent at this level as well. 2. 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 3. Mild to moderate atherosclerotic plaque within the distal left common carotid artery carotid bulb and proximal right internal carotid artery causing no greater than 30% stenosis. Communications: Call Doctor Stroke Electronically signed by: Noe Castaneda M.D. 07/29/23 23:19 PM Brain MRI 07/30/23 00:00 Exam(s): MRI HEAD Without Contrast EXAM: MR Head Without Intravenous Contrast CLINICAL HISTORY: Reason for exam: stroke like symptoms. TECHNIQUE: Magnetic resonance images of the head/brain without intravenous contrast in multiple planes. COMPARISON: MRI from 07/20/2023 FINDINGS: Brain: Right occipital and parietal lobe infarcts. No hemorrhage. Chronic right cerebellar infarct. Ventricles: Unremarkable. No ventriculomegaly. Bones/joints: Unremarkable. Sinuses: Unremarkable as visualized. No acute sinusitis. Mastoid air cells: Unremarkable as visualized. No mastoid effusion. Orbits: Unremarkable as visualized. IMPRESSION: Right occipital and parietal lobe infarcts. Electronically signed by: Larry Ray MD 07/30/23 02:21 AM Discharge Plan Visit Data Chief Complaint: Unresponsive Stated Complaint: Fall, AMS ED Provider: Kingston Hillman Discharge Problem: Left hemiplegia, AMS (altered mental status), Headache, Elevated lactic acid level, Leukocytosis Forms Stand Alone Forms: Dezide Prescriptions Prescriptions: No Action cilostazol 100 mg Tablet 100 mg PO QAM aspirin 81 mg Tablet,Delayed Release (Dr/Ec) 81 mg PO QAM simvastatin 40 mg Tablet 40 mg PO QAM lisinopril 10 mg Tablet 10 mg PO QAM levothyroxine [Levoxyl] 112 mcg Tablet 112 mcg PO QAM oxycodone-acetaminophen [Percocet] 5-325 mg Tablet 1 tab PO Q6 PRN (Reason: Pain) Qty: 20 0RF Brilinta 90 mg Tablet 90 mg PO BID Qty: 60 5RF Referrals Referrals: Luna Argueta MD [Primary Care Provider] -
[2023-07-30] MEDS ORDERED: STAT IV STA (01:08)
[2023-07-30] MEDS ORDERED: SODIUM CHLORIDE 0.9% 10ML FLUSH IV STA (01:08)
[2023-07-30] MEDS ORDERED: No Aspirin within 24hrs of THROMBOLYTIC-Stroke PO SCH (01:15)
[2023-07-30] MEDS ORDERED: TENECTEPLASE 24 MG in SYRINGE 0 ML IV ONE (01:18)
--- NOTE | 2023-07-30 02:22 | Magnetic Resonance Report ---
Exam(s): MRI HEAD Without Contrast EXAM: MR Head Without Intravenous Contrast CLINICAL HISTORY: Reason for exam: stroke like symptoms. TECHNIQUE: Magnetic resonance images of the head/brain without intravenous contrast in multiple planes. COMPARISON: MRI from 07/20/2023 FINDINGS: Brain: Right occipital and parietal lobe infarcts. No hemorrhage. Chronic right cerebellar infarct. Ventricles: Unremarkable. No ventriculomegaly. Bones/joints: Unremarkable. Sinuses: Unremarkable as visualized. No acute sinusitis. Mastoid air cells: Unremarkable as visualized. No mastoid effusion. Orbits: Unremarkable as visualized. IMPRESSION: Right occipital and parietal lobe infarcts. Electronically signed by: Lrary Ray MD 07/30/23 02:21 AM
[2023-07-30 02:44] LABS: Base Excess VBG -0.3 mEq/L; HCO3 VBG 27 mmol/L; Oxygen Saturation VBG < 60.0 %; PCO2 VBG 57 mmHg (38-50); PO2 VBG 34 mmHg; pH VBG 7.29 (7.36-7.41)
[2023-07-30 03:02] LABS: Troponin I High Sensitivity 136.5 pg/ml (0-20)
--- NOTE | 2023-07-30 03:34 | History & Physical Report ---
Date of Service July 30, 2023 Assessment & Plan (1) Ischemic stroke: Plan: Patient is a 78-year-old male with past medical history of aortic stenosis, hypothyroidism, carotid artery stenosis, hyperlipidemia, hypertension, and CKD 3A who presents to the hospital for evaluation for unresponsiveness. Work-up thus far has revealed a new ischemic stroke requiring TNKase administration. Patient admitted to the ICU for the next 24 hours. -Admit to ICU, critical care consultation placed, appreciate recommendations and management -MRI of the brain showing ischemic stroke in right parietal and occipital lobes -Status post TNKase, follow 24-hour protocol -Permissive hypertension but given TNK use, systolic blood pressure goal of 140- 180, hold home lisinopril to allow for permissive hypertension in this range -IV labetalol as needed for systolic BP greater than 180 -Neurology and PT/OT consulted, appreciate recommendations/management -Speech pathology consulted, n.p.o. until full eval, aspiration precautions when able to eat -Seizure precautions -Hold ticagrelor and aspirin while inside 24-hour window of TNKase, restart thereafter -Continue statin (2) Seizure: Plan: -Given limb flapping at home with a very elevated lactate with quick resolution, suspect patient has seizure secondary to CVA as above -Keppra loaded in the ED, continue twice daily dosing -Otherwise management per neurology (3) Left hemiplegia: Plan: -See above (4) AMS (altered mental status): Plan: - Secondary to CVA as above, improving (5) Hypothyroidism: Plan: - Continue levothyroxine when no longer n.p.o. (6) Aortic stenosis: Plan: - Noted, Follows with [facility] cardiology. TAVR/surgical intervention deferred pending management and stability of his right carotid disease which was felt to be higher priority. TTE 06/2023: EF hyperdynamic, greater than 75% at that time. No LVOT obstruction. Valve area 0.23. Mean gradient 43 mmHg. (7) Carotid artery stenosis: Plan: -S/p Right TCAR 07/06 for symptomatic stenosis with amaurosis. Stable postop hematoma without expansion, otherwise no complications at that time, recovered well and was discharged 07/07 -S/p left CEA 2009 (8) Hyperlipidemia: Plan: -Continue simvastatin, should ideally be on high intensity statin such as atorvastatin/rosuvastatin (9) Hypertension: Plan: - Typically on lisinopril 10 mg daily, hold while allowing permissive hypertension as above (10) Chronic kidney disease, stage 3a: Plan: Baseline creatinine approximately 1.6 Due to hypertension, tobacco use Admitting creatinine 1.66 at base Plan Disposition: Admit to ICU status post TNKase for ischemic stroke Diet: N.p.o. DVT prophylaxis: Contraindicated given TNKase CODE STATUS: Full code History of Present Illness Chief Complaint: Unresponsiveness Primary Care Provider: Luna Argueta MD Patient is a 78-year-old male with past medical history of aortic stenosis, hypothyroidism, carotid artery stenosis, hyperlipidemia, hypertension, and CKD 3A who presents to the hospital for evaluation for unresponsiveness. Majority of history is provided by family in the room at the time of interview. It seems that on 07/28/2023, patient was doing well and had no complaints. He was able to drive and had no headaches. It seems over the past 24 hours, he had developed a headache that was progressively getting worse. He had tried [id number] NSAIDs but when that failed he had also taken a Percocet that he was prescribed for previous TCAR procedure. At approximately 8:30 PM, the patient had developed shaking-like movements per the family's history. The shaking was of all 4 limbs. There is also dysarthria noted and altered mental status. It was at this time that the family called 911 to have him brought in by EMS. In the ambulance, the patient was hypertensive with significant tachycardia in the 170 s. No other real meaningful HPI gathered at this time given patient's poor mental status. He is able to answer some yes or no questions, but the accuracy of these answers is questionable. Patient did have recent hospitalization approximately 10 days prior to today's visit for TIA symptoms. Only real change that was made at that time was a transition from Plavix to ticagrelor which family reports he is taking. ED course: Patient assessed by ED provider and initial concern was for possible fall. However, on evaluation he was found to have a left-sided hemiparesis with left lateral gaze. For this reason a stroke alert was called and a CT and CTA of the head for stroke work-up had returned negative for large vessel disease. Patient was loaded with IV Keppra due to concern for seizure. IV Rocephin and Decadron was also given for concern of meningitis given headache and elevated white count. Telestroke consult with Dr. Washington of [facility] was performed which resulted in utilization of TNKase administration. MRI was performed and reviewed by Dr. Washington who felt the patient had a band consistent with either stroke or seizure of the right parietal/occipital region. Labs were significant for a mildly elevated white blood cell count of 11.7, VBG with a pH of 7.29, mildly low potassium at 3.4, and anion gap of 27, glucose of 286, lactate of 16.2, and elevated troponin of 101.3. After TNKase administration, the hospitalist service and ICU provider were consulted for admission and treatment. Allergies Allergy/AdvReac Type Severity Reaction Status Date / Time Sulfa (Sulfonamide Allergy swelling/red Verified 07/29/23 23:03 Antibiotics) blotches around genitals Home Medications Medication Instructions Recorded Confirmed Type aspirin 81 mg tablet,delayed 81 mg PO QAM 11/21/22 07/29/23 History release cilostazol 100 mg tablet 100 mg PO QAM 11/21/22 07/29/23 History levothyroxine 112 mcg tablet 112 mcg PO QAM 11/21/22 07/29/23 History (Levoxyl) lisinopril 10 mg tablet 10 mg PO QAM 11/21/22 07/29/23 History simvastatin 40 mg tablet 40 mg PO QAM 11/21/22 07/29/23 History oxycodone-acetaminophen 5 mg-325 1 tab PO Q6 PRN Pain #20 tabs 07/07/23 07/29/23 Rx mg tablet (Percocet) ticagrelor 90 mg tablet (Brilinta) 90 mg PO BID #60 tabs 07/22/23 07/29/23 Rx Past Med/Surg History Medical History Aortic stenosis Carotid artery disease Chronic kidney disease, stage 3a Hyperlipidemia Hypertension Hypothyroidism Stroke Transient visual loss of right eye Surgical History History of carotid endarterectomy History of left cataract surgery History of right cataract surgery History of surgical removal of skin lesion Hx of colonoscopy Hx of tonsillectomy Family History Other Dementia Heart disease Hypertension Myocardial infarction Osteoporosis Social History Smoking Status: Former smoker Tobacco Type: Cigarettes Second Hand Exposure: No; Do You Dip or Chew Tobacco: No; Hx Alcohol Use: Yes Alcohol type: hard liquor Hx Substance Use: No Preferred Language: Fijian Communication Ability: Effective Steward/Stewardess Second Required: No Beliefs That Will Affect Care: None Current Living Situation: Spouse Other Information That Helps Us Care for You: No Feels Safe at Home: Yes Safety Concerns: Feels Safe At This Time Assistive Devices: None Review of Systems Review of Systems: Unobtainable due to cognitive status Physical Exam Constitutional: well developed, well nourished and + altered mental status Eyes: + anicteric sclerae L lateral gaze Neck: normal visual inspection and trachea midline Respiratory: normal respiratory effort, lungs clear to auscultation Cardiovascular: RRR, no murmur, no edema Gastrointestinal (Abdomen): normal bowel sounds, soft, nontender, no hepatosplenomegaly Musculoskeletal: Head/Neck/Chest: normocephalic and head atraumatic Skin: no rashes, warm and dry Neurologic: awake and + confused Speech / Cognition: + abnormal speech L flaccid paralysis of the LUE and LLE Psychiatric: Orientation: + not oriented to place and + not oriented to time Results & Data Results & Data Vital Signs (Past 12 Hours) Vital Signs Temp Pulse Pulse Resp BP BP Pulse Ox 07/30/23 03:04 89 17 122/71 94 07/30/23 02:49 90 18 112/78 94 07/30/23 02:34 93 H 12 131/74 91 07/30/23 02:28 95 H 07/30/23 02:19 90 14 128/83 96 07/30/23 02:04 93 H 14 127/79 96 07/30/23 01:49 96 H 16 141/77 H 97 07/30/23 01:35 102 H 19 149/81 H 97 07/30/23 01:20 98 H 17 153/98 H 97 07/30/23 01:16 106 H 121/94 96 07/30/23 01:00 103 H 21 179/87 H 95 07/30/23 00:50 158/78 H 07/30/23 00:50 92 H 16 93 07/30/23 00:49 96 H 15 160/82 H 92 07/30/23 00:00 99 H 16 124/65 96 07/29/23 23:51 102 H 21 134/72 95 07/29/23 23:45 101 H 21 128/62 96 07/29/23 23:38 105 H 18 133/69 96 07/29/23 23:30 106 H 7 L 155/77 H 96 07/29/23 23:15 118 H 21 177/81 H 96 07/29/23 23:00 120 H 28 H 192/91 H 95 07/29/23 22:45 07/29/23 22:29 107 H 07/29/23 22:21 37.0 C 108 H 18 180/92 H 96 O2 Del Method O2 Flow Rate 07/30/23 03:04 Room Air 07/30/23 02:49 Room Air 07/30/23 02:34 Room Air 07/30/23 02:28 07/30/23 02:19 Nasal Cannula 4 07/30/23 02:04 Nasal Cannula 4 07/30/23 01:49 Nasal Cannula 4 07/30/23 01:35 Nasal Cannula 4 07/30/23 01:20 Nasal Cannula 4 07/30/23 01:16 Nasal Cannula 4 07/30/23 01:00 Nasal Cannula 4 07/30/23 00:50 07/30/23 00:50 07/30/23 00:49 07/30/23 00:00 07/29/23 23:51 Nasal Cannula 4 07/29/23 23:45 Nasal Cannula 4 07/29/23 23:38 07/29/23 23:30 07/29/23 23:15 Nasal Cannula 4 07/29/23 23:00 07/29/23 22:45 Nasal Cannula 4 07/29/23 22:29 07/29/23 22:21 Nasal Cannula 4
[2023-07-30] MEDS ORDERED: PHARMACIST DISCHARGE MED REC CONSULT PRN (03:42)
[2023-07-30 04:16] LABS: Chol HDL Ratio 3.2 (0-5)
--- NOTE | 2023-07-30 04:19 | Critical Care Consultation ---
Date of Consultation July 30, 2023 Assessment & Plan (1) Ischemic stroke: (2) Seizure: (3) Left hemiplegia: (4) AMS (altered mental status): (5) Headache: (6) Leukocytosis: (7) Internal carotid artery stent present: (8) Hypothyroidism: (9) Aortic stenosis: Plan Reason Critically Ill: Acute ischemic stroke likely 2/2 plaque rupture vs hypotension i/s/o opiate use Parietal and occipital lobe territory infarct Chronic microvascular changes R carotid stenosis s/p TCAR (06/2023) Residual in-stent stenosis (> 80%) Seizure Lactic acidosis i/s/o seizure, now clear Leukocytosis with neutrophil predominance Hypercapneic respiratory failure JHONNY on CKD Transaminitis Troponin elevation, likely stress induced Neuro - [facility] ICU: negative RASS GOAL 0 Avoid sedating medications Neurology consultation, appreciate recommendations Will continue scheduled Keppra while awaiting further recs Repeat imaging post-TNK today, sooner if neuro change Neurologic checks Q1H Cardiac - SBP 140-180mmHg Labetalol PRN Restart home antihypertensives as able, hold ACEI pending kidney function improvement to baseline Hold DAPT s/p TNK, restart per primary Respiratory - Hypercapnia i/s/o deperssed mentation, follow clinically, no current indication for NIV SpO2 goal 92 GI - Diet: NPO pending speech eval SUP: N/A Bowel regimen: PRN RENAL/LYTES - Replete electrolytes as indicated Maintain net even ENDO - A1c pending BG 140-180 per SCCM guidelines ISS if needed while inpatient ID - Rocephin empirically per ED No LP d/t DAPT Defer continue work-up / treatment to Neurology colleagues, index of suspicion low at this point LINES/TUBES/DRAINS - PIV x2 DVT PROPHYLAXIS - Contraindicated SCDs I have personally spent 30 minutes of critical care time in the direct management of this patient. This is a life/limb threatening event. This includes time spent evaluating patient, direct bedside care, chart review, placing orders, interpretation of diagnostic studies, discussion with consultants, patient, and family members, as well as other required patient management activities. This time is exclusive of all separately billable procedures, and teaching time and separate from and in addition to any other critical care service time. Thank you for allowing us to participate in the care of this patient. Please refer to my attending physician's documentation for any further recommendations. Supervising Physician Co-Signing Physician Notes I saw and evaluated the patient with Sarahi Dougherty PA-C and agree with findings and plan as documented in the note. 78-year-old male admitted to the hospital with acute stroke He has history of right-sided TCAR in June 2023. He got TNK in the ED. In the ICU for monitoring At the time of examination patient systolic blood pressure was in the 110s. Heart rate in the high 80s. Saturation 94-95% on room air. He was awake alert and oriented x3. Answering questions appropriately Denies any chest pain, no shortness of breath. No headache, no blurry vision. No nausea or vomiting Brain MRI : Acute Right occipital and parietal lobe infarcts. Constitutional: No acute distress HEENT: EOMI, PERRLA, patient seems to have vision loss especially on the left visual field Respiratory system: Good air entry bilaterally, no wheeze, no rhonchi, mild crackles bilateral lower lobes CVS: S1-S2 positive, no murmurs or gallops Abdomen: Soft, nontender, nondistended, positive bowel sounds x4 Extremities: +2 pulses bilaterally radialis/ dorsalis pedis, no cyanosis, no edema Neuro: Awake alert oriented x3, 5/5 strength right upper and right lower extremity, left upper extremity 3/5, left lower extremity 4/5 Psych: Normal mood and affect G/U: Positive Rosado --Prophylaxis VTE: IPC GI: None Lines: Peripheral Diet: N.p.o. Plan: Labs are from 11:30 PM 07/29/2023 Potassium being replaced Patient does have weakness on the left side. Seems to be improved based on the signout that I got. Still has left visual field loss/neglect Continue with neurochecks Repeat CT of the head 24 hours after TNK Keep blood pressure < 180/105 Continue with Keppra given the new onset seizures Follow-up neurology consult Please note the above document was generated using voice recognition software. It may contain grammatical, syntax or spelling errors.Any formal questions or concerns about the content, text or information contained within the body of this dictation should be directly addressed to the provider for clarification. History of Present Illness Reason for Consultation: Post-TNK Attending Physician: Medhat Couch MD History of Present Illness Mr. Sukhjinder Adam is a pleasant 78YO M with a history of CVA, recent TIA, b ilateral carotid stenosis s/p L CEA (2014) and R TCAR (06/2023), hypothyroidism, prior tobacco use disorder, severe aortic stenosis, CKDIII, LVH without LVOT obstruction who presented to [facility] due to seizure and stroke-like symptoms. Per report, patient has had transient headaches since TCAR a few weeks ago, though today it was so bad that he took a percocet when ibuprofen failed to give him any relief. He relayed to his that is was on the R side of his head. Around 2029 the patient developed "shaking movements" diffusely. He arrived to our ED via EMS, hypertensive as high as 200mmHg. Otherwise tachycardic, afebrile. He was hemiplegic to the L, aphasic, and with L gaze though protecting his airway per ED physician. Imaging was negative for hemorrhage and LVO though with > 80% in stent stenosis on the R. 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 MRI pursued which revealed R occipital and parietal infarcts. While in MRI patient did start moving his L arm. In cooperation with TeleStroke service, decision made to administer TNK. Given his history of headaches, seizure, and en cephalopathy, patient received coverage for meningitis/encephalitis with Rocephin prophylactically. No LP pursued due to DAPT. Remainder of work-up remarkable for lactate of 16 which has cleared, supporting recent seizure, mild leukocytosis. I saw the patient in ED B01. He awakes to loud voice. Oriented to person and place. Speech is clear. No facial droop noted. Moving BUE and RLE spontaneously. Hemodynamically stable, BP < 140mmHg without intervention. SpO2 97% on 4L via NC, this was turned off by me with SpO2 remaining > 92%. Omayra at bedside who was able to provide additional history. Allergies Allergy/AdvReac Type Severity Reaction Status Date / Time Sulfa (Sulfonamide Allergy swelling/red Verified 07/29/23 23:03 Antibiotics) blotches around genitals Home Medications Medication Instructions Recorded Confirmed Type aspirin 81 mg tablet,delayed 81 mg PO QAM 11/21/22 07/29/23 History release cilostazol 100 mg tablet 100 mg PO QAM 11/21/22 07/29/23 History levothyroxine 112 mcg tablet 112 mcg PO QAM 11/21/22 07/29/23 History (Levoxyl) lisinopril 10 mg tablet 10 mg PO QAM 11/21/22 07/29/23 History simvastatin 40 mg tablet 40 mg PO QAM 11/21/22 07/29/23 History oxycodone-acetaminophen 5 mg-325 1 tab PO Q6 PRN Pain #20 tabs 07/07/23 07/29/23 Rx mg tablet (Percocet) ticagrelor 90 mg tablet (Brilinta) 90 mg PO BID #60 tabs 07/22/23 07/29/23 Rx Patient History Medical History Aortic stenosis Carotid artery disease Chronic kidney disease, stage 3a Hyperlipidemia Hypertension Hypothyroidism Stroke Transient visual loss of right eye Surgical History History of carotid endarterectomy History of left cataract surgery History of right cataract surgery History of surgical removal of skin lesion Hx of colonoscopy Hx of tonsillectomy Family History Other Dementia Heart disease Hypertension Myocardial infarction Osteoporosis Social History Smoking Status: Former smoker Tobacco Type: Cigarettes Second Hand Exposure: No; Do You Dip or Chew Tobacco: No; Hx Alcohol Use: Yes Alcohol type: hard liquor Hx Substance Use: No Preferred Language: Palestinian Communication Ability: Effective 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 Instrument 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 Required: No Beliefs That Will Affect Care: None Current Living Situation: Spouse Other Information That Helps Us Care for You: No Feels Safe at Home: Yes Safety Concerns: Feels Safe At This Time Assistive Devices: None Review of Systems Review of Systems: Unobtainable due to cognitive status Physical Exam Constitutional: well developed and well nourished; no acute distress Eyes: PERRL, conjunctivae normal, anicteric sclerae ENMT: external ear and nose normal, oropharynx normal Neck: carotid bruit present Respiratory: normal respiratory effort, lungs clear to auscultation diminished at bases Cardiovascular: Rate/Rhythm: regular rate and regular rhythm Murmur present sternal border Gastrointestinal (Abdomen): normal bowel sounds, soft, nontender, no hepatosplenomegaly Skin: Dry skin, scattered ecchymosis, R upper chest surgical incision appears well healed without signs of infection or drainage Neurologic: Motor/Sensory: + sensory deficit Cranial Nerves: PERRL Coordination: + abnormal [id number] test LUE strength 2/5, LLE does not wiggle toes - some occasional spontaneous movement Sensory deficit to entire L side including face RUE/RLE sensory and motor intact, 5/5 No facial droop L gaze preference R visual field deficit Results & Data Results & Data Vital Signs (Past 12 Hours) Vital Signs Temp Pulse Pulse Resp BP BP Pulse Ox 07/30/23 03:57 36.8 C 88 18 169/89 H 90 07/30/23 03:04 89 17 122/71 94 07/30/23 02:49 90 18 112/78 94 07/30/23 02:34 93 H 12 131/74 91 07/30/23 02:28 95 H 07/30/23 02:19 90 14 128/83 96 07/30/23 02:04 93 H 14 127/79 96 07/30/23 01:49 96 H 16 141/77 H 97 07/30/23 01:35 102 H 19 149/81 H 97 07/30/23 01:20 98 H 17 153/98 H 97 07/30/23 01:16 106 H 121/94 96 07/30/23 01:00 103 H 21 179/87 H 95 07/30/23 00:50 158/78 H 07/30/23 00:50 92 H 16 93 07/30/23 00:49 96 H 15 160/82 H 92 07/30/23 00:00 99 H 16 124/65 96 07/29/23 23:51 102 H 21 134/72 95 07/29/23 23:45 101 H 21 128/62 96 07/29/23 23:38 105 H 18 133/69 96 07/29/23 23:30 106 H 7 L 155/77 H 96 07/29/23 23:15 118 H 21 177/81 H 96 07/29/23 23:00 120 H 28 H 192/91 H 95 07/29/23 22:45 07/29/23 22:29 107 H 07/29/23 22:21 37.0 C 108 H 18 180/92 H 96 O2 Del Method O2 Flow Rate 07/30/23 03:57 Room Air 07/30/23 03:04 Room Air 07/30/23 02:49 Room Air 07/30/23 02:34 Room Air 07/30/23 02:28 07/30/23 02:19 Nasal Cannula 4 07/30/23 02:04 Nasal Cannula 4 07/30/23 01:49 Nasal Cannula 4 07/30/23 01:35 Nasal Cannula 4 07/30/23 01:20 Nasal Cannula 4 07/30/23 01:16 Nasal Cannula 4 07/30/23 01:00 Nasal Cannula 4 07/30/23 00:50 07/30/23 00:50 07/30/23 00:49 07/30/23 00:00 07/29/23 23:51 Nasal Cannula 4 07/29/23 23:45 Nasal Cannula 4 07/29/23 23:38 07/29/23 23:30 07/29/23 23:15 Nasal Cannula 4 07/29/23 23:00 07/29/23 22:45 Nasal Cannula 4 07/29/23 22:29 07/29/23 22:21 Nasal Cannula 4 Laboratory Results 07/29/23 22:32 07/29/23 22:32 Coding Level of Care Code 87804 IN/OBS CONSULT LVL 3,45M Diagnoses Ischemic stroke I63.9 Seizure R56.9 Left hemiplegia G81.94 AMS (altered mental status) R41.82 Headache R51.9 Leukocytosis D72.829 Internal carotid artery stent present Z95.828 Hypothyroidism E03.9 Aortic stenosis I35.0
[2023-07-30] MEDS: LEVOTHYROXINE SODIUM 112 MCG TABLET PO SCH (06:32)
--- NOTE | 2023-07-30 07:18 | Electrocardiogram Report ---
Test Reason : Blood Pressure : / mmHG Vent. Rate : 097 BPM Atrial Rate : 097 BPM P-R Int : 180 ms QRS Dur : 098 ms QT Int : 354 ms P-R-T Axes : 071 065 075 degrees QTc Int : 449 ms Sinus rhythm with Premature atrial complexes with Aberrant conduction Possible Left atrial enlargement Borderline ECG When compared with ECG of 20-JUL-2023 11:40, Aberrant conduction is now Present Confirmed by Vignesh Tapia ([id number]) on 07/30/2023 7:18:36 AM Referred By: REFERRED SELF Confirmed By:Ambrocio Tapia
--- NOTE | 2023-07-30 07:19 | Electrocardiogram Report ---
Test Reason : Blood Pressure : / mmHG Vent. Rate : 123 BPM Atrial Rate : 123 BPM P-R Int : 148 ms QRS Dur : 102 ms QT Int : 342 ms P-R-T Axes : 057 060 074 degrees QTc Int : 489 ms Sinus tachycardia with Premature supraventricular complexes and Fusion complexes Nonspecific ST and T wave abnormality Abnormal ECG When compared with ECG of 29-JUL-2023 22:31, (unconfirmed) Fusion complexes are now Present Nonspecific T wave abnormality now evident in Inferior leads Confirmed by Vignesh Tapia ([id number]) on 07/30/2023 7:19:34 AM Referred By: REFERRED SELF Confirmed By:Ambrocio Tapia
--- NOTE | 2023-07-30 07:34 | Hospitalist Progress Note ---
Date of Service July 30, 2023 Assessment & Plan (1) Ischemic stroke: Plan: Sukhjinder Adam Jr is a 78-year-old male with past medical history of aortic stenosis, hypothyroidism, carotid artery stenosis, hyperlipidemia, hypertension, and CKD 3A who presented to the hospital for evaluation for unresponsiveness and found to have new ischemic stroke requiring TNKase administration. Ischemic Stroke -Acute right [employer] ischemic stroke due to right vertebral artery occlusion with moderate to severe neglect and left to right disorientation -Status post TNKase, follow 24-hour protocol -Permissive hypertension but given TNK use, systolic blood pressure goal of 140- 180, hold home lisinopril to allow for permissive hypertension in this range -IV labetalol as needed for systolic BP greater than 180 -Neurology consulted -Follow up with CT head at 24 hours post TNK -Resume home Brilinta, ASA after 24 hours post TNK -Continue statin, consider switch to high intensity statin -Continue with Keppra BID for seizure -Recommend follow up with vascular surgery as outpatient for known right carotid stenosis -Speech pathology consulted -Diet progressed to "easy to chew", only should eat when fully awake/alert -PT/OT consulted Seizure -Given limb flapping at home with a very elevated lactate with quick resolution, suspect patient has seizure secondary to CVA as above -Keppra loaded in the ED, continue twice daily dosing -Neurology in agreement to continue Keppra BID at this time Left Hemiplegia -As above, seems to have some increasing mobility of left leg this morning. Altered Mental Status -Secondary to CVA as above, improving Aortic Stenosis -Noted, Follows with [facility] cardiology/Dr. Nassar. TAVR/surgical interventi on deferred pending management and stability of his right carotid disease which was felt to be higher priority. -TTE 06/2023: EF hyperdynamic, greater than 75% at that time. No LVOT obstruction. Valve area 0.23. Mean gradient 43 mmHg. Hyperlipidemia -On simvastatin 40mgs at home -Will switch to Lipitor 80mgs for high intensity statin. Hypertension -Typically on lisinopril 10 mg daily, hold while allowing permissive hypertension as above CKD Stage 3a -stable Disposition: ICU, post TNK-ase Diet: Easy to chew DVT prophylaxis: SCDs. Chemical proph Contraindicated given TNKase. (2) Seizure: (3) Left hemiplegia: (4) AMS (altered mental status): (5) Hypothyroidism: (6) Aortic stenosis: (7) Carotid artery stenosis: (8) Hyperlipidemia: (9) Hypertension: (10) Chronic kidney disease, stage 3a: Admission and Anticipated Discharge Date Admission Date: July 30, 2023 Supervising Physician Co-Signing Physician Notes Resident Physician Supervision Note: I independently interviewed and examined the patient and verified the basurto history and physical, reviewed labs and image studies and agree with resident findings and care plan. Subjective Patient seen and examined at bedside. Patient appears drowsy but answers questions appropriately. Denies any current pain or shortness of breath. Review of Systems Review of Systems: As per HPI/Subjective Physical Exam Constitutional: well developed and well nourished Eyes: + anicteric sclerae and reactive pupils ENMT: External ears and nose normal. Moist mucous membranes. Respiratory: normal respiratory effort, lungs clear to auscultation Cardiovascular: Rate/Rhythm: regular rate and regular rhythm No significant lower extremity edema Skin: no rashes, warm and dry Neurologic: Left lower extremity 4/5 strength, Right lower extremity 5/5 strength Left upper extremity 3/5 strength, Right upper extremity 4/5 strength Notes decreased sensation at left side of face. Can move all limbs independently Defect of left visual field Psychiatric: Eye Contact: + poor eye contact Speech: normal rate/rhythm/volume of speech Somnolent Results & Data Results & Data Vital Signs (Past 12 Hours) Vital Signs Temp Pulse Pulse Resp BP BP Pulse Ox 07/30/23 06:51 36.6 C 86 18 134/67 92 07/30/23 06:21 36.6 C 86 16 130/67 94 07/30/23 05:51 36.6 C 92 H 18 132/69 94 07/30/23 05:21 36.6 C 85 16 115/64 93 07/30/23 04:51 36.7 C 82 16 128/78 94 07/30/23 04:21 36.6 C 87 15 131/71 93 07/30/23 03:57 36.8 C 88 18 169/89 H 90 07/30/23 03:51 36.7 C 93 H 17 127/74 94 07/30/23 03:21 36.8 C 88 16 169/89 H 90 07/30/23 03:04 89 17 122/71 94 07/30/23 02:49 90 18 112/78 94 07/30/23 02:34 93 H 12 131/74 91 07/30/23 02:28 95 H 07/30/23 02:19 90 14 128/83 96 07/30/23 02:04 93 H 14 127/79 96 07/30/23 01:49 96 H 16 141/77 H 97 07/30/23 01:35 102 H 19 149/81 H 97 07/30/23 01:20 98 H 17 153/98 H 97 07/30/23 01:16 106 H 121/94 96 07/30/23 01:00 103 H 21 179/87 H 95 07/30/23 00:50 158/78 H 07/30/23 00:50 92 H 16 93 07/30/23 00:49 96 H 15 160/82 H 92 07/30/23 00:00 99 H 16 124/65 96 07/29/23 23:51 102 H 21 134/72 95 07/29/23 23:45 101 H 21 128/62 96 07/29/23 23:38 105 H 18 133/69 96 07/29/23 23:30 106 H 7 L 155/77 H 96 07/29/23 23:15 118 H 21 177/81 H 96 07/29/23 23:00 120 H 28 H 192/91 H 95 07/29/23 22:45 07/29/23 22:29 107 H 07/29/23 22:21 37.0 C 108 H 18 180/92 H 96 O2 Del Method O2 Flow Rate 07/30/23 06:51 Room Air 07/30/23 06:21 Room Air 07/30/23 05:51 Room Air 07/30/23 05:21 Room Air 07/30/23 04:51 Room Air 07/30/23 04:21 Room Air 07/30/23 03:57 Room Air 07/30/23 03:51 Room Air 07/30/23 03:21 Room Air 07/30/23 03:04 Room Air 07/30/23 02:49 Room Air 07/30/23 02:34 Room Air 07/30/23 02:28 07/30/23 02:19 Nasal Cannula 4 07/30/23 02:04 Nasal Cannula 4 07/30/23 01:49 Nasal Cannula 4 07/30/23 01:35 Nasal Cannula 4 07/30/23 01:20 Nasal Cannula 4 07/30/23 01:16 Nasal Cannula 4 07/30/23 01:00 Nasal Cannula 4 07/30/23 00:50 07/30/23 00:50 07/30/23 00:49 07/30/23 00:00 07/29/23 23:51 Nasal Cannula 4 07/29/23 23:45 Nasal Cannula 4 07/29/23 23:38 07/29/23 23:30 07/29/23 23:15 Nasal Cannula 4 07/29/23 23:00 07/29/23 22:45 Nasal Cannula 4 07/29/23 22:29 07/29/23 22:21 Nasal Cannula 4 Resident Activity Tracking Resident Involvement: Resident Care Provided Care Provided: Adult Hospital Medicine
--- NOTE | 2023-07-30 08:07 | XRay Report ---
XR chest 1V portable CLINICAL HISTORY: neuro deficit, acute stroke suspected COMPARISON STUDY: Chest radiograph July 04, 2023. FINDINGS: Lung volumes are mildly diminished. Lungs are clear. There is emphysema. There is no pneumo thorax or pleural effusion. Cardiac size is stable. Mediastinal contours are normal. There is no evid ence for pulmonary edema. IMPRESSION: No acute cardiopulmonary findings. No significant change in appearance of the chest. ACT 112: Negative or not required by law. Electronically signed by: Josue Jennings M.D. 07/30/2023 8:05 AM
[2023-07-30] MEDS: levETIRAcetam 500 MG in 0.9 % SODIUM CHLORIDE 100 ML IV SCH ×2 (08:30→21:00)
[2023-07-30] MEDS: ICU Protocol for HYPERglycemia SCH ×4 (08:30→20:57)
[2023-07-30] MEDS: POTASSIUM CHLORIDE / WTR 10 MEQ/100 ML PLCT IV SCH ×3 (08:38→11:17)
[2023-07-30] MEDS ORDERED: lisinopril 10 MG TAB PO SCH (09:00)
--- NOTE | 2023-07-30 10:12 | Neurology Consultation ---
Date of Consultation July 30, 2023 Assessment & Plan (1) Acute right HYDRAULIC RIVETER stroke: A 78 year old male with known carotid disease s/p left CEA and right carotid stent s/p TCAR in June and prior history of stroke on ASA and Brillenta s/p IV TNK for acute right HYDRAULIC RIVETER ischemic stroke due to right vertebral artery occlusion with moderate to severe neglect and left to rigth disorientation (? gerstmann syndrome). Examine limited as patient is very drowsy. Continue post TNK recommendations with follow up CT head in 24 hours. Will plan to resume home Brillenta and ASA as patient is following with [facility] cardiology. He is on Simvastatin unclear if he did not tolerate high intensity statin's in the past as no family at bedside. Agree with continuing Keppra 500 mg BID for seizure prophylaxis. Might be able to be weaned off of this in the future pending his course. Continue telemetry. Speech evaluation. Will need to follow up with his vascular surgeron regarding known right carotid stent stenosis as outpatient. (2) Left-sided neglect: (3) Seizure: History of Present Illness Reason for Consultation: Right HYDRAULIC RIVETER Ischemic stroke Requesting Physician: Dr. Gonzales Attending Physician: Aicha Gonzales MD History of Present Illness A 78 year old male with Hx of PVD with known B/L carotid stenosis s/p R carotid stent / Left CEA and R TCAR in june 2023 on Brillenta and ASA admitted yesterday with left sided weaknes and neglect. On evaluation in the ER he was found to have a right HYDRAULIC RIVETER acute stroke and occluded right vertebral artery with stenosis of his right carotid stent. He recieved IV TNK in discussion with [facility]. He follows with [facility] cardiology. There was also concern for possible seizure with noreen's paralysis and was loaded w Keppra. He is now on Keppra 500 mg BID. He is very drowsy this morning so history is limited and obtained from chart. No family at bedisde. Allergies Allergy/AdvReac Type Severity Reaction Status Date / Time Sulfa (Sulfonamide Allergy swelling/red Verified 07/29/23 23:03 Antibiotics) blotches around genitals Home Medications Medication Instructions Recorded Confirmed Type aspirin 81 mg tablet,delayed 81 mg PO QAM 11/21/22 07/29/23 History release cilostazol 100 mg tablet 100 mg PO QAM 11/21/22 07/29/23 History levothyroxine 112 mcg tablet 112 mcg PO QAM 11/21/22 07/29/23 History (Levoxyl) lisinopril 10 mg tablet 10 mg PO QAM 11/21/22 07/29/23 History simvastatin 40 mg tablet 40 mg PO QAM 11/21/22 07/29/23 History oxycodone-acetaminophen 5 mg-325 1 tab PO Q6 PRN Pain #20 tabs 07/07/23 07/29/23 Rx mg tablet (Percocet) ticagrelor 90 mg tablet (Brilinta) 90 mg PO BID #60 tabs 07/22/23 07/29/23 Rx Patient History Medical History Aortic stenosis Carotid artery disease Chronic kidney disease, stage 3a Hyperlipidemia Hypertension Hypothyroidism Stroke Transient visual loss of right eye Surgical History History of carotid endarterectomy History of left cataract surgery History of right cataract surgery History of surgical removal of skin lesion Hx of colonoscopy Hx of tonsillectomy Family History Other Dementia Heart disease Hypertension Myocardial infarction Osteoporosis Social History Smoking Status: Former smoker Tobacco Type: Cigarettes Second Hand Exposure: No; Do You Dip or Chew Tobacco: No; Hx Alcohol Use: Yes Alcohol type: hard liquor Hx Substance Use: No Preferred Language: Faroese Communication Ability: Effective Supervisory Examiner Required: No Beliefs That Will Affect Care: None Current Living Situation: Spouse Other Information That Helps Us Care for You: No Feels Safe at Home: Yes Safety Concerns: Feels Safe At This Time Assistive Devices: None Physical Exam Physical Exam: Appears acutely ill. Very drowsy with no distress. Falling asleep. Left sided negelect with left to right disorientation. Moving all 4 extremitie to gravity with reduced sensation on the left sided with ataxia. His speech is soft and non fluent. Results & Data Vital Signs (Past 12 Hours) Vital Signs Temp Pulse Pulse Resp BP BP Pulse Ox 07/30/23 08:51 36.7 C 85 18 145/75 H 93 07/30/23 08:21 36.6 C 78 18 131/70 92 07/30/23 07:51 36.5 C 81 18 121/71 94 07/30/23 07:21 36.7 C 90 18 138/77 92 07/30/23 06:51 36.6 C 86 18 134/67 92 07/30/23 06:21 36.6 C 86 16 130/67 94 07/30/23 05:51 36.6 C 92 H 18 132/69 94 07/30/23 05:21 36.6 C 85 16 115/64 93 07/30/23 04:51 36.7 C 82 16 128/78 94 07/30/23 04:21 36.6 C 87 15 131/71 93 07/30/23 03:57 36.8 C 88 18 169/89 H 90 07/30/23 03:51 36.7 C 93 H 17 127/74 94 07/30/23 03:21 36.8 C 88 16 169/89 H 90 07/30/23 03:04 89 17 122/71 94 07/30/23 02:49 90 18 112/78 94 07/30/23 02:34 93 H 12 131/74 91 07/30/23 02:28 95 H 07/30/23 02:19 90 14 128/83 96 07/30/23 02:04 93 H 14 127/79 96 07/30/23 01:49 96 H 16 141/77 H 97 07/30/23 01:35 102 H 19 149/81 H 97 07/30/23 01:20 98 H 17 153/98 H 97 07/30/23 01:16 106 H 121/94 96 07/30/23 01:00 103 H 21 179/87 H 95 07/30/23 00:50 158/78 H 07/30/23 00:50 92 H 16 93 07/30/23 00:49 96 H 15 160/82 H 92 07/30/23 00:00 99 H 16 124/65 96 07/29/23 23:51 102 H 21 134/72 95 07/29/23 23:45 101 H 21 128/62 96 07/29/23 23:38 105 H 18 133/69 96 07/29/23 23:30 106 H 7 L 155/77 H 96 07/29/23 23:15 118 H 21 177/81 H 96 07/29/23 23:00 120 H 28 H 192/91 H 95 07/29/23 22:45 07/29/23 22:29 107 H 07/29/23 22:21 37.0 C 108 H 18 180/92 H 96 O2 Del Method O2 Flow Rate 07/30/23 08:51 Room Air 07/30/23 08:21 Room Air 07/30/23 07:51 Room Air 07/30/23 07:21 Room Air 07/30/23 06:51 Room Air 07/30/23 06:21 Room Air 07/30/23 05:51 Room Air 07/30/23 05:21 Room Air 07/30/23 04:51 Room Air 07/30/23 04:21 Room Air 07/30/23 03:57 Room Air 07/30/23 03:51 Room Air 07/30/23 03:21 Room Air 07/30/23 03:04 Room Air 07/30/23 02:49 Room Air 07/30/23 02:34 Room Air 07/30/23 02:28 07/30/23 02:19 Nasal Cannula 4 07/30/23 02:04 Nasal Cannula 4 07/30/23 01:49 Nasal Cannula 4 07/30/23 01:35 Nasal Cannula 4 07/30/23 01:20 Nasal Cannula 4 07/30/23 01:16 Nasal Cannula 4 07/30/23 01:00 Nasal Cannula 4 07/30/23 00:50 07/30/23 00:50 07/30/23 00:49 07/30/23 00:00 07/29/23 23:51 Nasal Cannula 4 07/29/23 23:45 Nasal Cannula 4 07/29/23 23:38 07/29/23 23:30 07/29/23 23:15 Nasal Cannula 4 07/29/23 23:00 07/29/23 22:45 Nasal Cannula 4 07/29/23 22:29 07/29/23 22:21 Nasal Cannula 4 Diagnostic Findings MRI BRAIN Brain: Right occipital and parietal lobe infarcts. No hemorrhage. Chronic right cerebellar infarct. Ventricles: Unremarkable. No ventriculomegaly. Bones/joints: Unremarkable. Sinuses: Unremarkable as visualized. No acute sinusitis. Mastoid air cells: Unremarkable as visualized. No mastoid effusion. Orbits: Unremarkable as visualized. IMPRESSION: Right occipital and parietal lobe infarcts. Head CTA Right internal carotid artery: No acute findings. Intracranial segment is patent with no significant stenosis. No aneurysm. Right anterior cerebral artery: Unremarkable. No occlusion or significant stenosis. No aneurysm. Right middle cerebral artery: Unremarkable. No occlusion or significant stenosis. No aneurysm. Right posterior cerebral artery: origin to the right posterior cerebral artery territory. Large right posterior acute communicating artery is unremarkable. 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 Left internal carotid artery: No acute findings. Intracranial segment is patent with no significant stenosis. No aneurysm. Left anterior cerebral artery: Unremarkable. No occlusion or significant stenosis. No aneurysm. Left middle cerebral artery: Unremarkable. No occlusion or significant stenosis. No aneurysm. Left posterior cerebral artery: Prominent left posterior communicating artery is unremarkable. Left vertebral artery: Unremarkable as visualized. Basilar artery: Diffusely small caliber basilar artery likely secondary to large bilateral posterior communicating arteries. No occlusion or significant stenosis. No aneurysm. IMPRESSION: No large vessel intracranial occlusion. Neck CTA 1. Prior right carotid stent in position. There is severe in-stent stenosis of greater than 80% at the level of the carotid bulb with narrowing of the stent at this level as well. 2. 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 3. Mild to moderate atherosclerotic plaque within the distal left common carotid artery carotid bulb and proximal right internal carotid artery causing no greater than 30% stenosis.
[2023-07-30] MEDS: oxyCODONE/ACETAMINOPHEN 5mg/325mg TAB PO PRN (15:20)
[2023-07-30] MEDS: LABETALOL HCL IV 5 MG/ML 20ML IV PRN ×2 (16:05→16:28)
[2023-07-30] MEDS ORDERED: ONDANSETRON INJ 2 MG/ML 2 ML VIAL IV PRN (16:09)
[2023-07-30] MEDS: SODIUM CHLORIDE 0.9% 1,000 ML IV SCH (17:34)
[2023-07-30] MEDS ORDERED: ACETAMINOPHEN 1,000 MG/100 ML VIAL IV PRN (17:35)
[2023-07-30] MEDS ORDERED: cefTRIAXone SODIUM 2,000 MG in DEXTROSE 5% 50 ML IV STA (17:46)
[2023-07-30] MEDS ORDERED: SIMVASTATIN 40 MG TAB PO SCH (21:00)
[2023-07-30] MEDS: ATORVASTATIN 40 MG TAB PO SCH (21:43)
--- NOTE | 2023-07-31 03:27 | CT Scan Report ---
Exam(s): CT HEAD Without Contrast EXAM: CT Head Without Intravenous Contrast CLINICAL HISTORY: Reason for exam: F/U tenecteplase. TECHNIQUE: Axial computed tomography images of the head/brain without intravenous contrast. CTDI is 37.32 mGy and DLP is 624.41 mGy-cm. Automated exposure control was utilized for the study. A dose lowering technique was utilized adhering to the principles of ALARA. COMPARISON: July 29, 2023 CT angiogram head and CT head from July 20, 2023 FINDINGS: Brain: There is a trace amount of linear hyperdensity suspicious for subarachnoid hemorrhage along one of the right frontal lobe sulci, superiorly. This is new since previous. Mild cerebral atrophy and periventricular white matter low density consistent with chronic small vessel disease. There are mild areas of encephalomalacia involving an approximately 5 cm area of the right side of the cerebellum consistent with old infarct. No acute large vessel infarct is identified. Ventricles: Unremarkable. No ventriculomegaly. Bones/joints: Unremarkable. No acute fracture. Soft tissues: Unremarkable. Sinuses: Unremarkable as visualized. No acute sinusitis. Mastoid air cells: Unremarkable as visualized. No mastoid effusion. IMPRESSION: 1. There is a trace amount of linear hyperdensity suspicious for subarachnoid hemorrhage along one of the right frontal lobe sulci, superiorly. This is new since previous. 2. Mild cerebral atrophy and periventricular white matter low density consistent with chronic small vessel disease. There are mild areas of encephalomalacia involving an approximately 5 cm area of the right side of the cerebellum consistent with old infarct. No acute large vessel infarct is identified. Communications: Call Doctor Intracranial Hemorrhage Electronically signed by: Henry Aguila MD 07/31/23 03:26 AM
[2023-07-31] MEDS: SODIUM CHLORIDE 0.9% 1,000 ML IV SCH ×3 (03:34→21:17)
[2023-07-31] MEDS ORDERED: hydrALAZINE HCL 20 MG/ML VIAL IV ONE (04:03)
--- NOTE | 2023-07-31 04:23 | Communication Note ---
Date of Service: July 31, 2023 I was contacted regarding Sukhjinder Adam. His head CT shows linear trace of hyperdensity (new from prior scan) concerning for SAH. CTA 07/29/23 did not show aneurysm. Patient received TNK more than 24 h ago. I discussed with pharmacy, TNK reversal is not indicated after 24 h. I recommended repeating head CT in 6 hour. Primary team to let us know if they need to transfer patient.
--- NOTE | 2023-07-31 04:29 | Communication Note ---
Date of Service: July 31, 2023 Patient's 24 hour post-TNK CTH was reviewed by radiology. Appears patient has trace SAH about R frontal lobe sulci. I ensured patient's SBP < 140mmhg and per protocol I contacted the transfer center/on-call Neurologist for recommendations. [facility] Neurologist recommends 6 hour interval scan to ensure stability. No need to reverse TNK. Patient exam continues to slowly improve. At this time he is AAOx3, motor 5/5 in all extremities. Sensory intact. (-) facial droop, e/r aphasia. Most recent NIH 8 per RN. Proprioception remains impaired LUE. Speech is clear at this time. Plan: Interval CTH 0730 Tight BP control for SBP < 140mmHg Continue frequent neurologic checks Will contact on-call [employer] for their opinion on whether this patient shou ld be transferred to [facility] [place] if so he would be accepted per Neurologist. Coding Level of Care Code None
[2023-07-31 05:22] LABS: BUN Creatinine Ratio 13.1 (10-20); Calcium 8.5 mg/dl (8.6-10.3); Creatinine Clr Calc Pharmacy 56.4 ml/min; Est GFR (African American) 65.4 ml/min; Est GFR (Non-African American) 56.4 ml/min; Magnesium 2.1 mg/dl (1.7-2.4); Phosphorus 2.4 mg/dl (2.5-4.9)
[2023-07-31 05:36] LABS: INR 1.1 (0.9-1.1); Partial Thromboplastin Time 27.1 Seconds (21.0-31.0)
[2023-07-31 05:42] LABS: Hematocrit (blood only) 33.4 % (42.0-52.0); Hemoglobin 11.5 g/dl (14.0-18.0); Mean Corpuscular Hemoglobin 34.3 pg (25.0-34.0); Mean Corpuscular Hgb Conc 34.4 g/dL (32.0-36.0); Mean Corpuscular Volume 99.7 fL (80.0-100.0); Platelet Count 141 K/uL (130-400); RDW Coefficient of Variation 13.2 % (11.5-14.5); RDW Standard Deviation 48.3 fL (36.4-46.3); Red Blood Count 3.35 M/uL (4.70-6.10); White Blood Count 10.93 K/ul (4.8-10.8)
[2023-07-31 05:43] LABS: Basophils # (auto) 0.02 K/uL (0.00-0.20); Basophils % (auto) 0.2 %; Eosinophils # (auto) 0.03 K/uL (0.00-0.50); Eosinophils % (auto) 0.3 %; Immature Granulocytes # (auto) 0.03 K/uL (0.01-0.20); Immature Granulocytes % (auto) 0.3 %; Lymphocytes # (auto) 0.89 K/uL (1.20-3.40); Lymphocytes % (auto) 8.1 %; Monocytes # (auto) 0.95 K/uL (0.11-0.59); Monocytes % (auto) 8.7 %; Neutrophils # (auto) 9.01 K/uL (1.40-6.50); Neutrophils % (auto) 82.4 %
[2023-07-31] MEDS ORDERED: SODIUM PHOSPHATE 3 MMOL/1 ML INFUSION IV STA (05:55)
[2023-07-31] MEDS ORDERED: SODIUM PHOSPHATE 15 MMOL in SODIUM CHLORIDE 0.9% 250 ML IV ONE (06:15)
[2023-07-31] MEDS: LEVOTHYROXINE SODIUM 112 MCG TABLET PO SCH (06:18)
[2023-07-31] MEDS: ICU ELECTROLYTE REPLACEMENT PROTOCOL SCH (06:18)
--- NOTE | 2023-07-31 06:54 | Hospitalist Progress Note ---
Date of Service July 31, 2023 Assessment & Plan (1) Ischemic stroke: Plan: Pt is a 78 yo male with PMH of aortic stenosis, hypothyroidism, carotid artery stenosis, hyperlipidemia, hypertension, and CKD 3A who presented to the hospital for evaluation for unresponsiveness. Work-up thus far has revealed a new ischemic stroke requiring TNKase administration. Patient admitted to the ICU for monitoring. [address] hr follow up head CT concerning for small subarachnoid hemorrhage. Acute right occipital/parietal lobe ischemic stroke - pt also with 80% stenosis of right carotid stent - s/p TNKase (given 07/30/2023 at ~1:00AM) - follow up with CT head at 24 hours showing small foci of subarachnoid hemorrhage - continue to hold home brilinta, ASA - continue statin, consider switch to high intensity statin - continue with Keppra BID - speech consulted; diet progressed to "easy to chew", aspiration precautions - PT/OT consulted Right carotid artery stenosis - 80% stenosis of RCA stent on CTA - recommend follow up with vascular surgery as outpatient Seizure - suspect patient had seizure secondary to CVA as above - keppra loaded in the ED; continue 500 mg BID Hypothyroidism - continue levothyroxine Aortic stenosis - follows with [facility] Dr. Nassar - TAVR/surgical intervention deferred pending management and stability of his right carotid disease which was felt to be higher priority - TTE 06/2023: EF hyperdynamic, greater than 75% at that time; no LVOT obstruction; valve area 0.23 Hyperlipidemia - switch outpatient simvastatin to high intensity atorvastatin 80 mg daily Hypertension - hold lisinopril 10 mg CKD Stage 3a - baseline creatinine ~1.4-1.6 - at baseline; continue to monitor Diet: Easy to chew DVT ppx: contraindicated given TNKase Code status: Full Disposition: ICU, suspect pt with need rehab upon discharge (2) Seizure: (3) Left hemiplegia: (4) AMS (altered mental status): (5) Hypothyroidism: (6) Aortic stenosis: (7) Carotid artery stenosis: (8) Hyperlipidemia: (9) Hypertension: (10) Chronic kidney disease, stage 3a: Admission and Anticipated Discharge Date Admission Date: July 30, 2023 Supervising Physician Co-Signing Physician Notes I personally examined the patient and verified all basurto points of history and exam, discussed case, and agree with decision making with Dr Smithbauer No headache no vision changes. Vitals noted, in general he is awake and alert pleasant no distress. HEENT normocephalic atraumatic mucous membranes moist. Breathing unlabored no accessory muscle use good effort. Skin shows no rashes no pallor or icterus. Neuro without focal deficits. CVA status post thrombolytics and small subsequent bleedoverall stable. Continue serial exams, serial CTs, vigilance and supportive care. Secondary risk reduction. Discussed PT/OT. Otherwise as above. Subjective Pt feeling well this AM. No new complaints. Review of Systems Review of Systems: As per HPI Physical Exam Physical Exam: Constitutional: well appearing, no acute distress HEENT: normocephalic, no conjunctival injection CV: 3/6 systolic murmur, regular rate, regular rhythm, no murmur, no LE edema Respiratory: Clear to auscultation bilaterally. No rhonchi, wheezes, or crackles. No increased work of breathing MSK: no gross deformities noted Skin: warm, dry, no rashes Neuro: alert, oriented Results & Data Results & Data Vital Signs (Past 12 Hours) Vital Signs Temp Pulse Pulse Resp BP BP Pulse Ox 07/31/23 05:45 66 15 98 07/31/23 05:45 111/52 L 07/31/23 05:30 66 16 98 07/31/23 05:15 71 18 96 07/31/23 05:15 129/48 L 07/31/23 05:09 76 16 96 07/31/23 05:09 130/56 L 07/31/23 05:00 71 14 96 07/31/23 04:49 153/68 H 07/31/23 04:49 78 17 96 07/31/23 04:46 78 20 97 07/31/23 04:46 148/68 H 07/31/23 04:45 82 28 H 80 L 07/31/23 04:30 75 23 89 L 07/31/23 04:15 55 L 11 L 94 07/31/23 04:15 136/76 07/31/23 04:01 58 L 20 96 07/31/23 04:00 87 15 93 07/31/23 03:45 70 14 94 07/31/23 03:39 71 15 96 07/31/23 03:39 136/65 07/31/23 03:30 85 11 L 94 07/31/23 03:15 48 L 15 94 07/31/23 03:00 72 16 93 07/31/23 02:45 62 17 95 07/31/23 02:35 74 25 H 95 07/31/23 02:18 82 95 07/31/23 01:45 73 12 95 07/31/23 01:45 132/58 L 07/31/23 01:30 87 12 94 07/31/23 01:30 148/57 H 07/31/23 01:15 72 13 96 07/31/23 01:15 136/64 07/31/23 01:00 71 11 L 94 07/31/23 01:00 136/54 L 07/31/23 00:45 71 15 94 07/31/23 00:45 126/57 L 07/31/23 00:30 72 17 94 07/31/23 00:30 134/61 07/31/23 00:15 73 10 L 94 07/31/23 00:15 132/62 07/31/23 00:00 67 16 94 07/31/23 00:00 132/56 L 07/30/23 23:45 67 20 95 07/30/23 23:45 123/51 L 07/30/23 23:30 76 18 93 07/30/23 23:30 126/51 L 07/30/23 23:15 78 16 93 07/30/23 23:15 122/54 L 07/30/23 23:00 77 16 95 07/30/23 23:00 117/50 L 07/30/23 22:45 86 20 94 07/30/23 22:30 79 19 95 07/30/23 22:30 117/57 L 07/30/23 22:24 123/56 L 07/30/23 22:24 86 24 95 07/30/23 22:15 87 17 95 07/30/23 22:00 81 19 94 07/30/23 21:45 84 21 94 07/30/23 21:45 132/66 07/30/23 21:30 80 15 94 07/30/23 21:30 131/65 07/30/23 21:15 77 14 94 07/30/23 21:15 128/60 07/30/23 21:00 74 7 L 94 07/31/23 01:21 37.1 C 73 16 136/64 96 09/25/23 00:21 37.1 C 73 16 132/62 95 07/30/23 23:59 91 H 07/30/23 22:21 36.9 C 86 16 123/56 L 95 07/30/23 23:21 36.9 C 73 16 122/54 L 94 07/30/23 21:21 36.9 C 78 16 128/60 94 07/30/23 20:21 36.9 C 81 16 135/63 94 07/30/23 19:21 36.9 C 81 16 146/75 H 93 O2 Del Method 07/31/23 05:45 07/31/23 05:45 07/31/23 05:30 07/31/23 05:15 07/31/23 05:15 07/31/23 05:09 07/31/23 05:09 07/31/23 05:00 07/31/23 04:49 07/31/23 04:49 07/31/23 04:46 07/31/23 04:46 07/31/23 04:45 07/31/23 04:30 07/31/23 04:15 07/31/23 04:15 07/31/23 04:01 07/31/23 04:00 07/31/23 03:45 07/31/23 03:39 07/31/23 03:39 07/31/23 03:30 07/31/23 03:15 07/31/23 03:00 07/31/23 02:45 07/31/23 02:35 07/31/23 02:18 07/31/23 01:45 07/31/23 01:45 07/31/23 01:30 07/31/23 01:30 07/31/23 01:15 07/31/23 01:15 07/31/23 01:00 07/31/23 01:00 07/31/23 00:45 07/31/23 00:45 07/31/23 00:30 07/31/23 00:30 07/31/23 00:15 07/31/23 00:15 07/31/23 00:00 07/31/23 00:00 07/30/23 23:45 07/30/23 23:45 07/30/23 23:30 07/30/23 23:30 07/30/23 23:15 07/30/23 23:15 07/30/23 23:00 07/30/23 23:00 07/30/23 22:45 07/30/23 22:30 07/30/23 22:30 07/30/23 22:24 07/30/23 22:24 07/30/23 22:15 07/30/23 22:00 07/30/23 21:45 07/30/23 21:45 07/30/23 21:30 07/30/23 21:30 07/30/23 21:15 07/30/23 21:15 07/30/23 21:00 07/31/23 01:21 Room Air 07/31/23 00:21 Room Air 07/30/23 23:59 07/30/23 22:21 Room Air 07/30/23 23:21 Room Air 07/30/23 21:21 Room Air 07/30/23 20:21 Room Air 07/30/23 19:21 Room Air Resident Activity Tracking Resident Involvement: Resident Care Provided Care Provided: Adult Hospital Medicine
[2023-07-31 07:27] LABS: Estimated Average Glucose 105 mg/dl; Hemoglobin A1C 5.3 % (4.5-5.6)
[2023-07-31] MEDS: ICU Protocol for HYPERglycemia SCH ×4 (07:41→21:12)
--- NOTE | 2023-07-31 08:47 | Pulmonology Progress Note ---
Date of Service July 31, 2023 Assessment & Plan (1) tPA adm status 24 hr [employer]: (2) Subarachnoid hemorrhage: (3) Seizure: Plan Impression: 78-year-old male with history of recent CVA status post right TCAR June 2023 admitted with strokelike symptoms and seizure. He received TNK in the emergency room. His 24-hour CT scan demonstrated a small focus of potential subarachnoid hemorrhage which appeared stable on imaging 6 hours later. His neurological exam is unchanged. Recommendations: 1. Acute stroke: Multiple areas of infarct in the right occipital and parietal lobes. Status post TNK administration. Continue blood pressure goals (see subarachnoid hemorrhage below) as well as lipid-lowering therapy. Holding antiplatelet agents for now in light of #2. PT OT. 2. Subarachnoid hemorrhage status post TNK administration. The focus of hemorrhage appears very small and does not appear to have propagated on short interval CT scan. The patient remains relatively asymptomatic from this at this point in time. Would continue clinical observation. Given the small focus, would withhold nimlodipine and hypertonic therapy at this point in time. Plan for repeat CT scan in 12 to 24 hours. Holding antiplatelet agents for now. Avoid hypotonic fluids and try to push sodium into the 140-145 range. 3. Seizure: Likely secondary to infarcts. Continue Keppra. This should be adequate prophylaxis for seizures related to a subarachnoid hemorrhage as well. 4. Hyponatremia: This is somewhat chronic but given the subarachnoid hemorrhage we will try and push sodium slightly higher. Start salt tablets. Disposition per neurology. The patient may require an additional 24 hours observation in the ICU given the small focus of subarachnoid hemorrhage. Case was discussed with the bedside critical care nurse as well as on multidisciplinary rounds. The patient is critically ill with significant possibility of clinical deterioration. Total of 38 minutes of critical care time was spent in evaluation management stabilization of this patient. Admission and Anticipated Discharge Date Admission Date: July 30, 2023 Subjective Patient seen and examined. EMR reviewed. Discussed with off going cooper helper and with overnight critical care CATARINA. The patient is awake alert and conversant this morning. His NIH remains around 7-8 which is unchanged from prior. He underwent follow-up imaging this morning as his 24-hour CT showed a small area of potential subarachnoid hemorrhage. On my read the CT appears stable this morning. The patient has no new neurological deficits. He specifically denies any headache, vision changes, or nuchal rigidity. Review of Systems Review of Systems: All systems reviewed & are unremarkable except as noted in Subjective Physical Exam Constitutional: well developed and well nourished Eyes: + anicteric sclerae and reactive pupils Respiratory: normal respiratory effort, lungs clear to auscultation Cardiovascular: Rate/Rhythm: regular rate and regular rhythm Skin: no rashes, warm and dry Neurologic: Left lower extremity 4/5 strength, Right lower extremity 5/5 strength Left upper extremity 3/5 strength, Right upper extremity 4/5 strength Notes decreased sensation at left side of face. Can move all limbs independently Defect of left visual field Psychiatric: Eye Contact: + poor eye contact Speech: normal rate/rhythm/volume of speech Somnolent Results & Data Results & Data Vital Signs (Past 12 Hours) Vital Signs Temp Pulse Pulse Resp BP BP Pulse Ox 07/31/23 05:45 66 15 98 07/31/23 05:45 111/52 L 07/31/23 05:30 66 16 98 07/31/23 05:15 71 18 96 07/31/23 05:15 129/48 L 07/31/23 05:09 76 16 96 07/31/23 05:09 130/56 L 07/31/23 05:00 71 14 96 07/31/23 04:49 153/68 H 07/31/23 04:49 78 17 96 07/31/23 04:46 78 20 97 07/31/23 04:46 148/68 H 07/31/23 04:45 82 28 H 80 L 07/31/23 04:30 75 23 89 L 07/31/23 04:15 55 L 11 L 94 07/31/23 04:15 136/76 07/31/23 04:01 58 L 20 96 07/31/23 04:00 87 15 93 07/31/23 03:45 70 14 94 07/31/23 03:39 71 15 96 07/31/23 03:39 136/65 07/31/23 03:30 85 11 L 94 07/31/23 03:15 48 L 15 94 07/31/23 03:00 72 16 93 07/31/23 02:45 62 17 95 07/31/23 02:35 74 25 H 95 07/31/23 02:18 82 95 07/31/23 01:45 73 12 95 07/31/23 01:45 132/58 L 07/31/23 01:30 87 12 94 07/31/23 01:30 148/57 H 07/31/23 01:15 72 13 96 07/31/23 01:15 136/64 07/31/23 01:00 71 11 L 94 07/31/23 01:00 136/54 L 07/31/23 00:45 71 15 94 07/31/23 00:45 126/57 L 07/31/23 00:30 72 17 94 07/31/23 00:30 134/61 07/31/23 00:15 73 10 L 94 07/31/23 00:15 132/62 07/31/23 00:00 67 16 94 07/31/23 00:00 132/56 L 07/30/23 23:45 67 20 95 07/30/23 23:45 123/51 L 07/30/23 23:30 76 18 93 07/30/23 23:30 126/51 L 07/30/23 23:15 78 16 93 07/30/23 23:15 122/54 L 07/30/23 23:00 77 16 95 07/30/23 23:00 117/50 L 07/30/23 22:45 86 20 94 07/30/23 22:30 79 19 95 07/30/23 22:30 117/57 L 07/30/23 22:24 123/56 L 07/30/23 22:24 86 24 95 07/30/23 22:15 87 17 95 07/30/23 22:00 81 19 94 07/30/23 21:45 84 21 94 07/30/23 21:45 132/66 07/30/23 21:30 80 15 94 07/30/23 21:30 131/65 07/30/23 21:15 77 14 94 07/30/23 21:15 128/60 07/30/23 21:00 74 7 L 94 07/31/23 01:21 37.1 C 73 16 136/64 96 07/31/23 00:21 37.1 C 73 16 132/62 95 07/30/23 23:59 91 H 07/30/23 22:21 36.9 C 86 16 123/56 L 95 07/30/23 23:21 36.9 C 73 16 122/54 L 94 07/30/23 21:21 36.9 C 78 16 128/60 94 O2 Del Method 07/31/23 05:45 07/31/23 05:45 07/31/23 05:30 07/31/23 05:15 07/31/23 05:15 07/31/23 05:09 07/31/23 05:09 07/31/23 05:00 07/31/23 04:49 07/31/23 04:49 07/31/23 04:46 07/31/23 04:46 07/31/23 04:45 07/31/23 04:30 07/31/23 04:15 07/31/23 04:15 07/31/23 04:01 07/31/23 04:00 07/31/23 03:45 07/31/23 03:39 07/31/23 03:39 07/31/23 03:30 07/31/23 03:15 07/31/23 03:00 07/31/23 02:45 07/31/23 02:35 07/31/23 02:18 07/31/23 01:45 07/31/23 01:45 07/31/23 01:30 07/31/23 01:30 07/31/23 01:15 07/31/23 01:15 07/31/23 01:00 07/31/23 01:00 07/31/23 00:45 07/31/23 00:45 07/31/23 00:30 07/31/23 00:30 07/31/23 00:15 07/31/23 00:15 07/31/23 00:00 07/31/23 00:00 07/30/23 23:45 07/30/23 23:45 07/30/23 23:30 07/30/23 23:30 07/30/23 23:15 07/30/23 23:15 07/30/23 23:00 07/30/23 23:00 07/30/23 22:45 07/30/23 22:30 07/30/23 22:30 07/30/23 22:24 07/30/23 22:24 07/30/23 22:15 07/30/23 22:00 07/30/23 21:45 07/30/23 21:45 07/30/23 21:30 07/30/23 21:30 07/30/23 21:15 07/30/23 21:15 07/30/23 21:00 07/31/23 01:21 Room Air 07/31/23 00:21 Room Air 07/30/23 23:59 07/30/23 22:21 Room Air 07/30/23 23:21 Room Air 07/30/23 21:21 Room Air Laboratory Results 07/31/23 04:45 07/31/23 04:[address] this morning independently reviewed. Formal radiology read pending however on my review the small focus of subarachnoid hemorrhage in the right temporal region appears unchanged. No new areas of bleeding. PG Care Time/CCT Total # of Minutes Spent Total Time Spent with Patient: Total time spent is greater than 50% in coordination of care (as documented) at patient's floor/unit and/or counseling patient: Coding Level of Care Code 00674 CRITICAL CARE 1ST 30-74M Diagnoses tPA adm status 24 hr [employer] Z92.82 Subarachnoid hemorrhage I60.9 Seizure R56.9
--- NOTE | 2023-07-31 09:07 | CT Scan Report ---
CT OF THE HEAD WITHOUT CONTRAST CLINICAL HISTORY: F/U [facility] COMPARISON STUDY: MRI of the brain July 30, 2023. Head CT July 31, 2023. CT DOSE: 625.80 mGy.cm TECHNIQUE: Helical axial images of the head were obtained without IV contrast. Automated exposure con trol was utilized for the study. A dose lowering technique was utilized adhering to the principles o f ALARA. FINDINGS: A few small foci of acute subarachnoid hemorrhage overlying the right frontal lobe are unch anged since head CT of July 31, 2023. No new sites of acute hemorrhage are identified on this ex am. An acute right parietooccipital infarct is better depicted on MRI of July 30, 2023. There is an old right cerebellar infarct. Basal cisterns are patent. There are no extra-axial collections. Ve ntricular system is stable. Basal cisterns are patent. IMPRESSION: 1. No change in a few small foci of acute subarachnoid hemorrhage overlying the right frontal lobe si nce head CT of July 31, 2023. 2. Acute right parietooccipital infarct, better depicted on MRI of July 30, 2023. 3. Old right cerebellar infarct. ACT 112: Negative or not required by law. Electronically signed by: Josue Jennings M.D. 07/31/2023 9:06 AM
[2023-07-31] MEDS: hydrALAZINE HCL 20 MG/ML VIAL IV PRN (09:19)
[2023-07-31] MEDS: levETIRAcetam 500 MG in 0.9 % SODIUM CHLORIDE 100 ML IV SCH (09:45)
[2023-07-31] MEDS: SODIUM CHLORIDE 1 GM TABLET PO SCH ×2 (10:45→20:45)
--- NOTE | 2023-07-31 11:00 | Pharmacy Report ---
- Date of Service July 31, 2023 - Pharmacy CVA/TIA Medication Review Medications to Prevent Stroke handout has been added to the patients discharge packet. Antiplatelet(s) * Antiplatelet therapy deferred at this time due to subarachnoid hemorrhage Cholesterol * High intensity statin: atorvastatin 80 mg daily DVT Prophylaxis * SCD knee Therapeutic Anticoagulation * No history of Afib/Aflutter noted Type 2 Diabetes * Patient does not have T2DM
--- NOTE | 2023-07-31 18:29 | Billing Data ---
Date of Service July 31, 2023 Coding Level of Care Code 02510 SUB INP/OBS CARE
[2023-07-31 19:26] LABS: Phosphorus 2.4 mg/dl (2.5-4.9); Potassium 3.5 mmol/L (3.5-5.1)
[2023-07-31] MEDS: POT PHOSPHATE MONOBASIC W/ SOD TAB PO SCH ×2 (20:45→23:00)
[2023-07-31] MEDS: MAGNESIUM OXIDE 400 MG TAB PO SCH ×2 (20:45→23:00)
[2023-07-31] MEDS: ATORVASTATIN 40 MG TAB PO SCH (20:45)
[2023-07-31] MEDS: POTASSIUM CHLORIDE CRTAB 20 MEQ TABCR PO SCH ×2 (20:45→23:00)
[2023-07-31] MEDS: levETIRAcetam 500 MG TAB PO SCH (20:45)
[2023-08-01] MEDS: POT PHOSPHATE MONOBASIC W/ SOD TAB PO SCH (02:53)
[2023-08-01 05:13] LABS: Basophils # (auto) 0.05 K/uL (0.00-0.20); Eosinophils % (auto) 2.1 %; Hematocrit (blood only) 31.1 % (42.0-52.0); Hemoglobin 10.7 g/dl (14.0-18.0); Immature Granulocytes # (auto) 0.01 K/uL (0.01-0.20); Immature Granulocytes % (auto) 0.2 %; Lymphocytes # (auto) 0.89 K/uL (1.20-3.40); Lymphocytes % (auto) 18.6 %; Mean Corpuscular Hemoglobin 34.4 pg (25.0-34.0); Mean Corpuscular Hgb Conc 34.4 g/dL (32.0-36.0); Mean Platelet Volume 9.5 fL (9.4-12.4); Monocytes # (auto) 0.44 K/uL (0.11-0.59); Monocytes % (auto) 9.2 %; Neutrophils # (auto) 3.29 K/uL (1.40-6.50); Neutrophils % (auto) 68.9 %; Platelet Count 125 K/uL (130-400); RDW Coefficient of Variation 13.8 % (11.5-14.5); RDW Standard Deviation 50.2 fL (36.4-46.3); Red Blood Count 3.11 M/uL (4.70-6.10); White Blood Count 4.78 K/ul (4.8-10.8)
[2023-08-01 05:36] LABS: BUN Creatinine Ratio 10.6 (10-20); Calcium 8.3 mg/dl (8.6-10.3); Creatinine Clr Calc Pharmacy 60.9 ml/min; Est GFR (African American) 71.8 ml/min; Est GFR (Non-African American) 61.9 ml/min; Phosphorus 3.3 mg/dl (2.5-4.9); Potassium 4.2 mmol/L (3.5-5.1)
[2023-08-01] MEDS: MAGNESIUM OXIDE 400 MG TAB PO SCH ×2 (06:24→08:48)
[2023-08-01] MEDS: LEVOTHYROXINE SODIUM 112 MCG TABLET PO SCH (06:25)
[2023-08-01] MEDS: hydrALAZINE HCL 20 MG/ML VIAL IV PRN (06:28)
--- NOTE | 2023-08-01 07:17 | Hospitalist Progress Note ---
Date of Service August 01, 2023 Assessment & Plan (1) Ischemic stroke: Plan: Pt is a 78 yo male with PMH of aortic stenosis, hypothyroidism, carotid artery stenosis, hyperlipidemia, hypertension, and CKD 3A who presented to the hospital for evaluation for unresponsiveness. Work-up thus far has revealed a new ischemic stroke requiring TNKase administration. Patient admitted to the ICU for monitoring. 24 hr follow up head CT concerning for small subarachnoid hemorrhage. Acute right occipital/parietal lobe ischemic stroke - pt also with 80% stenosis of right carotid stent - s/p TNKase (given 07/30/2023 at ~1:00AM) - follow up with CT head at 24 and 48 hours showing small foci of subarachnoid hemorrhage w/o propagation - continue to hold home brilinta, ASA - continue atorvastatin 80 mg daily - continue with Keppra BID - speech consulted; diet progressed to "easy to chew", aspiration precautions - PT/OT consulted; recommending skilled rehab upon discharge (pt opting for discharge home- will continue to discuss importance of rehab for strength and coordination) Right carotid artery stenosis - 80% stenosis of RCA stent on CTA - recommend follow up with vascular surgery as outpatient Seizure - suspect patient had seizure secondary to CVA as above - keppra loaded in the ED; continue 500 mg BID Hypothyroidism - continue levothyroxine Aortic stenosis - follows with [facility] Dr. Nassar - TAVR/surgical intervention deferred pending management and stability of his right carotid disease which was felt to be higher priority - TTE 06/2023: EF hyperdynamic, greater than 75% at that time; no LVOT obstruction; valve area 0.23 Hyperlipidemia - switched outpatient simvastatin to high intensity atorvastatin 80 mg daily Hypertension - restart lisinopril at 5 mg daily; may need to increase back to 10 mg home dose if BP elevated CKD Stage 3a - baseline creatinine ~1.4-1.6 - at baseline; continue to monitor Diet: Easy to chew DVT ppx: contraindicated given TNKase Code status: Full Disposition: downgraded to PCU, PT recommending rehab upon discharge (2) Seizure: (3) Left hemiplegia: (4) AMS (altered mental status): (5) Hypothyroidism: (6) Aortic stenosis: (7) Carotid artery stenosis: (8) Hyperlipidemia: (9) Hypertension: (10) Chronic kidney disease, stage 3a: Admission and Anticipated Discharge Date Admission Date: July 30, 2023 Supervising Physician Co-Signing Physician Notes I personally examined the patient and verified all basurto points of history and exam, discussed case, and agree with decision making with Dr Jeffries sitting on the side of the bed, feeling OK no complaints. Vitals noted, in general he is awake and alert pleasant no distress. HEENT normocephalic atr aumatic mucous membranes moist. Breathing unlabored no accessory muscle use good effort. Skin shows no rashes no pallor or icterus. Neuro without focal deficits. CVA status post thrombolytics and small subsequent bleedoverall stable. Continue serial exams, serial CTs, vigilance and supportive care. Secondary risk reduction. Discussed PT/O and again suggested at least considering inpt rehab. Otherwise as above. stable for tx out of ICU Subjective Pt feeling well this morning. No new complaints. Review of Systems Review of Systems: As per HPI Physical Exam Physical Exam: Constitutional: well appearing, no acute distress HEENT: normocephalic, no conjunctival injection CV: regular rhythm, regular rate, 3/6 systolic murmur, no LE edema Respiratory: Clear to auscultation bilaterally. No rhonchi, wheezes, or crackles. No increased work of breathing MSK: no gross deformities noted Skin: warm, dry, no rashes Neuro: alert, oriented Results & Data Results & Data Vital Signs (Past 12 Hours) Vital Signs Temp Pulse Resp BP Pulse Ox 08/01/23 06:44 143/52 H 08/01/23 06:44 65 15 91 08/01/23 06:26 182/76 H 08/01/23 06:26 63 12 94 08/01/23 06:00 75 8 L 95 08/01/23 06:00 175/69 H 08/01/23 05:00 75 15 93 08/01/23 05:00 144/89 H 08/01/23 04:00 70 12 90 08/01/23 04:00 157/84 H 08/01/23 03:09 145/74 H 08/01/23 03:09 73 15 91 08/01/23 03:00 71 16 91 08/01/23 02:00 72 20 90 08/01/23 01:01 148/57 H 08/01/23 01:01 74 14 93 08/01/23 01:00 66 12 94 08/01/23 00:00 68 13 90 08/01/23 00:00 138/60 07/31/23 23:24 76 21 92 07/31/23 23:24 150/72 H 07/31/23 23:00 79 21 91 07/31/23 22:00 76 20 93 07/31/23 22:00 152/76 H 07/31/23 23:58 72 07/31/23 21:01 139/75 07/31/23 21:01 79 21 92 07/31/23 21:00 79 13 87 L 07/31/23 20:00 75 12 94 07/31/23 20:00 120/55 L 07/31/23 19:29 37.1 C 07/31/23 19:21 85 17 95 07/31/23 19:21 136/68 Resident Activity Tracking Resident Involvement: Resident Care Provided Care Provided: Adult Hospital Medicine
[2023-08-01] MEDS: ICU ELECTROLYTE REPLACEMENT PROTOCOL SCH ×2 (07:33→07:40)
[2023-08-01] MEDS: levETIRAcetam 500 MG TAB PO SCH ×2 (08:46→20:36)
[2023-08-01] MEDS: SODIUM CHLORIDE 0.9% 1,000 ML IV SCH (08:46)
[2023-08-01] MEDS: SODIUM CHLORIDE 1 GM TABLET PO SCH ×2 (08:46→20:36)
--- NOTE | 2023-08-01 09:07 | Critical Care Progress Note ---
Date of Service August 01, 2023 Assessment & Plan (1) tPA adm status 24 hr [employer]: (2) Subarachnoid hemorrhage: (3) Seizure: Plan Impression: 78-year-old male with history of recent CVA status post right TCAR June 2023 admitted with strokelike symptoms and seizure. He received TNK in the emergency room. His 24-hour CT scan demonstrated a small focus of potential subarachnoid hemorrhage which is sable Recommendations: 1. Acute stroke: Multiple areas of infarct in the right occipital and parietal lobes. Status post TNK administration. Continue blood pressure goals (see subarachnoid hemorrhage below) as well as lipid-lowering therapy. Holding antiplatelet agents for now in light of #2. PT OT. Discontinue IV fluids Rosado catheter. Out of bed to chair and ambulatory as tolerated. 2. Subarachnoid hemorrhage status post TNK administration. The focus of hemorr anaya appears very small and does not appear to have propagated on serial CT scan. The patient remains relatively asymptomatic from this at this point in time. Would continue clinical observation. Given the small focus, would withhold nimlodipine and hypertonic therapy at this point in time. Plan for repeat CT scan in 12 to 24 hours. Holding antiplatelet agents for now. Avoid hypotonic fluids and try to push sodium into the 140-145 range. 3. Seizure: Likely secondary to infarcts. Continue Keppra. This should be adequate prophylaxis for seizures related to a subarachnoid hemorrhage as well. Duration deferred to neurology 4. Hyponatremia: This is somewhat chronic but given the subarachnoid hemorrhage we will try and push sodium slightly higher. Start salt tablets. 5. Residual carotid stenosis status post TCAR. Discussed briefly with vascular surgery. Is a difficult situation as the patient has had strokes on the side but given the subarachnoid hemorrhage, antiplatelet agents and anticoagulation are relatively contraindicated. They recommend having patient follow-up with them in an outpatient setting to consider balloon angioplasty of the residual stenosis once neurology feels the patient can tolerate a heparin bolus. D patient appears clinically stable at this point time and can transfer out of the floor to the PCU. Critical care services will sign off. Feel free to contact us with questions or concerns Case was discussed with the bedside critical care nurse as well as on multidisciplinary rounds. Admission and Anticipated Discharge Date Admission Date: July 30, 2023 Subjective Patient seen and examined. EMR reviewed. Discussed on multidisciplinary rounds and with bedside critical care nurse. The patient reports no complaints this morning. He specifically denies any headache vision changes diplopia or any new neurological complaints including numbness or weakness. He completed his follow-up CT scan which demonstrates stable area of small subarachnoid hemorrhage and evolving infarcts. Discussed with vascular surgery the residual 80% stenosis on the right at the site of his prior TCAR. Review of Systems Review of Systems: All systems reviewed & are unremarkable except as noted in Subjective Physical Exam Constitutional: well developed and well nourished Eyes: + anicteric sclerae and reactive pupils Respiratory: normal respiratory effort, lungs clear to auscultation Cardiovascular: Rate/Rhythm: regular rate and regular rhythm Skin: no rashes, warm and dry Neurologic: PERRL, EOMI, accommodation nl, no face palsy, no dysarthria Motor/Sensory: no tremor, normal movement, no asterixis and no sensory deficit Psychiatric: Eye Contact: + poor eye contact Speech: normal rate/rhythm/volume of speech Results & Data Results & Data Vital Signs (Past 12 Hours) Vital Signs Pulse Resp BP Pulse Ox 08/01/23 07:27 62 08/01/23 06:44 143/52 H 08/01/23 06:44 65 15 91 08/01/23 06:26 182/76 H 08/01/23 06:26 63 12 94 08/01/23 06:00 75 8 L 95 08/01/23 06:00 175/69 H 08/01/23 05:00 75 15 93 08/01/23 05:00 144/89 H 08/01/23 04:00 70 12 90 08/01/23 04:00 157/84 H 08/01/23 03:09 145/74 H 08/01/23 03:09 73 15 91 08/01/23 03:00 71 16 91 08/01/23 02:00 72 20 90 08/01/23 01:01 148/57 H 08/01/23 01:01 74 14 93 08/01/23 01:00 66 12 94 08/01/23 00:00 68 13 90 08/01/23 00:00 138/60 07/31/23 23:24 76 21 92 07/31/23 23:24 150/72 H 07/31/23 23:00 79 21 91 07/31/23 22:00 76 20 93 07/31/23 22:00 152/76 H 07/31/23 23:58 72 Laboratory Results 08/01/23 04:59 08/01/23 04:59 Coding Level of Care Code 83051 SUB INP/OBS CARE 3/50MIN Diagnoses tPA adm status 24 hr [employer] Z92.82 Subarachnoid hemorrhage I60.9 Seizure R56.9
[2023-08-01] MEDS: lisinopril 5 MG TAB PO SCH (10:00)
--- NOTE | 2023-08-01 10:34 | CT Scan Report ---
CT head/brain wo con CLINICAL HISTORY: sah Technique: Contiguous axial CT images of the head were acquired from the base of the skull to the tameka ananda without intravenous contrast administration. Images were viewed in brain, subdural and [facility]. Automated dose lowering techniques and/or adjustment according to patient size were utilized for this exam. Comparison: Comparison is made to CT head 07/31/2023 Findings: A few tiny foci of linear hyperintensity is seen in the sulci of the right frontal lobe. Additional f oci in the cerebellum and occipital lobes are less evident on today's exam. Edema in the right parie to-occipital region is unchanged from prior and there is redemonstration of old right cerebellar infa rct. Imaged portions of the paranasal sinuses and mastoid air cells are clear. The orbits appear normal. There are no acute fractures of the calvaria or scalp swelling. Impression: 1. Expected evolutionary changes of previously noted subarachnoid hemorrhage without evidence of new hemorrhage. 2. Old right cerebellar infarct. Acute right parieto-occipital infarct is partially seen. ACT 112: Negative or not required by law. Electronically signed by: Joseph Sepulveda M.D. 08/01/2023 10:33 AM
--- NOTE | 2023-08-01 12:34 | Billing Data ---
Date of Service August 01, 2023 Coding Level of Care Code 33636 SUB INP/OBS CARE MIN
[2023-08-01] MEDS: ATORVASTATIN 40 MG TAB PO SCH (20:36)
[2023-08-02] MEDS: LEVOTHYROXINE SODIUM 112 MCG TABLET PO SCH (06:09)
[2023-08-02 06:27] LABS: Hematocrit (blood only) 31.9 % (42.0-52.0); Mean Corpuscular Hemoglobin 34.1 pg (25.0-34.0); Mean Corpuscular Hgb Conc 34.5 g/dL (32.0-36.0); Mean Corpuscular Volume 98.8 fL (80.0-100.0); Mean Platelet Volume 9.7 fL (9.4-12.4); Platelet Count 141 K/uL (130-400); RDW Coefficient of Variation 13.2 % (11.5-14.5); RDW Standard Deviation 47.8 fL (36.4-46.3); Red Blood Count 3.23 M/uL (4.70-6.10); White Blood Count 4.55 K/ul (4.8-10.8)
[2023-08-02 06:45] LABS: Calcium 8.8 mg/dl (8.6-10.3); Creatinine Clr Calc Pharmacy 57.3 ml/min; Est GFR (African American) 66.7 ml/min; Est GFR (Non-African American) 57.6 ml/min; Phosphorus 2.5 mg/dl (2.5-4.9); Potassium 3.8 mmol/L (3.5-5.1)
[2023-08-02] MEDS: lisinopril 5 MG TAB PO SCH (08:11)
[2023-08-02] MEDS: SODIUM CHLORIDE 1 GM TABLET PO SCH ×2 (08:11→20:38)
[2023-08-02] MEDS: levETIRAcetam 500 MG TAB PO SCH ×2 (08:11→20:38)
--- NOTE | 2023-08-02 10:22 | Neurology Progress Note ---
Date of Service August 02, 2023 Assessment & Plan (1) Acute right [employer] stroke: (2) Left-sided neglect: (3) Seizure: (4) Subarachnoid hemorrhage: Plan Patient had an acute CVA July 29, in the right posterior cerebral artery distribution resulting in some left-sided weakness and neglect. He had a right carotid stent stenosis of 80% and occluded right vertebral artery on CT angiography. Patient was given TNK and 24 hours later was noted to have small subarachnoid hemorrhage in the sulci of the right frontal head region. This has been stable over several CT scans since. Clinically he is doing well improving with strength and gait. He is a history of left carotid endarterectomy and right carotid stent placement June of this year with a prior history of stroke. Patient had seizure activity and has been on levetiracetam since. He is had no seizure activity on this medication. Recommendations: 1. Because of the subarachnoid hemorrhage avoid all antiplatelet and anticoagulation medication. 2. Follow-up with CT scan of the head tomorrow and will see if the blood is resorbing 3. Increase activity as able and continue physical, occupational, and speech therapy. 4. Continue atorvastatin, but I am not certain why he needs high dose given his age and lipid parameters (total cholesterol 118. I would prefer a regular dose of atorvastatin at 40 mg a day. 5. Control blood pressure as you are doing. 6. Continue levetiracetam 500 mg twice a day for now. This can be addressed as an outpatient 7. Follow-up with vascular surgeon as an outpatient Overall, I spent a total of 50 minutes with this case including review of records, review of MRI films, direct evaluation the patient at bedside, and discussing the case with the patient and RN at bedside, and Dr. Villeda including differential diagnosis treatment options Admission and Anticipated Discharge Date Admission Date: July 30, 2023 Subjective Patient feels well and is in no pain. He has been up walking in the halls with physical therapy today. He has had some sleepiness but this is improved. He has no headache. Hold pressure is 156/75. CBC and Chem profile were unremarkable. He is had no seizures on levetiracetam. Recent MRI showed the right [employer] distribution stroke and 24 hours post TNK, subarachnoid hemorrhage of a mild nature was noted in the sulci of the right frontal head region stable over the last 2 days. There has been nothing new or worse. The patient has a 80% right carotid stent stenosis with an occluded right v ertebral. Results & Data Vital Signs (Past 12 Hours) Vital Signs Temp Pulse Resp BP BP Pulse Ox O2 Del Method 08/02/23 08:43 36.4 C L 74 19 156/75 H 94 Room Air 08/02/23 03:18 36.5 C 69 16 150/74 H 92 Room Air 08/01/23 23:03 36.4 C L 76 18 125/76 94 Room Air Exam (Neuro) Physical Exam: He is awake and alert. Speech is without aphasia or dysarthria. Mood and affect are normal and appropriate. Thought processes are intact to conversation Extraocular eye muscles are intact without nystagmus. There is no facial droop. Tongue is midline. With outstretched arms there is some drift on the left. There is some mild ataxia with [id number] testing on the right. Strength seems 5/5 diffusely in the right upper extremity proximally and distally. The left upper extremity has 5/5 deltoid but 4/5 biceps and triceps. Distally is 4/5 in that limb also. Leg strength seemed closer to 5/5 bilaterally diffusely. Reflexes were 1/4 in the legs in 2/4 the arms. PG Care Time/CCT Total # of Minutes Spent Total Time Spent with Patient: Total time spent is greater than 50% in coordination of care (as documented) at patient's floor/unit and/or counseling patient: Coding Level of Care Code 95581 SUB INP/OBS CARE 3/50MIN Diagnoses Acute right [employer] stroke I63.531 Left-sided neglect R41.4 Seizure R56.9 Subarachnoid hemorrhage I60.9
--- NOTE | 2023-08-02 10:40 | Hospitalist Progress Note ---
Date of Service August 02, 2023 Assessment & Plan (1) Ischemic stroke: Plan: Pt is a 78 yo male with PMH of aortic stenosis, hypothyroidism, carotid artery stenosis, hyperlipidemia, hypertension, and CKD 3A who presented to the hospital for evaluation for unresponsiveness. Work-up thus far has revealed a new ischemic stroke requiring TNKase administration. Patient admitted originally to the ICU for monitoring. [address] up head [address] concerning for small cespedes barachnoid hemorrhage. Acute right occipital/parietal lobe ischemic stroke - pt also with 80% stenosis of right carotid stent - s/p TNKase (given 07/30/2023 at ~1:00AM) - follow up with CT head at 24 and 48 hours showing small foci of subarachnoid hemorrhage w/o propagation; will repeat CT head tomorrow AM - continue to hold home brilinta, ASA in light of hemorrhage - change atorvastatin to 40 mg daily - speech consulted; continue "easy to chew" diet, aspiration precautions - PT/OT consulted; recommending skilled rehab upon discharge (pt opting for discharge home with home health; set to start 08/08; will continue to discuss possibility of rehab upon discharge) Right carotid artery stenosis - 80% stenosis of RCA stent on CTA - recommend follow up with vascular surgery as outpatient Seizure - suspect patient had seizure secondary to CVA as above - keppra loaded in the ED; continue 500 mg BID - pt will need outpatient neuro f/u to discuss seizure medication moving forward Hypothyroidism - continue levothyroxine Aortic stenosis - follows with [facility] Dr. Nassar - TAVR/surgical intervention deferred pending management and stability of his right carotid disease which was felt to be higher priority - TTE 06/2023: EF hyperdynamic, greater than 75% at that time; no LVOT obstruction; valve area 0.23 Hyperlipidemia - switched outpatient simvastatin to high intensity atorvastatin 80 mg daily - will now decrease atorvastatin to 40 mg d/t increased intracranial hemorrhage risk with extremely low LDL Hypertension - increase lisinopril back to home dose of 10 mg - labetalol 10 mg PRN for SBP >160 CKD Stage 3a - baseline creatinine ~1.4-1.6 - at baseline; continue to monitor Diet: Easy to chew DVT ppx: contraindicated given TNKase Code status: full Disposition: PCU, planning for d/c home with home health PT (2) Seizure: (3) Left hemiplegia: (4) AMS (altered mental status): (5) Hypothyroidism: (6) Aortic stenosis: (7) Carotid artery stenosis: (8) Hyperlipidemia: (9) Hypertension: (10) Chronic kidney disease, stage 3a: (11) Subarachnoid hemorrhage: Admission and Anticipated Discharge Date Admission Date: July 30, 2023 Supervising Physician Co-Signing Physician Notes I personally examined the patient and verified all basurto points of history and exam, discussed case, and agree with decision making with Dr Jeffries Doing better overall with therapy. Extensive discussion with patient/family in regards to following subarachnoid bleed and resumption of antiplatelets. Discussed with neurology earlier input greatly appreciated.. Vitals noted, in general he is awake and alert pleasant no distress. HEENT normocephalic atraumatic mucous membranes moist. Breathing unlabored no accessory muscle use good effort. Skin shows no rashes no pallor or icterus. Neuro without focal deficits. CVA status post thrombolytics and small subsequent bleedoverall stable. Continue serial exams, serial CTs, vigilance and supportive care. Secondary risk reductionAgree with moderate intensity statin given already low LDL and intracranial bleed, resume antiplatelets once able. Progressing nicely with PT/OT, appears safe for home once home care is able to start Subjective Pt feeling well this AM. No new complaints. Review of Systems Review of Systems: As per HPI Physical Exam Physical Exam: Constitutional: well appearing, no acute distress HEENT: normocephalic, no conjunctival injection CV: regular rhythm, regular rate, 3/6 systolic murmur, no LE edema Respiratory: Clear to auscultation bilaterally. No rhonchi, wheezes, or crackles. No increased work of breathing Skin: warm and dry Neuro: alert and oriented Results & Data Results & Data Vital Signs (Past 12 Hours) Vital Signs Temp Pulse Resp BP BP Pulse Ox O2 Del Method 08/02/23 08:43 36.4 C L 74 19 156/75 H 94 Room Air 08/02/23 03:18 36.5 C 69 16 150/74 H 92 Room Air 08/01/23 23:03 36.4 C L 76 18 125/76 94 Room Air Resident Activity Tracking Resident Involvement: Resident Care Provided Care Provided: Adult Hospital Medicine
--- NOTE | 2023-08-02 18:12 | Billing Data ---
Date of Service August 02, 2023 Coding Level of Care Code 79361 SUB INP/OBS CARE
[2023-08-02] MEDS: ATORVASTATIN 40 MG TAB PO SCH (20:38)
[2023-08-03] MEDS: LABETALOL HCL IV 5 MG/ML 20ML IV PRN ×2 (00:24→16:54)
[2023-08-03] MEDS: oxyCODONE/ACETAMINOPHEN 5mg/325mg TAB PO PRN (00:48)
[2023-08-03] MEDS: LEVOTHYROXINE SODIUM 112 MCG TABLET PO SCH (06:17)
--- NOTE | 2023-08-03 06:58 | Hospitalist Progress Note ---
Date of Service August 03, 2023 Assessment & Plan (1) Ischemic stroke: Plan: Pt is a 78 yo male with PMH of aortic stenosis, hypothyroidism, carotid artery stenosis, hyperlipidemia, hypertension, and CKD 3A who presented to the hospital for evaluation for unresponsiveness. Work-up thus far has revealed a new ischemic stroke requiring TNKase administration. Patient admitted originally to the ICU for monitoring. [address] concerning for small cespedes barachnoid hemorrhage. [address] showed improvement in the subarachnoid hemorrhage. Repeat head CT 08/03 showed continued improvement. Acute right occipital/parietal lobe ischemic stroke - pt also with 80% stenosis of right carotid stent - s/p TNKase (given 07/30/2023 at ~1:00AM) - continue to hold home brilinta and ASA in light of hemorrhage - continue atorvastatin to 40 mg daily - speech consulted; continue "easy to chew" diet, aspiration precautions - PT/OT consulted; recommending skilled rehab upon discharge (pt opting for discharge home with home health; set to start 08/08) Subarachnoid hemorrhage secondary to TNKase administration - head CTs have shown continued improvement - continue to hold brillinta and ASA - plan for f/u outpatient head CT next week Right carotid artery stenosis - 80% stenosis of RCA stent on CTA - recommend follow up with vascular surgery as outpatient Seizure - suspect patient had seizure secondary to CVA as above - keppra loaded in the ED; continue 500 mg BID - pt will need outpatient neuro f/u to discuss seizure medication moving forward Hypothyroidism - continue levothyroxine Aortic stenosis - follows with [facility] Dr. Nassar - TAVR/surgical intervention deferred pending management and stability of his right carotid disease which was felt to be higher priority - TTE 06/2023: EF hyperdynamic, greater than 75% at that time; no LVOT obstruction; valve area 0.23 Hyperlipidemia - switched outpatient simvastatin to atorvastatin 40 mg daily Hypertension - continue home lisinopril 10 mg daily - labetalol 10 mg PRN for SBP >160 CKD Stage 3a - baseline creatinine ~1.4-1.6 - at baseline; continue to monitor Diet: Easy to chew DVT ppx: contraindicated given TNKase administration with subsequent subarachnoid hemorrhage Code status: full Disposition: PCU, planning for d/c home with home health PT (2) Seizure: (3) Left hemiplegia: (4) AMS (altered mental status): (5) Hypothyroidism: (6) Aortic stenosis: (7) Carotid artery stenosis: (8) Hyperlipidemia: (9) Hypertension: (10) Chronic kidney disease, stage 3a: (11) Subarachnoid hemorrhage: Admission and Anticipated Discharge Date Admission Date: July 30, 2023 Supervising Physician Co-Signing Physician Notes I personally examined the patient and verified all basurto points of history and exam, discussed case, and agree with decision making with Dr Jeffries doing well. no new issues. still wants to go home. updated family. Vitals noted, in general he is awake and alert pleasant no distress. HEENT normocephalic atraumatic mucous membranes moist. Breathing unlabored no accessory muscle use good effort. Skin shows no rashes no pallor or icterus. Neuro without focal deficits. CVA status post thrombolytics and small subsequent bleedoverall stable. Continue serial exams, serial CTs (next one probably next week unless any clinical changes), vigilance and supportive care. Secondary risk reductionAgree with moderate intensity statin given already low LDL and intracranial bleed, resume antiplatelets once able (probably next week). Progressing nicely with PT/OT, appears safe for home once home care is able to start Subjective Pt doing well this morning. He slept well overnight. No new complaints. Review of Systems Review of Systems: As per HPI Physical Exam Physical Exam: Constitutional: well appearing, no acute distress HEENT: normocephalic, no conjunctival injection CV: regular rhythm, regular rate, 3/6 systolic murmur, no LE edema Respiratory: Clear to auscultation bilaterally. No rhonchi, wheezes, or crackles. No increased work of breathing MSK: no gross deformities noted Skin: warm, dry, no rashes Neuro: alert, oriented Results & Data Results & Data Vital Signs (Past 12 Hours) Vital Signs Temp Pulse Pulse Resp BP BP BP 08/02/23 21:59 87 08/03/23 03:23 36.5 C 82 18 128/72 08/03/23 00:53 85 154/68 H 08/03/23 00:24 76 172/77 H 08/02/23 23:22 36.6 C 76 20 172/77 H 08/02/23 21:56 08/02/23 20:00 36.6 C 78 18 167/76 H Pulse Ox O2 Del Method 08/02/23 21:59 08/03/23 03:23 94 Room Air 08/03/23 00:53 08/03/23 00:24 08/02/23 23:22 98 Room Air 08/02/23 21:56 Room Air 08/02/23 20:00 95 Room Air Resident Activity Tracking Resident Involvement: Resident Care Provided Care Provided: Adult Hospital Medicine
[2023-08-03 07:02] LABS: Hematocrit (blood only) 35.1 % (42.0-52.0); Mean Corpuscular Hemoglobin 33.8 pg (25.0-34.0); Mean Corpuscular Hgb Conc 34.2 g/dL (32.0-36.0); Mean Corpuscular Volume 98.9 fL (80.0-100.0); Platelet Count 142 K/uL (130-400); RDW Coefficient of Variation 13.3 % (11.5-14.5); RDW Standard Deviation 48.6 fL (36.4-46.3); Red Blood Count 3.55 M/uL (4.70-6.10); White Blood Count 6.14 K/ul (4.8-10.8)
[2023-08-03 07:18] LABS: BUN Creatinine Ratio 12.2 (10-20); Calcium 8.9 mg/dl (8.6-10.3); Creatinine Clr Calc Pharmacy 59.8 ml/min; Est GFR (African American) 70.3 ml/min; Est GFR (Non-African American) 60.6 ml/min; Magnesium 1.9 mg/dl (1.7-2.4); Phosphorus 2.9 mg/dl (2.5-4.9); Potassium 3.9 mmol/L (3.5-5.1)
--- NOTE | 2023-08-03 08:10 | CT Scan Report ---
CT head/brain wo con CLINICAL HISTORY: 78 years-old Male with f/u subarachnoid hemorrhage s/p TNKase. Follow-up study in a patient with intracranial hemorrhage TECHNIQUE: Multiple axial CT images of the head were obtained without contrast. A dose lowering tech nique was utilized adhering to the principles of ALARA. CT DOSE: 547.75 mGy.cm COMPARISON: 08/01/2023, 07/31/2023. FINDINGS: There is continued expected decrease of the trace acute subarachnoid hemorrhage, most pronounced with in the right frontal lobe on image 22 series 2 which continues to progressively decrease. No new area s of acute intracranial hemorrhage are identified. Involutional changes with chronic microvascular is chemic disease. Large chronic right cerebellar infarct with acute right parieto-occipital infarct. No associated midline shift, intracranial mass, hydrocephalus, territorial ischemia or abnormal extra-a xial collection. The calvarium is intact. The paranasal sinuses, mastoid air cells, and middle ear cavities are clear . IMPRESSION: 1. Continued decreased subarachnoid hemorrhage within the right frontal lobe. 2. Acute right parieto-occipital infarct again noted. 3. Large chronic right cerebellar infarct. ACT 112: Negative or not required by law. The above report was generated using voice recognition software. It may contain grammatical, syntax o r spelling errors. Electronically signed by: Jose Cortes M.D. 08/03/2023 8:09 AM
[2023-08-03] MEDS: levETIRAcetam 500 MG TAB PO SCH ×2 (08:32→20:09)
[2023-08-03] MEDS: lisinopril 20 MG TAB PO SCH (08:32)
[2023-08-03] MEDS: SODIUM CHLORIDE 1 GM TABLET PO SCH (08:32)
[2023-08-03] MEDS ORDERED: lisinopril 10 MG TAB PO SCH (09:00)
--- NOTE | 2023-08-03 09:13 | Neurology Progress Note ---
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 He had a right carotid stent stenosis of 80% and occluded right vertebral artery on CT angiography. Patient was given TNK and 24 hours later was noted to have small subarachnoid hemorrhage in the sulci of the right frontal head region. This has been stable over several CT scans since. Most recent CT of the head shows near resolution of the subarachnoid hemorrhage. Clinically he is doing well improving with strength and gait, although his left upper extremity has some discomfort and proximal weakness.. He is a history of left carotid endarterectomy and right carotid stent placement June of this year with a prior history of stroke. Patient had seizure activity and has been on levetiracetam since. He is had no seizure activity on this medication. Recommendations: 1. Because of the subarachnoid hemorrhage avoid all antiplatelet and anticoagulation medication. 2. Follow-up with CT scan of the head next week 3. Increase activity as able and continue physical, occupational, and speech therapy. Although he is a good rehab Hospital candidate apparently he is declining 4. Continue atorvastatin 40 mg a day. He is not a high dose statin candidate in my opinion 5. Control blood pressure as you are doing. 6. Continue levetiracetam 500 mg twice a day for now. This can further be addressed as an outpatient 7. Follow-up with vascular surgeon as an outpatient Overall, I spent a total of 35 minutes with this case including review of records, review of MRI films, direct evaluation the patient at bedside, and discussion of the case with the patient and RN at bedside, and Dr. Villeda including differential diagnosis treatment options Admission and Anticipated Discharge Date Admission Date: July 30, 2023 Subjective Patient has no new issues but has continued discomfort in his proximal left upper extremity between the shoulder and upper half of the upper arm. Blames it on too tight blood pressure cuffs Repeat CT scan of the head showed slight residual bleeding high up in the right frontal head region, although was much improved from the previous CTs. Otherwise he is stable blood pressure is 171/76 and he is afebrile. CBC was unremarkable as was a Chem profile. Results & Data Vital Signs (Past 12 Hours) Vital Signs Temp Pulse Pulse Resp BP BP Pulse Ox 08/03/23 07:47 37.2 C 81 19 171/76 H 96 08/02/23 21:59 87 08/03/23 03:23 36.5 C 82 18 128/72 94 08/03/23 00:53 85 154/68 H 08/03/23 00:24 76 172/77 H 08/02/23 23:22 36.6 C 76 20 172/77 H 98 08/02/23 21:56 O2 Del Method 08/03/23 07:47 Room Air 08/02/23 21:59 08/03/23 03:23 Room Air 08/03/23 00:53 08/03/23 00:24 08/02/23 23:22 Room Air 08/02/23 21:56 Room Air Exam (Neuro) Physical Exam: He is awake and alert. Speech is without aphasia or dysarthria. Mood and affect seem normal appropriate thought processes are intact conversation. Extraocular eye muscles are intact without nystagmus. There is no facial droop. Tongue is midline. Patient has 4/5 strength in the proximal left upper extremity with 4+/5 distally in the left upper extremity. The right upper extremity is 5/5. 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
--- NOTE | 2023-08-03 16:05 | Billing Data ---
Date of Service August 03, 2023 Coding Level of Care Code 80653 SUB INP/OBS CARE MIN
[2023-08-03] MEDS: ATORVASTATIN 40 MG TAB PO SCH (20:09)
[2023-08-04] MEDS: LEVOTHYROXINE SODIUM 112 MCG TABLET PO SCH (05:29)
[2023-08-04 05:55] LABS: Hemoglobin 12.5 g/dl (14.0-18.0); Mean Corpuscular Hemoglobin 34.4 pg (25.0-34.0); Mean Corpuscular Hgb Conc 34.7 g/dL (32.0-36.0); Mean Corpuscular Volume 99.2 fL (80.0-100.0); Mean Platelet Volume 10.1 fL (9.4-12.4); Platelet Count 146 K/uL (130-400); RDW Coefficient of Variation 13.3 % (11.5-14.5); RDW Standard Deviation 47.7 fL (36.4-46.3); Red Blood Count 3.63 M/uL (4.70-6.10); White Blood Count 10.13 K/ul (4.8-10.8)
[2023-08-04 06:06] LABS: BUN Creatinine Ratio 12.7 (10-20); Calcium 9.3 mg/dl (8.6-10.3); Creatinine Clr Calc Pharmacy 54.6 ml/min; Est GFR (African American) 62.9 ml/min; Est GFR (Non-African American) 54.3 ml/min; Potassium 3.9 mmol/L (3.5-5.1)
--- NOTE | 2023-08-04 06:54 | Hospitalist Progress Note ---
Date of Service August 04, 2023 Assessment & Plan (1) Ischemic stroke: Plan: Pt is a 78 yo male with PMH of aortic stenosis, hypothyroidism, carotid artery stenosis, hyperlipidemia, hypertension, and CKD 3A who presented to the hospital for evaluation for unresponsiveness. Work-up thus far has revealed a new ischemic stroke requiring TNKase administration. Patient admitted originally to the ICU for monitoring. [address] concerning for small cespedes barachnoid hemorrhage. [address] showed improvement in the subarachnoid hemorrhage. Repeat head CT 08/03 showed continued improvement. Left shoulder pain - seemed to start after BP cuff squeezing arm - appears to be mechanical in nature secondary to intensive PT; low suspicion for cardiac causes- EKG WNL - trial heat, pain meds PRN (avoid NSAIDs in the setting of brain bleed) Acute right occipital/parietal lobe ischemic stroke - pt also with 80% stenosis of right carotid stent - s/p TNKase (given 07/30/2023 at ~1:00AM) - continue to hold home brilinta and ASA in light of hemorrhage - continue atorvastatin to 40 mg daily - speech consulted; continue "easy to chew" diet, aspiration precautions - PT/OT consulted; recommending skilled rehab upon discharge (pt opting for discharge home with home health; set to start 08/08, will plan for discharge 08/06) Subarachnoid hemorrhage secondary to TNKase administration - head CTs have shown continued improvement - continue to hold brillinta and ASA - plan for f/u outpatient head CT next week Right carotid artery stenosis - 80% stenosis of RCA stent on CTA - recommend follow up with vascular surgery as outpatient Seizure - suspect patient had seizure secondary to CVA as above - keppra loaded in the ED; continue 500 mg BID - pt will need outpatient neuro f/u to discuss seizure medication moving forward Hypothyroidism - continue levothyroxine Aortic stenosis - follows with [facility] Dr. Nassar - TAVR/surgical intervention deferred pending management and stability of his right carotid disease which was felt to be higher priority - TTE 06/2023: EF hyperdynamic, greater than 75% at that time; no LVOT obstruction; valve area 0.23 Hyperlipidemia - switched outpatient simvastatin to atorvastatin 40 mg daily Hypertension - continue home lisinopril 10 mg daily - labetalol 10 mg PRN for SBP >160 CKD Stage 3a - baseline creatinine ~1.4-1.6 - at baseline; continue to monitor Diet: Easy to chew DVT ppx: contraindicated given TNKase administration with subsequent subarachnoid hemorrhage Code status: full Disposition: PCU, planning for d/c home with home health PT 08/06 (2) Seizure: (3) Left hemiplegia: (4) AMS (altered mental status): (5) Hypothyroidism: (6) Aortic stenosis: (7) Carotid artery stenosis: (8) Hyperlipidemia: (9) Hypertension: (10) Chronic kidney disease, stage 3a: (11) Subarachnoid hemorrhage: (12) Left shoulder pain: Admission and Anticipated Discharge Date Admission Date: July 30, 2023 Supervising Physician Co-Signing Physician Notes I personally examined the patient and verified all basurto points of history and exam, discussed case, and agree with decision making with Dr Jeffries Got more confused through the night. Seems to be delirious through the day, somewhat impulsive and wanting to get up, although family notes that once he is up he does not know where he is or where he wants to go. Explained deliriums extensively, answered all questions the best my ability and to their satis faction. No meaningful HPI or review of systems obtainable from patient today. Vitals noted, in general he is Asleep kind of awakens, does not talk today no distress. HEENT normocephalic atraumatic mucous membranes moist. Breathing unlabored no accessory muscle use good effort. Skin shows no rashes no pallor or icterus. Neuro without new focal deficits. CVA status post thrombolytics and small subsequent bleedoverall stable. Continue serial exams, serial CTs (next one probably next week unless any clinical changes), vigilance and supportive care. Secondary risk reductionAgree with moderate intensity statin given already low LDL and intracranial bleed, resume antiplatelets once able (probably next week). shoulder strain and delirium both potentially changing dispo from home with home health to rehab. Delirium appears to be predominantly hospital-acquired, certainly he could have a little bit of a metabolic encephalopathy given the impaired brain tissue from the stroke and the bleed, but does not look like there is any findings worrisome for a new/worse bleed. Certainly if he becomes unresponsive, complains of headache, shows any new lateralizing signsobviously repeat CT immediately, but none of that is notable right now. Subjective Pt with complaints of left shoulder pain that began last night and has continued into this morning. It mainly hurts when he moves- it radiates down into his upper arm but not down into his hand. He denies chest pain, SOB, sweating. No other complaints. Review of Systems Review of Systems: As per HPI Physical Exam Physical Exam: Constitutional: well appearing, no acute distress HEENT: normocephalic, no conjunctival injection CV: regular rhythm, regular rate, 3/6 murmur, no LE edema Respiratory: Clear to auscultation bilaterally. No rhonchi, wheezes, or crackles. No increased work of breathing MSK: no gross deformities noted Skin: warm, dry, no rashes Neuro: alert, oriented Results & Data Results & Data Vital Signs (Past 12 Hours) Vital Signs Temp Pulse Resp BP Pulse Ox O2 Del Method 08/03/23 20:00 Room Air 08/03/23 22:55 37.2 C 83 18 128/74 93 Room Air Resident Activity Tracking Resident Involvement: Resident Care Provided Care Provided: Adult Hospital Medicine
[2023-08-04] MEDS: lisinopril 20 MG TAB PO SCH (08:37)
[2023-08-04] MEDS: levETIRAcetam 500 MG TAB PO SCH ×2 (08:37→20:57)
--- NOTE | 2023-08-04 18:00 | Billing Data ---
Date of Service August 04, 2023 Coding Level of Care Code 14998 SUB INP/OBS CARE MIN
[2023-08-04] MEDS: ATORVASTATIN 40 MG TAB PO SCH (20:57)
[2023-08-05] MEDS: LEVOTHYROXINE SODIUM 112 MCG TABLET PO SCH (05:32)
[2023-08-05 05:46] LABS: Hematocrit (blood only) 33.7 % (42.0-52.0); Hemoglobin 11.8 g/dl (14.0-18.0); Mean Corpuscular Hemoglobin 34.4 pg (25.0-34.0); Mean Corpuscular Volume 98.3 fL (80.0-100.0); Mean Platelet Volume 10.3 fL (9.4-12.4); Platelet Count 144 K/uL (130-400); RDW Coefficient of Variation 13.2 % (11.5-14.5); Red Blood Count 3.43 M/uL (4.70-6.10); White Blood Count 6.92 K/ul (4.8-10.8)
[2023-08-05 05:59] LABS: BUN Creatinine Ratio 13.6 (10-20); Creatinine Clr Calc Pharmacy 62.5 ml/min; Est GFR (African American) 74.1 ml/min; Potassium 3.6 mmol/L (3.5-5.1)
--- NOTE | 2023-08-05 08:43 | Hospitalist Progress Note ---
Date of Service August 05, 2023 Assessment & Plan (1) Ischemic stroke: Plan: Pt is a 78 yo male with PMH of aortic stenosis, hypothyroidism, carotid artery stenosis, hyperlipidemia, hypertension, and CKD 3A who presented to the hospital for evaluation for unresponsiveness. Work-up thus far has revealed a new ischemic stroke requiring TNKase administration. Patient admitted originally to the ICU for monitoring. [address] up head [address] concerning for small cespedes barachnoid hemorrhage. [address] showed improvement in the subarachnoid hemorrhage. Repeat head CT 08/03 showed continued improvement. Hyponatremia - suspect chronic, mild d/t diet; typically low 130s - few days of mid to high 130s due to salt tab administration - fluid restriction 1500 mL; continue to monitor Left shoulder pain - seemed to start after BP cuff squeezing arm - appears to be mechanical in nature secondary to intensive PT; low suspicion for cardiac causes- EKG WNL - continue heat, voltaren gel, pain meds PRN (avoid NSAIDs in the setting of brain bleed) Acute right occipital/parietal lobe ischemic stroke - pt also with 80% stenosis of right carotid stent - s/p TNKase (given 07/30/2023 at ~1:00AM) - continue to hold home brilinta and ASA in light of hemorrhage - continue atorvastatin to 40 mg daily - speech consulted; continue "easy to chew" diet, aspiration precautions - PT/OT consulted; recommending skilled rehab upon discharge - pt and family originally opting for discharge home with home health (set to start 08/08); however, d/t developing delirium and some set backs with therapy, family and pt reconsidering rehab- will discuss further with family later in the day Subarachnoid hemorrhage secondary to TNKase administration - head CTs have shown continued improvement - continue to hold brillinta and ASA - plan for f/u outpatient head CT 08/10 Right carotid artery stenosis - 80% stenosis of RCA stent on CTA - recommend follow up with vascular surgery as outpatient Seizure - suspect patient had seizure secondary to CVA as above - keppra loaded in the ED; continue 500 mg BID - pt will need outpatient neuro f/u to discuss seizure medication moving forward Hypothyroidism - continue levothyroxine Aortic stenosis - follows with [facility] Dr. Nassar - TAVR/surgical intervention deferred pending management and stability of his right carotid disease which was felt to be higher priority - TTE 06/2023: EF hyperdynamic, greater than 75% at that time; no LVOT o bstruction; valve area 0.23 Hyperlipidemia - switched outpatient simvastatin to atorvastatin 40 mg daily Hypertension - continue home lisinopril 10 mg daily - labetalol 10 mg PRN for SBP >160 CKD Stage 3a - baseline creatinine ~1.4-1.6 - at baseline; continue to monitor Diet: Easy to chew DVT ppx: contraindicated given TNKase administration with subsequent subarachnoid hemorrhage Code status: full Disposition: PCU, d/c home vs. rehab? (2) Seizure: (3) Left hemiplegia: (4) AMS (altered mental status): (5) Hypothyroidism: (6) Aortic stenosis: (7) Carotid artery stenosis: (8) Hyperlipidemia: (9) Hypertension: (10) Chronic kidney disease, stage 3a: (11) Subarachnoid hemorrhage: (12) Left shoulder pain: Admission and Anticipated Discharge Date Admission Date: July 30, 2023 Supervising Physician Co-Signing Physician Notes I personally examined the patient and verified all basurto points of history and exam, discussed case, and agree with decision making with Dr Jeffries Seems about the same. seems to be leaning a bit more towards rehab. Later complained of wrist painresident physician obtained x-rays showing scaphoid fracture. Vitals noted, in general he is Asleep kind of awakens, does not talk today no distress. HEENT normocephalic atraumatic mucous membranes moist. Breathing unlabored no accessory muscle use good effort. Skin shows no rashes no pallor or icterus. Neuro without new focal deficits. CVA status post thrombolytics and small subsequent bleedoverall stable. Continue serial exams, serial CTs (next one probably next week unless any clinical changes), vigilance and supportive care. Secondary risk reductionAgree with moderate intensity statin given already low LDL and intracranial bleed, resume antiplatelets once able (probably next week). shoulder strain and delirium both potentially changing dispo from home with home health to rehab. I suspect dispo to rehab will be the case. Delirium appears to be predominantly hospital-acquired, certainly he could have a little bit of a metabolic encephalopathy given the impaired brain tissue from the stroke and the bleed, but does not look like there is any findings worrisome for a new/worse bleed. Certainly if he becomes unresponsive, complains of headache, shows any new lateralizing signsobviously repeat CT immediately, but none of that is notable right now. Scaphoid fracturegiven that there is no clear trauma, but given that he is tendermay be acute. Thumb spica splint, outpatient orthopedics follow-up. Subjective Pt experienced some delirium yesterday/last night with him becoming agitated and confused. Due to this, family is reconsidering rehab. This morning, pt has no new complaints. His left shoulder is still aching- the heat did not help much. He isn't enthused about rehab but expresses that he is not opposed to it at this point. Review of Systems Review of Systems: As per HPI Physical Exam Physical Exam: Constitutional: well appearing, no acute distress HEENT: normocephalic, no conjunctival injection CV: regular rhythm, regular rate, 3/6 systolic murmur, no LE edema Respiratory: Clear to auscultation bilaterally. No rhonchi, wheezes, or crackles. No increased work of breathing MSK: no gross deformities noted Skin: warm, dry, no rashes Neuro: alert and oriented Results & Data Results & Data Vital Signs (Past 12 Hours) Vital Signs Temp Pulse Resp BP Pulse Ox O2 Del Method 08/05/23 08:19 36.7 C 75 18 146/68 H 95 Room Air 08/04/23 23:02 36.8 C 91 H 18 162/72 H 95 Room Air Resident Activity Tracking Resident Involvement: Resident Care Provided Care Provided: Adult Hospital Medicine
[2023-08-05] MEDS: lisinopril 20 MG TAB PO SCH (08:58)
[2023-08-05] MEDS: levETIRAcetam 500 MG TAB PO SCH ×2 (08:58→21:40)
[2023-08-05] MEDS: DICLOFENAC SOD 1% GEL 100 GM TUBE EXT PRN ×3 (12:35→21:41)
--- NOTE | 2023-08-05 13:59 | XRay Report ---
XR wrist LT min 3V routine CLINICAL HISTORY: left wrist pain, swelling COMPARISON: None FINDINGS: A lucency projects through the scaphoid waist. This appears to have corticated margins. Th is favors a nondisplaced fracture. There is subtle increased sclerosis within the proximal pole of th e scaphoid. Severe osteoarthritis of the left first carpometacarpal joint is noted. There is moderate radiocarpal joint space narrowing with osteophytosis. There is chondrocalcinosis within the menisci. IMPRESSION: 1. Probable nondisplaced scaphoid waist fracture. This is age indeterminate and correlation with trau ma history is recommended. Subtle increased sclerosis of the proximal pole of the scaphoid is likely within normal limits however avascular necrosis could have this imaging appearance. 2. Moderate to severe osteoarthritis within multiple articulations of the left wrist, as described ab ove. ACT 112: Negative or not required by law. Electronically signed by: Josue Jennings M.D. 08/05/2023 1:56 PM
[2023-08-05] MEDS: oxyCODONE/ACETAMINOPHEN 5mg/325mg TAB PO PRN (18:25)
--- NOTE | 2023-08-05 18:45 | Billing Data ---
Date of Service August 05, 2023 Coding Level of Care Code 64721 SUB INP/OBS CARE MIN
--- NOTE | 2023-08-05 19:33 | Electrocardiogram Report ---
Test Reason : Blood Pressure : / mmHG Vent. Rate : 085 BPM Atrial Rate : 085 BPM P-R Int : 190 ms QRS Dur : 094 ms QT Int : 366 ms P-R-T Axes : 051 048 074 degrees QTc Int : 435 ms Normal sinus rhythm Normal ECG When compared with ECG of 29-JUL-2023 22:49, Fusion complexes are no longer Present Premature supraventricular complexes are no longer Present ST no longer depressed in Inferior leads ST no longer depressed in Lateral leads Confirmed by Dick Toledo ([id number]) on 08/05/2023 7:33:34 PM Referred By: REFERRED SELF Confirmed By:Dick Toledo
[2023-08-05] MEDS: ATORVASTATIN 40 MG TAB PO SCH (21:40)
[2023-08-06] MEDS: LEVOTHYROXINE SODIUM 112 MCG TABLET PO SCH (05:32)
[2023-08-06 06:20] LABS: Hematocrit (blood only) 33.4 % (42.0-52.0); Hemoglobin 11.4 g/dl (14.0-18.0); Mean Corpuscular Hemoglobin 33.6 pg (25.0-34.0); Mean Corpuscular Hgb Conc 34.1 g/dL (32.0-36.0); Mean Corpuscular Volume 98.5 fL (80.0-100.0); Mean Platelet Volume 10.6 fL (9.4-12.4); Platelet Count 150 K/uL (130-400); RDW Coefficient of Variation 13.1 % (11.5-14.5); RDW Standard Deviation 46.9 fL (36.4-46.3); Red Blood Count 3.39 M/uL (4.70-6.10)
[2023-08-06 06:38] LABS: BUN Creatinine Ratio 14.7 (10-20); Calcium 9.1 mg/dl (8.6-10.3); Creatinine Clr Calc Pharmacy 40.5 ml/min; Est GFR (African American) 43.8 ml/min; Est GFR (Non-African American) 37.8 ml/min; Potassium 3.9 mmol/L (3.5-5.1)
[2023-08-06] MEDS ORDERED: LABETALOL HCL IV 5 MG/ML 20ML IV PRN (06:56)
[2023-08-06] MEDS: LACTATED RINGER'S 1,000 ML IV SCH ×2 (07:28→20:29)
[2023-08-06] MEDS: levETIRAcetam 500 MG TAB PO SCH ×2 (09:42→20:28)
--- NOTE | 2023-08-06 12:48 | Hospitalist Progress Note ---
Date of Service August 06, 2023 Assessment & Plan (1) Ischemic stroke: Plan: Pt is a 78 yo male with PMH of aortic stenosis, hypothyroidism, carotid artery stenosis, hyperlipidemia, hypertension, and CKD 3A who presented to the hospital for evaluation for unresponsiveness. Work-up thus far has revealed a new ischemic stroke requiring TNKase administration. Patient admitted originally to the ICU for monitoring. [address] concerning for small subar achnoid hemorrhage. [address] showed improvement in the subarachnoid hemorrhage. Repeat head CT 08/03 showed continued improvement. JHONNY - Cr ~1.1-1.2 for the last few days; up to 1.7 today - suspect pre-renal secondary to decreased intake in the setting of fluid restriction with hyponatremia, decreased PO intake with left arm injury (pt is left hand dominant), and delirium - begin LR at 80 mL/hr Hyponatremia - suspect chronic, mild d/t diet; typically low 130s - few days of mid to high 130s due to salt tab administration - continue to monitor Left shoulder pain - seemed to start after BP cuff squeezing arm - appears to be mechanical in nature secondary to intensive PT; low suspicion for cardiac causes- EKG WNL - continue heat, voltaren gel, pain meds PRN (avoid NSAIDs in the setting of brain bleed) Acute right occipital/parietal lobe ischemic stroke - pt also with 80% stenosis of right carotid stent - s/p TNKase (given 07/30/2023 at ~1:00AM) - continue to hold home brilinta and ASA in light of hemorrhage - continue atorvastatin to 40 mg daily - speech consulted; continue "easy to chew" diet, aspiration precautions - PT/OT consulted; recommending skilled rehab upon discharge - pt and family originally opting for discharge home with home health (set to start 08/08); however, d/t developing delirium and left wrist fracture hindering therapy- will plan for discharge to rehab Subarachnoid hemorrhage secondary to TNKase administration - head CTs have shown continued improvement - continue to hold brillinta and ASA - plan for f/u outpatient head CT 08/10 Right carotid artery stenosis - 80% stenosis of RCA stent on CTA - recommend follow up with vascular surgery as outpatient Seizure - suspect patient had seizure secondary to CVA as above - keppra loaded in the ED; continue 500 mg BID - pt will need outpatient neuro f/u to discuss seizure medication moving forward Hypothyroidism - continue levothyroxine Aortic stenosis - follows with [facility] Dr. Nassar - TAVR/surgical intervention deferred pending management and stability of his right carotid disease which was felt to be higher priority - TTE 06/2023: EF hyperdynamic, greater than 75% at that time; no LVOT obstruction; valve area 0.23 Hyperlipidemia - switched outpatient simvastatin to atorvastatin 40 mg daily Hypertension - continue home lisinopril 10 mg daily - labetalol 10 mg PRN for SBP >160 CKD Stage 3a - baseline creatinine ~1.4-1.6 - at baseline; continue to monitor Diet: Easy to chew DVT ppx: contraindicated given TNKase administration with subsequent subarachnoid hemorrhage Code status: full Disposition: PCU, d/c to rehab (2) Seizure: (3) Left hemiplegia: (4) AMS (altered mental status): (5) Hypothyroidism: (6) Aortic stenosis: (7) Carotid artery stenosis: (8) Hyperlipidemia: (9) Hypertension: (10) Chronic kidney disease, stage 3a: (11) Subarachnoid hemorrhage: (12) Left shoulder pain: Admission and Anticipated Discharge Date Admission Date: July 30, 2023 Supervising Physician Co-Signing Physician Notes I personally examined the patient and verified all basurto points of history and exam, discussed case, and agree with decision making with Dr Jeffries amenable to rehab. Vitals noted, in general he is awake makes eye contact nad. HEENT normocephalic atraumatic mucous membranes moist. Breathing unlabored no accessory muscle use good effort. Skin shows no rashes no pallor or icterus. Neuro without new focal deficits. CVA status post thrombolytics and small subsequent bleedoverall stable. Continue serial exams, serial CTs (next one probably next week unless any clinical changes), vigilance and supportive care. Secondary risk reductionAgree with moderate intensity statin given already low LDL and in tracranial bleed, resume antiplatelets once able (probably next week). Shoulder strainsupportive care, PT, symptomatic relief. Delirium appears to be predominantly hospital-acquired, certainly he could have a little bit of a metabolic encephalopathy given the impaired brain tissue from the stroke and the bleed, but does not look like there is any findings worrisome for a new/worse bleed. Certainly if he becomes unresponsive, complains of headache, shows any new lateralizing signsobviously repeat CT immediately, but none of that is notable right now. Scaphoid fracturegiven that there is no clear trauma, but given that he is tendermay be acute. Thumb spica splint, outpatient orthopedics follow-up. AKIalmost certainly from poor p.o. intakegentle IV fluids and followunderscoring the need to be in a supervised environment as he recovers. With all of this, agrees that rehab makes more sense for immediate dispositionCase management made aware Subjective Pt feel the same this morning. Left shoulder and left wrist still sore. Review of Systems Review of Systems: As per HPI Physical Exam Physical Exam: Constitutional: well appearing, no acute distress HEENT: normocephalic, no conjunctival injection CV: clinically well perfused, no LE edema Respiratory: no increased work of breathing MSK: no gross deformities noted Skin: warm, dry, no rashes Neuro: alert, oriented, no FND noted Results & Data Results & Data Vital Signs (Past 12 Hours) Vital Signs Temp Pulse Resp BP Pulse Ox O2 Del Method 08/06/23 12:19 36.5 C 68 18 125/72 93 Room Air 08/06/23 08:45 36.5 C 61 17 135/72 93 Room Air Resident Activity Tracking Resident Involvement: Resident Care Provided Care Provided: Adult Hospital Medicine
--- NOTE | 2023-08-06 17:59 | Billing Data ---
Date of Service August 06, 2023 Coding Level of Care Code 94559 SUB INP/OBS CARE
--- OUTSIDE RECORDS SUMMARY | 2023-08-06 19:27 | External Medical Summary | Continuity of Care Document ---
Author Name Unknown Organization [facility] [address] [facility] [place] [id number] Care Team Providers Care Pinion Polisher Name Role Phone Luna Argueta Primary Care Physician [phone] [id number] Date[facility]): [facility] - 07/04/[address] [facility] [address] [facility] [address] [facility] [address] [place], [place] [phone] Encounter Diagnosis Other specified symptoms and signs involving the circulatory and respiratory systems(Final) - Discharge Disposition: Home or Self Care Attending Physician: MD Aguayo Eugene J Referring Physician: MD Aguayo Eugene J Allergies, Adverse Reactions, Alerts Substance Reaction Severity Status sulfa drugs hives Active Medications aspirin 81 mg oral capsule Start: 06/27/23 10:05:00 EDT, 1 cap, PO, q24h, Disp# 30 cap, Refills: 11, other Start Date: 06/27/23 Status: Ordered cilostazol 100 mg oral tablet Start: 05/10/23 14:43:00 EDT, 1 tab, PO, Daily, Disp# 30 tab, Refills: 5, Pharmacy: [id number] Start Date: 05/10/23 Stop Date: 11/06/23 Status: Ordered levothyroxine 112 mcg (0.112 mg) oral tablet Start: 05/10/23 14:37:00 EDT, 1 tab, PO, Daily, Disp# 30 tab, Refills: 5, Pharmacy: [id number] Start Date: 05/10/23 Stop Date: 11/06/23 Status: Ordered lisinopril 10 mg oral tablet Start: 05/10/23 14:36:00 EDT, 1 tab, PO, Daily, Disp# 30 tab, Refills: 5, Pharmacy: [id number] Start Date: 05/10/23 Stop Date: 11/06/23 Status: Ordered Plavix 75 mg oral tablet Start: 06/29/23 10:21:00 EDT, 1 tab, PO, Daily, Disp# 30 tab, Refills: 11, Pharmacy: [id number] Start Date: 06/29/23 Status: Ordered [...] Confirmed Active Results Laboratory List Name Date Platelet Function (P2Y12 Receptor) (PLT FUNCTION P2Y12) 07/04/23 Most recent to oldest [Reference Range]: 1 P2Y12 Platelet Function [194-418 PRU] 92 PRU 1 *LOW* (07/04/23 10:37 AM) 1Result Comment: PRU reference range is 194-418 (healthy adults, no drug treatment). Post Drug Results: Lower PRU levels are expected following treatment with antiplatelet drugs. Post-treatment values are usually below the stated reference range above. The post-drug PRU values reported in the [employer] P2Y12 package insert are 18-435. This broader range reflects the variability in drug response and is consistent with significant numbers of patients with decreased sensitivity to P2Y12 receptor antagonists (prasugrel or clopidogrel). Clinical studies suggest an on-treatment PRU>230 indicates less than optimal response to therapy, and PRU<208 at 12-24 hours after percutaneous intervention or during follow-up is associated with a lower risk of cardiovascular events (1). (1).Standard-vs high-dose clopidogrel based on platelet function testing after percutaneouscoronary intervention: the GRAVITAS randomized trial. Nadir et al. MARGARITA. 2010January 19; 305(11): 7493-2227. doi: 10.1001/margarita.2010.290 Social History Social History Type Response Tobacco Former smoker, Stopp ed age 65 Years. Smoking Status Former Smoker, quit > 1 yr Sex Male Patient Care team information Care Team Personnel Name: MP Roper Lynn Position: Physician Clinical Nutrition Manager Exempt - Vasc Surg Member Role: Lifetime Relationship Address: Address: [address] [place] [address], [place] [address] Name: MD Argueta [place] Position: Physician - Family Med Member Role: Primary Care Provider Address: Address: [address] [place] [address], [place] [address] Care Team Related Persons Name: COLIN DALTON Address: home [address] [facility] [place] [address] Name: ALKA SHARMA Address: home [address] [place] [address] [place] [phone]
--- OUTSIDE RECORDS SUMMARY | 2023-08-06 19:27 | External Medical Summary | Continuity of Care Document ---
Author Name Unknown Organization [address] Address [address] [place], [place] [id number] Care Team Providers Care Game Trapper Name Role Phone ReesedenilsonLuna Primary Care Physician [phone] [id number] Date(s): 07/01/23 - 07/01/[address], [address] [place] [address] [phone] Discharge Disposition: Home or Self Care Attending Physician: DO Nassar Jason D Referring Physician: DO Nassar Jason D Allergies, Adverse Reactions, Alerts Substance Reaction Severity Status sulfa drugs hives Active Medications aspirin 81 mg oral capsule Start: 06/27/23 10:05:00 EDT, 1 cap, PO, q24h, Disp# 30 cap, Refills: 11, other Start Date: 06/27/23 Status: Ordered cilostazol 100 mg oral tablet Start: 05/10/23 14:43:00 EDT, 1 tab, PO, Daily, Disp# 30 tab, Refills: 5, Pharmacy: [id number] Start Date: 05/10/23 Stop Date: 11/06/23 Status: Ordered levothyroxine 112 mcg (0.112 mg) oral tablet Start: 05/10/23 14:37:00 EDT, 1 tab, PO, Daily, Disp# 30 tab, Refills: 5, Pharmacy: [id number] Start Date: 05/10/23 Stop Date: 11/06/23 Status: Ordered lisinopril 10 mg oral tablet Start: 05/10/23 14:36:00 EDT, 1 tab, PO, Daily, Disp# 30 tab, Refills: 5, Pharmacy: [id number] Start Date: 05/10/23 Stop Date: 11/06/23 Status: Ordered Plavix 75 mg oral tablet Start: 06/29/23 10:21:00 EDT, 1 tab, PO, Daily, Disp# 30 tab, Refills: 11, Pharmacy: [id number] Start Date: 06/29/23 [...] Active Social History Social History Type Response Tobacco Former smoker, Stopp ed age 65 Years. Smoking Status Former Smoker, quit > 1 yr Sex Male Patient Care team information Care Team Personnel Name: PM Roper Lynn Position: Physician Steam Setter Exempt - Vasc Surg Member Role: Lifetime Relationship Address: Address: [address] [place] [address], [place] [address] [place] Name: MD Ellie, [place] Position: Physician - Family Med Member Role: Primary Care Provider Address: Address: [address] [place] [address], [place] [address] Care Team Related Persons Name: COLIN DALTON Address: home [address] [place] [address] Name: ALKA SHARMA Address: home [address] [facility] [place] [phone]
[2023-08-06] MEDS: ATORVASTATIN 40 MG TAB PO SCH (20:28)
[2023-08-07] MEDS: LEVOTHYROXINE SODIUM 112 MCG TABLET PO SCH (05:51)
[2023-08-07 06:46] LABS: Hematocrit (blood only) 31.7 % (42.0-52.0); Hemoglobin 10.7 g/dl (14.0-18.0); Mean Corpuscular Hemoglobin 33.4 pg (25.0-34.0); Mean Corpuscular Hgb Conc 33.8 g/dL (32.0-36.0); Mean Corpuscular Volume 99.1 fL (80.0-100.0); Mean Platelet Volume 10.6 fL (9.4-12.4); Platelet Count 157 K/uL (130-400); RDW Standard Deviation 47.1 fL (36.4-46.3); White Blood Count 4.18 K/ul (4.8-10.8)
[2023-08-07 07:03] LABS: BUN Creatinine Ratio 15.7 (10-20); Calcium 8.7 mg/dl (8.6-10.3); Creatinine Clr Calc Pharmacy 56.9 ml/min; Est GFR (African American) 66.1 ml/min
[2023-08-07] MEDS: levETIRAcetam 500 MG TAB PO SCH ×2 (08:51→21:05)
[2023-08-07] MEDS: LACTATED RINGER'S 1,000 ML IV SCH (08:53)
--- NOTE | 2023-08-07 13:38 | Hospitalist Progress Note ---
Date of Service August 07, 2023 Assessment & Plan (1) Ischemic stroke: Plan: Pt is a 78 yo male with PMH of aortic stenosis, hypothyroidism, carotid artery stenosis, hyperlipidemia, hypertension, and CKD 3A who presented to the hospital for evaluation for unresponsiveness. Work-up thus far has revealed a new ischemic stroke requiring TNKase administration. Patient admitted originally to the ICU for monitoring. [address] concerning for small subar achnoid hemorrhage. [address] showed improvement in the subarachnoid hemorrhage. Repeat head CT 08/03 showed continued improvement. Left wrist pain - ?secondary to scaphoid fracture- unsure of mechanism of injury - currently in splint, NWB of left arm - ortho consulted for further evaluation JHONNY on CKD - baseline creatinine ~1.4-1.6; Cr bumped to 1.7; now back at baseline - suspect pre-renal secondary to decreased intake in the setting of fluid restriction with hyponatremia, decreased PO intake with left arm injury (pt is left hand dominant), and delirium - s/p 1 day of maintenance fluids; will stop since pt's Cr recovered Hyponatremia - suspect chronic, mild d/t diet; typically low 130s - few days of mid to high 130s due to salt tab administration - continue to monitor Left shoulder pain - seemed to start after BP cuff squeezing arm - appears to be mechanical in nature secondary to intensive PT; low suspicion for cardiac causes- EKG WNL - continue heat, voltaren gel, pain meds PRN (avoid NSAIDs in the setting of brain bleed) Acute right occipital/parietal lobe ischemic stroke - pt also with 80% stenosis of right carotid stent - s/p TNKase (given 07/30/2023 at ~1:00AM) - continue to hold home brilinta and ASA in light of hemorrhage - continue atorvastatin to 40 mg daily - speech consulted; continue "easy to chew" diet, aspiration precautions - PT/OT consulted; recommending skilled rehab upon discharge - pt and family originally opting for discharge home with home health; however, d/t developing delirium and left wrist fracture hindering therapy- will plan for discharge to rehab Subarachnoid hemorrhage secondary to TNKase administration - head CTs have shown continued improvement - continue to hold brillinta and ASA - plan for f/u head CT 08/10 Right carotid artery stenosis - 80% stenosis of RCA stent on CTA - recommend follow up with vascular surgery as outpatient Seizure - suspect patient had seizure secondary to CVA as above - keppra loaded in the ED; continue 500 mg BID - pt will need outpatient neuro f/u to discuss seizure medication moving forward Hypothyroidism - continue levothyroxine Aortic stenosis - follows with [facility] Dr. Nassar - TAVR/surgical intervention deferred pending management and stability of his right carotid disease which was felt to be higher priority - TTE 06/2023: EF hyperdynamic, greater than 75% at that time; no LVOT obstruction; valve area 0.23 Hyperlipidemia - switched outpatient simvastatin to atorvastatin 40 mg daily Hypertension - continue home lisinopril 10 mg daily - labetalol 10 mg PRN for SBP >160 Diet: Easy to chew DVT ppx: contraindicated given TNKase administration with subsequent subarachnoid hemorrhage Code status: full Disposition: PCU, d/c to rehab when accepted (2) Seizure: (3) Left hemiplegia: (4) AMS (altered mental status): (5) Hypothyroidism: (6) Aortic stenosis: (7) Carotid artery stenosis: (8) Hyperlipidemia: (9) Hypertension: (10) Chronic kidney disease, stage 3a: (11) Subarachnoid hemorrhage: (12) Left shoulder pain: Admission and Anticipated Discharge Date Admission Date: July 30, 2023 Supervising Physician Co-Signing Physician Notes ATTESTATION I also saw the patient and confirmed basurto portions of the history and exam. Upon our morning exam, the patient lying in bed. No complaints. EXAM 146/76, 67, 16, 36.3, 96% room air Alert/oriented Heart regular rate and rhythm, 2-3/6 Systolic murmur consistent with Abdomen soft nontender. Nondistended Left wrist in splint. DATA Labs Serum creatinine has improved to 1.21, compared to 1.70 yesterday IMPRESSION & PLAN I agree with the impression and plan as noted in the resident documentation above Status post acute right occipital/parietal lobe ischemic stroke Secondary subarachnoid hemorrhage due to TNK administration Unchanged neuro exam Will need follow-up CT scan middle of this week, sooner if change in exam or symptoms JHONNY Resolved with fluids Scaphoid fracture, age-indeterminate Orthopedics consultation Additional per resident documentation Subjective Pt feeling well this AM. He states his left shoulder and wrist are still sore but no worse than yesterday. Otherwise, no new concerns. Review of Systems Review of Systems: As per HPI Physical Exam Physical Exam: Constitutional: well appearing, no acute distress HEENT: normocephalic, no conjunctival injection CV: clinically well perfused, no LE edema Respiratory: no increased work of breathing MSK: no gross deformities noted; left wrist splint in place Skin: warm, dry, no rashes Neuro: alert, oriented, no FND noted Results & Data Results & Data Vital Signs (Past 12 Hours) Vital Signs Temp Pulse Resp BP Pulse Ox O2 Del Method 08/07/23 11:10 36.3 C L 67 16 146/76 H 96 Room Air 08/07/23 07:40 36.3 C L 67 16 138/78 96 Room Air Resident Activity Tracking Resident Involvement: Resident Care Provided Care Provided: Adult Hospital Medicine
[2023-08-07] MEDS: ATORVASTATIN 40 MG TAB PO SCH (21:05)
[2023-08-08] MEDS: LEVOTHYROXINE SODIUM 112 MCG TABLET PO SCH (05:29)
[2023-08-08 06:09] LABS: BUN Creatinine Ratio 10.9 (10-20); Calcium 8.7 mg/dl (8.6-10.3); Creatinine Clr Calc Pharmacy 53.8 ml/min; Est GFR (African American) 61.7 ml/min; Est GFR (Non-African American) 53.3 ml/min; Potassium 3.9 mmol/L (3.5-5.1)
[2023-08-08] MEDS: levETIRAcetam 500 MG TAB PO SCH ×2 (09:14→20:22)
--- NOTE | 2023-08-08 09:49 | Hospitalist Progress Note ---
Date of Service August 08, 2023 Assessment & Plan (1) Ischemic stroke: Plan: Pt is a 78 yo male with PMH of aortic stenosis, hypothyroidism, carotid artery stenosis, hyperlipidemia, hypertension, and CKD 3A who presented to the hospital for evaluation for unresponsiveness. Work-up thus far has revealed a new ischemic stroke requiring TNKase administration. Patient admitted originally to the ICU for monitoring. [address] concerning for small subar achnoid hemorrhage. [address] showed improvement in the subarachnoid hemorrhage. Repeat head CT 08/03 showed continued improvement. Left wrist pain - ?secondary to scaphoid fracture- unsure of mechanism of injury - currently in splint, NWB of left arm - ortho consulted for further evaluation JHONNY on CKD - baseline creatinine ~1.4-1.6; Cr bumped to 1.7; now back at baseline - suspect pre-renal secondary to decreased intake in the setting of fluid restriction with hyponatremia, decreased PO intake with left arm injury (pt is left hand dominant), and delirium - s/p 1 day of maintenance fluids Hyponatremia - suspect chronic, mild d/t diet; typically low 130s - few days of mid to high 130s due to salt tab administration - continue to monitor Left shoulder pain - seemed to start after BP cuff squeezing arm - appears to be mechanical in nature secondary to intensive PT; low suspicion for cardiac causes- EKG WNL - continue heat, voltaren gel, pain meds PRN (avoid NSAIDs in the setting of brain bleed) Acute right occipital/parietal lobe ischemic stroke - pt also with 80% stenosis of right carotid stent - s/p TNKase (given 07/30/2023 at ~1:00AM) - continue to hold home brilinta and ASA in light of hemorrhage - continue atorvastatin to 40 mg daily - speech consulted; continue "easy to chew" diet, aspiration precautions - PT/OT consulted; recommending skilled rehab upon discharge - pt and family originally opting for discharge home with home health; however, d/t developing delirium and left wrist fracture hindering therapy- will plan for discharge to rehab Subarachnoid hemorrhage secondary to TNKase administration - head CTs have shown continued improvement - continue to hold brillinta and ASA - plan for f/u head CT 08/10 Right carotid artery stenosis - 80% stenosis of RCA stent on CTA - recommend follow up with vascular surgery as outpatient Seizure - suspect patient had seizure secondary to CVA as above - keppra loaded in the ED; continue 500 mg BID - pt will need outpatient neuro f/u to discuss seizure medication moving forward Hypothyroidism - continue levothyroxine Aortic stenosis - follows with [facility] Dr. Nassar - TAVR/surgical intervention deferred pending management and stability of his right carotid disease which was felt to be higher priority - TTE 06/2023: EF hyperdynamic, greater than 75% at that time; no LVOT obstruction; valve area 0.23 Hyperlipidemia - switched outpatient simvastatin to atorvastatin 40 mg daily Hypertension - continue home lisinopril 10 mg daily - labetalol 10 mg PRN for SBP >160 Diet: Easy to chew DVT ppx: contraindicated given TNKase administration with subsequent subarachnoid hemorrhage Code status: full Disposition: PCU, d/c to rehab when accepted (2) Seizure: (3) Left hemiplegia: (4) AMS (altered mental status): (5) Hypothyroidism: (6) Aortic stenosis: (7) Carotid artery stenosis: (8) Hyperlipidemia: (9) Hypertension: (10) Chronic kidney disease, stage 3a: (11) Subarachnoid hemorrhage: (12) Left shoulder pain: Admission and Anticipated Discharge Date Admission Date: July 30, 2023 Supervising Physician Co-Signing Physician Notes ATTESTATION I also saw the patient and confirmed basurto portions of the history and exam. Patient is seen in the bedside chair. He has no complaints. We talked a little bit about his left wrist; he wonders if it was injured at the time of his initial stroke when he had some seizure-like activity -uncertain, but this is certainly plausible. EXAM 133/53, 73, 16, 36.4, 96% on room air Alert/oriented Heart regular rate and rhythm, 2-3/6 Systolic murmur consistent with Abdomen soft nontender. Nondistended Left wrist in splint. DATA Labs BUN/creatinine, 14/1.28 respectively IMPRESSION & PLAN I agree with the impression and plan as noted in the resident documentation above Status post acute right occipital/parietal lobe ischemic stroke Secondary subarachnoid hemorrhage due to TNK administration Unchanged neuro exam Will need follow-up CT scan middle of this week, sooner if change in exam or symptoms JHONNY Resolved with fluids Scaphoid fracture, age-indeterminate Orthopedics consultation appreciated Additional per resident documentation Subjective Pt doing well today. His left shoulder and wrist pain is about the same as prior. Review of Systems Review of Systems: As per HPI Physical Exam Physical Exam: Constitutional: well appearing, no acute distress HEENT: normocephalic, no conjunctival injection CV: clinically well perfused, no LE edema Respiratory: no increased work of breathing MSK: no gross deformities noted Skin: warm, dry, no rashes Neuro: alert and oriented Results & Data Results & Data Vital Signs (Past 12 Hours) Vital Signs Temp Pulse Resp BP Pulse Ox O2 Del Method 08/08/23 07:35 36.3 C L 72 16 132/62 94 Room Air 08/08/23 04:02 36.5 C 77 18 147/70 H 94 Room Air 08/07/23 22:00 Room Air 08/08/23 00:00 36.5 C 70 18 135/69 94 Room Air Resident Activity Tracking Resident Involvement: Resident Care Provided Care Provided: Adult Hospital Medicine
--- NOTE | 2023-08-08 11:19 | Orthopedic Consultation ---
Date of Consultation August 08, 2023 Assessment & Plan (1) Scaphoid fracture of wrist: left wrist pain with x-ray showing possible nondisplaced scaphoid waist fracture age-indeterminate on x-ray. X-rays have been reviewed by myself and by Dr. Fitzgerald. He feels that this is an old fracture and that the majority of his pain may be secondary to the moderate arthritis he has in the wrist. We will order another wrist x-ray with scaphoid view and will review this when it is done. Currently at this time, no surgical intervention is needed. Continue wrist splint at this time and limit weightbearing on the left wrist. patient's family states that they are waiting to hear if [facility] will take him soon for future physical therapy. Patient can follow-up in the office with Dr. Fitzgerald or Dr. Gupta within the next week. History of Present Illness Reason for Consultation: Left wrist pain/question of left scaphoid fracture on plain films Attending Physician: Garry Dunn, DO History of Present Illness Patient is a 78-year-old male who was admitted to [facility] for ischemic stroke on 07/30/2023. Patient with past medical history of aortic stenosis, hypothyroidism, carotid artery stenosis, hyperlipidemia, hypertension, and CKD 3A. prior to the patient's admission, he was apparently his normal self per his family. He was still driving and ambulating independently. Just prior to his admission, he was having headache of which he was treated with over the counter medications which was not helping. Patient noted to have what appeared to be seizures with mental status changes and confusion. He was brought to [facility] and after preliminary work-up, he was found to have an ischemic stroke and was treated accordingly. He was treated in the critical care unit for several days and then began improving. He was eventually transferred to [facility]. over the weekend the patient was complaining of a little bit of left shoulder pain and more so left wrist pain. Patient had been started on a physical therapy protocol. Some of his discomfort was attributed to this. There is no history of injury or mechanical falls. Currently family is with him and states that he had a little bit of bruising over the wrist and forearm but they know of no time that he had an injury. Patient currently has a splint on the left wrist and appears comfortable. Patient is left-handed and generally eats and writes with his left hand obviously which he has been limited secondary to some of the discomfort. The pain has not worsened. a left wrist film was ordered over the weekend and showed a question of nondisplaced scaphoid fracture at the waist age-indeterminate. It was also noted he had moderate arthritis in the wrist itself. We have been asked to see him for his left wrist pain and question of scaphoid fracture. Allergies Allergy/AdvReac Type Severity Reaction Status Date / Time Sulfa (Sulfonamide Allergy swelling/red Verified 07/29/23 23:03 Antibiotics) blotches around genitals Home Medications Medication Instructions Recorded Confirmed Type aspirin 81 mg tablet,delayed 81 mg PO QAM 11/21/22 07/29/23 History release cilostazol 100 mg tablet 100 mg PO QAM 11/21/22 07/29/23 History levothyroxine 112 mcg tablet 112 mcg PO QAM 11/21/22 07/29/23 History (Levoxyl) lisinopril 10 mg tablet 10 mg PO QAM 11/21/22 07/29/23 History simvastatin 40 mg tablet 40 mg PO QAM 11/21/22 07/29/23 History oxycodone-acetaminophen 5 mg-325 1 tab PO Q6 PRN Pain #20 tabs 07/07/23 07/29/23 Rx mg tablet (Percocet) ticagrelor 90 mg tablet (Brilinta) 90 mg PO BID #60 tabs 07/22/23 07/29/23 Rx Patient History Medical History Aortic stenosis Severe per 06/22/23 ECHO (preserved LV systolic function) Seen by Dr. Nassar 06/27/23 Carotid artery disease s/p left CEA 2009 per 06/28/23 neck CTA- <50% stenosis to left ICA, 80% stenosis of right ICA Chronic kidney disease, stage 3a monitor by [facility] baseline creat 1.6 Hyperlipidemia Hypertension Hypothyroidism Stroke 1992, [place], [place], residual shaking on right side Transient visual loss of right eye Per records Reason for upcoming carotid procedure Surgical History History of carotid endarterectomy left side, 2009, [facility] History of left cataract surgery History of right cataract surgery History of surgical removal of skin lesion lumps on back of knee at age 35 Hx of colonoscopy Hx of tonsillectomy Family History Other Dementia Heart disease Hypertension Myocardial infarction Osteoporosis Social History Smoking Status: Former smoker Tobacco Type: Cigarettes Second Hand Exposure: No; Do You Dip or Chew Tobacco: No; Hx Alcohol Use: Yes Alcohol type: hard liquor Hx Substance Use: No Preferred Language: Tamaz[place] Communication Ability: Effective Older Adult Social Work Specialist Required: No Beliefs That Will Affect Care: None Current Living Situation: Spouse Other Information That Helps Us Care for You: No Feels Safe at Home: Yes Safety Concerns: Feels Safe At This Time Assistive Devices: None Physical Exam Physical Exam: Patient is a 78-year-old white male who appears his stated age. He is awake and alert. Oriented to person and place. no acute distress. Pleasant and cooperative. On examination of his left wrist, he has a removable wrist splint noted currently on. This is loosened to examine the wrist further. He does have some mild older bruising noted on the wrist but also some on the left upper extremity from previous IV use as well. I can take him through gentle flexion and extension of the left wrist with mild to moderate discomfort. Palpation does not increase over the dorsum of the wrist but he does have some mildly increased pain on palpation over the scaphoid itself. patient is able to go through gentle range of motion of his fingers without increased discomfort. Wrist splint is reapplied after exam. Results & Data Vital Signs (Past 12 Hours) Vital Signs Temp Pulse Resp BP Pulse Ox O2 Del Method 08/08/23 07:35 36.3 C L 72 16 132/62 94 Room Air 08/08/23 04:02 36.5 C 77 18 147/70 H 94 Room Air 08/08/23 00:00 36.5 C 70 18 135/69 94 Room Air Diagnostic Findings Patient:BAMBI DALTON Jr Admit Date:07/30/23 MR#:[id number] Address1:[address] [place] [address] Acct ID:[id number] Address2: Date:1945 [facility] Zip:[place] [address] Age:78 Location:2N Sex:M Room/Bed:[facility] Att Phy:Larry Villeda D.O. Diagnosis:UNRESPONSIVENESS Mckenna Phy:Luna Argueta MD Service Date:08/05/23 Fam Phy: Interpreting Phy:Josue Jennings MDAdmit Phy:Júnior Dutta DO Ordering Phy:Regina Jeffries DO cc: ~ XR wrist LT min 3V routine CLINICAL HISTORY: left wrist pain, swelling COMPARISON: None FINDINGS: A lucency projects through the scaphoid waist. This appears to have corticated margins. This favors a nondisplaced fracture. There is subtle increased sclerosis within the proximal pole of the scaphoid. Severe osteoarthritis of the left first carpometacarpal joint is noted. There is moderate radiocarpal joint space narrowing with osteophytosis. There is chondrocalcinosis within the menisci. IMPRESSION: 1. Probable nondisplaced scaphoid waist fracture. This is age indeterminate and correlation with trauma history is recommended. Subtle increased sclerosis of the proximal pole of the scaphoid is likely within normal limits however reyes scular necrosis could have this imaging appearance. 2. 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 ACT 112: Negative or not required by law. Electronically signed by: Josue Jennings M.D. 08/05/2023 1:56 PM
--- NOTE | 2023-08-08 14:04 | XRay Report ---
XR wrist LT w scaphoid CLINICAL HISTORY: Scaphoid fx indeterminate age TECHNIQUE: 4 views of the left wrist were obtained. Comparison: Comparison is made to left wrist radiograph 08/05/2023 FINDINGS: There is a fracture of the left scaphoid waist which appears chronic with sclerotic edges. Severe ost eoarthritis is seen in the radiocarpal joint, carpal row, and first carpal metacarpal joint. Soft tis leelee swelling is seen about the wrist. IMPRESSION: Redemonstration of the mid waist fracture of the scaphoid which appears chronic. Extensive osteoarthr itic changes are seen. ACT 112: Negative or not required by law. Electronically signed by: Joseph Sepulveda M.D. 08/08/2023 2:01 PM
[2023-08-08] MEDS: ATORVASTATIN 40 MG TAB PO SCH (20:22)
[2023-08-09] MEDS: LEVOTHYROXINE SODIUM 112 MCG TABLET PO SCH (05:44)
[2023-08-09 06:59] LABS: BUN Creatinine Ratio 9.9 (10-20); Creatinine Clr Calc Pharmacy 56.9 ml/min; Est GFR (African American) 66.1 ml/min; Potassium 3.6 mmol/L (3.5-5.1)
--- NOTE | 2023-08-09 07:16 | Communication Note ---
Date of Service: August 09, 2023 Repeat xray of wrist reviewed by myself and discussed with Dr Fitzgerald. No change in treatment plan at this time.
--- NOTE | 2023-08-09 07:42 | Hospitalist Progress Note ---
Date of Service August 09, 2023 Assessment & Plan (1) Ischemic stroke: Plan: Pt is a 78 yo male with PMH of aortic stenosis, hypothyroidism, carotid artery stenosis, hyperlipidemia, hypertension, and CKD 3A who presented to the hospital for evaluation for unresponsiveness. Work up revealed a new ischemic stroke requiring TNKase administration. Patient admitted originally to the ICU for monitoring. 24 hr follow up head [address] concerning for small subarachnoid hemorr anaya. [address] showed improvement in the subarachnoid hemorrhage. Repeat head CT 08/03 showed continued improvement. Follow up head CT 08/09 showed resolution of the subarachnoid hemorrhage but did make note of a possible new acute infarct in the right frontal lobe. Brain MRI 08/09 showed acute 4.5 cm right frontal lobe infarct. Acute right frontal ischemic stroke (dx 08/09) - unsure of onset d/t pt relatively asymptomatic - will discuss resumption of home ASA and plavix with neuro Acute right occipital/parietal ischemic stroke (dx 07/30) - s/p TNKase (given 07/30/2023 at ~1:00AM) - continue atorvastatin to 40 mg daily - speech consulted; continue "easy to chew" diet, aspiration precautions - PT/OT consulted; recommending skilled rehab upon discharge - DAPT as above Subarachnoid hemorrhage secondary to TNKase administration - head CTs have shown continued improvement - DAPT as above Right carotid artery stenosis - s/p TCAR 07/06 - 80% stenosis of RCA stent on CTA - in light of new stroke, pt may need sooner intervention than previously warranted Left wrist pain - ?secondary to acute vs. chronic scaphoid fracture- unsure of mechanism of injury - currently in splint, NWB of left arm - ortho consulted for further evaluation; will plan for outpatient f/u JHONNY on CKD - baseline creatinine ~1.4-1.6; Cr bumped to 1.7; now back at baseline - suspect pre-renal secondary to decreased intake in the setting of fluid restriction with hyponatremia, decreased PO intake with left arm injury (pt is left hand dominant), and delirium - s/p 1 day of maintenance fluids Hyponatremia - suspect chronic, mild d/t diet; typically low 130s - few days of mid to high 130s due to salt tab administration - continue to monitor Left shoulder pain - seemed to start after BP cuff squeezing arm - appears to be mechanical in nature secondary to intensive PT; low suspicion for cardiac causes- EKG WNL - continue heat, voltaren gel, pain meds PRN (avoid NSAIDs in the setting of brain bleed) Seizure - suspect patient had seizure secondary to CVA as above - keppra loaded in the ED; continue 500 mg BID - pt will need outpatient neuro f/u to discuss seizure medication moving forward Hypothyroidism - continue levothyroxine Aortic stenosis - follows with [facility] Dr. Nassar - TAVR/surgical intervention deferred pending management and stability of his right carotid disease which was felt to be higher priority - TTE 06/2023: EF hyperdynamic, greater than 75% at that time; no LVOT obstruction; valve area 0.23 Hyperlipidemia - switched outpatient simvastatin to atorvastatin 40 mg daily Hypertension - continue home lisinopril 10 mg daily Diet: Easy to chew DVT ppx: contraindicated given TNKase administration with subsequent subarachnoid hemorrhage Code status: full Disposition: PCU (2) Seizure: (3) Left hemiplegia: (4) AMS (altered mental status): (5) Hypothyroidism: (6) Aortic stenosis: (7) Carotid artery stenosis: (8) Hyperlipidemia: (9) Hypertension: (10) Chronic kidney disease, stage 3a: (11) Subarachnoid hemorrhage: (12) Left shoulder pain: Admission and Anticipated Discharge Date Admission Date: July 30, 2023 Supervising Physician Co-Signing Physician Notes ATTESTATION I also saw the patient and confirmed basurto portions of the history and exam. He has no complaints today. Unfortunately, while follow up head CT today showed resolution of the subarachnoid hemorrhage it did make note of a possible new acute infarct in the right frontal lobe; subsequent MRI today showed acute 4.5 cm right frontal lobe infarct. EXAM 130/74, 71, 18, 36.4, 96% on room air Alert/oriented Left neck, bruit versus transmitted murmur Heart regular rate and rhythm, 2-3/6 Systolic murmur consistent with Abdomen soft nontender. Nondistended Left wrist in splint. DATA Labs Hemoglobin 10.7, platelet count 157 Sodium 135, potassium 3.6, BUN 12, creatinine 1.21 IMPRESSION & PLAN I agree with the impression and plan as noted in the resident documentation above Status post acute right occipital/parietal lobe ischemic stroke Secondary subarachnoid hemorrhage due to TNK administration Acute/subacute right frontal ischemic stroke (incidental finding 08/09) Right carotid artery stenosis, status post TCAR 07/06 Date of most recent frontal ischemic stroke is uncertain; while discovered incidentally on the 08/09 CT scan done for follow-up of subarachnoid hemorrhage, patient has not had any symptoms/changes to pinpoint onset. We will discuss resumption of antiplatelet therapy with neurology JHONNY Resolved with fluids Scaphoid fracture, age-indeterminate Orthopedics consultation appreciated Additional per resident documentation Subjective Pt feeling well this AM. No new concerns or complaints. Review of Systems Review of Systems: As per HPI Physical Exam Physical Exam: Constitutional: well appearing, no acute distress HEENT: normocephalic, no conjunctival injection CV: clinically well perfused, no LE edema Respiratory: no increased work of breathing MSK: no gross deformities noted Skin: warm, dry, no rashes Neuro: alert and oriented Results & Data Results & Data Vital Signs (Past 12 Hours) Vital Signs Temp Pulse Resp BP Pulse Ox O2 Del Method 08/08/23 23:27 36.4 C L 74 18 174/79 H 92 Room Air Resident Activity Tracking Resident Involvement: Resident Care Provided Care Provided: Adult Hospital Medicine
--- NOTE | 2023-08-09 08:20 | CT Scan Report ---
CT head/brain wo con CLINICAL HISTORY: 78 years-old Male with f/u subarachnoid hemorrhage. Follow-up study in a patient w ith intracranial hemorrhage TECHNIQUE: Multiple axial CT images of the head were obtained without contrast. A dose lowering tech nique was utilized adhering to the principles of ALARA. CT DOSE: 547.75 mGy.cm COMPARISON: 08/03/2023 FINDINGS: There is resolution of the previously described trace acute subarachnoid hemorrhage within the right frontal lobe. No new areas of acute intracranial hemorrhage are identified. Involutional changes with chronic microvascular ischemic disease. Large chronic right cerebellar infarct with acute to subacut e appearing right parieto- occipital infarct again noted. Additionally, there is ill-defined area of decreased attenuation and apparent blurring of barclay-white interface in the right frontal lobe on imag e 14 series 2. There No associated midline shift, intracranial mass, hydrocephalus, territorial ische joyce or no abnormal extra-axial collection. The calvarium is intact. The paranasal sinuses, mastoid ai r cells, and middle ear cavities are clear. IMPRESSION: 1. Resolution of the previously described trace subarachnoid hemorrhage within the right frontal lobe . 2. There is a new ill-defined area of decreased attenuation with apparent blurring of the barclay-white interface within the right frontal lobe suspicious for a small acute infarct. 3. Acute to subacute appearing right parieto-occipital infarct again noted. ACT 112: Negative or not required by law. The above report was generated using voice recognition software. It may contain grammatical, syntax o r spelling errors. Electronically signed by: Jose Cortes M.D. 08/09/2023 8:18 AM
[2023-08-09] MEDS: levETIRAcetam 500 MG TAB PO SCH ×2 (08:31→20:48)
--- NOTE | 2023-08-09 13:36 | Magnetic Resonance Report ---
MR brain wo con HISTORY: 78 years-old Male possible new CVA Acute stroke-like symptoms. COMPARISON: Head CT 08/09/2023, brain MRI 07/30/2023. TECHNIQUE: Multiplanar, multisequence MRI of the brain was obtained without the use of IV contrast. FINDINGS: There is an acute appearing 3.0 x 2.4 x 4.5 cm right frontal lobe infarct on image 20 series 4 with i ntermediate signal on ADC map and increased diffusion-weighted signal. Moderate associated cytotoxic edema. Subtle residual subacute subarachnoid hemorrhage within the superior right frontal lobe on mary ge 13 series 8. Subacute right parieto-occipital infarct is noted with resolved diffusion and mild pe rsistent increased T2/FLAIR signal. Chronic right cerebellar infarct with encephalomalacia and gliosi s. Involutional changes with unchanged mild white matter T2/FLAIR hyperintense foci suggestive of chr onic microvascular ischemic disease. No midline shift or hydrocephalus. Cerebral venous sinuses and major arterial flow voids appear patent. Small right with moderate left m astoid effusions. IMPRESSION: 1. 4.5 cm acute right frontal lobe infarct. 2. Resolving subacute right parieto-occipital infarct with chronic right cerebellar infarct. 3. Trace residual subarachnoid hemorrhage of the superior right frontal lobe. 4. Involutional changes with mild chronic microvascular ischemic disease. ACT 112: Negative or not required by law. The above report was generated using voice recognition software. It may contain grammatical, syntax o r spelling errors. Dictated: 08/09/2023 12:38 PM Transcribed: 08/09/2023 1:00 PM Laina [id number] [email or web address]_[email or web address] [id number] Electronically signed by: Jose Cortes M.D. 08/09/2023 1:35 PM
[2023-08-09] MEDS: ATORVASTATIN 40 MG TAB PO SCH (20:48)
[2023-08-10] MEDS: LEVOTHYROXINE SODIUM 112 MCG TABLET PO SCH (04:59)
[2023-08-10 06:36] LABS: Hematocrit (blood only) 33.2 % (42.0-52.0); Hemoglobin 11.7 g/dl (14.0-18.0); Mean Corpuscular Hemoglobin 33.9 pg (25.0-34.0); Mean Corpuscular Hgb Conc 35.2 g/dL (32.0-36.0); Mean Corpuscular Volume 96.2 fL (80.0-100.0); Mean Platelet Volume 9.9 fL (9.4-12.4); Platelet Count 167 K/uL (130-400); RDW Coefficient of Variation 12.7 % (11.5-14.5); RDW Standard Deviation 44.7 fL (36.4-46.3); Red Blood Count 3.45 M/uL (4.70-6.10); White Blood Count 5.76 K/ul (4.8-10.8)
[2023-08-10 07:06] LABS: BUN Creatinine Ratio 8.1 (10-20); Creatinine Clr Calc Pharmacy 55.9 ml/min; Est GFR (African American) 64.8 ml/min; Est GFR (Non-African American) 55.9 ml/min; Potassium 3.7 mmol/L (3.5-5.1)
[2023-08-10] MEDS: levETIRAcetam 500 MG TAB PO SCH ×2 (08:38→19:54)
--- NOTE | 2023-08-10 12:19 | Neurology Progress Note ---
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 Interval stability/resolution of subarachnoid hemorrhage on follow-up imaging, but with evidence of a new acute right frontal lobe infarct in the context of this hospitalization. Patient does have an 80% in-stent restenosis of the right internal carotid artery as depicted on CTA of the head and neck completed July 29, 2023. 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 Would recommend restarting Brilinta. Patient subarachnoid hemorrhage has been resolving. Would recommend against dual antiplatelet therapy at this time, however, given the recent hemorrhage. Continue with atorvastatin 40 mg/day. Consultation with vascular surgery pending. Continue with levetiracetam 500 mg twice daily. (It looks like patient had initially been seen by Dr. Green, [facility] neurology, on July 21, 2023 and was again seen in neurology consultation by Dr. Shayne Branham on July 30, 2023, followed by Dr. Rizo for a follow-up on August 02 August 03. He will need additional outpatient neurology follow-up, I believe he would be seen in the [facility] neurology clinic.) Admission and Anticipated Discharge Date Admission Date: July 30, 2023 Subjective Follow-up regarding stroke The patient is a 78-year-old male who was last seen by neurology on August 02, [address] Rizo for a follow-up visit regarding an acute right posterior cerebral artery distribution stroke with residual left-sided weakness and neglect. A CTA head revealed an 80% in-stent restenosis of the right internal carotid artery and a chronically occluded right vertebral artery. He has been treated with TNKase during this hospitalization and developed a small right frontal subarachnoid hemorrhage that has been stable and improving. He continues to have some residual left-sided weakness. Antiplatelet medication has been on hold in light of the recent subarachnoid hemorrhage. He had also had some seizure activity and has been on levetiracetam, no further seizures. Outpatient follow-up with vascular surgery was recommended at that time. A follow-up CT of the head was completed August 09, 2023 to reassess the status of his subarachnoid hemorrhage. There was evidence of a possible new, right frontal acute infarct on this study. The previously seen subarachnoid hemorrhage had resolved. The acute to subacute appearing right parieto-oc cipital infarct was again seen. I did independently review these images. I discussed this case with his hospitalist physician and had recommended completion of a repeat brain MRI. The study was completed yesterday and reveals a 4.5 cm acute infarct within the right frontal lobe, corresponding with the abnormality seen on the previous CT of the head. There was evidence of trace residual subarachnoid hemorrhage in the superior right frontal lobe and a previously seen subacute resolving, right parieto-occipital infarct and chronic right cerebellar infarct. I independently reviewed these images as well and had discussed his case further with his hospitalist physician and have recommended an inpatient consultation with vascular surgery. This morning, the patient is sitting up comfortably in his bedside chair, his spouse is present as well. He denies headache, vision loss, change in speech, or difficulty with swallowing. He continues to have some residual weakness over the left upper limb. He is wearing a wrist splint in light of recent identification of a mid wrist fracture of the scaphoid. This fracture was identified on a wrist x-ray done on August 05, 2023, and felt to be age- indeterminate. He has been seen by orthopedics. Review of Systems Constitutional: no fever and no chills Eyes: no blind spots and no diplopia Neurologic: + localized weakness; no tremor(s) and no headache(s) Results & Data Vital Signs (Past 12 Hours) Vital Signs Temp Pulse Resp BP Pulse Ox O2 Del Method 08/10/23 08:07 36.6 C 81 18 158/71 H 97 Room Air 08/10/23 02:28 36.4 C L 84 18 179/80 H 94 Room Air Laboratory Results WBC 5.76, hemoglobin 11.7, hematocrit 33.2, platelet count 167, sodium 135, potassium 3.7, BUN 10, creatinine 1.23, glucose 104. Lipid panel from July 29, 2020 reviewed. Triglycerides 95, cholesterol 118, LDL 62, HDL 37 Diagnostic Findings Electrocardiogram completed August 03, 2023 revealed a normal sinus rhythm. An echocardiogram completed June 22, 2023 was technically limited, normal left ventricular size, hyperdynamic left ventricular systolic function with no regional wall motion abnormalities, EF greater than 75%, concentric LVH noted, heavily calcified aortic valve with severe aortic stenosis noted. Normal left atrial size. Patient had cardiac monitoring completed this past June, 2-week study, no evidence of atrial fibrillation, rare premature ventricular complexes noted. Exam (Neuro) Constitutional: well developed; no acute distress Eyes: normal visual haynes by confrontation, PERRL and EOM intact bilaterally Neurologic: Oriented to:: Person, Place and Time Attention: Span Intact and Concentration Intact Speech Fluency: negative Dysarthria or Dysfluency Speech Aphasia: negative Aphasia Fund of Knowledge: Current Events, Past History and Vocabulary Cranial Nerves: Normal II, III, IV, , V, VII, VIII, IX, X, XI and XII Motor Strength: Normal Lower Extremities; negative Normal Upper Extremities (Mild to moderate weakness noted for the left upper limb, wearing wrist splint, decreased e business manager and finger extension strength) Motor Tone: Normal Lower Extremities and Normal Upper Extremities Muscle Bulk/Involuntary Movements: No Involuntary Movements Sensation: Light Touch Intact and Proprioception Intact Coordination: Finger-Nose Abnormal Laterality: Left; negative Heel-Schwarz Abnormal PG Care Time/CCT Total # of Minutes Spent Total Time Spent with Patient: Total time spent is greater than 50% in coordination of care (as documented) at patient's floor/unit and/or counseling patient: Coding Level of Care Code 10834 SUB INP/OBS CARE 3/50MIN Diagnoses Stroke I63.9 Subarachnoid hemorrhage I60.9 tPA adm status 24 hr DIABETES TERRITORY MANAGER Z92.82 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
--- NOTE | 2023-08-10 13:24 | XCELERA ---
[id number]
--- NOTE | 2023-08-10 13:55 | Hospitalist Progress Note ---
Date of Service August 10, 2023 Assessment & Plan (1) Ischemic stroke: Plan: Pt is a 78 yo male with PMH of aortic stenosis, hypothyroidism, carotid artery stenosis, hyperlipidemia, hypertension, and CKD 3A who presented to the hospital for evaluation for unresponsiveness. Work up revealed a new ischemic stroke requiring TNKase administration. Patient admitted originally to the ICU for monitoring. [address] up [address] concerning for small subarachnoid hemorr anaya. [address] showed improvement in the subarachnoid hemorrhage. Repeat head CT 08/03 showed continued improvement. Follow up head CT 08/09 showed resolution of the subarachnoid hemorrhage but did make note of a possible new acute infarct in the right frontal lobe. Brain MRI 08/09 showed acute 4.5 cm right frontal lobe infarct. Acute right frontal ischemic stroke (dx 08/09) - suspect thromboembolic from RCA stenosis; echo neg for cardioembolic causes - will plan to resume brillinta 90 mg BID and continue to hold aspirin Acute right occipital/parietal ischemic stroke (dx 07/30) - s/p TNKase (given 07/30/2023 at ~1:00AM) - continue atorvastatin to 40 mg daily - speech consulted; continue "easy to chew" diet, aspiration precautions - PT/OT consulted; recommending skilled rehab upon discharge - DAPT as above Subarachnoid hemorrhage secondary to TNKase administration - head CTs have shown continued improvement - DAPT as above Right carotid artery stenosis - s/p TCAR 07/06 - 80% stenosis of RCA stent on CTA - per vascular surgery, pt will need balloon angioplasty to revascularize vessel Left wrist pain - ?secondary to acute vs. chronic scaphoid fracture- unsure of mechanism of injury - currently in splint, NWB of left arm - ortho consulted for further evaluation; will plan for outpatient f/u JHONNY on CKD - baseline creatinine ~1.4-1.6; Cr bumped to 1.7; now back at baseline - suspect pre-renal secondary to decreased intake in the setting of fluid restriction with hyponatremia, decreased PO intake with left arm injury (pt is left hand dominant), and delirium - s/p 1 day of maintenance fluids Hyponatremia - suspect chronic, mild d/t diet; typically low 130s - few days of mid to high 130s due to salt tab administration - continue to monitor Left shoulder pain - seemed to start after BP cuff squeezing arm - appears to be mechanical in nature secondary to intensive PT; low suspicion for cardiac causes- EKG WNL - continue heat, voltaren gel, pain meds PRN (avoid NSAIDs in the setting of brain bleed) Seizure - suspect patient had seizure secondary to CVA as above - keppra loaded in the ED; continue 500 mg BID - pt will need outpatient neuro f/u to discuss seizure medication moving forward Hypothyroidism - continue levothyroxine Aortic stenosis - follows with [facility] Dr. Nassar - TAVR/surgical intervention deferred pending management and stability of his right carotid disease which was felt to be higher priority - TTE 06/2023: EF hyperdynamic, greater than 75% at that time; no LVOT ob struction; valve area 0.23 Hyperlipidemia - switched outpatient simvastatin to atorvastatin 40 mg daily Hypertension - continue home lisinopril 10 mg daily Diet: Easy to chew DVT ppx: contraindicated given recent subarachnoid hemorrhage Code status: full Disposition: PCU (2) Seizure: (3) Left hemiplegia: (4) AMS (altered mental status): (5) Hypothyroidism: (6) Aortic stenosis: (7) Carotid artery stenosis: (8) Hyperlipidemia: (9) Hypertension: (10) Chronic kidney disease, stage 3a: (11) Subarachnoid hemorrhage: (12) Left shoulder pain: Admission and Anticipated Discharge Date Admission Date: July 30, 2023 Supervising Physician Co-Signing Physician Notes ATTESTATION I also saw the patient and confirmed basurto portions of the history and exam. I discussed the case with both neurology and vascular surgery. He has no complaints today. EXAM 158/71, 81, 18 Alert/oriented Left neck, bruit versus transmitted murmur Heart regular rate and rhythm, 2-3/6 Systolic murmur consistent with Left wrist in splint. DATA Labs Hemoglobin 11.7, platelet count 167 Sodium 135, potassium 3.7, BUN 10, creatinine 1.23 IMPRESSION & PLAN I agree with the impression and plan as noted in the resident documentation above Status post acute right occipital/parietal lobe ischemic stroke Secondary subarachnoid hemorrhage due to TNK administration Acute/subacute right frontal ischemic stroke (incidental finding 08/09) Right carotid artery stenosis, status post TCAR 07/06 Resume Brilinta; hold aspirin Vascular surgery recommends TCAR right carotid artery early next week Additional per resident documentation Subjective Pt feeling well today. No new concerns. His wrist pain is "still there." Review of Systems Review of Systems: as per HPI Physical Exam Physical Exam: Constitutional: well appearing, no acute distress HEENT: normocephalic, no conjunctival injection CV: regular rhythm, regular rate, 3/6 systolic murmur, no LE edema Respiratory: Clear to auscultation bilaterally. No rhonchi, wheezes, or crackles. No increased work of breathing MSK: no gross deformities noted Skin: warm, dry, no rashes Neuro: alert, oriented, no FND noted Results & Data Results & Data Vital Signs (Past 12 Hours) Vital Signs Temp Pulse Resp BP Pulse Ox O2 Del Method 08/10/23 08:07 36.6 C 81 18 158/71 H 97 Room Air 08/10/23 02:28 36.4 C L 84 18 179/80 H 94 Room Air Resident Activity Tracking Resident Involvement: Resident Care Provided Care Provided: Adult Hospital Medicine
--- NOTE | 2023-08-10 14:24 | Consultation ---
Date of Consultation August 10, 2023 Assessment & Plan (1) Carotid artery stenosis: This patient has residual 80% narrowing of the midportion of the stent in the right carotid. It appears to be an area of overlap of the stents where there is a significant amount of calcified plaque. Now that he is back on Brilinta starting today we recommended balloon angioplasty of this area to fully expand the stent. This will be done as a TCAR procedure with flow reversal. Being that he has an acute stroke we will most likely schedule this for next Monday or Monday. Thank you very much for letting us participate in the care of this patient. History of Present Illness Reason for Consultation: Right internal carotid artery in-stent stenoses Attending Physician: Garry Dunn, History of Present Illness This is a 78-year-old gentleman who underwent a TCAR of the right carotid artery. Subsequent to that he developed a right hemispheric stroke. He was found on CT angiogram to have a residual 80% narrowing in the midportion of the carotid stent which was actually in the area of overlap of 2 stents. He was discharged and returned yesterday with another acute stroke on MRI of the right frontal lobe. He has fairly good recovery at this time. He also had a subarachnoid hemorrhage after thrombolytic therapy which has now resolved on the CAT scan. Allergies Allergy/AdvReac Type Severity Reaction Status Date / Time Sulfa (Sulfonamide Allergy swelling/red Verified 07/29/23 23:03 Antibiotics) blotches around genitals Home Medications Medication Instructions Recorded Confirmed Type aspirin 81 mg tablet,delayed 81 mg PO QAM 11/21/22 07/29/23 History release cilostazol 100 mg tablet 100 mg PO QAM 11/21/22 07/29/23 History levothyroxine 112 mcg tablet 112 mcg PO QAM 11/21/22 07/29/23 History (Levoxyl) lisinopril 10 mg tablet 10 mg PO QAM 11/21/22 07/29/23 History simvastatin 40 mg tablet 40 mg PO QAM 11/21/22 07/29/23 History oxycodone-acetaminophen 5 mg-325 1 tab PO Q6 PRN Pain #20 tabs 07/07/23 07/29/23 Rx mg tablet (Percocet) ticagrelor 90 mg tablet (Brilinta) 90 mg PO BID #60 tabs 07/22/23 07/29/23 Rx Patient History Medical History Aortic stenosis Severe per 06/22/23 ECHO (preserved LV systolic function) Seen by Dr. Nassar 06/27/23 Carotid artery disease s/p left CEA 2010 per 06/28/23 neck CTA- <50% stenosis to left ICA, 80% stenosis of right ICA Chronic kidney disease, stage 3a monitor by [facility] baseline creat 1.6 Hyperlipidemia Hypertension Hypothyroidism Stroke 1992, [place], [place], residual shaking on right side Transient visual loss of right eye Per records Reason for upcoming carotid procedure Surgical History History of carotid endarterectomy left side, 2009, [facility] History of left cataract surgery History of right cataract surgery History of surgical removal of skin lesion lumps on back of knee at age 35 Hx of colonoscopy Hx of tonsillectomy Family History Other Dementia Heart disease Hypertension Myocardial infarction Osteoporosis Social History Smoking Status: Former smoker Tobacco Type: Cigarettes Second Hand Exposure: No; Do You Dip or Chew Tobacco: No; Hx Alcohol Use: Yes Alcohol type: hard liquor Hx Substance Use: No Preferred Language: Romanian Communication Ability: Effective 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 Beliefs That Will Affect Care: None Current Living Situation: Spouse Other Information That Helps Us Care for You: No Feels Safe at Home: Yes Safety Concerns: Feels Safe At This Time Assistive Devices: None Review of Systems Review of Systems: All systems reviewed & are unremarkable except as noted in HPI & below Physical Exam Constitutional: well developed and well nourished Neck: trachea midline Respiratory: normal respiratory effort; no respiratory distress Auscultation: lungs clear to auscultation bilaterally Cardiovascular: Rate/Rhythm: regular rate and regular rhythm Vessels: normal peripheral pulses Gastrointestinal (Abdomen): Inspection/Auscultation: abdomen normal to inspection Percussion/Palpation: abdomen soft Neurologic: CN's II-XI intact bilaterally and moves all extremities (Slight weakness of the left upper extremity.) Psychiatric: Orientation: alert Results & Data Vital Signs (Past 12 Hours) Vital Signs Temp Pulse Resp BP Pulse Ox O2 Del Method 10/05/23 08:07 36.6 C 81 18 158/71 H 97 Room Air 08/10/23 02:28 36.4 C L 84 18 179/80 H 94 Room Air
[2023-08-10] MEDS: ATORVASTATIN 40 MG TAB PO SCH (19:54)
[2023-08-10] MEDS: TICAGRELOR 90 MG TAB PO SCH (19:54)
[2023-08-11] MEDS: LEVOTHYROXINE SODIUM 112 MCG TABLET PO SCH (05:00)
[2023-08-11 06:08] LABS: Hematocrit (blood only) 33.8 % (42.0-52.0); Hemoglobin 11.6 g/dl (14.0-18.0); Mean Corpuscular Hemoglobin 33.3 pg (25.0-34.0); Mean Corpuscular Hgb Conc 34.3 g/dL (32.0-36.0); Mean Corpuscular Volume 97.1 fL (80.0-100.0); Mean Platelet Volume 9.8 fL (9.4-12.4); Platelet Count 173 K/uL (130-400); RDW Coefficient of Variation 12.6 % (11.5-14.5); RDW Standard Deviation 45.1 fL (36.4-46.3); Red Blood Count 3.48 M/uL (4.70-6.10)
[2023-08-11 06:30] LABS: BUN Creatinine Ratio 9.2 (10-20); Calcium 9.1 mg/dl (8.6-10.3); Creatinine Clr Calc Pharmacy 52.5 ml/min; Est GFR (Non-African American) 51.8 ml/min; Potassium 3.9 mmol/L (3.5-5.1)
--- NOTE | 2023-08-11 07:20 | Hospitalist Progress Note ---
Date of Service August 11, 2023 Assessment & Plan (1) Ischemic stroke: Plan: Pt is a 78 yo male with PMH of aortic stenosis, hypothyroidism, carotid artery stenosis, hyperlipidemia, hypertension, and CKD 3A who presented to the hospital for evaluation for unresponsiveness. Work up revealed a new ischemic stroke requiring TNKase administration. Patient admitted originally to the ICU for monitoring. 24 hr follow up head [address] concerning for small subarachnoid hemorr anaya. [address] showed improvement in the subarachnoid hemorrhage. Repeat head CT 08/03 showed continued improvement. Follow up head CT 08/09 showed resolution of the subarachnoid hemorrhage but did make note of a possible new acute infarct in the right frontal lobe. Brain MRI 08/09 showed acute 4.5 cm right frontal lobe infarct. Acute right frontal ischemic stroke (dx 08/09) - suspect thromboembolic from RCA stenosis; echo neg for cardioembolic causes - continue brillinta 90 mg BID (resumed evening 08/10) - continue to hold aspirin Acute right occipital/parietal ischemic stroke (dx 07/30) - s/p TNKase (given 07/30/2023 at ~1:00AM) - continue atorvastatin 40 mg daily (switched from home simvastatin) - speech consulted; continue "easy to chew" diet, aspiration precautions - PT/OT consulted; recommending skilled rehab- plans for d/c to [facility] once medically stable - DAPT as above Subarachnoid hemorrhage secondary to TNKase administration - head CTs have shown continued improvement - DAPT as above Right carotid artery stenosis - s/p TCAR 07/06 - 80% stenosis of RCA stent on CTA - per vascular surgery, will plan for repeat TCAR Wednesday 08/15 Left wrist pain - ?secondary to acute vs. chronic scaphoid fracture- unsure of mechanism of injury - currently in splint, NWB of left arm - ortho consulted for further evaluation; will plan for outpatient f/u [facility] on CKD - baseline creatinine ~1.4-1.6; Cr bumped to 1.7; now back at baseline - suspect pre-renal secondary to decreased intake in the setting of fluid restriction with hyponatremia, decreased PO intake with left arm injury (pt is left hand dominant), and delirium - s/p 1 day of maintenance fluids Hyponatremia - suspect chronic, mild d/t diet; typically low 130s - few days of mid to high 130s due to salt tab administration - continue to monitor Left shoulder pain - seemed to start after BP cuff squeezing arm - appears to be mechanical in nature secondary to intensive PT; low suspicion for cardiac causes- EKG WNL - continue heat, voltaren gel, pain meds PRN (avoid NSAIDs in the setting of brain bleed) Seizure - suspect patient had seizure secondary to CVA as above - keppra loaded in the ED; continue 500 mg BID - pt will need outpatient neuro f/u to discuss seizure medication moving forward Hypothyroidism - continue levothyroxine Aortic stenosis - follows with [facility] Dr. Nassar - TAVR/surgical intervention deferred pending management and stability of his right carotid disease which was felt to be higher priority - TTE 06/2023: EF hyperdynamic, greater than 75% at that time; no LVOT obstruction; valve area 0.23 Hyperlipidemia - switched outpatient simvastatin to atorvastatin 40 mg daily Hypertension - continue home lisinopril 10 mg daily Diet: Easy to chew DVT ppx: contraindicated given recent subarachnoid hemorrhage Code status: full Disposition: PCU, d/c to rehab once medically stable after TCAR (2) Seizure: (3) Left hemiplegia: (4) AMS (altered mental status): (5) Hypothyroidism: (6) Aortic stenosis: (7) Carotid artery stenosis: (8) Hyperlipidemia: (9) Hypertension: (10) Chronic kidney disease, stage 3a: (11) Subarachnoid hemorrhage: (12) Left shoulder pain: Admission and Anticipated Discharge Date Admission Date: July 30, 2023 Supervising Physician Co-Signing Physician Notes I personally examined the patient and verified basurto points of history and exam, discussed case, and agree with decision making and plan documented by Dr. Jeffries. Plan for TCAR 08/15/23. Subjective Pt doing well this morning. No new concerns or complaints. His wrist is still mildly painful. Review of Systems Review of Systems: As per HPI Physical Exam Physical Exam: Constitutional: well appearing, no acute distress HEENT: normocephalic, no conjunctival injection CV: clinically well perfused, no LE edema Respiratory: no increased work of breathing MSK: no gross deformities noted- brist to left wrist Skin: warm, dry, no rashes Neuro: alert, oriented Results & Data Results & Data Vital Signs (Past 12 Hours) Vital Signs Temp Pulse Resp BP Pulse Ox O2 Del Method 08/10/23 23:48 36.4 C L 77 18 147/73 H 95 Room Air Resident Activity Tracking Resident Involvement: Resident Care Provided Care Provided: Adult Hospital Medicine
[2023-08-11] MEDS: TICAGRELOR 90 MG TAB PO SCH ×2 (08:08→20:05)
[2023-08-11] MEDS: levETIRAcetam 500 MG TAB PO SCH ×2 (08:08→20:06)
--- NOTE | 2023-08-11 09:13 | Communication Note ---
Date of Service: August 11, 2023 Will plan on redo tcar for this coming Monday.
[2023-08-11] MEDS: ATORVASTATIN 40 MG TAB PO SCH (20:05)
[2023-08-12] MEDS: LEVOTHYROXINE SODIUM 112 MCG TABLET PO SCH (05:56)
--- NOTE | 2023-08-12 06:44 | Hospitalist Progress Note ---
Date of Service August 12, 2023 Assessment & Plan (1) Ischemic stroke: Plan: Pt is a 78 yo male with PMH of aortic stenosis, hypothyroidism, carotid artery stenosis, hyperlipidemia, hypertension, and CKD 3A who presented to the hospital for evaluation for unresponsiveness. Work up revealed a new ischemic stroke requiring TNKase administration. Patient admitted originally to the ICU for monitoring. [address] up [address] concerning for small subarachnoid hemorr anaya. [address] showed improvement in the subarachnoid hemorrhage. Repeat head CT 08/03 showed continued improvement. Follow up head CT 08/09 showed resolution of the subarachnoid hemorrhage but did make note of a possible new acute infarct in the right frontal lobe. Brain MRI 08/09 showed acute 4.5 cm right frontal lobe infarct. Acute right frontal ischemic stroke (dx 08/09) - suspect thromboembolic from RCA stenosis; echo neg for cardioembolic causes - continue brillinta 90 mg BID (resumed evening 08/10) - continue to hold aspirin Acute right occipital/parietal ischemic stroke (dx 07/30) - s/p TNKase (given 07/30/2023 at ~1:00AM) - continue atorvastatin 40 mg daily (switched from home simvastatin) - speech consulted; continue "easy to chew" diet, aspiration precautions - PT/OT consulted; recommending skilled rehab- plans for d/c to [facility] once medically stable - DAPT as above Subarachnoid hemorrhage secondary to TNKase administration - head CTs have shown continued improvement - DAPT as above Right carotid artery stenosis - s/p TCAR 07/06 - 80% stenosis of RCA stent on CTA - per vascular surgery, will plan for repeat TCAR Wednesday 08/15 - would like to discuss surgery with vascualr prior to Monday Left wrist pain - ?secondary to acute vs. chronic scaphoid fracture- unsure of mechanism of injury - currently in splint, NWB of left arm - ortho consulted for further evaluation; will plan for outpatient f/u [facility] on CKD - baseline creatinine ~1.4-1.6; Cr bumped to 1.7; now back at baseline - suspect pre-renal secondary to decreased intake in the setting of fluid restriction with hyponatremia, decreased PO intake with left arm injury (pt is left hand dominant), and delirium - s/p 1 day of maintenance fluids Hyponatremia- Resolved - suspect chronic, mild d/t diet; typically low 130s - continue to monitor Left shoulder pain - seemed to start after BP cuff squeezing arm - appears to be mechanical in nature secondary to intensive PT; low suspicion for cardiac causes- EKG WNL - continue heat, voltaren gel, pain meds PRN (avoid NSAIDs in the setting of brain bleed) Seizure - suspect patient had seizure secondary to CVA as above - keppra loaded in the ED; continue 500 mg BID - pt will need outpatient neuro f/u to discuss seizure medication moving forward Hypothyroidism - continue levothyroxine Aortic stenosis - follows with [facility] Dr. Nassar - TAVR/surgical intervention deferred pending management and stability of his right carotid disease which was felt to be higher priority - TTE 06/2023: EF hyperdynamic, greater than 75% at that time; no LVOT obstruction; valve area 0.23 Hyperlipidemia - switched outpatient simvastatin to atorvastatin 40 mg daily Hypertension - continue home lisinopril 10 mg daily Diet: Easy to chew DVT ppx: contraindicated given recent subarachnoid hemorrhage Code status: full Disposition: d/c to rehab once medically stable after TCAR (2) Seizure: (3) Left hemiplegia: (4) AMS (altered mental status): (5) Hypothyroidism: (6) Aortic stenosis: (7) Carotid artery stenosis: (8) Hyperlipidemia: (9) Hypertension: (10) Chronic kidney disease, stage 3a: (11) Subarachnoid hemorrhage: (12) Left shoulder pain: Admission and Anticipated Discharge Date Admission Date: July 30, 2023 Supervising Physician Co-Signing Physician Notes I personally examined the patient and verified basurto points of history and exam, discussed case, and agree with decision making and plan documented by Dr. Jeffries. Patient expressing that he would like to speak to vascular surgery team prior to TCAR 08/15/23. Otherwise, patient denies any new concerns or complaints. Subjective Pt doing well this morning. No events overnight. No complaints. at bedside. Review of Systems Review of Systems: As per above Physical Exam Physical Exam: Constitutional: well-appearing, no acute distress HEENT: NCAT, no conjunctival injection CV: regular rhythm, + murmur, extremities well-perfused, no LE edema Resp: CTABL, no wheezes/rales/rhonchi appreciated, no increased work of breathing GI: soft, nondistended, nontender, BS normoactive MSK: no gross deformities appreciated Skin: warm, dry, no rash appreciated Neuro: alert, oriented, no focal neurologic deficit appreciated Results & Data Results & Data Vital Signs (Past 12 Hours) Vital Signs Temp Pulse Resp BP Pulse Ox O2 Del Method 08/12/23 00:09 36.6 C 78 20 135/79 92 Room Air Resident Activity Tracking Resident Involvement: Resident Care Provided Care Provided: Adult Hospital Medicine
[2023-08-12 07:41] LABS: Hematocrit (blood only) 35.1 % (42.0-52.0); Hemoglobin 12.2 g/dl (14.0-18.0); Mean Corpuscular Hemoglobin 33.4 pg (25.0-34.0); Mean Corpuscular Hgb Conc 34.8 g/dL (32.0-36.0); Mean Corpuscular Volume 96.2 fL (80.0-100.0); Mean Platelet Volume 9.6 fL (9.4-12.4); Platelet Count 191 K/uL (130-400); RDW Coefficient of Variation 12.8 % (11.5-14.5); RDW Standard Deviation 45.8 fL (36.4-46.3); Red Blood Count 3.65 M/uL (4.70-6.10); White Blood Count 6.14 K/ul (4.8-10.8)
[2023-08-12 08:05] LABS: BUN Creatinine Ratio 10.3 (10-20); Calcium 9.2 mg/dl (8.6-10.3); Creatinine Clr Calc Pharmacy 50.6 ml/min; Est GFR (African American) 57.4 ml/min; Est GFR (Non-African American) 49.5 ml/min; Potassium 3.8 mmol/L (3.5-5.1)
[2023-08-12] MEDS: TICAGRELOR 90 MG TAB PO SCH ×2 (09:55→19:41)
[2023-08-12] MEDS: levETIRAcetam 500 MG TAB PO SCH ×2 (09:55→19:42)
[2023-08-12] MEDS: ATORVASTATIN 40 MG TAB PO SCH (19:42)
[2023-08-13] MEDS: LEVOTHYROXINE SODIUM 112 MCG TABLET PO SCH (05:58)
--- NOTE | 2023-08-13 07:02 | Hospitalist Progress Note ---
Date of Service August 13, 2023 Assessment & Plan (1) Ischemic stroke: Plan: Pt is a 78 yo male with PMH of aortic stenosis, hypothyroidism, carotid artery stenosis, hyperlipidemia, hypertension, and CKD 3A who presented to the hospital for evaluation for unresponsiveness. Work up revealed a new ischemic stroke requiring TNKase administration. Patient admitted originally to the ICU for monitoring. [address] up [address] concerning for small subarachnoid hemorr anaya. [address] showed improvement in the subarachnoid hemorrhage. Repeat head CT 08/03 showed continued improvement. Follow up head CT 08/09 showed resolution of the subarachnoid hemorrhage but did make note of a possible new acute infarct in the right frontal lobe. Brain MRI 08/09 showed acute 4.5 cm right frontal lobe infarct. Acute right frontal ischemic stroke (dx 08/09) - suspect thromboembolic from RCA stenosis; echo neg for cardioembolic causes - continue brillinta 90 mg BID (resumed evening 08/10) - continue to hold aspirin Acute right occipital/parietal ischemic stroke (dx 07/30) - s/p TNKase (given 07/30/2023 at ~1:00AM) - continue atorvastatin 40 mg daily (switched from home simvastatin) - speech consulted; continue "easy to chew" diet, aspiration precautions - PT/OT consulted; recommending skilled rehab- plans for d/c to [facility] once medically stable - DAPT as above Subarachnoid hemorrhage secondary to TNKase administration - head CTs have shown continued improvement - DAPT as above Right carotid artery stenosis - s/p TCAR 07/06 - 80% stenosis of RCA stent on CTA - per vascular surgery, will plan for repeat TCAR Wednesday 08/15 - would like to discuss surgery with vascular prior to Monday Left wrist pain - ?secondary to acute vs. chronic scaphoid fracture- unsure of mechanism of injury - currently in splint, NWB of left arm - ortho consulted for further evaluation; will plan for outpatient f/u [facility] on CKD- Resolved - baseline creatinine ~1.4-1.6 - Did have elevated creatine earlier in admission, currently at baseline - Continue to trend Hyponatremia - suspect chronic, mild d/t diet; typically low 130s - continue to monitor Left shoulder pain - seemed to start after BP cuff squeezing arm - appears to be mechanical in nature secondary to intensive PT; low suspicion for cardiac causes- EKG WNL - continue heat, voltaren gel, pain meds PRN (avoid NSAIDs in the setting of brain bleed) Seizure - suspect patient had seizure secondary to CVA as above - keppra loaded in the ED; continue 500 mg BID - pt will need outpatient neuro f/u to discuss seizure medication moving forward Hypothyroidism - continue levothyroxine Aortic stenosis - follows with [facility] Dr. Nassar - TAVR/surgical intervention deferred pending management and stability of his right carotid disease which was felt to be higher priority - TTE 06/2023: EF hyperdynamic, greater than 75% at that time; no LVOT obstruction; valve area 0.23 Hyperlipidemia - switched outpatient simvastatin to atorvastatin 40 mg daily Hypertension - continue home lisinopril 10 mg daily Diet: Easy to chew DVT ppx: contraindicated given recent subarachnoid hemorrhage Code status: full Disposition: d/c to rehab once medically stable after TCAR (2) Seizure: (3) Left hemiplegia: (4) AMS (altered mental status): (5) Hypothyroidism: (6) Aortic stenosis: (7) Carotid artery stenosis: (8) Hyperlipidemia: (9) Hypertension: (10) Chronic kidney disease, stage 3a: (11) Subarachnoid hemorrhage: (12) Left shoulder pain: Admission and Anticipated Discharge Date Admission Date: July 30, 2023 Supervising Physician Co-Signing Physician Notes I personally examined the patient and verified basurto points of history and exam, discussed case, and agree with decision making and plan documented by Dr. Sim. Patient hopeful to discuss planned TCAR with vascular team prior to surgery. Subjective Pt seen at bedside this morning. No complaints. No events overnight. Only concern was that he would like to discuss procedure with Dr. Aguayo prior to Monday. Review of Systems Review of Systems: As per above Physical Exam Physical Exam: Constitutional: well-appearing, no acute distress HEENT: NCAT, no conjunctival injection CV: regular rhythm, + murmur, extremities well-perfused, no LE edema Resp: CTABL, no wheezes/rales/rhonchi appreciated, no increased work of breathing MSK: no gross deformities appreciated Skin: warm, dry, no rash appreciated Neuro: alert, oriented, no focal neurologic deficit appreciated Results & Data Results & Data Vital Signs (Past 12 Hours) Vital Signs Temp Pulse Resp BP Pulse Ox O2 Del Method 08/12/23 22:08 36.7 C 106 H 18 150/74 H 98 Room Air Resident Activity Tracking Resident Involvement: Resident Care Provided Care Provided: Adult Hospital Medicine
[2023-08-13] MEDS: TICAGRELOR 90 MG TAB PO SCH ×2 (08:03→19:47)
[2023-08-13] MEDS: levETIRAcetam 500 MG TAB PO SCH ×2 (08:03→19:47)
[2023-08-13] MEDS ORDERED: POLYETHYLENE (MIRALAX) 17 GM PACK PO PRN (18:59)
--- NOTE | 2023-08-13 19:31 | XRay Report ---
KUB CLINICAL HISTORY: Fecal retention. FINDINGS: 3 AP, portable, supine abdominal radiographs are obtained. No prior studies are available f or comparison at the time of dictation. There is a nonobstructed abdominal bowel gas pattern. There i s rectosigmoid fecal retention and mild constipation. No evidence of intraperitoneal free air is seen on these supine images. There are no abnormal abdominal calcifications. Phleboliths are noted in the pelvis. The skeletal structures are osteopenic and appear intact. Lumbosacral spondylosis is observe d. IMPRESSION: No acute abnormality is identified. Electronically signed by: Wan Franco M.D. 08/13/2023 7:29 PM
[2023-08-13] MEDS: ATORVASTATIN 40 MG TAB PO SCH (19:47)
[2023-08-14] MEDS: LEVOTHYROXINE SODIUM 112 MCG TABLET PO SCH (05:29)
--- NOTE | 2023-08-14 07:04 | Hospitalist Progress Note ---
Date of Service August 14, 2023 Assessment & Plan (1) Ischemic stroke: Plan: Sukhjinder is a 78 year-old male with a past medical history of aortic stenosis, hypothyroidism, carotid artery stenosis, hyperlipidemia, hypertension, and CKD 3A who presented to the hospital for evaluation for unresponsiveness. Work up revealed a new ischemic stroke requiring TNKase administration. Patient admitted originally to the ICU for monitoring. 24 hr follow up head [address] concerning for small subarachnoid hemorrhage. [address] showed improvement in the subarachnoid hemorrhage. Repeat head CT 08/03 showed continued improvement. Follow up head CT 08/09 showed resolution of the subarachnoid hemorrhage but did make note of a possible new acute infarct in the right frontal lobe. Brain MRI 08/09 showed acute 4.5 cm right frontal lobe infarct. Acute right frontal ischemic stroke (dx 08/09) -Suspect thromboembolic from RCA stenosis; echo neg for cardioembolic causes -Continue to hold aspirin/Brilinta Acute right occipital/parietal ischemic stroke (dx 07/30) -s/p TNKase (given 07/30/2023 at ~1:00AM) -Continue atorvastatin 40 mg daily (switched from home simvastatin) -Speech consulted; continue "easy to chew" diet, aspiration precautions -PT/OT consulted; recommending skilled rehab- plans for d/c to [facility] once medically stable -DAPT as above, resume upcon TCAR on 08/06- Subarachnoid hemorrhage secondary to TNKase administration -Head CTs have shown continued improvement -DAPT as above Right carotid artery stenosis -s/p TCAR 07/06 -80% stenosis of RCA stent on CTA -Per vascular surgery, will plan for repeat TCAR Wednesday 08/15 Left wrist pain -?secondary to acute vs. chronic scaphoid fracture- unsure of mechanism of injury -Currently in splint, NWB of left arm -Ortho consulted for further evaluation; will plan for outpatient f/u [facility] on CKD- Resolved -Baseline creatinine ~1.4-1.6 -Did have elevated creatine earlier in admission, currently at baseline -Continue to trend Hyponatremia -Suspect chronic, mild d/t diet; typically low 130s -Continue to monitor Left shoulder pain -Seemed to start after BP cuff squeezing arm -Appears to be mechanical in nature secondary to intensive PT; low suspicion for cardiac causes- EKG WNL -Continue heat, voltaren gel, pain meds PRN (avoid NSAIDs in the setting of brain bleed) Seizure -Suspect patient had seizure secondary to CVA as above -Keppra loaded in the ED; continue 500 mg BID -Pt will need outpatient neuro f/u to discuss seizure medication moving forward Hypothyroidism -Continue levothyroxine Aortic stenosis -Follows with [facility] Dr. Nassar -TAVR/surgical intervention deferred pending management and stability of his right carotid disease which was felt to be higher priority -TTE 06/2023: EF hyperdynamic, greater than 75% at that time; no LVOT obstruction; valve area 0.23 Hyperlipidemia -Switched outpatient simvastatin to atorvastatin 40 mg daily Hypertension -Home lisinopril 10 mg daily Diet: Easy to chew DVT ppx: contraindicated given recent subarachnoid hemorrhage Code status: full Disposition: d/c to rehab once medically stable after TCAR (2) Seizure: (3) Left hemiplegia: (4) AMS (altered mental status): (5) Hypothyroidism: (6) Aortic stenosis: (7) Carotid artery stenosis: (8) Hyperlipidemia: (9) Hypertension: (10) Chronic kidney disease, stage 3a: (11) Subarachnoid hemorrhage: (12) Left shoulder pain: Admission and Anticipated Discharge Date Admission Date: July 30, 2023 Supervising Physician Co-Signing Physician Notes I personally examined the patient and verified all basurto points of history and exam, discussed case, and agree with decision making with Dr Sanders No new complaints. For vascular procedure probably tomorrow. Vitals noted, in general he is awake and alert pleasant no distress. HEENT normocephalic atraumatic mucous membranes moist. Breathing unlabored no accessory muscle use good effort. Skin shows no rashes no pallor or icterus. Stroke with small rebound bleedhas recovered nicely acutelyongoing PT/OT. Carotid diseasefor repeat vascular procedure tomorrow. Otherwise as above Subjective Patient seen and examined at bedside. No acute events reported overnight. Patient was seated upright and eating breakfast at time of encounter. He denies any pain or concerns at this time, denies chest pain or shortness of breath. States he has not had a bowel movement yet today, denies abdominal pain. Review of Systems Review of Systems: As per above Physical Exam Constitutional: well developed and well nourished Eyes: + anicteric sclerae and reactive pupils Respiratory: normal respiratory effort, lungs clear to auscultation No lower extremity edema appreciated Cardiovascular: Rate/Rhythm: regular rate and regular rhythm Skin: no rashes, warm and dry Psychiatric: Speech: normal rate/rhythm/volume of speech Results & Data Results & Data Vital Signs (Past 12 Hours) Vital Signs Temp Pulse Resp BP Pulse Ox O2 Del Method 08/13/23 19:04 36.5 C 93 H 18 112/69 93 Room Air Resident Activity Tracking Resident Involvement: Resident Care Provided Care Provided: Adult Hospital Medicine
[2023-08-14 07:48] LABS: Hematocrit (blood only) 32.8 % (42.0-52.0); Hemoglobin 11.2 g/dl (14.0-18.0); Mean Corpuscular Hgb Conc 34.1 g/dL (32.0-36.0); Mean Corpuscular Volume 96.8 fL (80.0-100.0); Mean Platelet Volume 9.8 fL (9.4-12.4); Platelet Count 194 K/uL (130-400); RDW Coefficient of Variation 12.6 % (11.5-14.5); RDW Standard Deviation 44.9 fL (36.4-46.3); Red Blood Count 3.39 M/uL (4.70-6.10)
[2023-08-14 08:06] LABS: Albumin Globulin Ratio 1.1 (0.9-2); Albumin Level 3.6 gm/dl (3.4-5.0); BUN Creatinine Ratio 13.6 (10-20); Bilirubin,Total 1.7 mg/dl (0.2-1.0); Calcium 9.4 mg/dl (8.6-10.3); Creatinine Clr Calc Pharmacy 52.1 ml/min; Est GFR (African American) 59.5 ml/min; Est GFR (Non-African American) 51.3 ml/min; Globulin 3.2 gm/dl (2.5-4.0); Magnesium 1.9 mg/dl (1.7-2.4); Potassium 3.7 mmol/L (3.5-5.1); Total Protein 6.8 gm/dl (6.0-8.3)
[2023-08-14] MEDS: levETIRAcetam 500 MG TAB PO SCH ×2 (08:52→19:33)
[2023-08-14] MEDS: TICAGRELOR 90 MG TAB PO SCH (08:52)
--- NOTE | 2023-08-14 09:58 | Communication Note ---
Date of Service: August 14, 2023 Patient for redo tcar tomorrow. I have discussed the risks options and benefits of the procedure with the patient. The patient understands the risks options and benefits and agrees to the procedure.
--- NOTE | 2023-08-14 18:59 | Billing Data ---
Date of Service August 14, 2023 Coding Level of Care Code 96718 SUB INP/OBS CARE
[2023-08-14] MEDS: ATORVASTATIN 40 MG TAB PO SCH (19:33)
[2023-08-15] MEDS: LEVOTHYROXINE SODIUM 112 MCG TABLET PO SCH (05:38)
[2023-08-15] MEDS ORDERED: ceFAZolin 2000MG 2,000 MG/15 ML SYR IV SCH (06:00)
[2023-08-15] MEDS ORDERED: PROPOFOL IV EMULSION 10 MG/ML 20 ML VIAL IV ONE (06:57)
[2023-08-15] MEDS ORDERED: LIDOCAINE 2% 2 ML VIAL/AMP(20MG/ML) INFIL ONE (06:57)
[2023-08-15] MEDS ORDERED: ROCURONIUM BROMIDE 10 MG/ML 5 ML VIAL IV ONE ×10 (06:57→11:20)
[2023-08-15] MEDS ORDERED: fentaNYL citrate PF 100 MCG/2 ML VIAL ONE ×2 (06:57→10:50)
[2023-08-15] MEDS ORDERED: PHENYLEPHRINE HCL 25 MG/250 ML NSS IV ONE (07:12)
[2023-08-15] MEDS ORDERED: GLYCOPYRROLATE 0.2 MG/ML VIAL ONE ×2 (07:21→11:17)
[2023-08-15] MEDS ORDERED: HEPARIN SOD (PORCINE) 1000 UNIT/ML ONE (07:23)
--- NOTE | 2023-08-15 07:24 | Hospitalist Progress Note ---
Date of Service August 15, 2023 Assessment & Plan (1) Ischemic stroke: Plan: Sukhjinder is a 78 year-old male with a past medical history of aortic stenosis, hypothyroidism, carotid artery stenosis, hyperlipidemia, hypertension, and CKD 3A who presented to the hospital for evaluation for unresponsiveness. Work up revealed a new ischemic stroke requiring TNKase administration. Patient admitted originally to the ICU for monitoring. [address] concerning for small subarachnoid hemorrhage. [address] showed improvement in the subarachnoid hemorrhage. Repeat head CT 08/03 showed continued improvement. Follow up head CT 08/09 showed resolution of the subarachnoid hemorrhage but did make note of a possible new acute infarct in the right frontal lobe. Brain MRI 08/09 showed acute 4.5 cm right frontal lobe infarct. Acute right frontal ischemic stroke (dx 08/09) -Suspect thromboembolic from RCA stenosis; echo neg for cardioembolic causes -Continue DAPT per vascular Acute right occipital/parietal ischemic stroke (dx 07/30) -s/p TNKase (given 07/30/2023 at ~1:00AM) -Continue atorvastatin 40 mg daily (switched from home simvastatin) -Speech consulted; continue "easy to chew" diet, aspiration precautions -PT/OT consulted; recommending skilled rehab- plans for d/c to [facility] once medically stable -DAPT as above. Subarachnoid hemorrhage secondary to TNKase administration -Head CTs have shown continued improvement -DAPT as above Right carotid artery stenosis -s/p TCAR 07/06 -80% stenosis of RCA stent on CTA -s/p repeat TCAR completed today 08/15 Left wrist pain -?secondary to acute vs. chronic scaphoid fracture- unsure of mechanism of injury -Currently in splint, NWB of left arm -Ortho consulted for further evaluation; will plan for outpatient f/u [facility] on CKD- Resolved -Baseline creatinine ~1.4-1.6 -Did have elevated creatine earlier in admission, currently at baseline -Continue to trend Hyponatremia -Suspect chronic, mild d/t diet; typically low 130s -Continue to monitor Left shoulder pain -Seemed to start after BP cuff squeezing arm -Appears to be mechanical in nature secondary to intensive PT; low suspicion for cardiac causes- EKG WNL -Continue heat, voltaren gel, pain meds PRN (avoid NSAIDs in the setting of brai n bleed) Seizure -Suspect patient had seizure secondary to CVA as above -Keppra loaded in the ED; continue 500 mg BID -Pt will need outpatient neuro f/u to discuss seizure medication moving forward Hypothyroidism -Continue levothyroxine Aortic stenosis -Follows with [facility] Dr. Nassar -TAVR/surgical intervention deferred pending management and stability of his right carotid disease which was felt to be higher priority -TTE 06/2023: EF hyperdynamic, greater than 75% at that time; no LVOT obstruction; valve area 0.23 Hyperlipidemia -Switched outpatient simvastatin to atorvastatin 40 mg daily Hypertension -Home lisinopril 10 mg daily Diet: Easy to chew DVT ppx: contraindicated given recent subarachnoid hemorrhage Code status: full Disposition: d/c to rehab once medically stable after TCAR (2) Seizure: (3) Left hemiplegia: (4) AMS (altered mental status): (5) Hypothyroidism: (6) Aortic stenosis: (7) Carotid artery stenosis: (8) Hyperlipidemia: (9) Hypertension: (10) Chronic kidney disease, stage 3a: (11) Subarachnoid hemorrhage: (12) Left shoulder pain: Admission and Anticipated Discharge Date Admission Date: July 30, 2023 Supervising Physician Co-Signing Physician Notes Chart reviewed, case discussed with resident physician. was in the room whenever I went to see him, he was in the OR. Later transferred to ICU, seen by vascular surgery and ICU physician as well. Had answered questions and discussed plan to the best my ability with . Due to his time in the OR and being seen by multiple specialists and consultants, all of his care needs were being met today. Subjective Patient seen at bedside, was post-op from procedure. A bit somnolent but comfortable. Discussed with family at bedside. Review of Systems Review of Systems: As per above Physical Exam Constitutional: well developed and well nourished Eyes: + anicteric sclerae; no conjunctival abnormality Respiratory: normal respiratory effort; no labored breathing Cardiovascular: Rate/Rhythm: regular rate Limbs appear well perfused Skin: no rashes, warm and dry Psychiatric: Unable to assess, patient still recovering from anesthesia Results & Data Results & Data Vital Signs (Past 12 Hours) Vital Signs Temp Pulse Resp BP Pulse Ox O2 Del Method 08/14/23 20:14 36.5 C 76 17 157/87 H 96 Room Air Resident Activity Tracking Resident Involvement: Resident Care Provided Care Provided: Adult [facility]
[2023-08-15 07:37] LABS: Hematocrit (blood only) 31.8 % (42.0-52.0); Mean Corpuscular Hgb Conc 34.6 g/dL (32.0-36.0); Mean Corpuscular Volume 95.5 fL (80.0-100.0); Mean Platelet Volume 9.8 fL (9.4-12.4); Platelet Count 222 K/uL (130-400); RDW Coefficient of Variation 12.6 % (11.5-14.5); RDW Standard Deviation 44.7 fL (36.4-46.3); Red Blood Count 3.33 M/uL (4.70-6.10); White Blood Count 4.97 K/ul (4.8-10.8)
--- NOTE | 2023-08-15 07:48 | History & Physical Bridge Note ---
Date of Service August 15, 2023 History & Physical Bridge Note Patient for a redo tcar today of his right carotid for a symptomatic 80% narrowing of his stent. I have examined the patient, reviewed the History & Physical and in the interval since the performance of the History & Physical I have noted the following changes of clinical significance: no changes noted
[2023-08-15 08:00] LABS: BUN Creatinine Ratio 12.7 (10-20); Calcium 9.3 mg/dl (8.6-10.3); Creatinine Clr Calc Pharmacy 54.6 ml/min; Est GFR (African American) 62.9 ml/min; Est GFR (Non-African American) 54.3 ml/min; Potassium 3.7 mmol/L (3.5-5.1)
[2023-08-15] MEDS: levETIRAcetam 500 MG TAB PO SCH ×2 (08:12→20:40)
[2023-08-15] MEDS ORDERED: DEXAMETHASONE SOD INJ 4 MG/ML VIAL ONE (08:41)
[2023-08-15] MEDS ORDERED: ONDANSETRON INJ 2 MG/ML 2 ML VIAL ONE (08:42)
[2023-08-15] MEDS ORDERED: TICAGRELOR 90 MG TAB PO ONE (09:23)
[2023-08-15] MEDS ORDERED: BUPIVACAINE/EPINEPHRINE 0.5% MPF 1:200,000 30 ML VIAL ONE (09:30)
[2023-08-15] MEDS ORDERED: ceFAZolin 330 MG/ML 1 GM VIAL ONE (09:30)
[2023-08-15] MEDS ORDERED: HEPARIN (PORCINE) 1000 UNIT/ML 10 ML (CATH LAB USE ONLY) ONE (09:30)
[2023-08-15] MEDS ORDERED: THROMBIN FOR SOLN 20000 UNIT KIT ONE (09:30)
[2023-08-15] MEDS ORDERED: GELATIN SPONGE SZ 100 ONE (09:30)
--- NOTE | 2023-08-15 09:34 | Anesthesiology Consultation ---
Date of Service August 15, 2023 Assessment & Plan ASA ASA4 Proposed Anesthesia Anesthesia Type: General Anesthesia Line Insertion: Arterial line Risk / Benefits Reviewed With: PT / POA / Parent / Guardian, Accepts Plan and Informed Consent Obtained Additional Comments: pt is at increased risk because of recent stroke and severe . I d/w pt and his the risk benefits and they wish to proceed. History Surgery Operation Date: 08/15/23 09:20 Proposed Procedures p Re-do Right Side Transcarotid Artery Revascularization - González Aguayo MD Height/Weight Height: 6 ft 1 in Weight: 85.7 kg Allergies Allergy/AdvReac Type Severity Reaction Status Date / Time Sulfa (Sulfonamide Allergy swelling/red Verified 07/29/23 23:03 Antibiotics) blotches around genitals Medications Home Medications Medication Instructions Recorded Confirmed Last Taken aspirin 81 mg tablet,delayed 81 mg PO QAM 11/21/22 07/29/23 07/20/23 release cilostazol 100 mg tablet 100 mg PO QAM 11/21/22 07/29/23 07/20/23 levothyroxine 112 mcg tablet 112 mcg PO QAM 11/21/22 07/29/23 07/29/23 08:00 (Levoxyl) lisinopril 10 mg tablet 10 mg PO QAM 11/21/22 07/29/23 07/20/23 simvastatin 40 mg tablet 40 mg PO QAM 11/21/22 07/29/23 07/20/23 oxycodone-acetaminophen 5 mg-325 1 tab PO Q6 PRN Pain #20 tabs 07/07/23 07/29/23 07/29/23 mg tablet (Percocet) ticagrelor 90 mg tablet (Brilinta) 90 mg PO BID #60 tabs 07/22/23 07/29/23 Unk nown Active Medications Generic Name Dose Route Start Last Admin Trade Name Freq PRN Reason Stop Dose Admin Atorvastatin Calcium 40 mg 08/02/23 21:00 08/14/23 19:33 Atorvastatin 40 Mg Tab PO 09/01/23 20:59 40 mg HS MALIK Administration Diclofenac Sodium 2 gm 08/05/23 08:45 08/05/23 21:41 Diclofenac Sod 1% Gel 100 Gm Tube EXT 09/04/23 08:59 2 gm QID PRN Administration pain Protocol Lactated Ringer's 1,000 mls @ 80 mls/hr 08/06/23 07:00 08/07/23 14:23 Lr IV 09/05/23 06:59 Infused .[id number] MALIK Infusion Levetiracetam 500 mg 07/31/23 21:00 08/15/23 08:12 Levetiracetam 500 Mg Tab PO 08/30/23 20:59 500 mg BID MALIK Administration Levothyroxine Sodium 112 mcg 07/30/23 06:30 08/15/23 05:38 Levothyroxine Sodium 112 Mcg Tablet PO 08/29/23 06:29 112 mcg DAILYBB MALIK Administration Lisinopril 20 mg 08/03/23 09:00 08/05/23 08:58 Lisinopril 20 Mg Tab PO 09/02/23 08:59 20 mg QAM MALIK Administration Ondansetron HCl 4 mg 07/30/23 16:09 07/31/23 09:19 Ondansetron Inj 2 Mg/Ml 2 Ml Vial IV 08/29/23 16:08 4 mg Q4H PRN Administration Nausea Polyethylene Glycol 17 gm 08/13/23 18:59 08/13/23 19:54 Polyethylene (Miralax) 17 Gm Pack PO 09/12/23 18:58 17 gm TID PRN Administration Constipation Ticagrelor 90 mg 08/10/23 21:00 08/14/23 08:52 Ticagrelor 90 Mg Tab PO 09/09/23 20:59 90 mg BID MALIK Administration NPO Date Last Intake of Fluids: 08/14/23 Time Last Intake of Fluids: 18:00 Date Last Intake of Solids: 08/14/23 Time Last Intake of Solids: 18:00 Past Medical History Medical History Aortic stenosis Severe per 06/22/23 ECHO (preserved LV systolic function) Seen by Dr. Nassar 06/27/23 Carotid artery disease s/p left CEA 2009 per 06/28/23 neck CTA- <50% stenosis to left ICA, 80% stenosis of right ICA Chronic kidney disease, stage 3a monitor by [facility] baseline creat 1.6 Hyperlipidemia Hypertension Hypothyroidism Stroke 1992, [place], [place], residual shaking on right side Transient visual loss of right eye Per records Reason for upcoming carotid procedure Exercise / Class Metabolic Activity II 4-5 Yardwork/Stairs/Walk up hill Past Family History Family History Other Dementia Heart disease Hypertension Myocardial infarction Osteoporosis Past Surgical History Surgical History History of carotid endarterectomy left side, 2009, [facility] History of left cataract surgery History of right cataract surgery History of surgical removal of skin lesion lumps on back of knee at age 35 Hx of colonoscopy Hx of tonsillectomy Past Anesthesia History No Hx of Anesthesia Complications and No Family Hx of Anesthesia Complications History of PONV No Hx of PONV and No Hx of Motion Sickness Social History Smoking Status: Former smoker tobacco type: cigarettes Do You Dip or Chew Tobacco: No Hx Alcohol Use: Yes Alcohol type: hard liquor alcohol intake frequency: 0-2 drinks per day Hx Substance Use: No substance use type: does not use Review of Systems denies fever/cough/ colds/ chest pain/ SOB/ CRAIG denies CRAIG Physical Exam Vital Signs Last Vital Signs Temp 36.5 C 08/15/23 08:31 Pulse 73 08/15/23 08:31 Resp 18 08/15/23 08:31 BP 136/67 08/15/23 08:31 Pulse Ox 96 08/15/23 08:31 O2 Del Method Room Air 08/15/23 08:31 O2 Flow Rate 4 07/30/23 02:19 ENMT Mouth: + dentures; no TMJ abnormality and no dentition abnormality Thyromental Distance: > or= 3.5 Finger Breadths Mallampati Class: II Neck neck extension not limited Respiratory normal respiratory effort; no respiratory distress Auscultation: lungs clear to auscultation bilaterally Cardiovascular Rate/Rhythm: regular rate and regular rhythm Neurologic moves all extremities Psychiatric Orientation: alert and oriented x 3 Testing Laboratory Results 08/15/23 06:54 08/15/23 06:54 PT 12.0 Seconds (9.0-12.0) 07/31/23 04:45 INR 1.1 (0.9-1.1) 07/31/23 04:45 APTT 27.1 Seconds (21.0-31.0) 07/31/23 04:45 Hemoglobin A1c 5.3 % (4.5-5.6) 07/29/23 22:32 Urine Color Yellow 07/29/23 23:01 Urine Appearance Clear (Clear) 07/29/23 23:01 Urine pH 7.5 (4.5-7.5) 07/29/23 23:01 Ur Specific [place] 1.017 (1.000-1.030) 07/29/23 23:01 Urine Protein 2+ (Negative) H 07/29/23 23:01 Urine Glucose (UA) 1+ (Negative) H 07/29/23 23:01 Urine Ketones 1+ (Negative) H 07/29/23 23:01 Urine Nitrite Negative (Negative) 07/29/23 23:01 Ur Leukocyte Esterase Negative (Negative) 07/29/23 23:01 Urine WBC (Auto) 1-5 /hpf (0-5) 07/29/23 23:01 Urine RBC (Auto) 0-4 /hpf (0-4) 07/29/23 23:01 U Hyaline Cast (Auto) 1-5 /lpf (0-5) 07/29/23 23:01 U Epithel Cells (Auto) 5-10 /lpf (0-5) H 07/29/23 23:01 Urine Bacteria (Auto) Negative (Negative) 07/29/23 23:01 Blood Type O Positive 08/14/23 16:38 Antibody Screen NEGATIVE 08/14/23 16:38
[2023-08-15] MEDS ORDERED: ONDANSETRON INJ 2 MG/ML 2 ML VIAL IV PRN (09:35)
[2023-08-15] MEDS ORDERED: ATROPINE SULFATE 0.1 MG/ML 10ML SYR IV PRN (09:35)
[2023-08-15] MEDS ORDERED: ePHEDrine sulfate 50 MG/ML AMP IV PRN (09:35)
[2023-08-15] MEDS ORDERED: fentaNYL citrate PF 100 MCG/2 ML VIAL IV PRN (09:35)
--- NOTE | 2023-08-15 09:37 | Anesthesia Procedure Note ---
Anesthesia Procedure Note Arterial Line Note Patient medical history, medications, allergies and vitals reviewed. Consent: Risk / Benefits Reviewed With: PT / POA / Parent / Guardian, Accepts Plan, Informed Consent Obtained and All Questions Answered Monitors attached: Blood Pressure, CO2, EKG and Pulse Oximetry Time out completed: Yes Premedication: None Laterality: Right Location: Radial Hand hygeine: Soap and water and Alcohol based hand rub Equipment/Supplies: Cap, Mask, Sterile gloves, Sterile drapes and Sterile procedures used Skin prep: Chloraprep Local medication: 1% Lidocaine (ml) (1) Ultrasound used: Yes US equipment and supplies: Sterile Gel and Sterile Probe Cover Attempts: 1 Procedure Summary: US observed patency of ulnar artery. 20 gauge angiocath advanced until return of bright red blood. Catheter threaded using seldinger technique with return of pulsatile, bright red blood. Catheter secured with tape and covered with occlusive dressing. Waveform consistent with correct arterial placement. After placement, normal perfusion was observed distal to the site of catheter placement. Post-Procedure: Pt hemodynamically stable, Pt tolerates well and No complication Anesthesia Charges Arterial Line A Line Charges: 54833 Insert Art line Samp/Mon/Noel
[2023-08-15] MEDS ORDERED: VISIPAQUE IV PRN (10:45)
[2023-08-15] MEDS ORDERED: ESMOLOL HCL INJ 10 MG/ML 10ML VIAL IV ONE (11:54)
[2023-08-15 12:23] LABS: Hematocrit (blood only) 31.5 % (42.0-52.0); Hemoglobin 10.7 g/dl (14.0-18.0)
[2023-08-15] MEDS ORDERED: PROTAMINE SULFATE 10 MG/ML 5 ML VIAL IV ONE (12:36)
[2023-08-15] MEDS ORDERED: SUGAMMADEX SODIUM 200 MG/2 ML VIAL IV ONE (12:54)
--- NOTE | 2023-08-15 13:13 | Procedure Note ---
Angiogram Post Procedure Fluoroscopy Time (minutes): 5.2 Radiation (mGy): 80 Contrast: 50 Post Operative Report Pre & Post Diagnosis Operation Date: 08/15/23 09:20 Pre-Op Diagnosis: symptomatic 80% narrowing of his stent Post-Op Diagnosis: symptomatic 80% narrowing of his stent I identified the patient and participated in the time-out.: Yes Procedure Operation Date: 08/15/23 09:20 Actual Procedures p Re-do Right Side Transcarotid Artery Revascularization(Right) - González Aguayo MD Ultrasound of right common femoral vein Surgeon González Aguayo MD Telecine Operator Marly,CUATE Estimated Blood Loss 700 Findings Consistent with Post-Op Diagnosis Specimens none Anesthesia Type General Complications none Disposition Accompanied Patient To Recovery: No Disposition: Recovery Room Indications This is a 78-year-old gentleman who had a TCAR done on the right carotid on July 06. Subsequent that he developed stroke on the right hemisphere. He recovered nicely from symptoms. A CT scan following a subarachnoid hemorrhage she was found to have a new infarct in the right hemisphere. CT scan of the neck done from his stroke showed an 80% narrowing in the middle of the stent of the right carotid. It is now recommended to read balloon and expand the stent fully. I have discussed the risks options and benefits of the procedure with the patient. The patient understands the risks options and benefits and agrees to the procedure. Description of Procedure The patient was taken to the operating room and placed in supine position. After general anesthesia was accomplished the groins and right side of the neck and chest were prepped and draped in a sterile manner. Timeout was performed and the patient was identified. A longitudinal incision was made just above the clavicle between the heads of the sternocleidomastoid. This is carried down to where the common carotid artery was identified. There is a significant amount of fresh scar tissue and adherence present. During the dissection the common carotid artery was injured with a tear from retraction adherent scar tissue. Patient was given 8000 heparin prior to clamping the carotid for the repair of the tear. This was repaired with a 6-0 Prolene suture. There was another tear posteriorly which also was repaired with a 6-0 Prolene. Once this was done there was adequate hemostasis seen. It was isolated. It was slung with umbilical tape. Next the U stitch was placed in the common carotid artery with a 5-0 Prolene suture. Patient was given another 5000 heparin prior to clamping the carotid for the repair of the tear.. Ultrasound was then used to localize the left common femoral vein. The vein was patent and compressed easily. Under ultrasound guidance the left common femoral vein was punctured and the venous sheath was inserted. This was aspirated and flushed with heparinized saline. ACT at that time was 313. Using micropuncture technique the common carotid artery was punctured. The sheath could not be passed in more than the first alanna on the catheter. We therefore removed the wire and catheter and repair of the puncture with 6-0 Prolene. We then we punctured the common carotid artery and reinserted a V18 wire and passed that up into the stent. We then inserted the sheath to the 3 cm alanna. Injection was then done showing the bifurcation and a small area of dissection of the common carotid artery very proximally. There was no contrast layering up along the wall of the carotid. There were 2 narrowing seen in the stent and one in the midportion of the distal stent and one of the midportion of the proximal stent at the common carotid internal cabrales tid artery border. We then inserted the J-wire left and short of the lesion. The micro sheath was removed and the TCAR sheath was inserted. Once it was in place and held against the artery it was sutured to the chest wall and the incision edge. We then flushed the tubing appropriately. The venous return to was clamped onto the TCAR sheath. It was flushed through and then attached to the venous inflow sheath in the left groin. Sheath was checked for flow. The saline cleared nicely. The common carotid artery was then clamped. Flow reversal was instituted. We inserted a 5.5 x 35 balloon backloaded on the wire. The wire was passed through the lesion into the petrous portion of the internal carotid. The 5.5 balloon was then advanced to the area of narrowing distally. This was ballooned to 14 pawan. We then pulled the balloon down to the more proximal lesion and ballooned this also up to 14 pawan. The distal lesion looked well-expanded. The proximal lesion the mid stent of the proximal stent still had this narrowing present. We then we ballooned it with the 5.5 balloon. There is still slight residual noted. We then used a 5.5 x 25 balloon and we ballooned this to 8-minute 18 pawan. Good response was seen with the good expansion of the stent. The carotid was allowed to go 2 minutes with flow reversal. Completion angiogram was done at that time which showed a widely pa tent carotid stent. At that point the common carotid artery was unclamped. The venous return tubing was clamped and removed from the TCAR sheath. The blood was allowed to flow back into the venous system. Once this was completed the sheath was pulled from the groin and pressure was applied. The TCAR sheath was then removed and the 5-0 Prolene suture securely tied. Hemostasis was noted of the puncture site. Wound was irrigated with Ancef solution. Adequate hemostasis was obtained of the wound. Once this was noted the wound was closed in usual fashion using a 3-0 Vicryl suture for the subcutaneous layer and a 4-0 subcuticular Vicryl suture for the skin edges. Dermabond was used for dressing.The patient left the operation room in satisfactory condition and tolerated the procedure well. All needle and sponge counts were correct at the end of the procedure. Ivon Roper Pac assisted due to lack of resident availability and was necessary for positioning, draping, retraction, wound closure deep layers, subcutaneous tissue, and skin closure and was necessary for assisting with the case. I attest to the content of the Intraoperative Record and any orders documented therein. Any exceptions are noted below.
[2023-08-15] MEDS ORDERED: oxyCODONE/ACETAMINOPHEN 5mg/325mg TAB PO PRN (15:21)
--- NOTE | 2023-08-15 15:27 | Anesthesiology Progress Note ---
Date of Service August 15, 2023 Anesthesia Post Procedure Vital Signs Vital Signs: Temp Pulse Pulse Resp BP BP Pulse Ox 08/15/23 15:10 90 21 125/64 115/45 L 94 08/15/23 14:50 35.9 C L 87 21 141/71 H 149/58 H 98 08/15/23 14:20 85 13 158/84 H 144/79 H 99 08/15/23 14:10 93 H 12 93/52 L 88/43 L 98 08/15/23 14:00 95 H 20 96/50 L 136/48 L 93 08/15/23 15:00 89 19 152/69 H 133/50 L 96 08/15/23 14:40 83 13 147/70 H 151/75 H 99 08/15/23 14:30 81 13 147/70 H 151/75 H 99 08/15/23 13:50 96 H 19 103/59 L 98 08/15/23 13:43 35.7 C L 99 H 11 L 104/63 97 08/15/23 08:31 36.5 C 73 18 136/67 96 08/15/23 07:32 36.5 C 73 18 135/68 97 08/14/23 20:14 36.5 C 76 17 157/87 H 96 O2 Del Method O2 Flow Rate 08/15/23 15:10 Room Air 08/15/23 14:50 Oxymask 2 08/15/23 14:20 Oxymask 6 08/15/23 14:10 Oxymask 6 08/15/23 14:00 Room Air 08/15/23 15:00 Room Air 08/15/23 14:40 Oxymask 6 08/15/23 14:30 Oxymask 6 08/15/23 13:50 Oxymask 4 08/15/23 13:43 Oxymask 4 08/15/23 08:31 Room Air 08/15/23 07:32 Room Air 08/14/23 20:14 Room Air Pain Intensity Head: Pain Intensity: 0 Left Wrist: Pain Intensity: 0 Right Groin: Pain Intensity: 2 Transfer of Care Handoff Completed per policy Notes Mental Status: alert / awake / arousable and participated in evaluation Patient Amnestic to Procedure: Yes Nausea / Vomiting: adequately controlled Pain: adequately controlled Airway Patency, RR, SpO2: stable & adequate BP & HR: stable & adequate Hydration State: stable & adequate Anesthetic Complications: no major complications apparent and Pt Satisfied with anesthetic care
[2023-08-15] MEDS: PHENYLEPHRINE/NSS 25 MG/250 ML BAG IV SCH ×2 (16:00→17:36)
[2023-08-15] MEDS: LACTATED RINGER'S 1,000 ML IV SCH ×2 (16:00→19:05)
[2023-08-15] MEDS ORDERED: STAT IV Infusion **Titration per Protocol STA (16:10)
--- NOTE | 2023-08-15 16:39 | Critical Care Progress Note ---
Date of Service August 15, 2023 Assessment & Plan (1) Post-operative state: Plan: Reason Critically Ill: 78-year-old male status post symptomatic narrowing of a prior TCAR PLAN: Neuro: Acute right frontal ischemic stroke (dx 08/09) -Suspect thromboembolic from RCA stenosis; echo neg for cardioembolic causes -Continue to hold aspirin/Brilinta Acute right occipital/parietal ischemic stroke (dx 07/30) -s/p TNKase (given 07/30/2023 at ~1:00AM) -Continue atorvastatin 40 mg daily (switched from home simvastatin) -Speech consulted; continue "easy to chew" diet, aspiration precautions -PT/OT consulted; recommending skilled rehab- plans for d/c to [facility] once medically stable Subarachnoid hemorrhage secondary to TNKase administration -Head CTs have shown continued improvement Right carotid artery stenosis -s/p TCAR 07/06 -80% stenosis of RCA stent on CTA Seizure -Suspect patient had seizure secondary to CVA as above -Keppra loaded in the ED; continue 500 mg BID -Pt will need outpatient neuro f/u to discuss seizure medication moving forward Resp: Wean oxygen as tolerated Cardiac: Aortic stenosis -Follows with [facility] Dr. Nassar -TAVR/surgical intervention deferred pending management and stability of his right carotid disease which was felt to be higher priority -TTE 06/2023: EF hyperdynamic, greater than 75% at that time; no LVOT obstruction; valve area 0.23 Hyperlipidemia -Switched outpatient simvastatin to atorvastatin 40 mg daily Hypertension -Home lisinopril 10 mg daily Postoperative hypotension: Likely related to anesthesia weaning phenylephrine Fluids/Renal: JHONNY on CKD- Resolved -Baseline creatinine ~1.4-1.6 -Did have elevated creatine earlier in admission, currently at baseline -Continue to trend Hyponatremia -Suspect chronic, mild d/t diet; typically low 130s -Continue to monitor ID: Operative antibiotics completed GI/Nutrition: Diet regular with easy chew texture okay per vascular surgery Heme: Anemia -Currently stable DVT prophylaxis: SCDs -Appears patient has been off chemoprophylaxis secondary to subarachnoid hemorrhage Endocrine: ICU hyperglycemia protocol Hypothyroidism -Continue levothyroxine Vascular access: Peripheral IVs Code Status: Full code Disposition: ICU (2) Stroke: (3) Subarachnoid hemorrhage: (4) Internal carotid artery stent present: (5) Aortic stenosis: (6) Chronic kidney disease, stage 3a: Admission and Anticipated Discharge Date Admission Date: July 30, 2023 Supervising Physician Co-Signing Physician Notes I have personally spent 35 minutes of critical care time in the direct management of this patient. This is a life/limb threatening event requiring vasoactive medication for postoperative hypotension. This includes time spent evaluating patient, direct bedside care, chart review, placing orders, interpretation of diagnostic studies, discussion with consultants, patient, and/or family members regarding treatment decisions, as well as other required patient management activities. This time is exclusive of all separately billable procedures, and teaching time and separate from and in addition to any other critical care service time. Subjective Status post redo right carotid transcarotid stent Review of Systems Review of Systems: Denies chest pain, denies headache, denies dizziness Physical Exam Physical Exam: General: Alert. nontoxic. Skin: Warm, dry, Head: Atraumatic Neck: Incision is clean dry and intact Ears, nose, mouth and throat: airway patent Cardiovascular: Normal peripheral perfusion Respiratory: no respiratory distress Gastrointestinal: Non distended Musculoskeletal: No deformity Results & Data Results & Data Vital Signs (Past 12 Hours) Vital Signs Temp Pulse Pulse Pulse Resp BP BP 08/15/23 16:00 90 12 08/15/23 16:00 117/60 08/15/23 15:45 90 7 L 08/15/23 15:32 92 H 18 08/15/23 16:10 36.4 C L 08/15/23 15:10 90 21 125/64 08/15/23 14:50 35.9 C L 87 21 141/71 H 08/15/23 14:20 85 13 158/84 H 08/15/23 14:10 93 H 12 93/52 L 08/15/23 14:00 95 H 20 96/50 L 08/15/23 15:00 89 19 152/69 H 08/15/23 14:40 83 13 147/70 H 08/15/23 14:30 81 13 147/70 H 08/15/23 13:50 96 H 19 103/59 L 08/15/23 13:43 35.7 C L 99 H 11 L 104/63 08/15/23 08:31 36.5 C 73 18 136/67 08/15/23 07:32 36.5 C 73 18 135/68 BP Pulse Ox O2 Del Method O2 Flow Rate 08/15/23 16:00 92 08/15/23 16:00 08/15/23 15:45 92 08/15/23 15:32 95 08/15/23 16:10 08/15/23 15:10 115/45 L 94 Room Air 08/15/23 14:50 149/58 H 98 Oxymask 2 08/15/23 14:20 144/79 H 99 Oxymask 6 08/15/23 14:10 88/43 L 98 Oxymask 6 08/15/23 14:00 136/48 L 93 Room Air 08/15/23 15:00 133/50 L 96 Room Air 08/15/23 14:40 151/75 H 99 Oxymask 6 08/15/23 14:30 151/75 H 99 Oxymask 6 08/15/23 13:50 98 Oxymask 4 08/15/23 13:43 97 Oxymask 4 08/15/23 08:31 96 Room Air 08/15/23 07:32 97 Room Air Critical Care Results & Data Vital Signs (Past 12 Hours) Vital Signs Temp Pulse Pulse Pulse Resp BP BP 08/15/23 16:00 90 12 08/15/23 16:00 117/60 08/15/23 15:45 90 7 L 08/15/23 15:32 92 H 18 08/15/23 16:10 36.4 C L 08/15/23 15:10 90 21 125/64 08/15/23 14:50 35.9 C L 87 21 141/71 H 08/15/23 14:20 85 13 158/84 H 08/15/23 14:10 93 H 12 93/52 L 08/15/23 14:00 95 H 20 96/50 L 08/15/23 15:00 89 19 152/69 H 08/15/23 14:40 83 13 147/70 H 08/15/23 14:30 81 13 147/70 H 08/15/23 13:50 96 H 19 103/59 L 08/15/23 13:43 35.7 C L 99 H 11 L 104/63 08/15/23 08:31 36.5 C 73 18 136/67 08/15/23 07:32 36.5 C 73 18 135/68 BP Pulse Ox O2 Del Method O2 Flow Rate 08/15/23 16:00 92 08/15/23 16:00 08/15/23 15:45 92 08/15/23 15:32 95 08/15/23 16:10 08/15/23 15:10 115/45 L 94 Room Air 08/15/23 14:50 149/58 H 98 Oxymask 2 08/15/23 14:20 144/79 H 99 Oxymask 6 08/15/23 14:10 88/43 L 98 Oxymask 6 08/15/23 14:00 136/48 L 93 Room Air 08/15/23 15:00 133/50 L 96 Room Air 08/15/23 14:40 151/75 H 99 Oxymask 6 08/15/23 14:30 151/75 H 99 Oxymask 6 08/15/23 13:50 98 Oxymask 4 08/15/23 13:43 97 Oxymask 4 08/15/23 08:31 96 Room Air 08/15/23 07:32 97 Room Air Lab & Micro Results (Past 24 Hours) RBC 3.33 M/uL (4.70-6.10) L 08/15/23 WBC 4.97 K/ul (4.8-10.8) 08/15/23 Hgb 10.3 g/dl (14.0-18.0) L 08/15/23 Hct 31.5 % (42.0-52.0) L 08/15/23 MCV 95.5 fL (80.0-100.0) 08/15/23 MCH 33.0 pg (25.0-34.0) 08/15/23 MCHC 34.6 g/dL (32.0-36.0) 08/15/23 RDW Standard Deviation 44.7 fL (36.4-46.3) 08/15/23 RDW Coefficient of Variation 12.6 % (11.5-14.5) 08/15/23 Plt Count 222 K/uL (130-400) 08/15/23 MPV 9.8 fL (9.4-12.4) 08/15/23 Na 136 mmol/L (136-145) 08/15/23 K 3.7 mmol/L (3.5-5.1) 08/15/23 Cl 103 mmol/L (98-107) 08/15/23 CO2 26 mmol/L (21-32) 08/15/23 Anion Gap 7 (3-11) 08/15/23 BUN 16 mg/dl (6-23) 08/15/23 Creatinine 1.26 mg/dl (0.6-1.4) 08/15/23 Estimated GFR ( Amer) 62.9 ml/min 08/15/23 Estimated GFR (Non-Af Amer) 54.3 ml/min 08/15/23 BUN/Creatinine Ratio 12.7 (10-20) 08/15/23 Glu 102 mg/dl (70-99(Fasting)) H 08/15/23 Ca 9.3 mg/dl (8.6-10.3) 08/15/23 Calcium Level 9.3 mg/dl (8.6-10.3) 08/15/23 06:54 I & O Totals 24 Hours 08/14/23 08/15/23 08/16/23 06:59 06:59 06:59 Intake Total 150 / 150 1700 / 1700 Output Total 700 / 700 Balance 150 / 150 1000 / 1000 Cumulative 07/29/23 22:16 thru 08/15/23 15:05 Intake Total 86690.584 Output Total 5930 Balance 44345.584 RT Ventilator Mngmt (Last Documented) Ventilator Ordered Settings Respiratory Rate 12 08/15/23 16:00 Ventilator - PT Measurements Respiratory Rate 12 Coding Level of Care Code 45219 CRITICAL CARE 1ST 30-74M Diagnoses Post-operative state Z98.890 Stroke I63.9 Subarachnoid hemorrhage I60.9 Internal carotid artery stent present Z95.828 Aortic stenosis I35.0 Chronic kidney disease, stage 3a N18.31
[2023-08-15] MEDS: TICAGRELOR 90 MG TAB PO SCH (20:40)
[2023-08-15] MEDS: ATORVASTATIN 40 MG TAB PO SCH (20:40)
[2023-08-16 04:25] LABS: Hematocrit (blood only) 24.7 % (42.0-52.0); Hemoglobin 8.6 g/dl (14.0-18.0); Mean Corpuscular Hemoglobin 33.3 pg (25.0-34.0); Mean Corpuscular Hgb Conc 34.8 g/dL (32.0-36.0); Mean Corpuscular Volume 95.7 fL (80.0-100.0); Platelet Count 196 K/uL (130-400); RDW Coefficient of Variation 12.9 % (11.5-14.5); RDW Standard Deviation 45.1 fL (36.4-46.3); Red Blood Count 2.58 M/uL (4.70-6.10)
[2023-08-16 04:41] LABS: BUN Creatinine Ratio 13.7 (10-20); Calcium 8.6 mg/dl (8.6-10.3); Creatinine Clr Calc Pharmacy 52.5 ml/min; Est GFR (Non-African American) 51.8 ml/min; Magnesium 1.8 mg/dl (1.7-2.4); Phosphorus 3.2 mg/dl (2.5-4.9); Potassium 4.2 mmol/L (3.5-5.1)
[2023-08-16] MEDS ORDERED: MAGNESIUM SULFATE / D5W 1 GM/100 ML BAG IV ONE (06:12)
[2023-08-16] MEDS: LEVOTHYROXINE SODIUM 112 MCG TABLET PO SCH (06:31)
[2023-08-16] MEDS: TICAGRELOR 90 MG TAB PO SCH ×2 (07:30→21:37)
--- NOTE | 2023-08-16 07:40 | Hospitalist Progress Note ---
Date of Service August 16, 2023 Assessment & Plan (1) Ischemic stroke: Plan: Sukhjinder is a 78 year-old male with a past medical history of aortic stenosis, hypothyroidism, carotid artery stenosis, hyperlipidemia, hypertension, and CKD 3A who presented to the hospital for evaluation for unresponsiveness. Work up revealed a new ischemic stroke requiring TNKase administration. Patient admitted originally to the ICU for monitoring. 24 hr follow up head [address] concerning for small subarachnoid hemorrhage. [address] showed improvement in the subarachnoid hemorrhage. Repeat head CT 08/03 showed continued improvement. Follow up head CT 08/09 showed resolution of the subarachnoid hemorrhage but did make note of a possible new acute infarct in the right frontal lobe. Brain MRI 08/09 showed acute 4.5 cm right frontal lobe infarct. * Patient medically cleared for placement at [facility], per case management it may take several days while authorization is pending. Acute right frontal ischemic stroke (dx 08/09) -Suspect thromboembolic from RCA stenosis; echo neg for cardioembolic causes -Continue Brilinta Acute right occipital/parietal ischemic stroke (dx 07/30) -s/p TNKase (given 07/30/2023 at ~1:00AM) -Continue atorvastatin 40 mg daily (switched from home simvastatin) -Speech consulted; continue "easy to chew" diet, aspiration precautions -PT/OT consulted; recommending skilled rehab- plans for d/c to [facility] once medically stable -Brilinta as above, per neuro considering recent subarachnoid hemorrhage will need to continue holding aspirin Subarachnoid hemorrhage secondary to TNKase administration -Head CTs have shown continued improvement -Holding aspirin Right carotid artery stenosis -s/p TCAR 07/06 -80% stenosis of RCA stent on CTA -s/p repeat TCAR completed 08/15 Left wrist pain -?secondary to acute vs. chronic scaphoid fracture- unsure of mechanism of injury -Currently in splint, NWB of left arm -Ortho consulted for further evaluation; will plan for outpatient f/u JHONNY on CKD- Resolved -Baseline creatinine ~1.4-1.6 -Did have elevated creatine earlier in admission, currently at baseline Hyponatremia -Suspect chronic, mild d/t diet; typically low 130s -Continue to monitor Left shoulder pain -Seemed to start after BP cuff squeezing arm -Appears to be mechanical in nature secondary to intensive PT; low suspicion for cardiac causes- EKG WNL -Continue heat, voltaren gel, pain meds PRN (avoid NSAIDs in the setting of brain bleed) Seizure -Suspect patient had seizure secondary to CVA as above -Keppra loaded in the ED; continue 500 mg BID -Pt will need outpatient neuro f/u to discuss seizure medication moving forward Hypothyroidism -Continue levothyroxine Aortic stenosis -Follows with [facility] Dr. Nassar -TAVR/surgical intervention deferred pending management and stability of his right carotid disease which was felt to be higher priority -TTE 06/2023: EF hyperdynamic, greater than 75% at that time; no LVOT obstruction; valve area 0.23 Hyperlipidemia -Switched outpatient simvastatin to atorvastatin 40 mg daily Hypertension -Home lisinopril 10 mg daily Diet: Easy to chew DVT ppx: contraindicated given recent subarachnoid hemorrhage Code status: full Disposition: d/c to rehab once medically stable after TCAR (2) Seizure: (3) Left hemiplegia: (4) AMS (altered mental status): (5) Hypothyroidism: (6) Aortic stenosis: (7) Carotid artery stenosis: (8) Hyperlipidemia: (9) Hypertension: (10) Chronic kidney disease, stage 3a: (11) Subarachnoid hemorrhage: (12) Left shoulder pain: Admission and Anticipated Discharge Date Admission Date: July 30, 2023 Supervising Physician Co-Signing Physician Notes I personally examined the patient and verified all basurto points of history and exam, discussed case, and agree with decision making with Dr Sanders No new complaints.Doing well post procedure and up for going to rehab. Vitals noted, in general he is awake and alert pleasant no distress. HEENT normocephalic atraumatic mucous membranes moist. Breathing unlabored no accessory muscle use good effort. Skin shows no rashes no pallor or icterus. Stroke with small rebound bleedhas recovered nicely acutelyongoing PT/OT. For rehab once bed available/insurance approved Subjective Patient seen and examined at bedside. Patient notes that he has minor incisional pain but is comfortable and seated upright in his chair. Denies shortness of breath or chest pain. Review of Systems Review of Systems: As per above Physical Exam Constitutional: well developed and well nourished Eyes: + anicteric sclerae; no conjunctival abnormality Respiratory: normal respiratory effort, lungs clear to auscultation normal respiratory effort; no labored breathing Cardiovascular: Rate/Rhythm: regular rate and regular rhythm Skin: TCAR incision clean and healing appropriately, no visible drainage Psychiatric: Speech: normal rate/rhythm/volume of speech Results & Data Results & Data Vital Signs (Past 12 Hours) Vital Signs Temp Pulse Resp BP Pulse Ox 08/16/23 06:00 36.4 C L 85 12 93 08/16/23 05:45 36.5 C 68 14 93 08/16/23 05:30 36.5 C 82 15 92 08/16/23 05:15 36.5 C 81 15 96 08/16/23 05:00 36.5 C 82 16 139/66 93 08/16/23 04:45 36.6 C 78 12 94 08/16/23 04:30 36.6 C 74 14 91 08/16/23 04:15 36.7 C 81 16 94 08/16/23 04:00 36.7 C 81 16 119/62 94 08/16/23 04:00 119/62 08/16/23 03:45 36.8 C 77 12 92 08/16/23 03:30 36.8 C 84 19 94 08/16/23 03:15 36.9 C 83 13 93 08/16/23 03:00 36.9 C 80 18 125/62 92 08/16/23 02:45 37.0 C 78 14 94 08/16/23 02:30 37.0 C 86 21 94 08/16/23 02:15 37.0 C 78 16 94 08/16/23 02:01 37.0 C 88 17 149/85 H 95 08/16/23 02:00 37.0 C 83 18 93 08/16/23 01:45 37.1 C 79 20 93 08/16/23 01:30 37.0 C 75 17 92 08/16/23 01:15 37.1 C 77 15 92 08/16/23 01:00 37.1 C 85 16 93 08/16/23 00:45 37.1 C 94 H 16 94 08/16/23 00:30 37.1 C 81 19 93 08/16/23 00:15 37.2 C 85 21 94 08/16/23 00:00 37.3 C 83 12 149/69 H 94 08/15/23 23:45 37.3 C 75 17 93 08/15/23 23:30 37.3 C 79 17 95 08/15/23 23:15 37.4 C 90 13 95 08/15/23 23:00 37.5 C 77 15 127/74 93 08/15/23 22:45 37.5 C 86 12 93 08/15/23 22:30 37.5 C 83 13 94 08/16/23 00:55 92 H 08/15/23 22:15 37.4 C 95 H 22 94 08/15/23 22:01 37.4 C 86 20 121/58 L 93 08/15/23 22:00 37.4 C 82 18 94 08/15/23 21:45 36.9 C 85 22 94 08/15/23 21:30 37.2 C 84 15 93 08/15/23 21:15 37.1 C 92 H 18 94 08/15/23 21:00 37.5 C 79 20 133/59 L 93 08/15/23 20:45 37.5 C 89 15 96 08/15/23 20:30 37.5 C 84 19 93 08/15/23 20:15 37.6 C H 81 16 93 08/15/23 20:00 37.6 C H 83 19 119/53 L 93 08/15/23 19:45 37.7 C H 86 17 93 Resident Activity Tracking Resident Involvement: Resident Care Provided Care Provided: Adult Hospital Medicine
[2023-08-16] MEDS: levETIRAcetam 500 MG TAB PO SCH ×2 (09:07→21:00)
[2023-08-16] MEDS: PHENYLEPHRINE/NSS 25 MG/250 ML BAG IV SCH (12:45)
--- NOTE | 2023-08-16 12:54 | Surgery Progress Note ---
Date of Service August 16, 2023 Assessment & Plan (1) Internal carotid artery stent present: Plan: Doing well after redo TCAR. More alert. Can go to [facility] today. Admission and Anticipated Discharge Date Admission Date: July 30, 2023 Subjective Patient feeling better. Has been up today Physical Exam Constitutional: WD/WN, vitals as above Respiratory: normal respiratory effort; no respiratory distress Cardiovascular: Rate/Rhythm: regular rate and regular rhythm Skin: + incision (dry and clean) Neurologic: CN's II-XI intact bilaterally and moves all extremities (left arm weakness back to pre op exam) Psychiatric: Orientation: alert and oriented x 3 Results & Data Vital Signs (Past 12 Hours) Vital Signs Temp Pulse Resp BP Pulse Ox 08/16/23 12:00 72 18 96 08/16/23 12:00 138/71 08/16/23 11:00 70 18 97 08/16/23 11:00 140/80 08/16/23 10:00 74 16 96 08/16/23 10:00 151/95 H 08/16/23 09:01 78 16 97 08/16/23 09:01 154/84 H 08/16/23 08:00 36.3 C L 76 15 96 08/16/23 08:00 134/69 08/16/23 07:21 81 08/16/23 07:00 36.4 C L 64 12 94 08/16/23 07:00 164/61 H 08/16/23 06:00 36.4 C L 85 12 93 08/16/23 05:45 36.5 C 68 14 93 08/16/23 05:30 36.5 C 82 15 92 08/16/23 05:15 36.5 C 81 15 96 08/16/23 05:00 36.5 C 82 16 139/66 93 08/16/23 04:45 36.6 C 78 12 94 08/16/23 04:30 36.6 C 74 14 91 08/16/23 04:15 36.7 C 81 16 94 08/16/23 04:00 36.7 C 81 16 119/62 94 08/16/23 04:00 119/62 08/16/23 03:45 36.8 C 77 12 92 08/16/23 03:30 36.8 C 84 19 94 08/16/23 03:15 36.9 C 83 13 93 10/11/23 03:00 36.9 C 80 18 125/62 92 08/16/23 02:45 37.0 C 78 14 94 08/16/23 02:30 37.0 C 86 21 94 08/16/23 02:15 37.0 C 78 16 94 08/16/23 02:01 37.0 C 88 17 149/85 H 95 08/16/23 02:00 37.0 C 83 18 93 08/16/23 01:45 37.1 C 79 20 93 08/16/23 01:30 37.0 C 75 17 92 08/16/23 01:15 37.1 C 77 15 92 08/16/23 01:00 37.1 C 85 16 93 08/16/23 00:55 92 H
--- NOTE | 2023-08-16 18:51 | Billing Data ---
Date of Service August 16, 2023 Coding Level of Care Code 82018 SUB INP/OBS CARE
[2023-08-16] MEDS: ATORVASTATIN 40 MG TAB PO SCH (21:00)
[2023-08-17] MEDS: LEVOTHYROXINE SODIUM 112 MCG TABLET PO SCH (05:42)
--- NOTE | 2023-08-17 07:31 | CT Scan Report ---
CT SCAN OF THE BRAIN WITHOUT IV CONTRAST CLINICAL HISTORY: Unwitnessed fall. COMPARISON STUDY: CT an MRI of the brain dated 08/09/2023. TECHNIQUE: Unenhanced axial CT scan of the brain is performed from the vertex to the skull base. A do se lowering technique was utilized adhering to the principles of ALARA. CT DOSE: 663.26 mGy.cm FINDINGS: Brain parenchyma: There is age-related involutional change noting moderate subcortical and periventri cular microangiopathic disease. There is a subacute/evolving right frontal lobe infarct. 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 There is no hemorrhage, mass effect, or evidence of ac tray territorial ischemia by CT criteria. Duarte-white matter differentiation is preserved. No extra-axi al fluid collection is seen. Ventricles, sulci, cisterns: Prominent secondary to involutional change. Intracranial vasculature: There is atherosclerotic calcification of the cavernous carotid and vertebr al arteries. Calvarium: Unremarkable. Sinuses and mastoids: The visualized paranasal sinuses are clear. The mastoid air cells are well pneu matized. Orbits: The bony orbits are grossly intact. There are bilateral ocular lens implants. IMPRESSION: 1. There is no hemorrhage or mass effect. 2. Subacute/evolving right frontal lobe infarct. 3. Additional findings as above. ACT 112: Negative or not required by law. Electronically signed by: Wan Franco M.D. 08/17/2023 7:30 AM
[2023-08-17] MEDS: TICAGRELOR 90 MG TAB PO SCH (08:18)
[2023-08-17] MEDS: levETIRAcetam 500 MG TAB PO SCH (08:18)
[2023-08-17 08:21] LABS: Basophils # (auto) 0.05 K/uL (0.00-0.20); Basophils % (auto) 0.7 %; Eosinophils # (auto) 0.08 K/uL (0.00-0.50); Eosinophils % (auto) 1.1 %; Hemoglobin 7.9 g/dl (14.0-18.0); Immature Granulocytes # (auto) 0.03 K/uL (0.01-0.20); Immature Granulocytes % (auto) 0.4 %; Lymphocytes # (auto) 0.59 K/uL (1.20-3.40); Lymphocytes % (auto) 8.3 %; Mean Corpuscular Hemoglobin 33.2 pg (25.0-34.0); Mean Corpuscular Hgb Conc 34.3 g/dL (32.0-36.0); Mean Corpuscular Volume 96.6 fL (80.0-100.0); Mean Platelet Volume 9.5 fL (9.4-12.4); Monocytes # (auto) 0.53 K/uL (0.11-0.59); Monocytes % (auto) 7.5 %; Platelet Count 191 K/uL (130-400); RDW Standard Deviation 45.7 fL (36.4-46.3); Red Blood Count 2.38 M/uL (4.70-6.10); White Blood Count 7.08 K/ul (4.8-10.8)
[2023-08-17 08:44] LABS: Magnesium 1.9 mg/dl (1.7-2.4)
[2023-08-17 09:06] LABS: RBC Morphology Unremarkable
[2023-08-17 09:17] LABS: Calcium 8.7 mg/dl (8.6-10.3); Potassium 4.1 mmol/L (3.5-5.1)
[2023-08-17 09:22] LABS: BUN Creatinine Ratio 11.9 (10-20); Creatinine Clr Calc Pharmacy 51.3 ml/min; Est GFR (African American) 58.4 ml/min; Est GFR (Non-African American) 50.4 ml/min
--- NOTE | 2023-08-17 13:58 | Discharge Summary ---
Date of Service August 17, 2023 Admission HPI Per Admitting Provider Patient is a 78-year-old male with past medical history of aortic stenosis, hypothyroidism, carotid artery stenosis, hyperlipidemia, hypertension, and CKD 3A who presents to the hospital for evaluation for unresponsiveness. Majority of history is provided by family in the room at the time of interview. It seems that on 07/28/2023, patient was doing well and had no complaints. He was able to drive and had no headaches. It seems over the past 24 hours, he had developed a headache that was progressively getting worse. He had tried [id number] NSAIDs but when that failed he had also taken a Percocet that he was prescribed for previous TCAR procedure. At approximately 8:30 PM, the patient had developed shaking-like movements per the family's history. The shaking was of all 4 limbs. There is also dysarthria noted and altered mental status. It was at this time that the family called 911 to have him brought in by EMS. In the ambulance, the patient was hypertensive with significant tachycardia in the 170s. No other real meaningful HPI gathered at this time given patient's poor mental status. He is able to answer some yes or no questions, but the accuracy of these answers is questionable. Patient did have recent hospitalization approximately 10 days prior to today's visit for TIA symptoms. Only real change that was made at that time was a transition from Plavix to ticagrelor which family reports he is taking. ED course: Patient assessed by ED provider and initial concern was for possible fall. However, on evaluation he was found to have a left-sided hemiparesis with left lateral gaze. For this reason a stroke alert was called and a CT and CTA of the head for stroke work-up had returned negative for large vessel disease. Patient was loaded with IV Keppra due to concern for seizure. IV Rocephin and Decadron was also given for concern of meningitis given headache and elevated white count. Telestroke consult with Dr. Washington of [facility] was performed which resulted in utilization of TNKase administration. MRI was performed and reviewed by Dr. Washington who felt the patient had a band consistent with either stroke or seizure of the right parietal/occipital region. Labs were significant for a mildly elevated white blood cell count of 11.7, VBG with a pH of 7.29, mildly low potassium at 3.4, and anion gap of 27, glucose of 286, lactate of 16.2, and elevated troponin of 101.3. After TNKase administration, the hospitalist service and ICU provider were consulted for admission and treatment. Admission Exam Per Admitting Provider Constitutional: well developed, well nourished and + altered mental status Eyes: + anicteric scleraeL lateral gaze Neck: normal visual inspection and trachea midline Respiratory: normal respiratory effort, lungs clear to auscultation Cardiovascular: RRR, no murmur, no edema Gastrointestinal (Abdomen): normal bowel sounds, soft, nontender, no hepatosplenomegaly Musculoskeletal: Head/Neck/Chest: normocephalic and head atraumatic Skin: no rashes, warm and dry Neurologic: awake and + confused Speech / Cognition: + abnormal speech L flaccid paralysis of the LUE and LLE Psychiatric: Orientation: + not oriented to place and + not oriented to time Principal Diagnosis CVA, Repeat TCAR Discharge Exam Constitutional well developed and well nourished Eyes + anicteric sclerae and reactive pupils; no conjunctival abnormality ENMT External ears and nose normal. Moist mucous membranes Respiratory normal respiratory effort, lungs clear to auscultation normal respiratory effort; no labored breathing Cardiovascular Rate/Rhythm: regular rate and regular rhythm Skin no rashes, warm and dry Psychiatric Speech: normal rate/rhythm/volume of speech Discharge Data Allergies Allergy/AdvReac Type Severity Reaction Status Date / Time Sulfa (Sulfonamide Allergy swelling/red Verified 07/29/23 23:03 Antibiotics) blotches around genitals Consultations 07/30/23 03:42 Consult Trigonometry Teacher Routine Consult Neurology Routine 08/07/23 10:36 Consult Orthopedic Surgery Routine 08/10/23 06:36 Consult Vascular Surgery Routine 08/15/23 15:21 Consult Trigonometry Teacher Routine Procedures Performed Operation Date: 08/15/23 09:20 Actual Procedures p Re-do Right Side Transcarotid Artery Revascularization(Right) - González Aguayo MD Ordered Studies 07/29/23 22:29 CT angio head w con Stat CT angio neck with con Stat CT head/brain wo con Stat 07/30/23 00:00 MR brain wo con Stat 07/31/23 01:46 CT head/brain wo con Stat 07/31/23 07:30 CT head/brain wo con Routine 08/01/23 07:00 CT head/brain wo con Routine 08/03/23 07:00 CT head/brain wo con Routine 08/09/23 07:00 CT head/brain wo con Routine 08/09/23 10:02 MRI Brain [MR brain wo con] Urgent 08/15/23 07:16 EV angio carotid cerv RT Routine US EV guide vascular access Routine 08/17/23 06:45 CT head/brain wo con Stat Chest X-Ray 07/29/23 22:29 XR chest 1V portable CLINICAL HISTORY: neuro deficit, acute stroke suspected COMPARISON STUDY: Chest radiograph July 04, 2023. FINDINGS: Lung volumes are mildly diminished. Lungs are clear. There is emphysema. There is no pneumothorax or pleural effusion. Cardiac size is stable. Mediastinal contours are normal. There is no evidence for pulmonary edema. IMPRESSION: No acute cardiopulmonary findings. No significant change in appearance of the chest. ACT 112: Negative or not required by law. Electronically signed by: Josue Jennings M.D. 07/30/2023 8:[address] 07/29/23 22:29 CR Exam(s): CT HEAD Without Contrast EXAM: CT Head Without Intravenous Contrast CLINICAL HISTORY: Reason for exam: neuro deficit, acute stroke suspected. TECHNIQUE: Axial computed tomography images of the head/brain without intravenous contrast. CTDI is 13.71 mGy and DLP is 562.88 mGy-cm. Automated exposure control was utilized for the study. A dose lowering technique was utilized adhering to the principles of ALARA. 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 Mild periventricular white matter changes, likely related to microangiopathy. No hemorrhage. Ventricles: Unremarkable. No ventriculomegaly. Bones/joints: Unremarkable. No acute fracture. Soft tissues: Unremarkable. Sinuses: Unremarkable as visualized. No acute sinusitis. Mastoid air cells: Unremarkable as visualized. No mastoid effusion. IMPRESSION: 1. 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 2. Mild periventricular white matter changes, likely related to microangiopathy. Communications: Call Doctor Stroke Electronically signed by: Noe Castaneda M.D. 07/29/23 22:55 PM Head CTA 07/29/23 22:29 CR Exam(s): CTA HEAD With Contrast IV Amt: 118 ml opti 320 EXAM: CT Angiography Head With Intravenous Contrast CLINICAL HISTORY: Reason for exam: neuro deficit, acute stroke suspected. TECHNIQUE: Axial computed tomographic angiography images of the head with intravenous contrast. CTDI is 37.12 mGy and DLP is 624.41 mGy-cm. Automated exposure control was utilized for the study. A dose lowering technique was utilized adhering to the principles of ALARA. MIP reconstructed images were created and reviewed. CONTRAST: Patient received 118 ml opti 320 of IV contrast COMPARISON: 07/20/2023 FINDINGS: Right internal carotid artery: No acute findings. Intracranial segment is patent with no significant stenosis. No aneurysm. Right anterior cerebral artery: Unremarkable. No occlusion or significant stenosis. No aneurysm. Right middle cerebral artery: Unremarkable. No occlusion or significant stenosis. No aneurysm. Right posterior cerebral artery: origin to the right posterior cerebral artery territory. Large right posterior acute communicating artery is unremarkable. 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 Left internal carotid artery: No acute findings. Intracranial segment is patent with no significant stenosis. No aneurysm. Left anterior cerebral artery: Unremarkable. No occlusion or significant stenosis. No aneurysm. Left middle cerebral artery: Unremarkable. No occlusion or significant stenosis. No aneurysm. Left posterior cerebral artery: Prominent left posterior communicating artery is unremarkable. Left vertebral artery: Unremarkable as visualized. Basilar artery: Diffusely small caliber basilar artery likely secondary to large bilateral posterior communicating arteries. No occlusion or significant stenosis. No aneurysm. IMPRESSION: No large vessel intracranial occlusion. Communications: Call Doctor Stroke Electronically signed by: Noe Castaneda M.D. 07/29/23 23:03 PM Neck CTA 07/29/23 22:29 CR Exam(s): CTA NECK With Contrast IV Amt: 118 ml opti 320 EXAM: CT Angiography Neck With Intravenous Contrast CLINICAL HISTORY: Reason for exam: neuro deficit, acute stroke suspected. TECHNIQUE: Routine carotid CT angiography protocol was performed with intravenous contrast. NASCET criteria using the distal ICAs for comparison were used for evaluation of stenoses. CTDI is 12.46 mGy and DLP is 6.23 mGy-cm. Automated exposure control was utilized for the study. A dose lowering technique was utilized adhering to the principles of ALARA. MIP reconstructed images were created and reviewed. CONTRAST: Patient received 118 ml opti 320 of IV contrast COMPARISON: 07/20/2020 FINDINGS: VASCULATURE: Right common carotid artery: Unremarkable. No occlusion or significant stenosis. No dissection. Right internal carotid artery: See below. Right external carotid artery: Unremarkable. No occlusion. 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 No occlusion or significant stenosis. Left common carotid artery: Mild to moderate atherosclerotic plaque within the distal left common carotid artery carotid bulb and proximal right internal carotid artery causing no greater than 30% stenosis. No dissection. Left internal carotid artery: Unremarkable. Extracranial segment is patent with no occlusion or significant stenosis. No dissection. Left external carotid artery: Unremarkable. No occlusion. Left vertebral artery: Moderate ostial stenosis of the origin of the left vertebral artery. No dissection. Other vasculature: Prior right carotid stent in position. There is severe in-stent stenosis of greater than 80% at the level of the carotid bulb with narrowing of the stent at this level as well. NECK: Bones/joints: Unremarkable. Soft tissues: Unremarkable. Lung apices: Clear. CAROTID STENOSIS REFERENCE USING NASCET CRITERIA: % ICA stenosis = (1 - narrowest ICA diameter/diameter of distal cervical ICA) x 100. Mild - <50% stenosis. Moderate - 50-69% stenosis. Severe - 70-94% stenosis. Near occlusion - 95-99% stenosis. Occluded - 100% stenosis. IMPRESSION: 1. Prior right carotid stent in position. There is severe in-stent stenosis of greater than 80% at the level of the carotid bulb with narrowing of the stent at this level as well. 2. 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 3. Mild to moderate atherosclerotic plaque within the distal left common carotid artery carotid bulb and proximal right internal carotid artery causing no greater than 30% stenosis. Communications: Call Doctor Stroke Electronically signed by: Noe Castaneda M.D. 07/29/23 23:19 PM Brain MRI 07/30/23 00:00 Exam(s): MRI HEAD Without Contrast EXAM: MR Head Without Intravenous Contrast CLINICAL HISTORY: Reason for exam: stroke like symptoms. TECHNIQUE: Magnetic resonance images of the head/brain without intravenous contrast in multiple planes. COMPARISON: MRI from 07/20/2023 FINDINGS: Brain: Right occipital and parietal lobe infarcts. No hemorrhage. Chronic right cerebellar infarct. Ventricles: Unremarkable. No ventriculomegaly. Bones/joints: Unremarkable. Sinuses: Unremarkable as visualized. No acute sinusitis. Mastoid air cells: Unremarkable as visualized. No mastoid effusion. Orbits: Unremarkable as visualized. IMPRESSION: Right occipital and parietal lobe infarcts. Electronically signed by: Larry Ray MD 07/30/23 02:[address] 07/31/23 01:46 CR Exam(s): CT HEAD Without Contrast EXAM: CT Head Without Intravenous Contrast CLINICAL HISTORY: Reason for exam: F/U tenecteplase. TECHNIQUE: Axial computed tomography images of the head/brain without intravenous contrast. CTDI is 37.32 mGy and DLP is 624.41 mGy-cm. Automated exposure control was utilized for the study. A dose lowering technique was utilized adhering to the principles of ALARA. COMPARISON: July 29, 20[address] CT angiogram head [address] CT head from July 20, 2023 FINDINGS: Brain: There is a trace amount of linear hyperdensity suspicious for subarachnoid hemorrhage along one of the right frontal lobe sulci, superiorly. This is new since previous. Mild cerebral atrophy and periventricular white matter low density consistent with chronic small vessel disease. There are mild areas of encephalomalacia involving an approximately 5 cm area of the right side of the cerebellum consistent with old infarct. No acute large vessel infarct is identified. Ventricles: Unremarkable. No ventriculomegaly. Bones/joints: Unremarkable. No acute fracture. Soft tissues: Unremarkable. Sinuses: Unremarkable as visualized. No acute sinusitis. Mastoid air cells: Unremarkable as visualized. No mastoid effusion. IMPRESSION: 1. There is a trace amount of linear hyperdensity suspicious for subarachnoid hemorrhage along one of the right frontal lobe sulci, superiorly. This is new since previous. 2. Mild cerebral atrophy and periventricular white matter low density consistent with chronic small vessel disease. There are mild areas of encephalomalacia involving an approximately 5 cm area of the right side of the cerebellum consistent with old infarct. No acute large vessel infarct is identified. Communications: Call Doctor Intracranial Hemorrhage Electronically signed by: Henry Aguila MD 07/31/23 03:[address] 07/31/23 07:30 CT OF THE HEAD WITHOUT CONTRAST CLINICAL HISTORY: F/U [facility] COMPARISON STUDY: MRI of the brain July 30, 2023. Head CT July 31, 2023. CT DOSE: 625.80 mGy.cm TECHNIQUE: Helical axial images of the head were obtained without IV contrast. Automated exposure control was utilized for the study. A dose lowering technique was utilized adhering to the principles of ALARA. FINDINGS: A few small foci of acute subarachnoid hemorrhage overlying the right frontal lobe are unchanged since head CT of July 31, 2023. No new sites of acute hemorrhage are identified on this exam. An acute right parietooccipital infarct is better depicted on MRI of July 30, 2023. There is an old right cerebellar infarct. Basal cisterns are patent. There are no extra-axial collections. Ventricular system is stable. Basal cisterns are patent. IMPRESSION: 1. No change in a few small foci of acute subarachnoid hemorrhage overlying the right frontal lobe since head CT of July 31, 2023. 2. Acute right parietooccipital infarct, better depicted on MRI of July 30, 2023. 3. Old right cerebellar infarct. ACT 112: Negative or not required by law. Electronically signed by: Josue Jennings M.D. 07/31/2023 9:[address] 08/01/23 07:00 CT head/brain wo con CLINICAL HISTORY: sah Technique: Contiguous axial CT images of the head were acquired from the base of the skull to the vertex without intravenous contrast administration. Images were viewed in brain, subdural and bone windows. Automated dose lowering techniques and/or adjustment according to patient size were utilized for this exam. Comparison: Comparison is made to CT head 07/31/2023 Findings: A few tiny foci of linear hyperintensity is seen in the sulci of the right frontal lobe. Additional foci in the cerebellum and occipital lobes are less evident on today's exam. Edema in the right parieto-occipital region is unchanged from prior and there is redemonstration of old right cerebellar infarct. Imaged portions of the paranasal sinuses and mastoid air cells are clear. The orbits appear normal. There are no acute fractures of the calvaria or scalp swelling. Impression: 1. Expected evolutionary changes of previously noted subarachnoid hemorrhage without evidence of new hemorrhage. 2. Old right cerebellar infarct. Acute right parieto-occipital infarct is partially seen. ACT 112: Negative or not required by law. Electronically signed by: Joseph Sepulveda M.D. 08/01/2023 10:[address] 08/03/23 07:00 CT head/brain wo con CLINICAL HISTORY: 78 years-old Male with f/u subarachnoid hemorrhage s/p TNKase. Follow-up study in a patient with intracranial hemorrhage TECHNIQUE: Multiple axial CT images of the head were obtained without contrast. A dose lowering technique was utilized adhering to the principles of ALARA. CT DOSE: 547.75 mGy.cm COMPARISON: 08/01/2023, 07/31/2023. FINDINGS: There is continued expected decrease of the trace acute subarachnoid hemorrhage, most pronounced within the right frontal lobe on image 22 series 2 which continues to progressively decrease. No new areas of acute intracranial hemorrhage are identified. Involutional changes with chronic microvascular ischemic disease. Large chronic right cerebellar infarct with acute right parieto-occipital infarct. No associated midline shift, intracranial mass, hydrocephalus, territorial ischemia or abnormal extra-axial collection. The calvarium is intact. The paranasal sinuses, mastoid air cells, and middle ear cavities are clear. IMPRESSION: 1. Continued decreased subarachnoid hemorrhage within the right frontal lobe. 2. Acute right parieto-occipital infarct again noted. 3. Large chronic right cerebellar infarct. ACT 112: Negative or not required by law. The above report was generated using voice recognition software. It may contain grammatical, syntax or spelling errors. Electronically signed by: Jose Cortes M.D. 08/03/2023 8:09 AM Wrist X-Ray 08/05/23 12:52 XR wrist LT min 3V routine CLINICAL HISTORY: left wrist pain, swelling COMPARISON: None FINDINGS: A lucency projects through the scaphoid waist. This appears to have corticated margins. This favors a nondisplaced fracture. There is subtle increased sclerosis within the proximal pole of the scaphoid. Severe osteoarthritis of the left first carpometacarpal joint is noted. There is moderate radiocarpal joint space narrowing with osteophytosis. There is chondrocalcinosis within the menisci. IMPRESSION: 1. Probable nondisplaced scaphoid waist fracture. This is age indeterminate and correlation with trauma history is recommended. Subtle increased sclerosis of the proximal pole of the scaphoid is likely within normal limits however avascular necrosis could have this imaging appearance. 2. 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 ACT 112: Negative or not required by law. Electronically signed by: Josue Jennings M.D. 08/05/2023 1:56 PM Wrist X-Ray 08/08/23 11:43 XR wrist LT w scaphoid CLINICAL HISTORY: Scaphoid fx indeterminate age TECHNIQUE: 4 views of the left wrist were obtained. Comparison: Comparison is made to left wrist radiograph 08/05/2023 FINDINGS: There is a fracture of the left scaphoid waist which appears chronic with sclerotic edges. Severe osteoarthritis is seen in the radiocarpal joint, carpal row, and first carpal metacarpal joint. Soft tissue swelling is seen about the wrist. IMPRESSION: Redemonstration of the mid waist fracture of the scaphoid which appears chronic. Extensive osteoarthritic changes are seen. ACT 112: Negative or not required by law. Electronically signed by: Joseph Sepulveda M.D. 08/08/2023 2:[address] 08/09/23 07:00 CT head/brain wo con CLINICAL HISTORY: 78 years-old Male with f/u subarachnoid hemorrhage. Follow-up study in a patient with intracranial hemorrhage TECHNIQUE: Multiple axial CT images of the head were obtained without contrast. A dose lowering technique was utilized adhering to the principles of ALARA. CT DOSE: 547.75 mGy.cm COMPARISON: 08/03/2023 FINDINGS: There is resolution of the previously described trace acute subarachnoid hemorrhage within the right frontal lobe. No new areas of acute intracranial hemorrhage are identified. Involutional changes with chronic microvascular ischemic disease. Large chronic right cerebellar infarct with acute to subacute appearing right parieto- occipital infarct again noted. Additionally, there is ill-defined area of decreased attenuation and apparent blurring of duarte-white interface in the right frontal lobe on image 14 series 2. There No associated midline shift, intracranial mass, hydrocephalus, territorial ischemia or no abnormal extra-axial collection. The calvarium is intact. The paranasal sinuses, mastoid air cells, and middle ear cavities are clear. IMPRESSION: 1. Resolution of the previously described trace subarachnoid hemorrhage within the right frontal lobe. 2. There is a new ill-defined area of decreased attenuation with apparent blurring of the duarte-white interface within the right frontal lobe suspicious for a small acute infarct. 3. Acute to subacute appearing right parieto-occipital infarct again noted. ACT 112: Negative or not required by law. The above report was generated using voice recognition software. It may contain grammatical, syntax or spelling errors. Electronically signed by: Jose Cortes M.D. 08/09/2023 8:18 AM Brain MRI 08/09/23 10:02 MR brain wo con HISTORY: 78 years-old Male possible new CVA Acute stroke-like symptoms. COMPARISON: Head CT 08/09/2023, brain MRI 07/30/2023. TECHNIQUE: Multiplanar, multisequence MRI of the brain was obtained without the use of IV contrast. FINDINGS: There is an acute appearing 3.0 x 2.4 x 4.5 cm right frontal lobe infarct on image 20 series 4 with intermediate signal on ADC map and increased diffusion- weighted signal. Moderate associated cytotoxic edema. Subtle residual subacute subarachnoid hemorrhage within the superior right frontal lobe on image 13 series 8. Subacute right parieto-occipital infarct is noted with resolved diffusion and mild persistent increased T2/FLAIR signal. Chronic right cerebellar infarct with encephalomalacia and gliosis. Involutional changes with unchanged mild white matter T2/FLAIR hyperintense foci suggestive of chronic microvascular ischemic disease. No midline shift or hydrocephalus. Cerebral venous sinuses and major arterial flow voids appear patent. Small right with moderate left mastoid effusions. IMPRESSION: 1. 4.5 cm acute right frontal lobe infarct. 2. Resolving subacute right parieto-occipital infarct with chronic right cerebellar infarct. 3. Trace residual subarachnoid hemorrhage of the superior right frontal lobe. 4. Involutional changes with mild chronic microvascular ischemic disease. ACT 112: Negative or not required by law. The above report was generated using voice recognition software. It may contain grammatical, syntax or spelling errors. Dictated: 08/09/2023 12:38 PM Transcribed: 08/09/2023 1:00 PM Laina [id number] Electronically signed by: Jose Cortes M.D. 08/09/2023 1:35 PM KUB X-Ray 08/13/23 18:58 KUB CLINICAL HISTORY: Fecal retention. FINDINGS: 3 AP, portable, supine abdominal radiographs are obtained. No prior studies are available for comparison at the time of dictation. There is a nonobstructed abdominal bowel gas pattern. There is rectosigmoid fecal retention and mild constipation. No evidence of intraperitoneal free air is seen on these supine images. There are no abnormal abdominal calcifications. Phleboliths are noted in the pelvis. The skeletal structures are osteopenic and appear intact. Lumbosacral spondylosis is observed. IMPRESSION: No acute abnormality is identified. Electronically signed by: Wan Franco M.D. 08/13/2023 7:[address] 08/17/23 06:45 CT SCAN OF THE BRAIN WITHOUT IV CONTRAST CLINICAL HISTORY: Unwitnessed fall. COMPARISON STUDY: CT an MRI of the brain dated 08/09/2023. TECHNIQUE: Unenhanced axial CT scan of the brain is performed from the vertex to the skull base. A dose lowering technique was utilized adhering to the principles of ALARA. CT DOSE: 663.26 mGy.cm FINDINGS: Brain parenchyma: There is age-related involutional change noting moderate subcortical and periventricular microangiopathic disease. There is a subacute/evolving right frontal lobe infarct. Right cerebellar encephalomalacia is unchanged and consistent with a remote insult. There are also tiny late subacute/chronic right parieto-occipital infarcts. There is no hemorrhage, mass effect, or evidence of acute territorial ischemia by CT criteria. Duarte-white matter differentiation is preserved. No extra-axial fluid collection is seen. Ventricles, sulci, cisterns: Prominent secondary to involutional change. Intracranial vasculature: There is atherosclerotic calcification of the cavernous carotid and vertebral arteries. Calvarium: Unremarkable. Sinuses and mastoids: The visualized paranasal sinuses are clear. The mastoid air cells are well pneumatized. Orbits: The bony orbits are grossly intact. There are bilateral ocular lens implants. IMPRESSION: 1. There is no hemorrhage or mass effect. 2. Subacute/evolving right frontal lobe infarct. 3. Additional findings as above. ACT 112: Negative or not required by law. Electronically signed by: Wan Franco M.D. 08/17/2023 7:30 AM Hospital Course (1) Ischemic stroke: Sukhjinder is a 78 year-old male with a past medical history of aortic stenosis, hypothyroidism, carotid artery stenosis, hyperlipidemia, hypertension, and CKD 3A who presented to the hospital for evaluation for unresponsiveness. Work up revealed a new ischemic stroke requiring TNKase administration. Patient admitted originally to the ICU for monitoring. 24 [address] follow up head [address] concerning for small subarachnoid hemorrhage. [address] showed improvement in the subarachnoid hemorrhage. Repeat head CT 08/03 showed continued improvement. Follow up head CT 08/09 showed resolution of the subarachnoid hemorrhage but did make note of a possible new acute infarct in the right frontal lobe. Brain MRI 08/09 showed acute 4.5 cm right frontal lobe infarct. Acute right frontal ischemic stroke (dx 08/09) -Suspect thromboembolic from RCA stenosis; echo neg for cardioembolic causes -Continue Brilinta Acute right occipital/parietal ischemic stroke (dx 07/30) -s/p TNKase (given 07/30/2023 at ~1:00AM) -Continue atorvastatin 40 mg daily (switched from home simvastatin) -Speech consulted; continue "easy to chew" diet, aspiration precautions -PT/OT consulted; recommending skilled rehab -Patient discharged to [facility] -Brilinta as above, per neuro considering recent subarachnoid hemorrhage will need to continue holding aspirin Subarachnoid hemorrhage secondary to TNKase administration -Head CTs have shown continued improvement -Holding aspirin in setting of recent SAH Mechanical Fall * Patient had mechanical fall on morning of 08/17 (went to grab bathroom door handle and slipped). Did not hit his head but repeated head CT which was negative Right carotid artery stenosis -s/p TCAR 07/06 -80% stenosis of RCA stent on CTA -s/p repeat TCAR completed 08/15 Left wrist pain -?secondary to acute vs. chronic scaphoid fracture- unsure of mechanism of injury -Currently in splint, NWB of left arm -Ortho consulted for further evaluation; will plan for outpatient f/u J[facility]ONNY on CKD- Resolved -Baseline creatinine ~1.4-1.6 -Did have elevated creatine earlier in admission, currently at baseline -Resume home lisinopril Hyponatremia -Suspect chronic, mild d/t diet; typically low 130s Left shoulder pain -Seemed to start after BP cuff squeezing arm -Appears to be mechanical in nature secondary to intensive PT; low suspicion for cardiac causes- EKG WNL -Continue heat, voltaren gel, pain meds PRN (avoid NSAIDs in the setting of re cent brain bleed) Seizure -Suspect patient had seizure secondary to CVA as above -Keppra loaded in the ED; continue 500 mg BID -Pt will need outpatient neuro f/u to discuss seizure medication moving forward Hypothyroidism -Continue levothyroxine Aortic stenosis -Follows with [facility] Dr. Nassar -TAVR/surgical intervention deferred pending management and stability of his right carotid disease which was felt to be higher priority -TTE 06/2023: EF hyperdynamic, greater than 75% at that time; no LVOT obstruction; valve area 0.23 Hyperlipidemia -Switched outpatient simvastatin to atorvastatin 40 mg daily Hypertension -Home lisinopril 10 mg daily PAD -Home Cilostazol held during admission due to stroke. Recommend discussion with PCP and/or Dr. Aguayo prior to resuming this medication. (2) Seizure: (3) Left hemiplegia: (4) AMS (altered mental status): (5) Hypothyroidism: (6) Aortic stenosis: (7) Carotid artery stenosis: (8) Hyperlipidemia: (9) Hypertension: (10) Chronic kidney disease, stage 3a: (11) Subarachnoid hemorrhage: (12) Left shoulder pain: Total Time Total Time Spent Total Time Spent (In Minutes): .<30 Discharge Plan Discharge Items Patient Disposition: Transfer Inpatient Rehab Fac Reason For Visit: UNRESPONSIVENESS Discharge Diagnosis: right occipital/parietal lobe ischemic stroke Activity: Per Instructions section Non-emergency contact: Primary Care Provider, Surgeon and Neurologist Call non-emergency contact if: you have any medication questions and your symptoms worsen Follow-up/Referrals: González Aguayo MD [Physician] - (f/u right carotid artery stenosis s/p TCAR) Roberto Branham DO [Physician] - (f/u seizure associated with stroke, on keppra) Luna Argueta MD [Primary Care Provider] - Diet: Regular Diet Texture: Easy to Chew Addtl Attending Provider Instructions: You were admitted to the hospital for an unresponsive episode which was found to be caused by a right sided stroke. You were treated with TNKase which is a blood thinning agent to break up the clot causing the stroke. As a result of this, there was a small brain bleed identified on head CT. This was followed with repeat CT scans for 24 hours and the bleeding did not increase or worsen. Another head CT was performed 08/03 which also did not show any worsening. This is considered stable. Another head CT should be scheduled 08/10 for follow up. A discharge summary will be sent to your primary care physician to ensure continuity of care. Please bring this discharge summary with you to your next office appointment so that your provider can review it at that time. Medications: Your medication list has been reviewed and reconciled upon discharge to ensure accuracy and continuity of care. An updated list of all your medications is included with your hospital discharge paperwork. Please review this list closely and make note of any changes to your medications. - Your home cholesterol medication, simvastatin, was changed to a stronger medication called atorvastatin. This is 40 mg daily. - You should continue your Brillinta. Due to the subarachnoid hemorrhage (bleed on the brain) earlier this admission, we have discontinued your aspirin. - You should continue the anti-seizure medication Keppra 500 mg twice per day. Follow up appointments: - Make a follow up appointment with your PCP within the next week. It is very important that you follow up with them shortly after discharge from the hospital. - You should follow up with neurology to discuss the future of your seizure medication. - You should make a follow up appointment with Dr. Aguayo for regarding your repeat TCAR. - Keep all of your follow up appointments as already scheduled. If you cannot make an appointment, notify your provider. CONTACT YOUR PRIMARY CARE PROVIDER if you experience any of the following: - Difficulty following your treatment plan - Difficulty taking any of your medications CALL 911 OR GO TO THE EMERGENCY DEPARTMENT if you experience any of the following: - Another unresponsive episode - Sudden onset weakness - Sudden, severe abdominal pain or nausea/vomiting - Severe chest pain or chest pain that radiates to your jaw or arm - Sudden, severe shortness of breath or difficulty breathing Sukhjinder is a 78 year-old male with a past medical history of aortic stenosis, hypothyroidism, carotid artery stenosis, hyperlipidemia, hypertension, and CKD 3A who presented to the hospital for evaluation for unresponsiveness. Work up revealed a new ischemic stroke requiring TNKase administration. Patient admitted originally to the ICU for monitoring. [address] concerning for small subarachnoid hemorrhage. [address] showed improvement in the subarachnoid hemorrhage. Repeat head CT 08/03 showed continued improvement. Follow up head CT 08/09 showed resolution of the subarachnoid hemorrhage but did make note of a possible new acute infarct in the right frontal lobe. Brain MRI 08/09 showed acute 4.5 cm right frontal lobe infarct. Acute right frontal ischemic stroke (dx 08/09) -Suspect thromboembolic from RCA stenosis; echo neg for cardioembolic causes -Continue Brilinta Acute right occipital/parietal ischemic stroke (dx 07/30) -s/p TNKase (given 07/30/2023 at ~1:00AM) -Continue atorvastatin 40 mg daily (switched from home simvastatin) -Speech consulted; continue "easy to chew" diet, aspiration precautions -PT/OT consulted; recommending skilled rehab- plans for d/c to [facility] once medically stable -Brilinta as above, per neuro considering recent subarachnoid hemorrhage will need to continue holding aspirin Subarachnoid hemorrhage secondary to TNKase administration -Head CTs have shown continued improvement -Holding aspirin Mechanical Fall * Patient had mechanical fall on morning of 08/17 (went to grab bathroom door handle and slipped). Did not hit his head but repeated head CT which was negative Right carotid artery stenosis -s/p TCAR 07/06 -80% stenosis of RCA stent on CTA -s/p repeat TCAR completed 08/15 Left wrist pain -?secondary to acute vs. chronic scaphoid fracture- unsure of mechanism of injury -Currently in splint, NWB of left arm -Ortho consulted for further evaluation; will plan for outpatient f/u [facility]NY on CKD-Resolved -Baseline creatinine ~1.4-1.6 -Did have elevated creatine earlier in admission, currently at baseline -Resume home lisinopril Hyponatremia -Suspect chronic, mild d/t diet; typically low 130s -Continue to monitor Left shoulder pain -Seemed to start after BP cuff squeezing arm -Appears to be mechanical in nature secondary to intensive PT; low suspicion for cardiac causes- EKG WNL -Continue heat, voltaren gel, pain meds PRN (avoid NSAIDs in the setting of brain bleed) Seizure -Suspect patient had seizure secondary to CVA as above -Keppra loaded in the ED; continue 500 mg BID -Pt will need outpatient neuro f/u to discuss seizure medication moving forward Hypothyroidism -Continue levothyroxine Aortic stenosis -Follows with [facility] Dr. Nassar -TAVR/surgical intervention deferred pending management and stability of his right carotid disease which was felt to be higher priority -TTE 06/2023: EF hyperdynamic, greater than 75% at that time; no LVOT obstruction; valve area 0.23 Hyperlipidemia -Switched outpatient simvastatin to atorvastatin 40 mg daily Hypertension -Home lisinopril 10 mg daily Addtl Case Planner Provider Instructions: SPECIAL CARE INSTRUCTIONS: Medications: * Continue to take brilinta as directed. If it needs to be stopped for any reason contact my office Incision Care: * You may shower, but do not rub incision. You may let the warm soapy water run over it. Be sure to dry the incision well after bathing. * Do not shave directly over the incision until it is healed. * DO NOT IMMERSE THE INCISION IN A TUB/POOL/etc. UNTIL HEALED. Restrictions: * Do not drive for at least one week or if you are still taking any narcotic pain medication. * Do not lift anything heavier than a gallon of milk for one week after going home. Possible Complications: * Numbness - It is normal to have some numbness around the incision. Numbness can extend beyond the incision to areas of the neck, ear and face. The numbness is due to bruising of nerves during the surgery and will gradually improve over a period of months. * Hoarseness/Difficulty Speaking and Swallowing - The bruising of nerves in the neck can also cause a hoarse voice, difficulty speaking or swallowing. This may improve over time, HOWEVER, if it continues for more than a few days please contact our office ([phone]). * Excessive Swelling - There will be some swelling immediately after surgery which usually resolves within one week. If you notice that the swelling is getting worse, notify your surgeon ([phone]). * Drainage/Bleeding - If there is any drainage or bleeding, it should be a very small amount (less than a teaspoon per day). If you have excessive bleeding or drainage from the incision, call your surgeon ([phone]) right away. ACTIVATION OF EMERGENCY MEDICAL SYSTEM: Call 911, immediately, if you experience any of the following: Warning Signs and Symptoms of Stroke: * Sudden numbness or weakness of the face, arm or leg, especially on one side of the body * Sudden confusion, trouble speaking or understanding * Sudden trouble seeing in one or both eyes * Sudden trouble walking, dizziness, loss of balance or coordination * Sudden severe headache with no cause Do not delay calling 911 if you experience any warning signs or symptoms of a stroke. Delay in seeking medical attention may affect what treatments can be given to you. Risk Factors for Stroke: You can reduce your chances of stroke by working with your medical provider to adopt a healthy lifestyle. Some specific ways to lower your chance of stroke are: * If you are a smoker, now is the time to stop smoking cigarettes * If you are diabetic, improve the control of your blood sugars * Avoid excessive amounts of alcohol * Control high blood pressure * Lose weight if you are overweight * Be sure to lead an active lifestyle * Eat a healthy diet low in salt, cholesterol and fat You should know about other risk factors for stroke that you are unable to control. These include: * Age 55 years or older * Male gender * Certain racial groups: , or / * Family History of Stroke, Mini stroke or Heart Attack * Sickle Cell Disease You will be receiving a call from the Vascular Surgery Nurse after you are discharged. FOLLOW UP VISIT: It is important for you to keep your follow up appointments with your medical provider. Keep any scheduled doctor appointments. Call [phone] to schedule a follow up appointment if one not already scheduled. Pending Studies at Discharge: No Stand-Alone Forms: My [facility] [employer], Smoking Cessation, Medications to Prevent Stroke Skilled Items Lines: None Urinary Catheter: No Medications and DC Order Prescriptions: New atorvastatin 40 mg Tablet 40 mg PO HS Qty: 0 0RF polyethylene glycol 3350 [Miralax] 17 gram Powder In Packet 17 g PO TID PRNQty: 0 0RF levetiracetam [Keppra] 500 mg Tablet 500 mg PO BID Qty: 0 0RF oxycodone-acetaminophen [Percocet] 5-325 mg Tablet 1 tab PO Q6H PRNQty: 0 0RF Continued lisinopril 10 mg Tablet 10 mg PO QAM levothyroxine [Levoxyl] 112 mcg Tablet 112 mcg PO QAM Brilinta 90 mg Tablet 90 mg PO BID Qty: 60 5RF Held cilostazol 100 mg Tablet 100 mg PO QAM Hold Instructions: Resume on 09/09/23. Discuss restarting medication with PCP or Dr. Aguayo at upcoming appointments. Hold for now Discontinued aspirin 81 mg Tablet,Delayed Release (Dr/Ec) 81 mg PO QAM simvastatin 40 mg Tablet 40 mg PO QAM oxycodone-acetaminophen [Percocet] 5-325 mg Tablet 1 tab PO Q6 PRN (Reason: Pain) Qty: 20 0RF Discharge Orders: Discharge Order (Routine); Ordered 08/17/23 Ordered By: Elisha Sanders Admission Data Admit Date/Time: 07/30/23 02:39 Attending Provider: Larry Villeda Admit Provider: Júnior Dutta Primary Care Provider: Luna Argueta Other Providers: [facility] ; John Diallo ; [id number] ; Garry Dunn ; Cole Green ; Jose Sorto ; González Aguayo ; Wan Schofield ; Donnie Rinaldi ; Hector Posadas ; Joseph Chappell ; Kai Parsons ; Vinay Nuñez ; Maciej Torre ; Sarahi Calvin ; Rose Marie Goff ; Braydon Morrison ; Kingston Mayes Other Interventions: Discharge Summary Assessment (RN) Last Done: 08/17/23 12:57 Supervising Physician Co-Signing Physician Notes I personally examined the patient and verified all basurto points of history and exam, discussed case, and agree with decision making with Dr Sanders walking with therapy whenever I see him. Had a fall early this morning but no residual symptoms, and follow-up CT head showed no recurrence of bleed (did show evolution of stroke). Vitals noted, in general he is awake and alert pleasant no distress. HEENT normocephalic atraumatic mucous membranes moist. Breathing unlabored no accessory muscle use good effort. Skin shows no rashes no pallor or icterus. Stroke with small rebound bleedhas recovered nicely acutelyongoing PT/OT. For rehab today Resident Activity Tracking Resident Involvement: Resident Care Provided Care Provided: Adult Hospital Medicine
--- NOTE | 2023-08-17 18:34 | Billing Data ---
Date of Service August 17, 2023 Coding Level of Care Code 87404 IN/OBS DISCH 30 MIN/LESS
== END 2023-08-17 14:38 | DRG 37 ==
LOC: ED 22:24 → 1E 07-30 02:39 → SUATTDRO 07-30 02:39 → 1E 07-30 03:12 → 2S 08-01 10:48 → 2N 08-03 12:36 → 3W 08-12 15:52 → 1E 08-15 15:30 → 3W 08-16 14:18
PROC: EV.TCAR (2023-08-15 09:20)

== ENCOUNTER 2025-10-15 12:43 | Observation (INO) ==
[2025-10-15] MEDS: SODIUM CHLORIDE 0.9% 1,000 ML IV ONE (13:05)
--- NOTE | 2025-10-15 13:27 | XRay Report ---
SINGLE VIEW CHEST CLINICAL HISTORY: Sepsis FINDINGS: An AP, portable, upright chest radiograph is compared to study dated 07/29/2023. The heart i s enlarged noting atherosclerotic calcification of the thoracic aorta. The pulmonary vasculature is n oncongested. Emphysema and chronic interstitial thickening is similar to previous. There is bibasilar scarring/atelectasis. No pneumothorax is seen. The skeletal structures are osteopenic. The bony thor ax is grossly intact. Advanced arthritic change is seen in the shoulders. IMPRESSION: Cardiomegaly and emphysema with no acute cardiopulmonary abnormality identified. ACT 112: Negative or not required by law. Electronically signed by: Wan Franco M.D. 10/15/2025 1:25 PM
[2025-10-15 13:45] LABS: Alanine Aminotransferase 17.0 U/L (7-52); Albumin Level 3.7 gm/dl (3.4-5.0); Alkaline Phosphatase 109.0 U/L (34-104); Anion Gap 8.0 (3-11); Bilirubin,Total 2.0 mg/dl (0.2-1.0); Blood Urea Nitrogen 33.0 mg/dl (6-23); Calcium 9.6 mg/dl (8.6-10.3); Carbon Dioxide 23.0 mmol/L (21-32); Chloride 106.0 mmol/L (98-107); Creatinine Clr Calc Pharmacy 25.2 ml/min; Glucose 125.0 mg/dl (70-99(Fasting)); Magnesium 1.9 mg/dl (1.7-2.4); Potassium 4.1 mmol/L (3.5-5.1); Sodium 137.0 mmol/L (136-145); Total Protein 7.6 gm/dl (6.0-8.3)
[2025-10-15 13:51] LABS: Hematocrit (blood only) 38.5 % (42.0-52.0); Hemoglobin 13.2 g/dL (14.0-18.0); Immature Granulocytes # (auto) 0.02 K/uL (0.01-0.20); Immature Granulocytes % (auto) 0.4 %; Mean Corpuscular Hemoglobin 32.0 pg (25.0-34.0); Mean Corpuscular Volume 93.4 fL (80.0-100.0); Platelet Count 97 K/uL (130-400); RDW Standard Deviation 45.4 fL (36.4-46.3); Red Blood Count 4.12 M/uL (4.70-6.10); White Blood Count 4.76 K/ul (4.8-10.8)
--- NOTE | 2025-10-15 13:55 | Emergency Department Note ---
Impression & Plan Generalized weakness, Pancytopenia, Elevated troponin, Elevated procalcitonin, JHONNY (acute kidney injury), Acute dehydration ED Provider Note HISTORY OF PRESENT ILLNESS: Patient is an 80-year-old male presenting with weakness. reports she is concerned he may have had a mini stroke yesterday, given his history. He is on a baby aspirin daily. She reports that yesterday he had bilateral lower extremity weakness and "seemed to almost melt to the ground." Patient reportedly was very shaky over the last 24 hours. He denies any chest pain or shortness of breath. Reportedly has been having no issues with eating or drinking over the last few days. No nausea or vomiting. Denies any abdominal pain. Denies any fevers or chills. Denies any dysuria or hematuria. ROS: as above PHYSICAL EXAM: Constitutional: Patient appears in no acute distress. HENT: Head: Normocephalic and atraumatic. Eyes: EOMI, PERRL Mouth/Throat: Mucous membranes moist. Neck: Trachea midline. Neck supple. Cardiovascular: RRR, No rubs or gallops. Intact distal pulses. Systolic murmur. Pulmonary/Chest: No respiratory distress. Breath sounds clear and equal bilaterally. No wheezes or rales. Abdominal: Abdomen soft, no tenderness, rebound or guarding. Musculoskeletal: No edema, tenderness or deformity noted. Skin: Warm and dry. No rash, erythema, pallor or cyanosis Psychiatric: Appropriate mood and affect for situation. Neurological: Alert and keenly responsive. Facies symmetric. Able to raise eyebrows, close eyes, smile, puff mouth, stick out tongue, move tongue left and right and raise palate symmetrically. Able to shrug shoulders. PERRLA. SILT to forehead below eye and at jawline. Can hear soft noise bilaterally. Good finger to nose. Strength 5/5 in bilateral upper and lower extremities. SILT throughout bilateral upper and lower extremities. MDM: - Vitals signs showed hypotension - History obtained via patient and patient's . History as above. - Chronic conditions affecting care: CVA; CKD; HTN; HLD; severe aortic stenosis; hypothyroidism - Differential diagnoses include, but are not limited to: CVA; intracranial hemorrhage; ACS; dysrhythmia; dehydration; viral syndrome; electrolyte abnormality; UTI; pneumonia - Order placed for continuous cardiac monitoring. At this time, monitor showed rate of 76 bpm with normal sinus rhythm, per my interpretation. - External medical records reviewed. Discharge summary dated 08/17/2023 was reviewed. Patient was admitted for unresponsiveness. He was found to have a CVA and had a repeat transcarotid artery revascularization. Echocardiogram dated 08/10/2023 was reviewed. Patient was noted to have normal left ventricular systolic function. Did have mild concentric left ventricular hypertrophy. Noted to have severe calcific aortic valve stenosis. - EKG image interpreted by myself showed normal sinus rhythm. Rate 85 bpm. QT 392. No acute ischemic changes. - Laboratory workup interpreted by myself showed pancytopenia (WBC 4.76; plt 97; Hgb 13.2); stable electrolytes; JHONNY (Cr 2.25 - baseline around 1.3); normal AST/ALT; slightly elevated total bilirubin (2.0); elevated troponin (2210.4); elevated procalcitonin (5.59); normal lactate - Patient noted to have a systolic murmur on examination. On documentation he has known severe aortic stenosis. He was given 1500 cc of fluid and blood pressures did improve slightly. Patient sepsis fluid volume calculation based on actual body weight is 2043.00 mL. However, due to his significant aortic stenosis, further fluid resuscitation was not administered. - Blood cultures obtained. - Empirically given IV zosyn for antibiotic coverage - CXR image reviewed interpreted by myself was negative for pneumonia, per my interpretation. - CT head wo contrast negative for acute intracranial pathology. - Viral respiratory panel added to workup. -Repeat EKG obtained at 1515 was reviewed interpreted by myself. Showed normal sinus rhythm. Rate 79 bpm. QT 426. No acute ischemic changes. Noted have occasional PVCs. - Discussion was had with insurance case manager about patient's case and need for admission - Hospitalist consulted for admission - [facility]. I have personally spent 36 minutes of critical care time in the direct management of this patient. This includes bedside care, interpretation of diagnostic studies, and testing, discussion with consultants, patient, and family members, and other required patient management activities. This 36 minutes is in excess of all separately billable procedures. ASSESSMENT AND PLAN: Diagnosis: Generalized weakness; pancytopenia; JHONNY; acute dehydration; elevated troponin; elevated procalcitonin Plan: admit Past Med/Surg History Problem List (Updated 10/15/25 @ 14:23 by Michelle Bergman MD) Acute dehydration (Acute) JHONNY (acute kidney injury) (Acute) Elevated procalcitonin (Acute) Elevated troponin (Acute) Pancytopenia (Acute) Generalized weakness (Acute) H/O: stroke with residual effects Glenohumeral arthritis Decreased ROM of left shoulder H/O stroke without residual deficits Post-operative state Stroke Stroke 1992, [place], [place], residual shaking on right side Scaphoid fracture of wrist Left shoulder pain Subarachnoid hemorrhage tPA adm status 24 hr [employer] Left-sided neglect 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 Nassar 06/27/23 Carotid artery stenosis Microscopic hematuria Hyperlipidemia Hypertension Vitamin D deficiency Chronic kidney disease, stage 3a monitor by [place] [facility] baseline creat 1.6 Medical History Transient visual loss of right eye Carotid artery disease Surgical History History of left cataract surgery History of right cataract surgery History of surgical removal of skin lesion Hx of colonoscopy History of carotid endarterectomy Hx of tonsillectomy Family History Other Dementia Heart disease Hypertension Myocardial infarction Osteoporosis Social History Smoking Status: Former smoker Tobacco Type: Cigarettes Second Hand Exposure: No; Do You Dip or Chew Tobacco: No; Hx Alcohol Use: Yes Alcohol type: hard liquor Hx Substance Use: No Preferred Language: Polish Communication Ability: Effective Poke In Required: No Beliefs That Will Affect Care: None Current Living Situation: Spouse Feels Safe at Home: Yes Assistive Devices: None Allergies Allergies Allergy/AdvReac Type Severity Reaction Status Date / Time Sulfa (Sulfonamide Allergy swelling/red Verified 05/03/24 11:31 Antibiotics) blotches around genitals Home Meds Home Medications Medication Instructions Recorded Confirmed cilostazol 100 mg tablet 100 mg PO QAM 11/21/22 07/29/23 levothyroxine 112 mcg tablet 112 mcg PO QAM 11/21/22 05/03/24 (Levoxyl) lisinopril 10 mg tablet 10 mg PO QAM 11/21/22 05/03/24 Previous Rx's Medication Instructions Recorded atorvastatin 40 mg tablet 40 mg PO HS #0 tabs 08/16/23 levetiracetam 250 mg tablet 250 mg PO BID 30 days #60 tabs 12/06/23 ticagrelor 90 mg tablet (Brilinta) 90 mg PO BID #60 tabs 05/03/24 Results & Data (ED) Vital Signs Vital Signs - 24 hr 10/15/25 12:45 10/15/25 12:55 10/15/25 13:00 Temperature 36.5 C Temperature Source Oral Pulse Rate 89 Pulse Rate from SpO2 Sensor Respiratory Rate 19 Respiratory Effort / Characteristics Non-Labored Spontaneous Respiratory Depth Normal Respiratory Pattern Regular Blood Pressure 73/39 L 84/47 L Blood Pressure Mean 50 50 Pulse Oximetry 95 98 Oxygen Delivery Method Room Air Room Air Sepsis Recent Fever Within 48 Hours No Sepsis New/Unexplained Change in Mental Status N/A Sepsis Action Taken by Nursing No Action Required 10/15/25 13:06 10/15/25 13:10 10/15/25 13:11 Temperature Temperature Source Pulse Rate 80 80 Pulse Rate from SpO2 Sensor 81 Respiratory Rate 23 Respiratory Effort / Characteristics Respiratory Depth Respiratory Pattern Blood Pressure 83/46 L Blood Pressure Mean 65 Pulse Oximetry 94 Oxygen Delivery Method Sepsis Recent Fever Within 48 Hours Sepsis New/Unexplained Change in Mental Status Sepsis Action Taken by Nursing 10/15/25 13:12 10/15/25 13:20 10/15/25 13:21 Temperature Temperature Source Pulse Rate 80 79 Pulse Rate from SpO2 Sensor 81 78 Respiratory Rate 13 20 Respiratory Effort / Characteristics Respiratory Depth Respiratory Pattern Blood Pressure 82/49 L Blood Pressure Mean 53 Pulse Oximetry 96 97 Oxygen Delivery Method Sepsis Recent Fever Within 48 Hours Sepsis New/Unexplained Change in Mental Status Sepsis Action Taken by Nursing 10/15/25 13:30 10/15/25 13:30 10/15/25 13:40 Temperature Temperature Source Pulse Rate 74 Pulse Rate from SpO2 Sensor 74 Respiratory Rate 17 Respiratory Effort / Characteristics Respiratory Depth Respiratory Pattern Blood Pressure 106/49 L 98/48 L Blood Pressure Mean 81 67 Pulse Oximetry 96 Oxygen Delivery Method Sepsis Recent Fever Within 48 Hours Sepsis New/Unexplained Change in Mental Status Sepsis Action Taken by Nursing 10/15/25 13:42 10/15/25 13:48 10/15/25 13:50 Temperature Temperature Source Pulse Rate 76 77 Pulse Rate from SpO2 Sensor 76 77 Respiratory Rate 23 20 Respiratory Effort / Characteristics Respiratory Depth Respiratory Pattern Blood Pressure 97/47 L Blood Pressure Mean 56 Pulse Oximetry 95 94 Oxygen Delivery Method Sepsis Recent Fever Within 48 Hours Sepsis New/Unexplained Change in Mental Status Sepsis Action Taken by Nursing 10/15/25 14:11 10/15/25 14:12 10/15/25 14:18 Temperature Temperature Source Pulse Rate 81 78 Pulse Rate from SpO2 Sensor 81 78 Respiratory Rate 23 19 Respiratory Effort / Characteristics Respiratory Depth Respiratory Pattern Blood Pressure 122/55 L Blood Pressure Mean 73 Pulse Oximetry 97 95 Oxygen Delivery Method Sepsis Recent Fever Within 48 Hours Sepsis New/Unexplained Change in Mental Status Sepsis Action Taken by Nursing 10/15/25 14:20 10/15/25 14:21 10/15/25 14:30 Temperature Temperature Source Pulse Rate 80 Pulse Rate from SpO2 Sensor 80 Respiratory Rate 19 Respiratory Effort / Characteristics Respiratory Depth Respiratory Pattern Blood Pressure 105/53 L 107/53 L Blood Pressure Mean 66 62 Pulse Oximetry 95 Oxygen Delivery Method Sepsis Recent Fever Within 48 Hours Sepsis New/Unexplained Change in Mental Status Sepsis Action Taken by Nursing 10/15/25 14:30 10/15/25 14:40 10/15/25 14:42 Temperature Temperature Source Pulse Rate 78 78 Pulse Rate from SpO2 Sensor 79 79 Respiratory Rate 21 22 Respiratory Effort / Characteristics Respiratory Depth Respiratory Pattern Blood Pressure 107/56 L Blood Pressure Mean 69 Pulse Oximetry 96 94 Oxygen Delivery Method Sepsis Recent Fever Within 48 Hours Sepsis New/Unexplained Change in Mental Status Sepsis Action Taken by Nursing Laboratory Data 10/15/25 12:58 10/15/25 12:58 Lab Results 10/15/25 10/15/25 Range/Units 12:55 12:58 WBC 4.76 L (4.8-10.8) K/ul RBC 4.12 L (4.70-6.10) M/uL Hgb 13.2 L (14.0-18.0) g/dL Hct 38.5 L (42.0-52.0) % MCV 93.4 (80.0-100.0) fL MCH 32.0 (25.0-34.0) pg MCHC 34.3 (32.0-36.0) g/dL RDW Std Deviation 45.4 (36.4-46.3) fL RDW Coeff of Lucille 13.4 (11.5-14.5) % Plt Count 97 L (130-400) K/uL MPV 10.5 (9.4-12.4) fL Immature Gran % (Auto) 0.4 % Neut % (Auto) 78.9 % Lymph % (Auto) 10.7 % [place] % (Auto) 9.2 % Eos % (Auto) 0.0 % Baso % (Auto) 0.8 % Neut # (Auto) 3.75 (1.40-6.50) K/uL Lymph # (Auto) 0.51 L (1.20-3.40) K/uL [place] # (Auto) 0.44 (0.11-0.59) K/uL Eos # (Auto) 0.00 (0.00-0.50) K/uL Baso # (Auto) 0.04 (0.00-0.20) K/uL Immature Gran # (Auto) 0.02 (0.01-0.20) K/uL Platelet Estimate Decreased L (Normal) Sodium 137 (136-145) mmol/L Potassium 4.1 (3.5-5.1) mmol/L Chloride 106 (98-107) mmol/L Carbon Dioxide 23 (21-32) mmol/L Anion Gap 8 (3-11) BUN 33 H (6-23) mg/dl Creatinine 2.25 H (0.6-1.4) mg/dl Est Cr Clr Drug Dosing 25.2 ml/min eGFR 28.75 BUN/Creatinine Ratio 14.7 (10-20) Glucose 125 H (70-99(Fasting)) mg/dl Lactate 1.4 (0.4-2.0) mmol/L Calcium 9.6 (8.6-10.3) mg/dl Magnesium 1.9 (1.7-2.4) mg/dl Total Bilirubin 2.0 H (0.2-1.0) mg/dl Direct Bilirubin 0.3 H (0-0.2) mg/dl AST 28 (13-39) U/L ALT 17 (7-52) U/L Alkaline Phosphatase 109 H (34-104) U/L Troponin I High Sens 2210.4 H* (0-20) pg/ml Total Protein 7.6 (6.0-8.3) gm/dl Albumin 3.7 (3.4-5.0) gm/dl Procalcitonin 5.59 H (0-0.5) ng/ml Administered Medications Discontinued Medications Sodium Chloride (Nss) 1,000 mls @ 999 mls/hr IV .Q1H1M ONE Stop: 10/15/25 13:55 Last Infusion: 10/15/25 14:42 Dose: Infused Documented By: alejandro Admin: 10/15/25 13:05 Dose: 999 mls/hr Documented By: alejandro Sodium Chloride (Nss) 500 mls @ 999 mls/hr IV .Q31M ONE Stop: 10/15/25 14:19 Last Admin: 10/15/25 14:38 Dose: 999 mls/hr Documented By: alejandro Piperacillin Sod/Tazobactam Sod (Zosyn) 4.5 gm in 100 mls @ 200 mls/hr IV NOW ONE; Protocol Stop: 10/15/25 14:24 Last Admin: 10/15/25 14:41 Dose: 200 mls/hr Documented By: alejandro Imaging Data Radiologist's Impression: Chest X-Ray 10/15/25 12:55 SINGLE VIEW CHEST CLINICAL HISTORY: Sepsis FINDINGS: An AP, portable, upright chest radiograph is compared to study dated 07/29/2023. The heart is enlarged noting atherosclerotic calcification of the thoracic aorta. The pulmonary vasculature is noncongested. Emphysema and chronic interstitial thickening is similar to previous. There is bibasilar scarring/atelectasis. No pneumothorax is seen. The skeletal structures are osteopenic. The bony thorax is grossly intact. Advanced arthritic change is seen in the shoulders. IMPRESSION: Cardiomegaly and emphysema with no acute cardiopulmonary abnormality identified. ACT 112: Negative or not required by law. Electronically signed by: Wan Franco M.D. 10/15/2025 1:[address] 10/15/25 12:55 CT SCAN OF THE BRAIN WITHOUT IV CONTRAST CLINICAL HISTORY: Generalized weakness. COMPARISON STUDY: CT of the brain dated 08/17/2023 TECHNIQUE: Unenhanced CT scan of the brain is performed from the vertex to the skull base. Images are reviewed in the axial, sagittal, coronal planes. A dose lowering technique was utilized adhering to the principles of ALARA. CT DOSE: 625.8 mGy.cm FINDINGS: Brain parenchyma: Large foci of right frontal, right parietal, and right cerebellar encephalomalacia are consistent with remote insults. There is age- related involutional change noting moderate subcortical and periventricular microangiopathic disease. There is no hemorrhage, mass effect, or evidence of acute territorial ischemia by CT criteria. Duarte-white matter differentiation is preserved. No extra-axial fluid collection is seen. Ventricles, sulci, cisterns: Prominent secondary to involutional change. Intracranial vasculature: There is atherosclerotic calcification of the cavernous carotid arteries. Calvarium: Unremarkable. Sinuses and mastoids: The visualized paranasal sinuses are clear. The mastoid air cells are well pneumatized. Cerumen is noted in the right external auditory canal. Orbits: The bony orbits are grossly intact. There are bilateral ocular lens implants. IMPRESSION: Chronic changes as above with no hemorrhage, mass effect, or evidence of acute territorial ischemia by CT criteria. ACT 112: Negative or not required by law. Electronically signed by: Wan Franco M.D. 10/15/2025 2:18 PM Discharge Plan Visit Data Chief Complaint: TIA Symptoms Stated Complaint: WEAKNESS,WALK, DELAYED SPEECH, ED Provider: Michelle Bergman Discharge Problem: Generalized weakness, Pancytopenia, Elevated troponin, Elevated procalcitonin, JHONNY (acute kidney injury), Acute dehydration Patient Disposition: Admitted As Inpatient Condition: Serious Forms Stand Alone Forms: My [facility] Prescriptions Prescriptions: No Action levetiracetam 250 mg tablet 250 mg PO BID 30 Days Qty: 60 5RF Brilinta 90 mg tablet 90 mg PO BID Qty: 60 0RF cilostazol 100 mg Tablet 100 mg PO QAM Hold Instructions: Resume on 09/09/23. Discuss restarting medication with PCP or Dr. Aguayo at upcoming appointments. Hold for now lisinopril 10 mg Tablet 10 mg PO QAM levothyroxine [Levoxyl] 112 mcg Tablet 112 mcg PO QAM atorvastatin 40 mg Tablet 40 mg PO HS Qty: 0 0RF Referrals Referrals: uLna Argueta MD [Primary Care Provider] -
--- NOTE | 2025-10-15 14:20 | CT Scan Report ---
CT SCAN OF THE BRAIN WITHOUT IV CONTRAST CLINICAL HISTORY: Generalized weakness. COMPARISON STUDY: CT of the brain dated 08/17/2023 TECHNIQUE: Unenhanced CT scan of the brain is performed from the vertex to the skull base. Images are reviewed in the axial, sagittal, coronal planes. A dose lowering technique was utilized adhering to the principles of ALARA. CT DOSE: 625.8 mGy.cm FINDINGS: Brain parenchyma: Large foci of right frontal, right parietal, and right cerebellar encephalomalacia are consistent with remote insults. There is age-related involutional change noting moderate subcorti rupinder and periventricular microangiopathic disease. There is no hemorrhage, mass effect, or evidence of acute territorial ischemia by CT criteria. Duarte-white matter differentiation is preserved. No extra- axial fluid collection is seen. Ventricles, sulci, cisterns: Prominent secondary to involutional change. Intracranial vasculature: There is atherosclerotic calcification of the cavernous carotid arteries. Calvarium: Unremarkable. Sinuses and mastoids: The visualized paranasal sinuses are clear. The mastoid air cells are well pneu matized. Cerumen is noted in the right external auditory canal. Orbits: The bony orbits are grossly intact. There are bilateral ocular lens implants. IMPRESSION: Chronic changes as above with no hemorrhage, mass effect, or evidence of acute territoria l ischemia by CT criteria. ACT 112: Negative or not required by law. Electronically signed by: Wan Franco M.D. 10/15/2025 2:18 PM
[2025-10-15] MEDS: SODIUM CHLORIDE 0.9% 500 ML IV ONE (14:38)
[2025-10-15] MEDS: PIPERACILLIN/TAZOBACTAM 4.5 GM/100 ML BAG IV ONE (14:41)
--- NOTE | 2025-10-15 15:45 | History & Physical Report ---
Date of Service October 15, 2025 Assessment & Plan (1) Acute dehydration: (2) JHONNY (acute kidney injury): (3) Elevated procalcitonin: (4) Hypertension: (5) Hyperlipidemia: (6) Chronic kidney disease, stage 3a: Plan Generalized weakness and Acute kidney injury in an 80 yo M with past medical history of aortic stenosis, hypothyroidism, carotid artery stenosis, hyperlipidemia, hypertension, and CKD 3A WIll admit to Med tele Placed on IVF Also placed on antibiotics: for possible UTI. awaiting cultures No focal complaints. Difficulty ambulating since yesterday. Pt/ot eval May be metabolic as creatinine is elevated at 2.21 Also may be due to UTI due to abnormal urine. biofire ordered. Procal is up. Elevated troponin: Likely demand ischemia, vs myocarditis. will monitor. No CAD on history, Platelets also lower will monitor. Hypothyroidism: - Continue levothyroxine Aortic stenosis: - Noted, Follows with [facility] cardiology. . Carotid artery stenosis: -S/p Right TCAR 07/06 for symptomatic stenosis with amaurosis. Stable postop hematoma without expansion, otherwise no complications at that time, recovered well and was discharged 07/07 -S/p left CEA 2009 Hyperlipidemia: -Continue atorvastatin Hypertension: - Typically on lisinopril 10 mg daily, hold for now. Acute kindey failure/Chronic kidney disease, stage 3a: Baseline creatinine approximately 1.6 Due to hypertension, tobacco use Admitting creatinine 1.66 at base History of Present Illness Chief Complaint: weakness Primary Care Provider: Luna Argueta MD 80 yo male with past medical history of aortic stenosis, hypothyroidism, carotid artery stenosis, hyperlipidemia, hypertension, and CKD 3A presents to the hospital with generalized weakness especially in his lower extremities. His was concerned that he was having another stroke, which is why she brought him to the [facility]. He reports that he was having difficulty ambulating since yesterday but it progressively worsened to the point that he "melted to the ground" This was accompanied by shakes. In the ED, patient had an elevated troponin, but no CAD history. Allergies Allergy/AdvReac Type Severity Reaction Status Date / Time Sulfa (Sulfonamide Allergy swelling/red Verified 05/03/24 11:31 Antibiotics) blotches around genitals Home Medications Medication Instructions Recorded Confirmed Type levothyroxine 112 mcg tablet 112 mcg PO QAM 11/21/22 10/15/25 History (Levoxyl) lisinopril 10 mg tablet 10 mg PO QAM 11/21/22 10/15/25 History atorvastatin 40 mg tablet 40 mg PO HS #0 tabs 08/16/23 10/15/25 Rx aspirin 81 mg tablet 81 mg PO DAILY 10/15/25 10/15/25 History Past Med/Surg History Problem List Acute dehydration (Acute) JHONNY (acute kidney injury) (Acute) Elevated procalcitonin (Acute) Elevated troponin (Acute) Pancytopenia (Acute) Generalized weakness (Acute) H/O: stroke with residual effects Glenohumeral arthritis Decreased ROM of left shoulder H/O stroke without residual deficits Post-operative state Stroke Stroke 1992, [place], [place], residual shaking on right side Scaphoid fracture of wrist Left shoulder pain Subarachnoid hemorrhage tPA 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 Nassar 06/27/23 Carotid artery stenosis Microscopic hematuria Hyperlipidemia Hypertension Vitamin D deficiency Chronic kidney disease, stage 3a monitor by ID nephrology baseline creat 1.6 Medical History Transient visual loss of right eye Per records Reason for upcoming carotid procedure Carotid artery disease s/p left CEA 2009 per 06/28/23 neck CTA- <50% stenosis to left ICA, 80% stenosis of right ICA Surgical History History of left cataract surgery History of right cataract surgery History of surgical removal of skin lesion lumps on back of knee at age 35 Hx of colonoscopy History of carotid endarterectomy left side, 2009, [place] Hx of tonsillectomy Family History Other Dementia Heart disease Hypertension Myocardial infarction Osteoporosis Social History Smoking Status: Former smoker Tobacco Type: Cigarettes Second Hand Exposure: No; Do You Dip or Chew Tobacco: No; Hx Alcohol Use: Yes Alcohol type: hard liquor Hx Substance Use: No Preferred Language: Greenlandic Communication Ability: Effective Rubber Block Layer Required: No Beliefs That Will Affect Care: None Current Living Situation: Spouse Other Information That Helps Us Care for You: No Feels Safe at Home: Yes Safety Concerns: Feels Safe At This Time Assistive Devices: Denture - Upper, Denture - Lower and Walker Review of Systems Constitutional: + weakness; no fever and no body aches Eyes: no blind spots Ear, Nose, Mouth, Throat: no ear pain Respiratory: no cough and no dyspnea Cardiovascular: no chest pain Gastrointestinal: no abdominal pain Genitourinary: no dysuria Integumentary: no lesions Neurologic: + gait abnormality Psychiatric: no behavioral changes Endocrine: + fatigue Hematologic / Lymphatic: no easy bleeding Allergy / Immunological: no GI upset with certain foods Physical Exam Constitutional: WD/WN, vitals as above Eyes: PERRL, conjunctivae normal, anicteric sclerae ENMT: external ear and nose normal, oropharynx normal Neck: trachea midline, no thyromegaly Respiratory: normal respiratory effort, lungs clear to auscultation Cardiovascular: RRR, no murmur, no edema Gastrointestinal (Abdomen): normal bowel sounds, soft, nontender, no hepatosplenomegaly Musculoskeletal: no cyanosis or clubbing, extremities motor strength 5/5 Skin: no rashes, warm and dry Neurologic: PERRL, EOMI, accommodation nl, no face palsy, no dysarthria Psychiatric: A+Ox3, euthymic affect Lymphatic: no cervical or axillary lymphadenopathy Results & Data Results & Data Vital Signs (Past 12 Hours) Vital Signs Temp Pulse Resp BP Pulse Ox O2 Del Method 10/15/25 15:30 77 18 10/15/25 15:30 107/53 L 10/15/25 15:21 77 19 10/15/25 15:20 102/47 L 10/15/25 15:10 100/49 L 10/15/25 15:00 82 22 10/15/25 14:51 78 20 97 10/15/25 14:50 90/43 L 10/15/25 14:48 81 21 97 10/15/25 14:42 78 22 94 10/15/25 14:40 107/56 L 10/15/25 14:30 78 21 96 10/15/25 14:30 107/53 L 10/15/25 14:21 80 19 95 10/15/25 14:20 105/53 L 10/15/25 14:18 78 19 95 10/15/25 14:12 81 23 97 10/15/25 14:11 122/55 L 10/15/25 13:50 97/47 L 10/15/25 13:48 77 20 94 10/15/25 13:42 76 23 95 10/15/25 13:40 98/48 L 10/15/25 13:30 74 17 96 10/15/25 13:30 106/49 L 10/15/25 13:21 79 20 97 10/15/25 13:20 82/49 L 10/15/25 13:12 80 13 96 10/15/25 13:11 80 10/15/25 13:10 83/46 L 10/15/25 13:06 80 23 94 10/15/25 13:00 84/47 L 10/15/25 12:55 98 Room Air 10/15/25 12:45 36.5 C 89 19 73/39 L 95 Room Air PG Care Time/CCT Total # of Minutes Spent Total Time Spent with Patient: Total time spent is greater than 50% in coordination of care (as documented) at patient's floor/unit and/or counseling patient: Coding Level of Care Code 68670 INT INP/OBS CARE 3/75MIN Diagnoses Acute dehydration E86.0 JHONNY (acute kidney injury) N17.9 Elevated procalcitonin R79.89 Hypertension I10 Hyperlipidemia E78.5 Chronic kidney disease, stage 3a N18.31
[2025-10-15 16:03] LABS: Chlamydia pneumoniae PCR Not Detected (NotDetected); Coronavirus 229E PCR Not Detected (NotDetected); Coronavirus CoV-2 (COVID19)PCR Not Detected (NotDetected); Coronavirus HKU1 PCR Not Detected (NotDetected); Coronavirus NL63 PCR Not Detected (NotDetected); Coronavirus OC43PCR Not Detected (NotDetected); Human Metapneumovirus PCR Not Detected (NotDetected); Parainfluenza Virus 1 PCR Not Detected (NotDetected); Parainfluenza Virus 2 PCR Not Detected (NotDetected); Parainfluenza Virus 3 PCR Not Detected (NotDetected); Parainfluenza Virus 4 PCR Not Detected (NotDetected); Respiratory Syncytial VirusPCR Not Detected (NotDetected); Rhinovirus/Enterovirus PCR Not Detected (NotDetected)
[2025-10-15 16:13] LABS: Appearance Urine Cloudy (Clear); Bacteria Urine Automated 4+ (None Seen); Epithelial Cell Urine Auto 0-2 /hpf (0-2); Glucose Urine UA Negative (Negative); WBC Urine Automated >50 /hpf (0-5)
[2025-10-15] MEDS ORDERED: ACETAMINOPHEN 325 MG TAB PO PRN (18:25)
[2025-10-15] MEDS: ATORVASTATIN 40 MG TAB PO SCH (21:05)
[2025-10-15] MEDS: PIPERACILLIN/TAZOBACTAM 4.5 GM/100 ML BAG IV SCH (21:05)
[2025-10-16] MEDS: LEVOTHYROXINE SODIUM 112 MCG TABLET PO SCH (05:26)
[2025-10-16] MEDS: HEPARIN 25000 UNIT/500 ML D5W 25,000 UNITS/500 ML BAG IV SCH (13:45)
[2025-10-16] MEDS: Heparin IV Adult Wt-Based Low-Dose *NO* INITIAL Bolus Protocol IV STA (13:45)
[2025-10-16 14:35] LABS: Hematocrit (blood only) 35.6 % (42.0-52.0); Hemoglobin 12.1 g/dL (14.0-18.0); Immature Granulocytes # (auto) 0.01 K/uL (0.01-0.20); Immature Granulocytes % (auto) 0.3 %; Mean Corpuscular Hemoglobin 32.6 pg (25.0-34.0); Mean Corpuscular Volume 96.0 fL (80.0-100.0); Platelet Count 61 K/uL (130-400); RDW Standard Deviation 46.9 fL (36.4-46.3); Red Blood Count 3.71 M/uL (4.70-6.10); White Blood Count 3.85 K/ul (4.8-10.8)
[2025-10-16 14:51] LABS: Anion Gap 5.0 (3-11); Blood Urea Nitrogen 31.0 mg/dl (6-23); Calcium 8.9 mg/dl (8.6-10.3); Carbon Dioxide 27.0 mmol/L (21-32); Chloride 105.0 mmol/L (98-107); Creatinine Clr Calc Pharmacy 33.5 ml/min; Glucose 104.0 mg/dl (70-99(Fasting)); Potassium 4.0 mmol/L (3.5-5.1); Sodium 137.0 mmol/L (136-145)
[2025-10-16 15:01] LABS: INR 1.1 (0.9-1.1); Partial Thromboplastin Time 31 Seconds (21-31); Prothrombin Time 11.7 Seconds (9.0-12.0)
--- NOTE | 2025-10-16 15:33 | Electrocardiogram Report ---
Test Reason : Blood Pressure : */* mmHG Vent. Rate : 79 BPM Atrial Rate : 79 BPM P-R Int : 204 ms QRS Dur : 84 ms QT Int : 360 ms P-R-T Axes : 67 63 73 degrees QTcB Int : 413 ms Sinus rhythm with occasional Premature ventricular complexes Normal ECG When compared with ECG of 15-Oct-2025 12:57, (unconfirmed) Premature ventricular complexes are now Present Confirmed by Chandrakant Lofton ([id number]) on 10/16/2025 3:33:03 PM Referred By: REFERRED SELF Confirmed By: Chandrakant Lofton
--- NOTE | 2025-10-16 16:13 | Hospitalist Progress Note ---
Date of Service October 16, 2025 Assessment & Plan (1) Acute dehydration: (2) JHONNY (acute kidney injury): (3) Elevated procalcitonin: (4) Hypertension: (5) Hyperlipidemia: (6) Chronic kidney disease, stage 3a: Plan Generalized weakness and Acute kidney injury in an 80 yo M with past medical history of aortic stenosis, hypothyroidism, carotid artery stenosis, hyperlipidemia, hypertension, and CKD 3A Ecnephalopathy likely metabolic from UTI remain on Med tele Appears better today. Received IVF Creatinine is slowly improving. On antibiotics for a complicated UTI Creatinine is 1.91 awaiting cultures No focal complaints. Pt/ot eval Also may be due to UTI due to abnormal urine. Elevated troponin: Likely demand ischemia, vs myocarditis. awaiting echo will monitor. No CAD on history, Platelets also lower will monitor. started heparin but after talking with cardio, will stop as no significant EKG changes and patient is asymptomatic, awaiting echo Hypothyroidism: - Continue levothyroxine Aortic stenosis: - Noted, Follows with [facility] cardiology. . Carotid artery stenosis: -S/p Right TCAR 07/06 for symptomatic stenosis with amaurosis. Stable postop hematoma without expansion, otherwise no complications at that time, recovered well and was discharged 07/07 -S/p left CEA 2009 Hyperlipidemia: -Continue atorvastatin Hypertension: - Typically on lisinopril 10 mg daily, hold for now. Acute kidney failure/Chronic kidney disease, stage 3a: Baseline creatinine approximately 1.6 On admission above 2. Admission and Anticipated Discharge Date Admission Date: October 15, 2025 Subjective Patient was ambulating yesterday and just slowly went down. And he was saying 6- 7, whcih she thought was odd. Today his reports he is back to his baseline. He has no complaints today. Physical Exam Constitutional: WD/WN, vitals as above Neck: trachea midline, no thyromegaly Respiratory: normal respiratory effort, lungs clear to auscultation Cardiovascular: RRR, no murmur, no edema Gastrointestinal (Abdomen): normal bowel sounds, soft, nontender, no hepatosplenomegaly Psychiatric: A+Ox3, euthymic affect Results & Data Results & Data Vital Signs (Past 12 Hours) Vital Signs Temp Pulse Pulse Resp BP Pulse Ox O2 Del Method 10/16/25 15:22 36.8 C 71 17 107/55 L 96 Room Air 10/16/25 13:25 71 10/16/25 08:10 Room Air 10/16/25 08:02 36.6 C 73 20 101/58 L 93 Room Air 10/16/25 06:45 86 PG Care Time/CCT Total # of Minutes Spent Total Time Spent with Patient: Total time spent is greater than 50% in coordination of care (as documented) at patient's floor/unit and/or counseling patient: Coding Level of Care Code 73818 SUB INP/OBS CARE 3/50MIN Diagnoses Acute dehydration E86.0 JHONNY (acute kidney injury) N17.9 Elevated procalcitonin R79.89 Hypertension I10 Hyperlipidemia E78.5 Chronic kidney disease, stage 3a N18.31
--- NOTE | 2025-10-16 16:44 | Electrocardiogram Report ---
Test Reason : Blood Pressure : */* mmHG Vent. Rate : 85 BPM Atrial Rate : 85 BPM P-R Int : 172 ms QRS Dur : 84 ms QT Int : 392 ms P-R-T Axes : 64 57 79 degrees QTcB Int : 466 ms Normal sinus rhythm Premature atrial complexes Normal ECG When compared with ECG of 03-Aug-2023 16:44, No significant change was found Confirmed by Chandrakant Lofton ([id number]) on 10/16/2025 4:43:50 PM Referred By: Confirmed By: Chandrakant Lofton
--- NOTE | 2025-10-16 17:52 | Cardiology Consultation ---
Date of Consultation October 16, 2025 Assessment & Plan (1) Elevated troponin: (2) JHONNY (acute kidney injury): (3) Generalized weakness: Plan Past cardiac history: 1. Severe aortic stenosis with preserved left ventricular systolic function 2. History of CVA at the age of 48 3. History of left carotid endarterectomy in 2016 4. Transient loss of vision in his right eye status post TCAR in 2022; he suffered a right hemispheric stroke and was found to have residual stenosis and stent he underwent redo TCAR with planning of stent 5. History of tobacco abuse having smoked quarter a day for 50 years We last saw Mr. Adam in the office in November 2024. At that time he maintained that he would not want any invasive intervention on his severe aortic stenosis. His severe was initially found in 2022 on echocardiogram. Today he maintains that he would not want any invasive intervention on either his aortic stenosis or cardiac catheterization re:NSTEMI. He does understand that this puts him at risk for from either the aortic stenosis, heart failure, or heart attack. We also discussed that symptomatic severe aortic stenosis has an average survival of 1 to 2 years after diagnosis. Given his wishes to avoid invasive intervention, we can support him medically. At this point his troponin is coming down and he appears comfortable and denies any anginal symptoms. His EKG did not show any ischemic changes. Likely his troponin elevation was secondary to demand ischemia in the setting of acute illness and severe aortic stenosis. The heparin drip can be discontinued. He should continue baby aspirin daily. He is hemodynamically stable. His lisinopril can be held until his blood pressure improves. History of Present Illness Attending Physician: Dinesh Richardson History of Present Illness Mr. Adam presented yesterday to the emergency department for concern by his that he was having a strok. He felt shaky and quite weak. On admission he was found to have acute kidney injury, elevated procalcitonin and and elevated C-reactive protein. His troponin peaked at 2210. He did not have any ischemic changes on his EKG. This evening he appears pretty comfortable. He denies any shortness of breath or chest pain. He is having some PVCs on the telemetry but otherwise is in a normal sinus rhythm. He feels he is pretty close to his baseline. Allergies Allergy/AdvReac Type Severity Reaction Status Date / Time Sulfa (Sulfonamide Allergy swelling/red Verified 05/03/24 11:31 Antibiotics) blotches around genitals Home Medications Medication Instructions Recorded Confirmed Type levothyroxine 112 mcg tablet 112 mcg PO QAM 11/21/22 10/15/25 History (Levoxyl) lisinopril 10 mg tablet 10 mg PO QAM 11/21/22 10/15/25 History atorvastatin 40 mg tablet 40 mg PO HS #0 tabs 08/16/23 10/15/25 Rx aspirin 81 mg tablet 81 mg PO DAILY 10/15/25 10/15/25 History Patient History Medical History Transient visual loss of right eye Per records Reason for upcoming carotid procedure Carotid artery disease s/p left CEA 2009 per 06/28/23 neck CTA- <50% stenosis to left ICA, 80% stenosis of right ICA Surgical History History of left cataract surgery History of right cataract surgery History of surgical removal of skin lesion lumps on back of knee at age 35 Hx of colonoscopy History of carotid endarterectomy left side, 2009, Zee [place] Hx of tonsillectomy Family History Other Dementia Heart disease Hypertension Myocardial infarction Osteoporosis Social History Smoking Status: Former smoker Tobacco Type: Cigarettes Second Hand Exposure: No; Do You Dip or Chew Tobacco: No; Hx Alcohol Use: Yes Alcohol type: hard liquor Hx Substance Use: No Preferred Language: Japanese Communication Ability: Effective Quality Assurance Manager Required: No Beliefs That Will Affect Care: None Current Living Situation: Spouse Other Information That Helps Us Care for You: No Feels Safe at Home: Yes Safety Concerns: Feels Safe At This Time Assistive Devices: None Review of Systems Review of Systems: All systems reviewed & are unremarkable except as noted in HPI & below Physical Exam Constitutional: WD/WN, vitals as above Respiratory: normal respiratory effort, lungs clear to auscultation Cardiovascular: Rate/Rhythm: regular rate and regular rhythm Heart Sounds: + murmur (3/6 late peaking systolic murmur lusb) Extremities: no edema Skin: no rashes, warm and dry Neurologic: moves all extremities and awake Psychiatric: A+Ox3, euthymic affect Results & Data Vital Signs (Past 12 Hours) Vital Signs Temp Pulse Pulse Resp BP Pulse Ox O2 Del Method 10/16/25 15:22 36.8 C 71 17 107/55 L 96 Room Air 10/16/25 13:25 71 10/16/25 08:10 Room Air 10/16/25 08:02 36.6 C 73 20 101/58 L 93 Room Air 10/16/25 06:45 86
[2025-10-17 07:08] LABS: Hematocrit (blood only) 32.6 % (42.0-52.0); Hemoglobin 11.2 g/dL (14.0-18.0); Mean Corpuscular Hemoglobin 32.2 pg (25.0-34.0); Mean Corpuscular Volume 93.7 fL (80.0-100.0); Platelet Count 56 K/uL (130-400); RDW Standard Deviation 44.6 fL (36.4-46.3); Red Blood Count 3.48 M/uL (4.70-6.10); White Blood Count 4.09 K/ul (4.8-10.8)
[2025-10-17 07:39] LABS: Albumin Level 3.3 gm/dl (3.4-5.0); Anion Gap 8.0 (3-11); Bilirubin,Total 2.5 mg/dl (0.2-1.0); Calcium 8.5 mg/dl (8.6-10.3); Carbon Dioxide 24.0 mmol/L (21-32); Chloride 105.0 mmol/L (98-107); Potassium 3.8 mmol/L (3.5-5.1); Sodium 137.0 mmol/L (136-145)
[2025-10-17 07:45] LABS: Alanine Aminotransferase 21.0 U/L (7-52); Albumin Globulin Ratio 1.1 (0.9-2); Alkaline Phosphatase 76.0 U/L (34-104); Blood Urea Nitrogen 26.0 mg/dl (6-23); Creatinine Clr Calc Pharmacy 36.7 ml/min; Globulin 2.9 gm/dl (2.5-4.0); Glucose 95.0 mg/dl (70-99(Fasting)); Total Protein 6.2 gm/dl (6.0-8.3)
--- NOTE | 2025-10-17 09:32 | Cardiology Progress Note ---
Date of Service October 17, 2025 Assessment & Plan (1) Elevated troponin: (2) JHONNY (acute kidney injury): (3) Generalized weakness: Plan Past cardiac history: 1. Severe aortic stenosis with preserved left ventricular systolic function 2. History of CVA at the age of 48 3. History of left carotid endarterectomy in 2016 4. Transient loss of vision in his right eye status post TCAR in 2022; he suffered a right hemispheric stroke and was found to have residual stenosis and stent he underwent redo TCAR with planning of stent 5. History of tobacco abuse having smoked quarter a day for 50 years Mr. Adam appears stable today and is not having any concerning anginal symp toms. We last saw Mr. Adam in the office in November 2024. At that time he maintained that he would not want any invasive intervention on his severe aortic stenosis. His severe was initially found in 2022 on echocardiogram. He continues to maintain that he would not want any invasive intervention on either his aortic stenosis or cardiac catheterization re:NSTEMI. He does understand that this puts him at risk for from either the aortic stenosis, heart failure, or heart attack. We also discussed that symptomatic severe aortic stenosis has an average survival of 1 to 2 years after diagnosis. It's hard to gauge how symptomatic he is as he is relatively sedentary at home. Given his wishes to avoid invasive intervention, we can support him medically. At this point his troponin is coming down and he appears comfortable and denies any anginal symptoms. His EKG did not show any ischemic changes. Likely his troponin elevation was secondary to demand ischemia in the setting of acute illness and severe aortic stenosis. He should continue baby aspirin daily. He is hemodynamically stable. His lisinopril can be held until his blood pressure improves. Cardiology will sign off at this time. He can follow up with us in the clinic in a couple of weeks. Admission and Anticipated Discharge Date Admission Date: October 15, 2025 Subjective Mr. Adam is comfortable this morning. No events overnight. He denies sob or chest pain. It sounds like at home he's been relatively asymptomatic with his . No heart failure. No sob. His leg weakness is his limiting factor with exertion. Review of Systems Review of Systems: All systems reviewed & are unremarkable except as noted in HPI & below Physical Exam Constitutional: WD/WN, vitals as above Respiratory: normal respiratory effort, lungs clear to auscultation Cardiovascular: Rate/Rhythm: regular rate and regular rhythm Heart Sounds: + murmur (3/6 late peaking systolic murmur lusb) Extremities: no edema Skin: no rashes, warm and dry Neurologic: moves all extremities and awake Psychiatric: A+Ox3, euthymic affect Results & Data Vital Signs (Past 12 Hours) Vital Signs Temp Pulse Pulse Resp BP Pulse Ox O2 Del Method 10/17/25 08:05 36.4 C L 74 16 121/63 96 Room Air 10/17/25 07:43 Room Air 10/17/25 07:24 79 10/17/25 04:07 36.4 C L 87 16 127/67 96 Room Air 10/16/25 23:00 71 10/16/25 22:41 36.3 C L 70 18 117/71 98 Room Air
[2025-10-17] MEDS: ASPIRIN 81 MG ECTAB PO SCH (09:37)
[2025-10-17] MEDS: CHOLECALCIFEROL 125 MCG (5,000 UNITS) TAB PO SCH (15:57)
[2025-10-17] MEDS: cefTRIAXone SODIUM 2,000 MG/50 ML BAG IV SCH (15:58)
--- NOTE | 2025-10-17 23:36 | Hospitalist Progress Note ---
Date of Service October 17, 2025 Assessment & Plan (1) Acute dehydration: (2) JHONNY (acute kidney injury): (3) Elevated procalcitonin: (4) Hypertension: (5) Hyperlipidemia: (6) Chronic kidney disease, stage 3a: Plan Generalized weakness and Acute kidney injury in an 80 yo M with past medical history of aortic stenosis, hypothyroidism, carotid artery stenosis, hyperlipidemia, hypertension, and CKD 3A Ecnephalopathy likely metabolic from UTI remain on Med tele Appears better today. Received IVF Creatinine is slowly improving not quite at baseline On antibiotics for a complicated UTI Creatinine is 1.91 awaiting cultures No focal complaints. Pt/ot eval Also may be due to UTI due to abnormal urine. thrombocytopenia: will monitor may have dilutional component. will monitor. Elevated troponin: Likely demand ischemia, downtrending. appreciate input from cards. will monitor. No CAD on history, Platelets also lower will monitor. started heparin but after talking with cardio, will stop as no significant EKG changes and patient is asymptomatic, awaiting echo Hypothyroidism: - Continue levothyroxine Aortic stenosis: - Noted, Follows with [facility] cardiology. . Carotid artery stenosis: -S/p Right TCAR 07/06 for symptomatic stenosis with amaurosis. Stable postop hematoma without expansion, otherwise no complications at that time, recovered well and was discharged 07/07 -S/p left CEA 2009 Hyperlipidemia: -Continue atorvastatin Hypertension: - Typically on lisinopril 10 mg daily, hold for now. Acute kidney failure/Chronic kidney disease, stage 3a: Baseline creatinine approximately 1.6 On admission above 2, downtrending. Admission and Anticipated Discharge Date Admission Date: October 15, 2025 Subjective Mr Adam reports feeling well. He has no new complaints at this time. Physical Exam Constitutional: WD/WN, vitals as above Eyes: PERRL, conjunctivae normal, anicteric sclerae ENMT: external ear and nose normal, oropharynx normal Neck: trachea midline, no thyromegaly Respiratory: normal respiratory effort, lungs clear to auscultation Cardiovascular: RRR, no murmur, no edema Gastrointestinal (Abdomen): normal bowel sounds, soft, nontender, no hepatosplenomegaly Musculoskeletal: no cyanosis or clubbing, extremities motor strength 5/5 Skin: no rashes, warm and dry Neurologic: PERRL, EOMI, accommodation nl, no face palsy, no dysarthria Psychiatric: A+Ox3, euthymic affect Lymphatic: no cervical or axillary lymphadenopathy Results & Data Results & Data Vital Signs (Past 12 Hours) Vital Signs Temp Pulse Pulse Resp BP Pulse Ox O2 Del Method 10/17/25 22:18 36.8 C 87 16 157/83 H 98 Room Air 10/17/25 22:10 75 10/17/25 19:50 36.4 C L 85 16 122/75 97 Room Air 10/17/25 15:51 36.3 C L 75 16 155/68 H 98 Room Air 10/17/25 15:23 74 PG Care Time/CCT Total # of Minutes Spent Total Time Spent with Patient: Total time spent is greater than 50% in coordination of care (as documented) at patient's floor/unit and/or counseling patient: Coding Level of Care Code 61348 SUB INP/OBS CARE 3/50MIN Diagnoses Acute dehydration E86.0 JHONNY (acute kidney injury) N17.9 Elevated procalcitonin R79.89 Hypertension I10 Hyperlipidemia E78.5 Chronic kidney disease, stage 3a N18.31
[2025-10-18 06:57] LABS: Hematocrit (blood only) 33.2 % (42.0-52.0); Hemoglobin 11.7 g/dL (14.0-18.0); Mean Corpuscular Hemoglobin 32.9 pg (25.0-34.0); Mean Corpuscular Volume 93.3 fL (80.0-100.0); Platelet Count 72 K/uL (130-400); RDW Standard Deviation 43.7 fL (36.4-46.3); Red Blood Count 3.56 M/uL (4.70-6.10); White Blood Count 3.48 K/ul (4.8-10.8)
[2025-10-18 07:42] LABS: Anion Gap 9.0 (3-11); Blood Urea Nitrogen 22.0 mg/dl (6-23); Calcium 8.8 mg/dl (8.6-10.3); Carbon Dioxide 23.0 mmol/L (21-32); Chloride 106.0 mmol/L (98-107); Creatinine Clr Calc Pharmacy 41.2 ml/min; Glucose 88.0 mg/dl (70-99(Fasting)); Potassium 3.7 mmol/L (3.5-5.1); Sodium 138.0 mmol/L (136-145)
[2025-10-18 07:44] VITALS: RESP 18; TEMP 97.5; O2SAT 92
--- NOTE | 2025-10-18 12:13 | Discharge Summary ---
Discharge Summary Date of Service October 18, 2025 Principal Dx & Hospital Course #1 = Principal Diagnosis (1) Acute dehydration: (2) JHONNY (acute kidney injury): (3) Elevated procalcitonin: (4) Hypertension: (5) Hyperlipidemia: (6) Chronic kidney disease, stage 3a: Plan Generalized weakness and Acute kidney injury in an 80 yo M with past medical history of aortic stenosis, hypothyroidism, carotid artery stenosis, hyperlip idemia, hypertension, and CKD 3A Ecnephalopathy likely metabolic from UTI remain on Med tele Appears better today. Received IVF Creatinine is slowly improving not quite at baseline On antibiotics for a complicated UTI Creatinine is 1.91 awaiting cultures No focal complaints. Pt/ot eval Also may be due to UTI due to abnormal urine. Pancytopenia/thrombocytopenia: may have dilutional component. Elevated troponin: Likely demand ischemia, downtrending. appreciate input from cards. will monitor. No CAD on history, Platelets also lower will monitor. started heparin but after talking with cardio, will stop as no significant EKG changes and patient is asymptomatic, awaiting echo Hypothyroidism: - Continue levothyroxine Aortic stenosis: - Noted, Follows with [facility] cardiology. . Carotid artery stenosis: -S/p Right TCAR 07/06 for symptomatic stenosis with amaurosis. Stable postop hematoma without expansion, otherwise no complications at that time, recovered well and was discharged 07/07 -S/p left CEA 2009 Hyperlipidemia: -Continue atorvastatin Hypertension: - Typically on lisinopril 10 mg daily, hold for now. Acute kidney failure/Chronic kidney disease, stage 3a: Baseline creatinine approximately 1.6 On admission above 2, downtrending. Admission HPI Per Admitting Provider 80 yo male with past medical history of aortic stenosis, hypothyroidism, carotid artery stenosis, hyperlipidemia, hypertension, and CKD 3A presents to the hospital with generalized weakness especially in his lower extremities. His was concerned that he was having another stroke, which is why she brought him to the hopsital. He reports that he was having difficulty ambulating since yesterday but it progr essively worsened to the point that he "melted to the ground" This was accompanied by shakes. In the ED, patient had an elevated troponin, but no CAD history. Discharge Exam Constitutional WD/WN, vitals as above Eyes PERRL, conjunctivae normal, anicteric sclerae ENMT external ear and nose normal, oropharynx normal Neck trachea midline, no thyromegaly Respiratory normal respiratory effort, lungs clear to auscultation Cardiovascular RRR, no murmur, no edema Gastrointestinal (Abdomen) normal bowel sounds, soft, nontender, no hepatosplenomegaly Musculoskeletal no cyanosis or clubbing, extremities motor strength 5/5 Skin no rashes, warm and dry Neurologic PERRL, EOMI, accommodation nl, no face palsy, no dysarthria Psychiatric A+Ox3, euthymic affect Lymphatic no cervical or axillary lymphadenopathy Discharge Plan Discharge Items Reason For Visit: WEAKNESS IN LOWER EXTREMITIES Condition on Discharge: Serious Follow-up/Referrals: Luna Argueta MD [Primary Care Provider] - Medications and DC Order Prescriptions: No Action lisinopril 10 mg Tablet 10 mg PO QAM levothyroxine [Levoxyl] 112 mcg Tablet 112 mcg PO QAM atorvastatin 40 mg Tablet 40 mg PO HS Qty: 0 0RF aspirin 81 mg Tablet 81 mg PO DAILY Admission Data Admit Date/Time: 10/15/25 18:25 Attending Provider: Dinesh Richardson Admit Provider: Dinesh Richardson Primary Care Provider: Luna Argueta Other Providers: Dinesh Richardson; Kurt Nassar Sarah Ann; Amalia Pcaker Hospital Stay Data Consultations 10/15/25 14:57 ED Decision to Admit Stat 10/16/25 13:33 Consult Cardiology Routine Diagnostic Imagining Performed 10/15/25 12:55 CT Brain [CT head/brain wo con] Stat Coding Diagnoses Acute dehydration E86.0 JHONNY (acute kidney injury) N17.9 Elevated procalcitonin R79.89 Hypertension I10 Hyperlipidemia E78.5 Chronic kidney disease, stage 3a N18.31
[2025-10-18] MEDS: LACTOBACILLUS ACIDOPHILUS 1 GM PACK PO SCH (13:44)
[2025-10-18 13:59] VITALS: BP 130/67; PULSE 88
== END 2025-10-18 15:53 | disposition home or self-care (01) | DRG 682 ==
LOC: SUATTDRO → ED 12:43 → 2N 18:25 → INTOOBSV 18:25 → 2N 19:50
DX: N17.9 Acute kidney failure, unspecified; Z79.82 Long term (current) use of aspirin; I35.0 Nonrheumatic aortic (valve) stenosis; I24.89 Other forms of acute ischemic heart disease; I65.21 Occlusion and stenosis of right carotid artery; I12.9 Hypertensive chronic kidney disease with stage 1 through stage 4 chronic kidney disease, or unspecified chronic kidney disease; Z79.890 Hormone replacement therapy; Z88.2 Allergy status to sulfonamides; D61.818 Other pancytopenia; Z86.73 Personal history of transient ischemic attack (TIA), and cerebral infarction without residual deficits; G93.41 Metabolic encephalopathy; N39.0 Urinary tract infection, site not specified; N18.32 Chronic kidney disease, stage 3b; Z79.899 Other long term (current) drug therapy; E03.9 Hypothyroidism, unspecified; Z87.891 Personal history of nicotine dependence; E86.0 Dehydration; E78.5 Hyperlipidemia, unspecified